=== PATIENT | female | born 1950 | race Caucasian/White ===

== ENCOUNTER → 2016-09-21 | Day surgery (SDC) | payer OTHER ==
[2016-09-15 10:53] VITALS: Ht 172.7 cm; Wt 109.1 kg
[~2016-09-21] VITALS: Ht 172.7 cm; Wt 109.1 kg
[~2016-09-21] MED LIST: DABI150C PO; FLUO40CA8 PO; INSU3INJ3 SC; LIDOCAINE HCL 2% 2 ML VIAL (20MG/ML) ONE; LISI20TA3 PO; METO50TA7 PO; MIDAZOLAM HCL 1 MG/ML 2ML VIAL ONE; ONDANSETRON INJ 2 MG/ML 2 ML VIAL ONE; PRLSR20 PO; PROPOFOL IV EMULSION 10 MG/ML 20 ML VIAL IV ONE; PRVC10 PO; SODIUM CHLORIDE 0.9% 500ML 500 ML IV ONE
--- NOTE | 2016-09-21 08:28 | Endo History and Physical ---
History & Physical Date of Service: Sep 21, 2016. Chief Complaint: screening Referring Physician: Anna Smith History of Present Illness 66 yo CF who presents for screening colonoscopy. Past Surgical History Hx Cardiac Surgery: No Hx Internal Defibrillator: No Hx Pacemaker: No Hx Abdominal Surgery: No Hx of Implantable Prosthesis: No Hx Post-Op Nausea and Vomiting: No Hx Cancer Surgery: No Hx Thoracic Surgery: No Hx Orthopedic: No Hx Urinary Tract Surgery: No Family History None Social History Smoking Status: Never Smoker Hx Substance Use: No Hx Alcohol Use: No Allergies Coded Allergies: No Known Allergies (Verified , 09/21/16) Current Medications Reported Home Medications Medications Dose Route/Sig Max Daily Dose Days Date Category Pravastatin Sodium (Pravastatin Sod) 10 Mg Tab 1 Tab PO QPM 09/15/16 Reported Levemir Flextouch (Insulin Detemir) 100 Unit/Ml Inj 22 Units SC QPM 09/15/16 Reported Toprol-Xl (Metoprolol Succinate) 50 Mg Tabcr 50 Mg PO BID 09/15/16 Reported Pradaxa (Dabigatran Etexilate Mesylate) 150 Mg Cap 150 Mg PO BID 05/10/12 Reported Prilosec (Omeprazole) 20 Mg Capcr 20 Mg PO QAM 05/10/12 Reported Prinivil (Lisinopril) 20 Mg Tab 0.5 Tab PO BID 05/10/12 Reported Prozac (Fluoxetine Hcl) 40 Mg Cap 40 Mg PO QAM 12/31/11 Reported Vital Signs Weight (Kilograms): 109.09 Height (Feet): 5 Height (Inches): 8 Date Time Temp Pulse Resp B/P Pulse Ox O2 Delivery O2 Flow Rate FiO2 09/21/16 08:16 36.4 94 20 144/101 97 Room Air Physical Exam General Appearance: WD/WN, no apparent distress Respiratory/Chest: Auscultation: breath sounds normal Cardiovascular: Heart Auscultation: RRR Abdomen: Bowel Sounds: normal Inspection & Palpation: soft, non-distended, no tenderness, guarding & rebound Assessment and Plan Assessment: 66 yo CF who presents for screening colonoscopy. Plan: Proceed with colonoscopy.
--- NOTE | 2016-09-21 08:47 | Discharge Instructions ---
Endoscopy Patient Instructions Date / Procedure(s) Performed Sep 21, 2016. Colonoscopy Allergy Information Coded Allergies: No Known Allergies (Verified , 09/21/16) Discharge Date / Findings Sep 21, 2016. Colon polyp Diverticulosis Internal hemorrhoids Medication Instructions Stopped Medication(s): Last dose Pradaxa Monday OK to resume all medications today as prescribed Reported Home Medications Medications Dose Route/Sig Max Daily Dose Days Date Category Pravastatin Sodium (Pravastatin Sod) 10 Mg Tab 1 Tab PO QPM 09/15/16 Reported Levemir Flextouch (Insulin Detemir) 100 Unit/Ml Inj 22 Units SC QPM 09/15/16 Reported Toprol-Xl (Metoprolol Succinate) 50 Mg Tabcr 50 Mg PO BID 09/15/16 Reported Pradaxa (Dabigatran Etexilate Mesylate) 150 Mg Cap 150 Mg PO BID 05/10/12 Reported Prilosec (Omeprazole) 20 Mg Capcr 20 Mg PO QAM 05/10/12 Reported Prinivil (Lisinopril) 20 Mg Tab 0.5 Tab PO BID 05/10/12 Reported Prozac (Fluoxetine Hcl) 40 Mg Cap 40 Mg PO QAM 12/31/11 Reported Provider Instructions Activity Restrictions - No exercising or heavy lifting for 24 hours. - Do not drink alcohol the day of the procedure. - Do not drive a car or operate machinery until the day after the procedure. - Do not make any important decisions or sign important papers in 24 hours after the procedure. Following Day: - Return to full activity which may include returning to work/school. Diet Start your diet with liquids and light foods (jello, soup, juice, toast). Then eat your usual diet if not nauseated. Treatment For Common After Affects For mild abdominal pain, bloating, or excessive gas: - Rest - Eat lightly - Lie on right side Follow-Up Information Follow-up with Anna Smith as scheduled Anesthesia Information What You Should Know You have had a procedure that required some medicine to reduce anxiety and discomfort. This treatment is called moderate sedation. After receiving the treatment, you may be sleepy, but you will be able to breathe on your own. The effects of the treatment may last for several hours. Follow these instructions along with Activity/Diet recommendations noted above: * Do NOT do anything where dizziness or clumsiness would be dangerous. * Rest quietly at home today, then you can be up and about tomorrow. * Have a responsible person stay with you the rest of today. * You may have had an I.V. today. If so, you may take the dressing off later today. Recommendations Call your doctor if: * Trouble breathing * Continuous vomiting for more than 24 hours * Temperature above 101 degrees * Severe abdominal pain or bloating * Pain not relieved by pain medicine ordered * There is increased drainage or redness from any incision * A large amount of rectal bleeding greater than 2-3 tablespoons. (If you had a polyp/s removed or have hemorrhoids, a small amount of blood - from the rectum is to be expected.) * You have any unanswered questions or concerns. IN THE EVENT OF A SERIOUS EMERGENCY, GO TO THE NEAREST EMERGENCY ROOM Your discharge instructions were prepared by provider Clinton Ledesma. Patient Instructions Signature Page Mamie Way Patient (or Guardian) Signature/Date: I have read and understand the instructions given to me by my caregivers. Caregiver/RN/Doctor Signature/Date: The above-named patient and/or guardian has received patient instructions on this date. + Original Patient Signature Page (only) stays with chart. Please make copy for patient.
--- NOTE | 2016-09-21 08:50 | GI REPORT ---
Procedure Date: 09/21/2016 8:32 AM THIS REPORT HAS BEEN AMENDED Addendum Number: 1 Addendum Date: 09/21/2016 9:19:12 AM Patient was taking Pradaxa and stopped 3 days prior to procedure. She may resume Pradaxa therapy today. Procedure: Colonoscopy Indications: Screening for colorectal malignant neoplasm Medicines: Monitored Anesthesia Care Complications: No immediate complications. Estimated Blood Loss: Estimated blood loss: none. Procedure: Pre-Anesthesia Assessment: - Prior to the procedure, a History and Physical was performed, and patient medications and allergies were reviewed. The patient's tolerance of previous anesthesia was also reviewed. The risks and benefits of the procedure and the sedation options and risks were discussed with the patient. All questions were answered, and informed consent was obtained. Prior Anticoagulants: The patient has taken no previous anticoagulant or antiplatelet agents. ASA Grade Assessment: II - A patient with mild systemic disease. After reviewing the risks and benefits, the patient was deemed in satisfactory condition to undergo the procedure. After I obtained informed consent, the scope was passed under direct vision. Throughout the procedure, the patient's blood pressure, pulse, and oxygen saturations were monitored continuously. The Scope was introduced through the anus and advanced to the terminal ileum. The colonoscopy was performed without difficulty. The patient tolerated the procedure well. The quality of the bowel preparation was good. The terminal ileum, ileocecal valve, appendiceal orifice, and rectum were photographed. Findings: A 5 mm polyp was found in the ascending colon. The polyp was sessile. The polyp was removed with a hot snare. Resection and retrieval were complete. Multiple small-mouthed diverticula were found in the sigmoid colon. Non-bleeding internal hemorrhoids were found during retroflexion. The hemorrhoids were small. Impression: - One 5 mm polyp in the ascending colon, removed with a hot snare. Resected and retrieved. - Diverticulosis in the sigmoid colon. - Non-bleeding internal hemorrhoids. Recommendation: - Resume previous diet. - Continue present medications. - Repeat colonoscopy for surveillance based on pathology results. - Return to primary care physician as previously scheduled. Clinton Ledesma DO 09/21/2016 8:49:53 AM This report has been signed electronically. Note Initiated On: 09/21/2016 8:32 AM I attest to the content of the Intraoperative Record and orders documented therein, exceptions below Clinton Ledesma DO 09/21/2016 9:19:40 AM This report has been signed electronically.
[2016-09-21 09:22] VITALS: BP 130/103; PULSE 78; O2SAT 100
--- NOTE | 2016-09-21 14:22 | Anesthesiology Progress Note ---
Anesthesia Post Op Note Date & Time Sep 21, 2016 at 14:21 Vital Signs Pain Intensity: 0 Vital Signs Past 12 Hours Date Time Temp Pulse Resp B/P Pulse Ox O2 Delivery O2 Flow Rate FiO2 09/21/16 09:22 78 16 130/103 100 Room Air 09/21/16 09:07 83 16 130/90 99 Room Air 09/21/16 08:52 90 16 142/88 95 Room Air 09/21/16 08:16 36.4 94 20 144/101 97 Room Air Notes Mental Status: alert / awake / arousable, participated in evaluation Pt Amnestic to Procedure: Yes Nausea / Vomiting: adequately controlled Pain: adequately controlled Airway Patency, RR, SpO2: stable & adequate BP & HR: stable & adequate Hydration State: stable & adequate Anesthetic Complications: no major complications apparent
== END | disposition home or self-care (01) ==
LOC: C.GI 07:49
PROVIDERS: ATTEND Internal Medicine
DX: Z12.11 Encounter for screening for malignant neoplasm of colon (principal); D12.2 Benign neoplasm of ascending colon; K64.8 Other hemorrhoids; K57.30 Diverticulosis of large intestine without perforation or abscess without bleeding; E11.9 Type 2 diabetes mellitus without complications

== ENCOUNTER 2017-07-15 14:09 | Inpatient (IN) | payer OTHER ==
[~2017-07-15] VITALS: Ht 172.7 cm; Wt 111.2 kg
[~2017-07-15 14:09] MED LIST changes: -LIDOCAINE HCL 2% 2 ML VIAL (20MG/ML) ONE; -MIDAZOLAM HCL 1 MG/ML 2ML VIAL ONE; -ONDANSETRON INJ 2 MG/ML 2 ML VIAL ONE; -PROPOFOL IV EMULSION 10 MG/ML 20 ML VIAL IV ONE; -SODIUM CHLORIDE 0.9% 500ML 500 ML IV ONE
[2017-07-15] MEDS ORDERED: ALBUT/IPRATROP 3MG/0.5MG NEB 3 ML VIAL INH STA (14:35)
[2017-07-15] MEDS ORDERED: SODIUM CHLORIDE 0.9% 1000ML 1,000 ML IV STA ×2 (14:35→16:08)
[2017-07-15] MEDS ORDERED: METOPROLOL TARTRATE 1 MG/ML VIAL IV STA ×2 (14:55→16:02)
--- NOTE | 2017-07-15 15:43 | DIAGNOSTIC IMAGING REPORT ---
CHEST ONE VIEW PORTABLE CLINICAL HISTORY: Cough. Tachycardia. COMPARISON STUDY: Chest radiograph and chest CT December 31, 2011. FINDINGS: The lung volumes are normal. No pneumothorax or pleural effusion is present. No consolidation is identified and there is no evidence for pulmonary edema. Mild cardiomegaly is noted. IMPRESSION: No acute cardiopulmonary findings. Electronically signed by: Fernando Ayala M.D. 07/15/2017 3:42 PM Dictated Date/Time: 07/15/2017 3:26 PM
[2017-07-15 15:56] LABS: INFLUENZA B ANTIGEN Neg for Influ B (NEG)
[2017-07-15] MEDS ORDERED: DILTIAZEM BOLUS / DRIP IV STA (16:10)
[2017-07-15 16:12] LABS: BASO % 0.2 %; BASO ABS # 0.02 K/uL (0-0.2); EOS % 0.2 %; EOS ABS # 0.02 K/uL (0-0.5); HEMATOCRIT 37.2 % (37-47); HEMOGLOBIN 12.3 g/dL (12.0-16.0); IG# 0.04 K/uL (0.00-0.02); LYMPH % 7.9 %; LYMPH ABS # 0.97 K/uL (1.2-3.4); MEAN CORPUSCULAR HEMOGLOBIN 27.8 pg (25-34); MEAN CORPUSCULAR HGB CONC 33.1 g/dl (32-36); MEAN PLATELET VOLUME 10.7 fL (7.4-10.4); MONO % 7.8 %; MONO ABS # 0.96 K/uL (0.11-0.59); NEUT % 83.6 %; NEUT ABS # 10.25 K/uL (1.4-6.5); PLATELET COUNT 213 K/uL (130-400); RED CELL DISTRIBUTION WIDTH CV 14.5 % (11.5-14.5); RED CELL DISTRIBUTION WIDTH SD 45.1 fL (36.4-46.3); WHITE BLOOD COUNT 12.26 K/uL (4.8-10.8)
--- NOTE | 2017-07-15 16:18 | EMERGENCY ROOM VISIT NOTE ---
History First contact with patient: 14:27 Chief Complaint: FLU LIKE SX Stated Complaint: VERY WEAK History of Present Illness The patient is a 67 year old female who presents to the Emergency Room via private vehicle with complaints of "very weak". The patient states that for the past 8 days she is been experiencing a cough, and feeling weak diffusely. She denies any unilateral weakness or speech troubles. She states she has minimal sinus congestion and minimal shortness of breath. She states that she has been coughing and brown-like sputum. She denies any fevers or chills. She states that she has been too weak to her meds for her atrial fibrillation. She takes Lopressor as well as Robaxin. She denies any recent long travel, recent fracture, history of blood clots, taking any hormones or abdominal pain. Review of Systems A complete 10-point Review of Systems was discussed with the patient, with pertinent positives and negatives listed in the History of Present Illness. All remaining Review of Systems questions can be considered negative unless otherwise specified. Past Medical/Surgical History Medical Problems: (1) Atrial fibrillation with RVR Afib Family History Non contributory Social History Smoking Status: Never Smoker Alcohol Use: none Marital Status: Occupation Status: employed Current/Historical Medications Scheduled Dabigatran Etexilate Mesylate (Pradaxa), 150 MG PO BID Fluoxetine Hcl (Prozac), 40 MG PO QAM Insulin Detemir (Levemir Flextouch), 22 UNITS SC QPM Lisinopril (Prinivil), 20 MG PO DAILY Metoprolol Succ (Toprol Xl) (Toprol-Xl), 50 MG PO BID Omeprazole (Prilosec), 20 MG PO QAM Pravastatin Sod (Pravastatin Sodium), 10 MG PO QPM Physical Exam Vital Signs Date Time Temp Pulse Resp B/P (MAP) Pulse Ox O2 Delivery O2 Flow Rate FiO2 07/15/17 17:11 100 27 95 07/15/17 17:06 99 25 94 07/15/17 17:01 93 18 106/90 97 07/15/17 16:57 117/71 07/15/17 16:56 121 16 85 07/15/17 16:46 88 26 98/62 94 07/15/17 16:41 91 26 97/56 92 07/15/17 16:36 105/53 07/15/17 16:34 88 18 93 2/08/27 16:31 111/60 218 16:29 118 20 93 2 16:24 128 27 95 07/15/17 16:19 124 23 96 07/15/17 16:14 142 20 96 2 16:09 155 21 94 07/15/17 16:06 118/87 07/15/17 16:04 141 34 96 07/15/17 16:01 123/59 07/15/17 15:59 142 18 95 07/15/17 15:54 149 20 96 07/15/17 15:49 146 19 96 07/15/17 15:44 142 22 95 07/15/17 15:43 141 18 113/85 95 Room Air 07/15/17 15:42 113/85 07/15/17 15:39 180 26 98 07/15/17 15:34 143 15 99 07/15/17 15:29 146 21 88 07/15/17 15:24 130 19 100 07/15/17 15:19 146 14 96 07/15/17 15:17 167 07/15/17 15:15 175 155/108 07/15/17 15:14 127 19 96 07/15/17 15:12 96 Room Air 07/15/17 15:09 162 29 96 07/15/17 15:04 156 32 95 07/15/17 14:59 156 30 94 07/15/17 14:54 145 25 96 07/15/17 14:47 155/108 2 14:46 158 20 155/108 97 Room Air 07/15/17 14:17 37.4 128 20 101/71 96 Room Air Physical Exam VITAL SIGNS - Vital signs and nursing notes were reviewed. Tachycardic. Afebrile. GENERAL -67-year-old female appearing her stated age who is in no acute distress. Patient appears ill/tired but nontoxic. Communicates well with provider and answers questions appropriately. SKIN - Without rashes. HEAD - NC/AT. EYES - PERRL with EOMI bilaterally. Sclera anicteric. EARS - No deformities of external structures noted on gross examination bilaterally. NOSE - Midline and without cyanosis. No epistaxis or purulent drainage noted. MOUTH/OROPHARYNX - Without perioral cyanosis. Buccal mucosa pink and moist and without leukoplakia. Tongue midline with equal elevation of palate bilaterally. No tonsillar hypertrophy, erythema, or exudates noted. [] dentition noted. NECK - Neck with FROM. No nuchal rigidity. LUNGS - Chest wall symmetric without accessory muscle use, intercostals retractions, or central cyanosis. Normal vesicular breath sounds CTA B/L. No wheezes, rales, or rhonchi appreciated. CARDIAC -irregularly irregular with S1/S2. No murmur, rubs, or gallops appreciated. NEUROLOGIC - Cranial nerves II through XII grossly intact. Sensory intact to light touch throughout. PSYCH - A&O, and cooperates fully with examiner. Pt is very pleasant and interacts well with examiner. Medical Decision & Procedures ER Provider Diagnostic Interpretation: CHEST ONE VIEW PORTABLE CLINICAL HISTORY: Cough. Tachycardia. COMPARISON STUDY: Chest radiograph and chest CT December 31, 2011. FINDINGS: The lung volumes are normal. No pneumothorax or pleural effusion is present. No consolidation is identified and there is no evidence for pulmonary edema. Mild cardiomegaly is noted. IMPRESSION: No acute cardiopulmonary findings. Electronically signed by: Fernando Ayala M.D. 07/15/2017 3:42 PM Dictated Date/Time: 07/15/2017 3:26 PM Laboratory Results 07/15/17 15:46 Red Blood Count 4.43, Mean Corpuscular Volume 84.0, Mean Corpuscular Hemoglobin 27.8, Mean Corpuscular Hemoglobin Concent 33.1, Mean Platelet Volume 10.7, Neutrophils (%) (Auto) 83.6, Lymphocytes (%) (Auto) 7.9, Monocytes (%) (Auto) 7.8, Eosinophils (%) (Auto) 0.2, Basophils (%) (Auto) 0.2, Neutrophils # (Auto) 10.25, Lymphocytes # (Auto) 0.97, Monocytes # (Auto) 0.96, Eosinophils # (Auto) 0.02, Basophils # (Auto) 0.02 07/15/17 15:46 Test 07/15/17 14:46 07/15/17 15:46 07/15/17 15:53 Influenza Type A Antigen Neg for Influ A (NEG) Influenza Type B Antigen Neg for Influ B (NEG) White Blood Count 12.26 K/uL (4.8-10.8) Red Blood Count 4.43 M/uL (4.2-5.4) Hemoglobin 12.3 g/dL (12.0-16.0) Hematocrit 37.2 % (37-47) Mean Corpuscular Volume 84.0 fL (80-100) Mean Corpuscular Hemoglobin 27.8 pg (25-34) Mean Corpuscular Hemoglobin Concent 33.1 g/dl (32-36) Platelet Count 213 K/uL (130-400) Mean Platelet Volume 10.7 fL (7.4-10.4) Neutrophils (%) (Auto) 83.6 % Lymphocytes (%) (Auto) 7.9 % Monocytes (%) (Auto) 7.8 % Eosinophils (%) (Auto) 0.2 % Basophils (%) (Auto) 0.2 % Neutrophils # (Auto) 10.25 K/uL (1.4-6.5) Lymphocytes # (Auto) 0.97 K/uL (1.2-3.4) Monocytes # (Auto) 0.96 K/uL (0.11-0.59) Eosinophils # (Auto) 0.02 K/uL (0-0.5) Basophils # (Auto) 0.02 K/uL (0-0.2) RDW Standard Deviation 45.1 fL (36.4-46.3) RDW Coefficient of Variation 14.5 % (11.5-14.5) Immature Granulocyte % (Auto) 0.3 % Immature Granulocyte # (Auto) 0.04 K/uL (0.00-0.02) Prothrombin Time 11.4 SECONDS (9.0-12.0) Prothromb Time International Ratio 1.1 (0.9-1.1) Activated Partial Thromboplast Time 35.5 SECONDS (21.0-31.0) Partial Thromboplastin Ratio 1.4 Anion Gap 8.0 mmol/L (3-11) Est Creatinine Clear Calc Drug Dose 47.4 ml/min Estimated GFR () 41.4 Estimated GFR (Non- 35.7 BUN/Creatinine Ratio 14.6 (10-20) Calcium Level 8.1 mg/dl (8.5-10.1) Magnesium Level 1.6 mg/dl (1.8-2.4) Total Bilirubin 0.4 mg/dl (0.2-1) Aspartate Amino Transf (AST/SGOT) 12 U/L (15-37) Alanine Aminotransferase (ALT/SGPT) 18 U/L (12-78) Alkaline Phosphatase 60 U/L (45-117) Total Creatine Kinase 73 U/L (26-192) Creatine Kinase MB < 0.5 ng/ml (0.5-3.6) Creatine Kinase MB Ratio (0-3.0) Troponin I < 0.015 ng/ml (0-0.045) Total Protein 7.2 gm/dl (6.4-8.2) Albumin 2.5 gm/dl (3.4-5.0) Globulin 4.7 gm/dl (2.5-4.0) Albumin/Globulin Ratio 0.5 (0.9-2) Thyroid Stimulating Hormone (TSH) 2.090 uIu/ml (0.300-4.500) Lactic Acid Level 2.0 mmol/L (0.4-2.0) Medications Administered Medications (Trade) Dose Ordered Sig/Glen Route Start Time Stop Time Status Last Admin Dose Admin Sodium Chloride 1,000 ml @ 999 mls/hr Q1H1M STAT IV 07/15/17 14:35 07/15/17 15:35 DC 07/15/17 15:17 999 MLS/HR Albuterol/ Ipratropium (Duoneb) 3 ml NOW STAT INH 07/15/17 14:35 07/15/17 14:38 DC 07/15/17 15:15 3 ML Metoprolol Tartrate (Lopressor Iv) 5 mg NOW STAT IV 07/15/17 14:55 07/15/17 14:56 DC 07/15/17 15:15 5 MG Sodium Chloride 1,000 ml @ 200 mls/hr Q5H STAT IV 07/15/17 16:08 07/15/17 21:07 07/15/17 16:24 200 MLS/HR Diltiazem HCl (Cardizem Inj) 20 mg TODAY@1630 IV 07/15/17 16:30 07/15/17 16:31 DC 07/15/17 16:22 20 MG Diltiazem HCl 125 mg/Dextrose 125 ml @ 0 mls/hr Q0M PRN IV 07/15/17 16:30 08/14/17 16:29 07/15/17 16:27 10 MLS/HR Medical Decision Patient was seen and evaluated as above. She presents to us today with generalized weakness, it has been ongoing for 8 days. There is a productive cough with brown sputum. She has a history of A. fib. She has not been able take all of her medications regularly secondary to being so weak to retrieve the medications. Upon my entrance into the exam room the patient has a very fast heart rate, and was found to be in the 150s. Bedside EKG per my interpretation reveals atrial fibrillation with RVR rate of 156 beats per minute. Because she has not been able take her Lopressor will provide an IV dose of this and 1 L of normal saline wide open. She was reevaluated and the heart rate persisted but the blood pressure dropped therefore Lopressor will not be continued, and decision was made to change a Cardizem drip with another NSS bolus. This appeared 20 mg bolus, followed by 10 mg per hour. Chest x-ray revealed no acute process. Rate was excellent with the Cardizem, however after the bolus and the drip was started her blood pressure began to drop therefore they drip was stopped and the heart rate continued to do well. There is slight leukocytosis at 12.26, no concerning anemia. Coags show a PTT along the 35.5. Patient had a ball panel reveals hyponatremia at 129, chloride low at 96, evidence of dehydration with creatinine 1.49, and BUN 22, glucose at 281, lactic normal at 2, cultures pending, calcium low at 8.1, magnesium low 1.6, AST low at 12, troponin negative, and TSH at 2.09. Negative for flu. I suspect that she likely is experiencing a flulike illness, which has created her weakness and then due to the weakness has not been able to take her medications and subsequent to this is in A. fib with RVR. I believe that once she is treated for the illness, is hydrated she will do well. I discussed the case with the attending physician as well as the hospitalist, Dr. Monique. Please refer to further documentation regarding the patient's stay. Blood pressure was initially low upon presentation, and it was high I suspect likely secondary to situation. Patient medication list was reviewed. In the evaluation and treatment of this patient the following differential diagnoses were entertained: ID, PE, pneumonia, bronchitis, influenza, sepsis, A. fib, among others. Impression Primary Impression: Atrial fibrillation with RVR Additional Impression: Influenza-like symptoms Critical Care I have personally spent greater than 35 minutes of critical care time in the direct management of this patient. This includes bedside care, interpretation of diagnostic studies, and testing, discussion with consultants, patient, and family members, and other required patient management activities. This 35 minutes is in excess of all separately billable procedures. Departure Information Dispostion Admitted as an inpatient Condition FAIR Referrals Anna Smith PA-C (PCP) Patient Instructions My [facility] Problem Qualifiers
[2017-07-15 16:21] LABS: INR 1.1 (0.9-1.1); PTT PATIENT 35.5 SECONDS (21.0-31.0)
[2017-07-15 16:30] LABS: ALBUMIN 2.5 gm/dl (3.4-5.0); ALT/SGPT 18 U/L (12-78); BLOOD UREA NITROGEN 22 mg/dl (7-18); CALCIUM 8.1 mg/dl (8.5-10.1); CARBON DIOXIDE 24 mmol/L (21-32); CREATININE 1.49 mg/dl (0.60-1.20); GLUCOSE 281 mg/dl (70-99); POTASSIUM 4.1 mmol/L (3.5-5.1); SODIUM 129 mmol/L (136-145)
[2017-07-15] MEDS ORDERED: DILTIAZEM HCL INJ 125 MG in DEXTROSE 5% 100ML IV PRN (16:30)
[2017-07-15] MEDS ORDERED: DILTIAZEM HCL 5 MG/ML 5 ML VIAL BOLUS/OMNI IV SCH (16:30)
[2017-07-15 16:41] LABS: ALKALINE PHOSPHATASE 60 U/L (45-117); AST/SGOT 12 U/L (15-37); CKMB < 0.5 ng/ml (0.5-3.6); TOTAL PROTEIN 7.2 gm/dl (6.4-8.2)
[2017-07-15] MEDS ORDERED: MAGNESIUM HYDROXIDE SUSP 30 ML UDC PO PRN (17:45)
[2017-07-15] MEDS ORDERED: NITROGLYCERIN 0.4 MG SL PER TAB CHARGE SL PRN (17:45)
[2017-07-15] MEDS ORDERED: METOPROLOL TARTRATE 1 MG/ML VIAL IV PRN (17:45)
[2017-07-15] MEDS ORDERED: ALUMINUM/MAGNESIUM/SIMETH (MAALOX MAX) 30 ML UDC PO PRN (17:45)
[2017-07-15] MEDS ORDERED: PNEUMOCOCCAL POLYSACCHARIDES 25 MCG/0.5 ML VIAL/SYR IM. ONE (17:45)
[2017-07-15] MEDS ORDERED: INFLUENZA VIRUS QUAD VACCINE 0.5 ML SYR IM. ONE (17:45)
[2017-07-15] MEDS ORDERED: ONDANSETRON INJ 2 MG/ML 2 ML VIAL IV PRN (17:45)
[2017-07-15] MEDS: AZITHROMYCIN 250 MG TAB PO ONE ×2 (18:00→21:00)
[2017-07-15] MEDS ORDERED: GLUCOSE 10 TABS/TUBE PO PRN (18:00)
[2017-07-15] MEDS ORDERED: GLUCOSE 40% GEL 15 GM TUBE PO PRN (18:00)
[2017-07-15] MEDS ORDERED: DEXTROSE 50% 50 ML SYR IV PRN (18:00)
[2017-07-15] MEDS ORDERED: GLUCAGON FOR INJ 1 MG VIAL SQ PRN (18:00)
--- NOTE | 2017-07-15 18:08 | History and Physical ---
History & Physical Date & Time of Service: Jul 15, 2017 at 18:01 Chief Complaint: Very Weak Primary Care Physician: Anna Smith PA-C History of Present Illness 59-year-old female presents to the weakness. She's had a one-week episode of a flulike illness and her [id number] lives with her is currently admitted with positive flow. The patient's personal flu is negative. The patient however did present in atrial fibrillation rapid ventricular response. She is a history of atrial fibrillation. She self admits to not taking her medications for 6-8 days, has not checked her glucose at home, and has been eating and drinking very little over this time. In the ER data difficult time slowing her heart rate down due to hypotension which required some fluid boluses. The patient's states that over the last 1 week she's had a intermittently productive cough of brown sputum but after initial fevers and chills she has had none since in the last few days. She is currently on a diltiazem drip in the 90-100 ventricular rate range and her blood pressure has improved with the fluid bolus. Her is at the bedside and updated they're no additional questions Family History Family history is for hypertension as mentioned there is a family member with confirmed flu positive Social History Smoking Status: Never Smoker (however live with her mother who was a smoker) Marital Status: Housing status: lives with family Occupational Status: employed Multi-Drug Resistant Organisms History of MDRO: No Allergies Coded Allergies: No Known Allergies (Verified , 07/15/17) Home Medications Scheduled Dabigatran Etexilate Mesylate (Pradaxa), 150 MG PO BID Fluoxetine Hcl (Prozac), 40 MG PO QAM Insulin Detemir (Levemir Flextouch), 22 UNITS SC QPM Lisinopril (Prinivil), 20 MG PO DAILY Metoprolol Succ (Toprol Xl) (Toprol-Xl), 50 MG PO BID Omeprazole (Prilosec), 20 MG PO QAM Pravastatin Sod (Pravastatin Sodium), 10 MG PO QPM Review of Systems ROS: well nourished well developed No double vision blurry vision No problems with speech or swallowing No palpitations, chest pain or pressure although she is in A. fib she only felt fatigued and did not experience palpitations Patient's had coughing and some mild wheezing No abdominal pain nausea vomiting diarrhea patient had decrease in appetite No burning urine urine frequency or changes in color Patient's had diffuse arthralgias and myalgias No skin rashes or oral lesions No unusual bruising or bleeding No focused back pain or numbness or loss of strength No changes in memory or confusion Physical Exam Vital Signs Date Time Temp Pulse Resp B/P (MAP) Pulse Ox O2 Delivery O2 Flow Rate FiO2 07/15/17 17:11 100 27 95 07/15/17 17:06 99 25 94 07/15/17 17:01 93 18 106/90 97 07/15/17 16:57 117/71 07/15/17 16:56 121 16 85 07/15/17 16:46 88 26 98/62 94 07/15/17 16:41 91 26 97/56 92 07/15/17 16:36 105/53 07/15/17 16:34 88 18 93 07/15/17 16:31 111/60 07/15/17 16:29 118 20 93 07/15/17 16:24 128 27 95 07/15/17 16:19 124 23 96 07/15/17 16:14 142 20 96 07/15/17 16:09 155 21 94 07/15/17 16:06 118/87 07/15/17 16:04 141 34 96 07/15/17 16:01 123/59 07/15/17 15:59 142 18 95 07/15/17 15:54 149 20 96 07/15/17 15:49 146 19 96 07/15/17 15:44 142 22 95 07/15/17 15:43 141 18 113/85 95 Room Air 07/15/17 15:42 113/85 18 15:39 180 26 98 07/15/17 15:34 143 15 99 07/15/17 15:29 146 21 88 07/15/17 15:24 130 19 100 18 15:19 146 14 96 18 15:17 167 18 15:15 175 155/108 07/15/17 15:14 127 19 96 07/15/17 15:12 96 Room Air 07/15/17 15:09 162 29 96 07/15/17 15:04 156 32 95 07/15/17 14:59 156 30 94 07/15/17 14:54 145 25 96 07/15/17 14:47 155/108 07/15/17 14:46 158 20 155/108 97 Room Air 07/15/17 14:17 37.4 128 20 101/71 96 Room Air General Appearance: + mild distress, + obese Head: normocephalic, atraumatic Eyes: normal inspection, sclerae normal Neck: supple, no JVD Respiratory/Chest: + decreased breath sounds, + accessory muscle use, + wheezing (both sides) Cardiovascular: no murmur, + tachycardia, + irregularly irregular Abdomen/GI: normal bowel sounds, non tender, soft Back: no CVA tenderness, no muscle spasm Extremities/Musculoskelatal: no pedal edema, normal range of motion Neurologic/Psych: alert, oriented x 3 Skin: normal color, warm/dry, no rash Diagnostics Laboratory Results Results Past 24 Hours Test 07/15/17 14:46 07/15/17 15:46 07/15/17 15:53 Range/Units Influenza Type A Antigen Neg for Influ A NEG Influenza Type B Antigen Neg for Influ B NEG White Blood Count 12.26 4.8-10.8 K/uL Red Blood Count 4.43 4.2-5.4 M/uL Hemoglobin 12.3 12.0-16.0 g/dL Hematocrit 37.2 37-47 % Mean Corpuscular Volume 84.0 80-100 fL Mean Corpuscular Hemoglobin 27.8 25-34 pg Mean Corpuscular Hemoglobin Concent 33.1 32-36 g/dl Platelet Count 213 130-400 K/uL Mean Platelet Volume 10.7 7.4-10.4 fL Neutrophils (%) (Auto) 83.6 % Lymphocytes (%) (Auto) 7.9 % Monocytes (%) (Auto) 7.8 % Eosinophils (%) (Auto) 0.2 % Basophils (%) (Auto) 0.2 % Neutrophils # (Auto) 10.25 1.4-6.5 K/uL Lymphocytes # (Auto) 0.97 1.2-3.4 K/uL Monocytes # (Auto) 0.96 0.11-0.59 K/uL Eosinophils # (Auto) 0.02 0-0.5 K/uL Basophils # (Auto) 0.02 0-0.2 K/uL RDW Standard Deviation 45.1 36.4-46.3 fL RDW Coefficient of Variation 14.5 11.5-14.5 % Immature Granulocyte % (Auto) 0.3 % Immature Granulocyte # (Auto) 0.04 0.00-0.02 K/uL Prothrombin Time 11.4 9.0-12.0 SECONDS Prothromb Time International Ratio 1.1 0.9-1.1 Activated Partial Thromboplast Time 35.5 21.0-31.0 SECONDS Partial Thromboplastin Ratio 1.4 Sodium Level 129 136-145 mmol/L Potassium Level 4.1 3.5-5.1 mmol/L Chloride Level 96 98-107 mmol/L Carbon Dioxide Level 24 21-32 mmol/L Anion Gap 8.0 3-11 mmol/L Blood Urea Nitrogen 22 7-18 mg/dl Creatinine 1.49 0.60-1.20 mg/dl Est Creatinine Clear Calc Drug Dose 47.4 ml/min Estimated GFR () 41.4 Estimated GFR (Non- 35.7 BUN/Creatinine Ratio 14.6 10-20 Random Glucose 281 70-99 mg/dl Calcium Level 8.1 8.5-10.1 mg/dl Magnesium Level 1.6 1.8-2.4 mg/dl Total Bilirubin 0.4 0.2-1 mg/dl Aspartate Amino Transf (AST/SGOT) 12 15-37 U/L Alanine Aminotransferase (ALT/SGPT) 18 12-78 U/L Alkaline Phosphatase 60 45-117 U/L Total Creatine Kinase 73 26-192 U/L Creatine Kinase MB < 0.5 0.5-3.6 ng/ml Creatine Kinase MB Ratio 0-3.0 Troponin I < 0.015 0-0.045 ng/ml Total Protein 7.2 6.4-8.2 gm/dl Albumin 2.5 3.4-5.0 gm/dl Globulin 4.7 2.5-4.0 gm/dl Albumin/Globulin Ratio 0.5 0.9-2 Thyroid Stimulating Hormone (TSH) 2.090 0.300-4.500 uIu/ml Lactic Acid Level 2.0 0.4-2.0 mmol/L Microbiology Results 07/15/17 Blood Culture, Received Pending 07/15/17 Blood Culture, Received Pending Diagnostic Radiology Although hyponatremic him a correct slightly due to her hyperglycemia but not to the normal range Hypomagnesemia Mild elevated white count Glucose of 281 Negative influenza CXR normal (no infiltrate) other (atrial fibrillation rapid ventricular response) Impression Assessment and Plan 67-year-old female here with outpatient viral illness now with A. fib RVR due to medical noncompliance, hyperglycemia due to medical noncompliance, possible secondary bronchitis, hyponatremia hypomagnesemia Atrial fibrillation, the patient's rates been controlled in the ER with diltiazem the patient will be sent toward telemetry unit we'll reinstitute her metoprolol giving her 0.5 mg of dig this evening using when necessary metoprolol to help augment her rate control if need be she sees Silas lange in the office. We'll maintain her Pradaxa she is typically not on aspirin by med rec in her record this may be started we'll check a troponin the morning Clinical assessment of bronchitis with audible wheezing and sputum production will use oral azithromycin and Xopenex to try to blunt any atrial fib response Noncompliant diabetic we'll continue her Levemir 20 units each evening with insulin sliding scale and diabetic diet with diabetic teaching Secondary cardiac risk prevention will continue her Pravachol Hyponatremia will check a random urine sodium to see with greater than 20 this is corrected slightly by her hyperglycemia will put on a 2 L a day fluid restriction and recheck in the morning Her depression is assessed as possibly mild at this time this may just be general illness we'll continue her Prozac DVT prevention is based upon Pradaxa VTE Prophylaxis VTE Risk Assessment Done? Y/N: Yes Risk Level: Moderate Given or contraindicated: Other Anticoagulation
[2017-07-15 19:17] VITALS: BP 140/89; PULSE 108; TEMP 36.7; O2SAT 99; BMI 38.0
[2017-07-15] MEDS ORDERED: PNEUMOCOCCAL ADMINISTRATION CHARGE ONE (19:45)
[2017-07-15] MEDS ORDERED: INFLUENZA ADMINISTRATION CHARGE ONE (19:45)
[2017-07-15] MEDS: LEVALBUTEROL 0.63MG/3 ML NEB INH SCH (19:47)
[2017-07-15 19:51] VITALS: PULSE 112; O2SAT 97
[2017-07-15 20:00] VITALS: BP 140/99; PULSE 108; TEMP 36.7; O2SAT 98
[2017-07-15] MEDS ORDERED: DIGOXIN IV 250 MCG in SYRINGE 9 ML IV ONE (20:00)
[2017-07-15] MEDS: MAGNESIUM SULFATE 1GM / D5W 1 GM in PREMIXED IN D5W 100 ML IV SCH ×2 (20:57→21:16)
[2017-07-15] MEDS: METOPROLOL TARTRATE 50 MG TAB PO SCH (21:00)
[2017-07-15] MEDS ORDERED: METOPROLOL SUCC 50MG EXT REL TAB PO SCH (21:00)
[2017-07-15] MEDS: DABIGATRAN ELEXILATE 75 MG CAP PO SCH (21:01)
[2017-07-15] MEDS: PRAVASTATIN SOD 10 MG TAB PO SCH (21:01)
[2017-07-15] MEDS: INSULIN DETEMIR FLEXPEN/FLEX TOUCH 100 UNITS/ML 3ML SC SCH (21:04)
[2017-07-15] MEDS: INSULIN ASPART 100 UNITS/ML 3 ML PEN SC SCH (21:09)
[2017-07-15 21:38] LABS: INFLUENZA A PCR POS for Influ A (NEG); INFLUENZA B PCR Neg for Influ B (NEG)
[2017-07-15 23:20] VITALS: BP 134/72; PULSE 91; TEMP 37.7; O2SAT 97
[2017-07-15] MEDS: OSELTAMIVIR PHOSPHATE SUSP 30 MG/5 ML UDP PO SCH (23:39)
[2017-07-16] VITALS (10 sets, daily range): BP systolic 103–140; BP diastolic 70–83; PULSE 76–114; TEMP 37.1–38.5; O2SAT 94–100
[2017-07-16] MEDS: LEVALBUTEROL 0.63MG/3 ML NEB INH SCH ×4 (01:49→19:51)
[2017-07-16] MEDS ORDERED: DIGOXIN IV 250 MCG in SYRINGE 9 ML IV ONE (02:00)
[2017-07-16 06:55] LABS: HEMATOCRIT 36.2 % (37-47); MEAN CELL VOLUME 84.2 fL (80-100); MEAN CORPUSCULAR HEMOGLOBIN 27.9 pg (25-34); MEAN CORPUSCULAR HGB CONC 33.1 g/dl (32-36); MEAN PLATELET VOLUME 10.6 fL (7.4-10.4); PLATELET COUNT 213 K/uL (130-400); RED CELL DISTRIBUTION WIDTH CV 14.7 % (11.5-14.5); WHITE BLOOD COUNT 12.06 K/uL (4.8-10.8)
[2017-07-16 07:21] LABS: CALCIUM 8.5 mg/dl (8.5-10.1); CREATININE 1.32 mg/dl (0.60-1.20); POTASSIUM 3.9 mmol/L (3.5-5.1)
[2017-07-16] MEDS: DABIGATRAN ELEXILATE 75 MG CAP PO SCH ×2 (07:21→20:14)
[2017-07-16] MEDS: METOPROLOL TARTRATE 50 MG TAB PO SCH ×2 (07:21→20:13)
[2017-07-16] MEDS: LISINOPRIL 20 MG TAB PO SCH (07:22)
[2017-07-16] MEDS: FLUOXETINE HCL 20 MG CAP PO SCH (07:22)
[2017-07-16] MEDS: PANTOprazole SOD 40 MG TAB PO SCH (07:22)
[2017-07-16] MEDS: OSELTAMIVIR PHOSPHATE SUSP 30 MG/5 ML UDP PO SCH ×2 (07:30→20:20)
[2017-07-16] MEDS: INSULIN ASPART 100 UNITS/ML 3 ML PEN SC SCH ×4 (07:48→20:34)
--- NOTE | 2017-07-16 09:48 | Progress Note ---
Subjective Date of Service: Jul 16, 2017. Subjective Pt evaluation today including: conversation w/ patient, physical exam, chart review, lab review, review of studies, conversation w/ exchange consultant Pain: good oral intake Voiding: no voiding problems Problem List Medical Problems: (1) Influenza-like symptoms Status: Acute Review of Systems Constitutional: No fever, No chills, No sweats, No weight loss Eyes: No worsening of vision, No redness ENT: No nasal symptoms, No sore throat Respiratory: + cough, + wheezing, + shortness of breath, + dyspnea on exertion , No dyspnea at rest Cardiac: No chest pain, No edema, No palpitations Abdomen: No pain, No nausea, No vomiting, No diarrhea Psychiatric: No depression symptoms Endo: No fatigue Skin: No rash Medications Medications (Trade) Dose Ordered Sig/Glen Route Start Time Stop Time Status Last Admin Dose Admin Sodium Chloride 1,000 ml @ 999 mls/hr Q1H1M STAT IV 07/15/17 14:35 07/15/17 15:35 DC 07/15/17 15:17 999 MLS/HR Albuterol/ Ipratropium (Duoneb) 3 ml NOW STAT INH 07/15/17 14:35 07/15/17 14:38 DC 07/15/17 15:15 3 ML Metoprolol Tartrate (Lopressor Iv) 5 mg NOW STAT IV 07/15/17 14:55 07/15/17 14:56 DC 07/15/17 15:15 5 MG Sodium Chloride 1,000 ml @ 200 mls/hr Q5H STAT IV 07/15/17 16:08 07/15/17 19:24 DC 07/15/17 16:24 200 MLS/HR Diltiazem HCl (Cardizem Inj) 20 mg TODAY@1630 IV 07/15/17 16:30 07/15/17 16:31 DC 07/15/17 16:22 20 MG Diltiazem HCl 125 mg/Dextrose 125 ml @ 0 mls/hr Q0M PRN IV 07/15/17 16:30 07/15/17 19:24 DC 07/15/17 16:27 10 MLS/HR Magnesium Sulfate 1 gm/Prmx 100 ml @ 100 mls/hr Q1H IV 07/15/17 20:00 07/15/17 21:59 DC 07/15/17 21:16 100 MLS/HR Dabigatran (Pradaxa Cap) 150 mg BID PO 07/15/17 21:00 08/14/17 20:59 07/16/17 07:21 150 MG Fluoxetine HCl (Prozac Cap) 40 mg QAM PO 07/16/17 09:00 08/15/17 08:59 07/16/17 07:22 40 MG Insulin Detemir (Levemir Flexpen/ FlexTouch) 22 units QPM SC 07/15/17 21:00 08/14/17 20:59 07/15/17 21:04 22 UNITS Lisinopril (Zestril Tab) 20 mg DAILY PO 07/16/17 09:00 08/15/17 08:59 07/16/17 07:22 20 MG Pravastatin Sodium (Pravachol Tab) 10 mg QPM PO 07/15/17 21:00 08/14/17 20:59 07/15/17 21:01 10 MG Pantoprazole Sodium (Protonix Tab) 40 mg QAM PO 07/16/17 09:00 08/15/17 08:59 07/16/17 07:22 40 MG Insulin Aspart (novoLOG ASPART) SLIDING SCALE PARAMETER ACHS SC 07/15/17 21:00 08/14/17 20:59 07/16/17 07:48 1 UNITS Digoxin 250 mcg/ Syringe 10 ml @ 2 mls/min NOW ONCE IV 07/15/17 20:00 07/15/17 20:04 DC 07/15/17 20:58 2 MLS/MIN Digoxin 250 mcg/ Syringe 10 ml @ 2 mls/min ONE ONCE IV 07/16/17 02:00 07/16/17 02:04 DC 07/16/17 02:15 2 MLS/MIN Metoprolol Tartrate (Lopressor Tab) 50 mg BID PO 07/15/17 21:00 08/14/17 20:59 07/16/17 07:21 50 MG Azithromycin (Zithromax Tab) 500 mg NOW ONCE PO 07/15/17 18:00 07/15/17 19:27 DC 07/15/17 21:00 500 MG Levalbuterol (Xopenex 0.63 Mg/ 3 Ml Neb) 0.63 mg Q6R INH 07/15/17 21:00 08/14/17 20:59 07/16/17 07:52 0.63 MG Oseltamivir Phosphate (Tamiflu Susp) 30 mg BID PO 07/15/17 23:00 07/20/17 22:59 07/16/17 07:30 30 MG Objective Vital Signs Date Time Temp Pulse Resp B/P (MAP) Pulse Ox O2 Delivery O2 Flow Rate FiO2 07/16/17 08:09 37.2 88 16 140/79 (99) 100 Room Air 07/16/17 08:00 Room Air 07/16/17 07:53 89 16 96 Room Air 07/16/17 04:25 Room Air 07/16/17 03:46 37.5 82 18 127/75 (92) 95 Room Air 07/16/17 02:15 85 07/16/17 01:49 76 16 96 Room Air 07/16/17 00:12 Room Air 07/15/17 23:20 37.7 91 20 134/72 (92) 97 Room Air 07/15/17 20:58 121 07/15/17 20:15 Room Air 07/15/17 20:00 36.7 108 24 140/99 (113) 98 Room Air 07/15/17 19:51 112 16 97 Room Air 07/15/17 19:17 36.7 108 24 140/89 99 Room Air 07/15/17 18:34 101 24 165/103 94 07/15/17 18:26 101 24 94 07/15/17 18:21 107 22 96 07/15/17 18:16 108 20 165/103 97 07/15/17 18:11 102 21 96 07/15/17 18:06 111 18 98 07/15/17 18:02 /95 07/15/17 18:01 108 26 97 07/15/17 17:56 113 17 96 07/15/17 17:51 105 19 97 07/15/17 17:46 110 21 139/73 07/15/17 17:41 96 17 90 07/15/17 17:36 91 21 96 18 17:31 103 24 /90 95 07/15/17 17:26 101 21 95 07/15/17 17:21 103 18 95 07/15/17 17:16 89 16 102/79 95 07/15/17 17:11 100 27 95 2/3/18 17:06 99 25 94 2/18 17:01 93 18 106/90 97 2//18 16:57 117/71 2//18 16:56 121 16 85 2//18 16:46 88 26 98/62 94 2//18 16:41 91 26 97/56 92 2//18 16:36 105/53 2/3/18 16:34 88 18 93 2//18 16:31 111/60 2//18 16:29 118 20 93 2//18 16:24 128 27 95 2//18 16:19 124 23 96 2//18 16:14 142 20 96 2/18 16:09 155 21 94 2/18 16:06 118/87 2/18 16:04 141 34 96 2/18 16:01 123/59 2/18 15:59 142 18 95 2//18 15:54 149 20 96 2/18 15:49 146 19 96 2/18 15:44 142 22 95 2/18 15:43 141 18 113/85 95 Room Air 18 15:42 113/85 2//18 15:39 180 26 98 2/18 15:34 143 15 99 2/18 15:29 146 21 88 2//18 15:24 130 19 100 2//18 15:19 146 14 96 2/18 15:17 167 2/18 15:15 175 155/108 2//18 15:14 127 19 96 2/18 15:12 96 Room Air 18 15:09 162 29 96 2//18 15:04 156 32 95 2//18 14:59 156 30 94 2//18 14:54 145 25 96 2//18 14:47 155/108 2/3/18 14:46 158 20 155/108 97 Room Air 218 14:17 37.4 128 20 101/71 96 Room Air Physical Exam General Appearance: no apparent distress Eyes: EOMI Neck: supple, no adenopathy Respiratory/Chest: chest non-tender, no respiratory distress, no accessory muscle use, + wheezing Cardiovascular: no murmur, + irregularly irregular Extremities: non-tender, normal inspection, no pedal edema Neurologic/Psychiatric: alert, normal mood/affect, oriented x 3 Skin: no rash Lymphatic: no adenopathy Laboratory Results Last 24 Hours Test 07/15/17 14:46 07/15/17 15:46 07/15/17 15:53 07/15/17 20:35 Influenza Type A (RT-PCR) POS for Influ A Influenza Type A Antigen Neg for Influ A Influenza Type B Antigen Neg for Influ B Influenza Type B (RT-PCR) Neg for Influ B White Blood Count 12.26 K/uL Red Blood Count 4.43 M/uL Hemoglobin 12.3 g/dL Hematocrit 37.2 % Mean Corpuscular Volume 84.0 fL Mean Corpuscular Hemoglobin 27.8 pg Mean Corpuscular Hemoglobin Concent 33.1 g/dl Platelet Count 213 K/uL Mean Platelet Volume 10.7 fL Neutrophils (%) (Auto) 83.6 % Lymphocytes (%) (Auto) 7.9 % Monocytes (%) (Auto) 7.8 % Eosinophils (%) (Auto) 0.2 % Basophils (%) (Auto) 0.2 % Neutrophils # (Auto) 10.25 K/uL Lymphocytes # (Auto) 0.97 K/uL Monocytes # (Auto) 0.96 K/uL Eosinophils # (Auto) 0.02 K/uL Basophils # (Auto) 0.02 K/uL RDW Standard Deviation 45.1 fL RDW Coefficient of Variation 14.5 % Immature Granulocyte % (Auto) 0.3 % Immature Granulocyte # (Auto) 0.04 K/uL Prothrombin Time 11.4 SECONDS Prothromb Time International Ratio 1.1 Activated Partial Thromboplast Time 35.5 SECONDS Partial Thromboplastin Ratio 1.4 Sodium Level 129 mmol/L Potassium Level 4.1 mmol/L Chloride Level 96 mmol/L Carbon Dioxide Level 24 mmol/L Anion Gap 8.0 mmol/L Blood Urea Nitrogen 22 mg/dl Creatinine 1.49 mg/dl Est Creatinine Clear Calc Drug Dose 47.4 ml/min Estimated GFR () 41.4 Estimated GFR (Non- 35.7 BUN/Creatinine Ratio 14.6 Random Glucose 281 mg/dl Calcium Level 8.1 mg/dl Magnesium Level 1.6 mg/dl Total Bilirubin 0.4 mg/dl Aspartate Amino Transf (AST/SGOT) 12 U/L Alanine Aminotransferase (ALT/SGPT) 18 U/L Alkaline Phosphatase 60 U/L Total Creatine Kinase 73 U/L Creatine Kinase MB < 0.5 ng/ml Creatine Kinase MB Ratio Troponin I < 0.015 ng/ml Total Protein 7.2 gm/dl Albumin 2.5 gm/dl Globulin 4.7 gm/dl Albumin/Globulin Ratio 0.5 Thyroid Stimulating Hormone (TSH) 2.090 uIu/ml Lactic Acid Level 2.0 mmol/L Bedside Glucose 285 mg/dl Test 07/15/17 22:05 07/16/17 06:07 07/16/17 06:47 Urine Color YELLOW Urine Appearance CLOUDY Urine pH 5.5 Urine Specific [place] 1.016 Urine Protein 1+ Urine Glucose (UA) 3+ Urine Ketones NEG Urine Occult Blood 2+ Urine Nitrite POS Urine Bilirubin NEG Urine Urobilinogen NEG Urine Leukocyte Esterase MODERATE Urine WBC (Auto) >30 /hpf Urine RBC (Auto) 10-30 /hpf Urine Hyaline Casts (Auto) 1-5 /lpf Urine Epithelial Cells (Auto) >30 /lpf Urine Bacteria (Auto) 4+ Urine Random Sodium 49 mEq/L White Blood Count 12.06 K/uL Red Blood Count 4.30 M/uL Hemoglobin 12.0 g/dL Hematocrit 36.2 % Mean Corpuscular Volume 84.2 fL Mean Corpuscular Hemoglobin 27.9 pg Mean Corpuscular Hemoglobin Concent 33.1 g/dl RDW Standard Deviation 45.0 fL RDW Coefficient of Variation 14.7 % Platelet Count 213 K/uL Mean Platelet Volume 10.6 fL Sodium Level 130 mmol/L Potassium Level 3.9 mmol/L Chloride Level 98 mmol/L Carbon Dioxide Level 27 mmol/L Anion Gap 6.0 mmol/L Blood Urea Nitrogen 18 mg/dl Creatinine 1.32 mg/dl Est Creatinine Clear Calc Drug Dose 54.0 ml/min Estimated GFR () 47.9 Estimated GFR (Non- 41.3 BUN/Creatinine Ratio 13.9 Random Glucose 175 mg/dl Calcium Level 8.5 mg/dl Magnesium Level 2.2 mg/dl Bedside Glucose 157 mg/dl Assessment and Plan 67-year-old female here with outpatient viral illness now with A. fib RVR due to medical noncompliance, hyperglycemia due to medical noncompliance, possible secondary bronchitis, hyponatremia, hypomagnesemia Atrial fibrillation, off cardizem now. Bp stable rate is between 70-90's , metoprolol to help augment her rate control if need be she sees Silas lange in the office. We'll maintain her Pradaxa she is typically not on aspirin by med rec in her record this may be started we'll check a troponin the morning Clinical assessment of bronchitis with audible wheezing and sputum production will use oral azithromycin and Xopenex to try to blunt any atrial fib response Noncompliant diabetic we'll continue her Levemir 20 units each evening with insulin sliding scale and diabetic diet with diabetic teaching Secondary cardiac risk prevention will continue her Pravachol Hyponatremia will check a random urine sodium to see with greater than 20 this is corrected slightly by her hyperglycemia will put on a 2 L a day fluid restriction and recheck in the morning Her depression is assessed as possibly mild at this time this may just be general illness we'll continue her Prozac DVT prevention is based upon Pradaxa Continued [facility] stay due to: multiple IV medications needed Discharge planning: home
[2017-07-16] MEDS: ACETAMINOPHEN 325 MG TAB PO PRN (15:59)
[2017-07-16] MEDS: PRAVASTATIN SOD 10 MG TAB PO SCH (20:14)
[2017-07-16] MEDS: INSULIN DETEMIR FLEXPEN/FLEX TOUCH 100 UNITS/ML 3ML SC SCH (20:17)
[2017-07-16] MEDS ORDERED: AZITHROMYCIN 250 MG TAB PO SCH (21:00)
[2017-07-17] VITALS (10 sets, daily range): BP systolic 115–137; BP diastolic 68–85; PULSE 79–98; TEMP 36.8–38; O2SAT 93–100; Ht 172.7 cm; Wt 111.2 kg
[2017-07-17] MEDS ORDERED: DEXTROMETHORPHAN POLYMR COMPLX 30 MG/5 ML UDP PO PRN (01:15)
[2017-07-17] MEDS: LEVALBUTEROL 0.63MG/3 ML NEB INH SCH ×4 (01:40→19:13)
[2017-07-17 06:52] LABS: CALCIUM 8.6 mg/dl (8.5-10.1); CREATININE 1.18 mg/dl (0.60-1.20); POTASSIUM 3.9 mmol/L (3.5-5.1)
[2017-07-17 07:49] LABS: HEMOGLOBIN A1C 8.5 % (4.5-5.6)
[2017-07-17] MEDS: PANTOprazole SOD 40 MG TAB PO SCH (08:29)
[2017-07-17] MEDS: LISINOPRIL 20 MG TAB PO SCH (08:29)
[2017-07-17] MEDS: FLUOXETINE HCL 20 MG CAP PO SCH (08:30)
[2017-07-17] MEDS: METOPROLOL TARTRATE 50 MG TAB PO SCH ×2 (08:30→20:51)
[2017-07-17] MEDS: DABIGATRAN ELEXILATE 75 MG CAP PO SCH ×2 (08:30→20:52)
[2017-07-17] MEDS: INSULIN ASPART 100 UNITS/ML 3 ML PEN SC SCH ×4 (08:31→20:55)
[2017-07-17] MEDS: OSELTAMIVIR PHOSPHATE SUSP 30 MG/5 ML UDP PO SCH ×2 (08:32→21:08)
[2017-07-17] MEDS ORDERED: METOPROLOL TARTRATE 25 MG TAB PO ONE (08:45)
[2017-07-17] MEDS ORDERED: LEVOFLOXACIN 750 MG TAB PO ONE (08:45)
--- NOTE | 2017-07-17 10:01 | Clinical Documentation Query ---
DANTE Lovett : CLINICAL DOCUMENTATION QUERY Blood cultures (2 of 2) positive for gram negative bacilli (from admission) Additionally, UA (from admission) positive for ntirite, leukocyte esterase, bacteria, WBC's, and urine culture positive for E.Coli. Finally, influenza A serologic testing positive. She is being treated with Zithromax, Tamiflu, and supportive care. Please clarify as clinically appropriate. In your clinical opinion is this patient being managed for: ( x ) Gram-negative bacilli bacteremia, E.Coli UTI, and Influenza A ( ) Not Agree ( ) Other explanation of clinical findings (Please Explain) ( ) Unable to determine (Please Define) ( ) Need to Discuss The medical record reflects the following clinical findings, treatment, and risk factors. Clinical Indicators: As above Treatment:She is being treated with Zithromax, Tamiflu, blood and urine cultures, droplet precautions, and supportive care Risk Factors: Age, gender, seasonal illness Please clarify and document your clinical opinion in the progress notes and discharge summary. Terms such as "probable", "suspected", "likely", "questionable", "possible", or "still to be ruled out" are acceptable. IF IN AGREEMENT, YOU MUST DOCUMENT ABOVE DIAGNOSTIC STATEMENT IN DAILY PROGRESS NOTES AND DISCHARGE SUMMARY. This document is not part of the patient's record. Thank You, Gary Lobato RN [phone]
--- NOTE | 2017-07-17 11:29 | Medical Student: [facility] ---
Med Student History & Physical Date & Time of Service: Jul 17, 2017 at 11:02 Chief Complaint: Atrial Fibrillation With Rvr Primary Care Physician: Anna Smith PA-C History of Present Illness Source: patient This is a 67-year-old female with a history of a-fib with RVR, HTN, and DMII who presented to the ED 2/3 with profound weakness and flu-like symptoms, including a productive cough. Patient states that these symptoms, along with myalgias, shortness fo breath, congestion, and decreased appetite have been present for about 1 week. She had subjective fever and chills one week ago but has not been febrile since. Her and ligqzc-hr-wsj have both been sick; her pafnpz-pk-snb is currently at [facility] with a confirmed positive influenza A PCR. Patient states that because of her illness, she has not been taking her medications, including metoprolol, lisinopril, Pradaxa, and Levimir. She was found to be hypotensive in the ED and was given several fluid boluses, along with a diltiazem drip due to a-fib with RVR. CXR was within normal limits. EKG showed a-fib with RVR. Today she says that she is feeling better. She still feels weak, but she is able to ambulate as needed, and her breathing is improved. She is still coughing some but has not brought anything up. Denies fever, chills, headache, chest pain, nausea, vomiting, abdominal pain, leg swelling, calf pain, numbness/ tingling. Denied any urinary symptoms, but says her urine has had a foul smell and has been dark yellow and cloudy for several months. +PCR for influenza A. Urine cultures +E. coli, blood cultures +Gram negative bacilli consistent with E. coli from urine. other labs significant for WBC 12.26 , random glucose 157. Past Medical/Surgical History Medical Problems: (1) Influenza-like symptoms (2) Afib with RVR (3) Hypertension (4) DMII (5) Depression Status: Acute Family History Hypertension. [id number]-vr-[id number], who lives with patient, is currently hospitalized for influenza A , +PCR. Social History Smoking Status: Never Smoker Smokeless Tobacco Use: No Drug Use: none Marital Status: Housing status: lives with family Occupational Status: employed Allergies Coded Allergies: No Known Allergies (Verified , 07/15/17) Medications Dabigatran Etexilate Mesylate (Pradaxa), 150 MG PO BID Fluoxetine Hcl (Prozac), 40 MG PO QAM Insulin Detemir (Levemir Flextouch), 22 UNITS SC QPM Lisinopril (Prinivil), 20 MG PO DAILY Metoprolol Succ (Toprol Xl) (Toprol-Xl), 50 MG PO BID Omeprazole (Prilosec), 20 MG PO QAM Pravastatin Sod (Pravastatin Sodium), 10 MG PO QPM Review of Systems Constitutional: No fever, No chills Eyes: No discharge ENT: No nasal symptoms, No sore throat Respiratory: + cough, + shortness of breath, No sputum (resolved), No hemoptysis Cardiovascular: No chest pain, No orthopnea, No edema, No palpitations Abdomen: No pain, No nausea, No vomiting Musculoskeletal: No joint pain Genitourinary - Female: + problem reported (states urine has smelled foul and been dark yellow/cloudy for several months), No dysuria, No urinary frequency, No urinary urgency, No urinary incontinence, No hematuria Neurologic: + weakness, No numbness/tingling (diffuse; non-localizing) Endocrine: + fatigue Hematologic / Lymphatic: No abnormal bleeding/bruising Integumentary: No rash Physical Exam Vital Signs (24 Hours) Date Time Temp Pulse Resp B/P (MAP) Pulse Ox O2 Delivery O2 Flow Rate FiO2 07/17/17 08:00 Room Air 07/17/17 07:42 36.8 86 18 137/85 (102) 97 07/17/17 07:15 90 16 96 Room Air 07/17/17 05:06 Room Air 07/17/17 03:30 37.8 94 22 122/83 (96) 95 Room Air 07/17/17 01:45 88 16 96 Room Air 07/17/17 00:04 Room Air 07/16/17 23:30 37.2 114 22 136/83 (100) 96 Room Air 07/16/17 20:08 Room Air 07/16/17 19:51 98 16 94 Room Air 07/16/17 19:49 37.1 98 16 103/70 (81) 95 Room Air 07/16/17 15:40 38.5 109 16 136/74 (94) 98 Room Air 07/16/17 15:30 Room Air 07/16/17 15:19 80 16 97 Room Air 07/16/17 12:00 Room Air 07/16/17 11:54 37.7 91 22 116/79 (91) 98 Room Air General Appearance: + mild distress Head: normocephalic, atraumatic Eyes: normal inspection ENT: hearing grossly normal, pharynx normal, + nasal congestion Neck: supple, no adenopathy Respiratory/Chest: chest non-tender, + crackles, + rales, + wheezing (diffuse expiratory wheeze) Cardiovascular: no edema, no JVD, + irregularly irregular Abdomen/GI: normal bowel sounds, non tender, soft Back: no CVA tenderness Extremities/Musculoskelatal: no pedal edema, normal range of motion Neurologic/Psych: no motor/sensory deficits, alert, normal mood/affect, oriented x 3 Skin: normal color, warm/dry Lymphatic: no adenopathy Diagnostics Laboratory Results Results Past 24 Hours Test 07/16/17 11:11 07/16/17 16:17 07/16/17 20:21 07/17/17 05:44 Range/Units Bedside Glucose 255 226 244 70-90 mg/dl Sodium Level 132 136-145 mmol/L Potassium Level 3.9 3.5-5.1 mmol/L Chloride Level 99 98-107 mmol/L Carbon Dioxide Level 28 21-32 mmol/L Anion Gap 5.0 3-11 mmol/L Blood Urea Nitrogen 16 7-18 mg/dl Creatinine 1.18 0.60-1.20 mg/dl Est Creatinine Clear Calc Drug Dose 60.3 ml/min Estimated GFR () 54.9 Estimated GFR (Non- 47.4 BUN/Creatinine Ratio 13.7 10-20 Random Glucose 145 70-99 mg/dl Calcium Level 8.6 8.5-10.1 mg/dl CXR normal EKG EKG in ED 07/15 showed a-fib with RVR. EKG 07/16 shows afib with improved decreased ventricular rate compared to 07/15. Impression Assessment and Plan Assessment: This is a 67-year-old female with a history of a-fib with RVR who presented to the ED 3 with profound weakness and flu-like symptoms. DDx includes a-fib with RVR, influenza, urinary tract infection with bacteremia, bronchitis, hyponatremia, increased blood glucose 2/2 medication noncompliance. Plan: A-fib with RVR -Continue metoprolol and lisinopril -Monitor on telemetry -Daily EKG followup -Continue Pradaxa UTI/E. coli bacteremia: -Continue Levaquin IV -Monitor UA and cultures for resolution Hyperglycemia: -Continue home regimen of Levemir (may not have been compliant at home - will address with PCP upon discharge) -Monitor fasting blood glucose in AM, random glucose q4hr Level of Care Telemetry Advanced Directives Existing Living Will: No Existing Power of Machinist: No Resuscitation Status FULL RESUSCITATION DVT Prophylaxis other (Pradaxa)
[2017-07-17] MEDS: ACETAMINOPHEN 325 MG TAB PO PRN (11:40)
--- NOTE | 2017-07-17 17:54 | Progress Note ---
Subjective Date of Service: Jul 17, 2017. Subjective Pt evaluation today including: conversation w/ patient, physical exam, chart review, lab review, review of inpatient medication list feeling better breathing better no new complaints no f/c/s discussed flu, bacteremia, afib Problem List Medical Problems: (1) Influenza-like symptoms Status: Acute Review of Systems all other ROS otherwise negative except for as above Objective Vital Signs Date Time Temp Pulse Resp B/P (MAP) Pulse Ox O2 Delivery O2 Flow Rate FiO2 07/17/17 16:00 Room Air 07/17/17 15:10 36.8 79 18 136/68 (90) 96 Room Air 07/17/17 14:29 87 16 97 Room Air 07/17/17 12:00 Room Air 07/17/17 11:36 37.4 93 18 118/72 (87) 95 07/17/17 08:00 Room Air 07/17/17 07:42 36.8 86 18 137/85 (102) 97 07/17/17 07:15 90 16 96 Room Air 07/17/17 05:06 Room Air 07/17/17 03:30 37.8 94 22 122/83 (96) 95 Room Air 07/17/17 01:45 88 16 96 Room Air 07/17/17 00:04 Room Air 07/16/17 23:30 37.2 114 22 136/83 (100) 96 Room Air 07/16/17 20:08 Room Air 07/16/17 19:51 98 16 94 Room Air 07/16/17 19:49 37.1 98 16 103/70 (81) 95 Room Air Physical Exam General Appearance: no apparent distress Eyes: EOMI ENT: hearing grossly normal Neck: trachea midline Respiratory/Chest: no respiratory distress, no accessory muscle use Extremities: normal range of motion Neurologic/Psychiatric: record tester II-XII nml as tested, alert, normal mood/affect Skin: normal color, warm/dry Laboratory Results Last 24 Hours Test 07/16/17 20:21 07/17/17 05:44 07/17/17 06:07 07/17/17 11:16 Bedside Glucose 244 mg/dl 144 mg/dl 241 mg/dl Sodium Level 132 mmol/L Potassium Level 3.9 mmol/L Chloride Level 99 mmol/L Carbon Dioxide Level 28 mmol/L Anion Gap 5.0 mmol/L Blood Urea Nitrogen 16 mg/dl Creatinine 1.18 mg/dl Est Creatinine Clear Calc Drug Dose 60.3 ml/min Estimated GFR () 54.9 Estimated GFR (Non- 47.4 BUN/Creatinine Ratio 13.7 Random Glucose 145 mg/dl Calcium Level 8.6 mg/dl Test 07/17/17 16:19 Bedside Glucose 126 mg/dl Assessment and Plan sepsis - due to flu and E Coli bacteremia - improving influenza - improving, continue tamiflu e coli (gram negative) UTI w bacteremia present on admission - levaquin pending final ID&S Atrial fibrillation, off cardizem now. rate control improving. continue metoprolol, additional 25mg x 1 today but suspect that afib is being driven by sepsis - so probably this will improve w improvement in sepsis, anticoagulation w pradaxa uncontrolled diabetic- on basal, add bolus. she notes that pcp was going to start this soon as well. hyperlipidemia- Pravachol Hyponatremia - improving depression - Prozac DVT prevention w Pradaxa Continued [facility] stay due to: multiple IV medications needed Discharge planning: home
[2017-07-17] MEDS: PRAVASTATIN SOD 10 MG TAB PO SCH (20:51)
[2017-07-17] MEDS: INSULIN DETEMIR FLEXPEN/FLEX TOUCH 100 UNITS/ML 3ML SC SCH (20:55)
[2017-07-18] MEDS: ACETAMINOPHEN 325 MG TAB PO PRN (00:35)
[2017-07-18 01:50] VITALS: PULSE 87; O2SAT 97
[2017-07-18] MEDS: LEVALBUTEROL 0.63MG/3 ML NEB INH SCH ×2 (02:30→07:33)
[2017-07-18 03:51] VITALS: BP 108/73; PULSE 71; TEMP 36.9; O2SAT 96
[2017-07-18 06:49] LABS: HEMATOCRIT 35.6 % (37-47); HEMOGLOBIN 11.5 g/dL (12.0-16.0); MEAN CORPUSCULAR HEMOGLOBIN 27.1 pg (25-34); MEAN CORPUSCULAR HGB CONC 32.3 g/dl (32-36); MEAN PLATELET VOLUME 10.1 fL (7.4-10.4); PLATELET COUNT 236 K/uL (130-400); RED CELL DISTRIBUTION WIDTH CV 14.6 % (11.5-14.5)
[2017-07-18 07:33] VITALS: PULSE 80; O2SAT 99
[2017-07-18 07:38] LABS: CALCIUM 8.9 mg/dl (8.5-10.1); CREATININE 1.24 mg/dl (0.60-1.20); POTASSIUM 4.4 mmol/L (3.5-5.1)
[2017-07-18 07:47] VITALS: BP 134/81; TEMP 36.5; O2SAT 98
[2017-07-18] MEDS: FLUOXETINE HCL 20 MG CAP PO SCH (07:53)
[2017-07-18] MEDS: OSELTAMIVIR PHOSPHATE SUSP 30 MG/5 ML UDP PO SCH (07:53)
[2017-07-18] MEDS: PANTOprazole SOD 40 MG TAB PO SCH (07:54)
[2017-07-18] MEDS: DABIGATRAN ELEXILATE 75 MG CAP PO SCH (07:54)
[2017-07-18] MEDS: METOPROLOL TARTRATE 50 MG TAB PO SCH (07:54)
[2017-07-18] MEDS: INSULIN ASPART 100 UNITS/ML 3 ML PEN SC SCH ×2 (07:58→11:42)
[2017-07-18] MEDS: LISINOPRIL 20 MG TAB PO SCH (07:59)
[2017-07-18] MEDS ORDERED: LVQ750 PO (10:42)
[2017-07-18] MEDS ORDERED: NVLGIPEN SC (10:42)
[2017-07-18] MEDS ORDERED: TMFUDL30 PO (10:42)
[2017-07-18] MEDS ORDERED: LEVOFLOXACIN 750 MG TAB PO SCH (11:00)
--- NOTE | 2017-07-18 11:27 | Discharge Instructions ---
Discharge Instructions Date of Service Jul 18, 2017. Admission Reason for Admission: Atrial Fibrillation With Rvr Discharge Discharge Diagnosis / Problem: influenza, E Coli UTI with subsequent bloodstream infection Discharge Goals Goal(s): Diagnostic testing, Therapeutic intervention Activity Recommendations Activity Limitations: resume your previous activity . Instructions / Follow-Up Instructions / Follow-Up Influenza -This is pretty straight-forward: we are sending you home with a prescription for four more doses of Tamiflu, starting tonight and ending with your last dose on morning. -The flu stinks! And unfortunately, it is notorious for taking a long time to recover from. As we discussed, it can take over a month to feel back to yourself - fatigue is NORMAL and EXPECTED. You will likely feel tired doing simple tasks, and it is important that you do not over-exert yourself. Your body , specifically your immune system, needs time to recover. You may be more prone to getting sick over the next few months because of the toll the flu can take on your immune system (for example, your UTI ab bacteria in your blood) -- so take it easy! E Coli UTI with bloodstream infection -We started you on an antibiotic called levafloxacin (brand name is Levaquin) while you were in the hospital. This is a perfect drug for treating both the bacteria in your urinary tract and the bacteria in your blood! -We treat blood infections like yours with two weeks of antibiotics. You have already had two doses here, so we will send you home with 12 more pills. Take one pill per day with food. -As a weird and rare side effect, levaquin can cause people to be more prone to tendonitis or even a tendon rupture - this usually only happens with a "perfect storm" of the medication, bad luck, and over-exertion - so it simply underscores the need to take it easy for the next month or so to allow time for this possible side effect to wear off Atrial fibrillation (a-fib) -This has been an ongoing problem for you, a problem that was well-controlled before you got so sick! We believe that your illness -- the flu combined with UTI and bacteria in your blood -- sent your heart over the edge and into a-fib. -Once we got you hydrated and back on your regular medications, your heart went back to its regular rhythm and rate - great! -So, why fix what isn't (normally) broken? Continue your regularly-prescribed medications as directed by the provider who prescribes them. These medications include metoprolol, lisinopril, cholesterol medication, and Pradaxa. -Follow up with your doctor in a few weeks or as scheduled, if you already have an appointment. Diabetes // adding mealtime insulin -Alright, now to the new stuff. When we checked your sugars here in the hospital , we realized they were running pretty high (around 200!), and your HbA1C (a measure of how your sugars are running over time) was high as well. -You were already on Levemir, which is what we call "basal insulin" - it does the job the pancreas would normally do, providing a base of insulin all day long. -However, this is not enough based on how high your sugars were. So, we added another type of insulin called NovoLog at each meal. This mimics the second job of your pancreas - to secrete a big dose of insulin whenever you eat a carb- rich meal. -Your sugars responded beautifully to this! They came down over 100 points, into the range we are aiming for. -Because this worked so well, we are sending you home with this type of insulin (called NovoLog), to be taken along with your Levemir. -Here's how it works. We like to have your total insulin for each day be half basal (Levemir) and half mealtime (NovoLog). You are taking 22 units of Levemir each day, which means you will need to have a total of about 22 units NovoLog divided over your three meals - roughly 7 units per meal. -7 units per meal is a good place to start for the first week or so, to get you used to it. We want you to check your sugars 2 hours after each meal - this is VERY important! It is a way to "check your work". The goal is to have your sugars at that time be 100-150. You will notice that your sugars will be higher after you eat a carb-heavy meal, like pasta. As you learn which types of meals tend to give you higher sugars at the 2-hour juan, you will be able to adjust the amount of NovoLog that you use with that kind of meal in the future. For example, if you use 7 units NovoLog and then eat spaghetti and garlic bread ( lots of carbs), your sugar two hours later might be 250 -- too high. So, next time you eat a meal like that, bump up your NovoLog dose to 9 or 10 units, and check your sugars two hours later. Keep adjusting your doses until your sugars two hours later fall within the range. -We realize that this will take time to get used to! It is very important to stick with it. Sometimes your sugars will not be where you hope they are, and that's ok! Learn with each meal, and adjust your NovoLog dose the next time. -Many patients find that keeping a journal is helpful. Write down the NovoLog dose you give yourself with each meal, what you eat, and what your sugars are two hours later. This will help you look back and use that information when you eat a similar meal in the future. And it will also help you track your progress ! You will be amazed how far you've come in just a month or two when you look back on when you first started! -Please take this sheet with you when you visit your PCP. We hope that it will help both of you to continue the conversation and treatment of your diabetes. It was our pleasure to care for you while you were here at [facility]! We hope to se you again - hopefully out in the community instead of here! All the best, Kathe and Dr. Jacobo Current Hospital Diet Patient's current hospital diet: Diabetes Type 2 Diet Discharge Diet Recommended Diet: AHA Diet (Heart Healthy) Pending Studies Studies pending at discharge: no Laboratory Results Hemoglobin A1c Test 07/16/17 06:07 Range/Units Estimated Average Glucose 197 mg/dl Hemoglobin A1c 8.5 H 4.5-5.6 % Medical Emergencies . Who to Call and When: Medical Emergencies: If at any time you feel your situation is an emergency, please call 911 immediately. . Non-Emergent Contact Non-Emergency issues call your: Primary Care Provider . . "Provider Documentation" section prepared by Rufino Jacobo. . VTE Core Measure Inpt VTE Proph given/why not?: Other Anticoagulation
[2017-07-18 11:42] VITALS: BP 114/79; PULSE 89; TEMP 37.2; O2SAT 98
[2017-07-18 12:08] VITALS: BP 114/79; PULSE 89; TEMP 37.2; O2SAT 98
--- NOTE | 2017-07-18 17:50 | Discharge Summary ---
Discharge Summary Date of Service Jul 18, 2017. Discharge Summary Admission Date: Jul 15, 2017 at 17:46 Discharge Date: Jul 18, 2017 Discharge Disposition: Home Principal Diagnosis: sepsis related to flu and E Coli bacteremia Problems/Secondary Diagnoses: sepsis and bacteremia present on admission Procedures: blood cultures showing lowry-sensitive E Coli flu swab (+) Medication Reconciliation New Medications: Insulin Aspart (Novolog Flexpen) 100 Units/Ml Inj 0 UNITS SC AC, #1 PEN Levofloxacin (Levofloxacin) 750 Mg Tab 750 MG PO DAILY@11, #12 TAB Oseltamivir Phosphate (Tamiflu) 6 Mg/Ml Bebe 30 MG PO BID, #4 TAB Continued Medications: Dabigatran Etexilate Mesylate (Pradaxa) 150 Mg Cap 150 MG PO BID, CAP Fluoxetine Hcl (Prozac) 40 Mg Cap 40 MG PO QAM Insulin Detemir (Levemir Flextouch) 100 Unit/Ml Inj 22 UNITS SC QPM Lisinopril (Prinivil) 20 Mg Tab 20 MG PO DAILY Metoprolol Succ (Toprol Xl) (Toprol-Xl) 50 Mg Tabcr 50 MG PO BID Omeprazole (Prilosec) 20 Mg Capcr 20 MG PO QAM Pravastatin Sod (Pravastatin Sodium) 10 Mg Tab 10 MG PO QPM Discharge Exam Physical Exam: General Appearance: no apparent distress Eyes: EOMI ENT: hearing grossly normal Neck: trachea midline Respiratory/Chest: no respiratory distress, no accessory muscle use Cardiovascular: + pertinent finding (rate controlled afib) Extremities: normal inspection Neurologic/Psychiatric: medical review specialist II-XII nml as tested, alert, normal mood/affect Skin: normal color, warm/dry Hospital Course sepsis - due to flu and E Coli bacteremia - improving, stable for home influenza - improving, continue tamiflu to complete 10 doses (5 days) e coli (gram negative) UTI w bacteremia present on admission - levaquin x 14 days, f/u PCP Atrial fibrillation - RVR appearing more provoked than due to baseline disease - - flu/sepsis/bacteremia all obviously can provoke tachycardia, and she was feeling lousy enough that she was having a hard time taking meds at home - now controlled - will discharge on home meds since appearing back to baseline with this. anticoagulated w pradaxa uncontrolled diabetic-A1c 8.5% on basal only at home - notes PCP was discussing adding bolus. started this here -- markedly improved sugar control. discussed this with her in regards to dynamic dosing of insulin based on carb intake - she had good fundamental understanding. will proceed with "soft carb counting" with 22 of basal in AM, and center-point of about 7 units log AC - to check 2hr postprandial glucoses and learn to vary her mealtime insulin based on carb intake (postprandial goal outlined to be between 100-150) hyperlipidemia- Pravachol Hyponatremia - improving depression - Prozac DVT prevention w Pradaxa Total Time Spent: Greater than 30 minutes This includes examination of the patient, discharge planning, medication reconciliation, and communication with other providers. Discharge Instructions Please refer to the electronic Patient Visit Report (Discharge Instructions) for additional information. Additional Copies To Anna Smith PA-C
== END 2017-07-18 12:45 | disposition home or self-care (01) | DRG 872 ==
LOC: C.EDB 14:10 → C.2T 17:46 → ENRESERV 18:00
PROVIDERS: ADMIT Internal Medicine; ATTEND Family Medicine
DX: A41.51 Sepsis due to Escherichia coli [E. coli] (principal); N17.9 Acute kidney failure, unspecified; E87.1 Hypo-osmolality and hyponatremia; N39.0 Urinary tract infection, site not specified; J11.89 Influenza due to unidentified influenza virus with other manifestations; I48.91 Unspecified atrial fibrillation; E11.65 Type 2 diabetes mellitus with hyperglycemia; F32.9 Major depressive disorder, single episode, unspecified; N18.3 Chronic kidney disease, stage 3 (moderate); E83.42 Hypomagnesemia; E78.5 Hyperlipidemia, unspecified; Z79.4 Long term (current) use of insulin; Z79.899 Other long term (current) drug therapy; Z91.14 Patient's other noncompliance with medication regimen

== ENCOUNTER 2024-07-21 06:28 | Inpatient (IN) ==
--- OUTSIDE RECORDS SUMMARY | 2024-07-21 06:31 | External Medical Summary | Summary of Care ---
Author Name Unknown Organization [facility] Address [address] [facility] [place] [address] Phone [phone] Care Team Providers Care Scientific Recruiter Name Role Phone Valentina Price DO Primary Care Provider +1- [phone] Reason for Visit * Reason Onset Date Comments TRIAGE 04/29/2024 Diabetes Management 04/29/2024 Non-CE DM Encounter Details Date Type Department Care Team (Late st Contact Info) Description 04/29/2024 Telephone Centralized Clinical Pharmacy Services, Trevor Law [address] [place] [address] [place] [address] Joellen Gerardo CPhT TRIAGE; Diabetes Management (Non-CE DM) Allergies No known active allergiesdocumented as of this encounter (statuses as of 05/22/2024) Medications PROZAC 40 MG PO CAPSIndications: Depressive disorder, not elsewhere classified one daily for depression 90 Cap 1 12/31/19 12 Active JANUVIA 100 MG PO TABSIndications: DM type 2, goal A1c below 7 one daily 90 Tab 1 12/31/19 12 Active LISINOPRIL 20 MG PO TABSIndications: HTN, goal below 130/80 One pill by mouth once a day 90 Tab 1 01/12/20 12 Active PRADAXA 150 MG PO CAPSIndications: Atrial flutter (HCC) 1 CAPSULE TWICE DAILY 90 Cap 1 01/12/20 12 Active TOPROL XL 25 MG PO [id number]: HTN, goal below 130/80 one tablet by mouth one time daily 90 Tab 1 01/12/20 12 Active OMEPRAZOLE 20 MG PO CPDRIndications: Reflux esophagitis One pill by mouth once a day 1 hour before the first meal of the day 90 Cap 1 01/12/20 12 Active [employer] ULTRASOFT LANCETS MISCIndications: DM type 2, goal A1c below 7 Use up to two times a day as directed 1 Box 11 01/12/20 12 Active [employer] ULTRA SYSTEM W/DEVICE KITIndications:D M type 2, goal A1c below 7 Use up to two times a day as directed 1 Kit 0 01/12/20 12 Active [employer] ULTRA BLUE STRPIndications: DM type 2, goal A1c below 7 test once daily; dx 250.00; non-insulin dependent 100 Strip 0 01/14/20 12 Active Jardiance 10 MG Oral Tablet (Empagliflozin) 10 mg orally daily 90 Tablet 04/03/20 23 Active BD Pen Needle Isha U/F 32G X 4 MM (Insulin Pen Needle) use once daily to administer insulin 100 Each 2 3 7:17 AM EST 04/24/20 23 Active FLUoxetine HCl 40 MG Oral Capsule (PROzac) Take 1 Capsule by mouth daily. 90 Capsule 3 3 5:42 PM EST 05/23/20 23 Active glipiZIDE ER 10 MG Oral Tablet Extended Release 24 Hour (Glucotrol XL) Take 1 Tablet by mouth daily. 90 Tablet 3 3 5:42 PM EST 05/23/20 23 Active Metoprolol Succinate ER 50 MG Oral Tablet Extended Release 24 Hour (toPROL XL) Take 0.5 Tablets by mouth daily. 45 Tablet 3 3 5:42 PM EST 05/23/20 23 Active Omeprazole 20 MG Oral Capsule Delayed Release (PriLOSEC) Take 1 Capsule by mouth daily. 90 Capsule 3 3 5:42 PM EST 05/23/20 23 Active Pravastatin Sodium 20 MG Oral Tablet (Pravachol) Take 1 Tablet by mouth daily. 90 Tablet 3 3 5:42 PM EST 05/23/20 23 Active Eliquis 5 MG Oral Tablet (Apixaban) take one tablet by mouth twice a day 180 Tablet 1 4 9:06 AM EDT 06/14/19 24 Active Levemir FlexPen 100 UNIT/ML Subcutaneous Solution Pen-injector (Insulin Detemir) inject 50 unit (0.5 mL) subcutaneously daily 45 mL 1 4 11:18 AM EST 07/14/19 24 Active Losartan Potassium 50 MG Oral Tablet (Cozaar) Take one tablet by mouth daily 90 Tablet 3 4 8:12 AM EDT 09/04/19 24 Active Eliquis 5 MG Oral Tablet (Apixaban) Take one tablet by mouth twice a day 180 Tablet 1 4 5:37 PM EST 04/15/20 24 Active Dapagliflozin Propanediol 10 MG Oral Tablet (Farxiga) Take 1 Tablet by mouth daily. 90 Tablet 2 03/28/20 24 024 Discontin ued(Exter nal Source Cancellat ion) documented as of this encounter (statuses as of 05/22/2024) Active Problems Problem Noted Date Diagnosed Date HTN, GOAL BELOW 140/80 01/30/2012 Overview: Per HTN Protocol #27. Aspirin contraindicated 01/12/2012 Overview (01/12/2012): On Pradaxa. 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 HTN, goal below 140/90 02/24 OBESITY, UNSPECIFIED 010 Overview (09/03/2009): Per Obesity Taxonomy HTN, goal below 130/80 02/01 Overview: Per HTN Protocol #27. documented as of this encounter (statuses as of 05/22/2024) Immunizations Name Administration Dates Next Due Pneumococcal Polysaccharide PPV23 (Pneumovax) Seasonal Influenza Vac., MDV, IM, 0.5 mL (Fluzon e) 06/23/2010 TDAP (age 10 and older)(Boostrix) 01/12/2012 documented as of this encounter Social History Tobacco Use Types Packs/Day Years Used Date Smoking Tobacco: Never Smokeless Tobacco: Never Alcohol Use Standard Drinks/Week Comments No 0 (1 standard drink = 0.6 oz pur e alcohol) Utilities Answer Date Recorded Do you have trouble paying y our heating, water, or electric bill? (Adult - for ages 18 years and over) Not on file 11/28/2023 Is your family able to pay t he heat, water, or electric bill? (Household - for ages 0-17 years) Not on file 11/28/2023 Does your family have access to good internet? (Household - for ages 0-17 years) Not on file 11/28/2023 Social Connections Answer Date Recorded How often do you feel lonely or isolated from those around you? 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 Health Plan Non-Clinical [place] Diabetes Initiative - Fancy Wire Drawer Triage Patient was identified to be a candidate for the Non-CE telephonic program based on the following criteria: Not High Cost / No A1c Result / PDC < 80% Is patient in SNF/hospital? No What is this patients most recent A1c? Unknown Patient managed by [employer] provider: No; Is there a more recent A1c than documented above in CareEverywhere? No Needs Language Line: No Medication Claims Data (To verify during call): Med: LEVEMIR FLEXPEN 100 Fill date: 07/14/2023 Day Supply: 90 Quantity: 45 || Med: GLIPIZIDE ER 10 MG Fill date: 05/23/2023 Day Supply: 90 Quantity: 90 Was any potentially duplicate therapy identified in claims data? No Filling as a 90 day supply: no Using [facility]: no Additional Notes: still taking levemir flexpen and glipizide? After chart review the following opportunities were identified: Mail Order Invite, Obtain Updated A1c, and Non-adherence (glipizide and levemir flexpen) Joellen Gerardo CPhT 04/29/2024, 11:10 AM documented in this encounter Plan of Treatment Upcoming Encounters Date Type Department Care Team (Late st Contact Info) Description 12/12/2024 11:00 AM EDT Imaging Radiology [address] [place] [id number] Health Maintenance Due Date Last Done Comments Depression Monitoring 1961 Hepatitis C Screening 1967 Zoster Vaccines (1 of 2) 1999 Pneumococcal Vaccine: 65+ Years (2 of 2 - PCV) 04/17/2003 04/17/2002 Diabetic Eye Exam 06/21/2011 06/21/2010 HbA1c 07/12/2012 01/10/2012, 07/28/2010 Diabetic Foot Exam 12/30/2012 12/31/2011 Albumin/Creatinine Ratio 01/09/2013 012, 07/28/2010 GFR 01/09/2013 01/10/2012, 07/28/2010 Colonoscopy 04/20/2014 04/20/2009 DXA Scan 04/21/2016 04/21/2009 DTap/Tdap Vaccines (2 - Td o r Tdap) 01/11/2022 01/12/2012 COVID-19 Vaccine (1 - 2023-2 5 season) 2024 RETIRED - COLONOSCOPY-EVERY 5 YRS AGES 18-100 Discontinued 04/20/2009 Influenza Vaccine (FLU shot) Completed 05/2024, 03/31/2023, 06/23/2010 HPV (Gardasil) Vaccine Aged Out No lo nger eligible based on patient's age to complete this topic Hepatitis B Vaccine Aged Out No longe r eligible based on patient's age to complete this topic MENINGOCOCCAL (MENACTRA/MENVEO) Aged Out No longer eligible based on patient's age to complete this topic documented as of this encounter Medical Devices Not on filedocumented as of this encounter Care Teams Scientific Recruiter Relationship Specialty Start Date End Date Valentina Price DO [address] [facility] [address] [place] [address] PCP - General Family Medicine 12/21/21 documented as of this encounter"
--- OUTSIDE RECORDS SUMMARY | 2024-07-21 06:31 | External Medical Summary | Summary of Care ---
Author Name Unknown Organization [facility] Address [address] [facility] [place] [address] Phone [phone] Care Team Providers Care Leathersmith Name Role Phone Valentina Price DO Primary Care Provider +1- [phone] Reason for Visit * Reason Onset Date Comments TRIAGE 04/29/2024 Diabetes Management 04/29/2024 Non-CE DM Encounter Details Date Type Department Care Team (Late st Contact Info) Description 04/29/2024 Telephone Centralized Clinical Pharmacy Services, Trevor Law [address] [place] [address] [place] [address] Joellen Gerardo CPhT TRIAGE; Diabetes Management (Non-CE DM) Allergies No known active allergiesdocumented as of this encounter (statuses as of 04/29/2024) Medications PROZAC 40 MG PO CAPSIndications: Depressive [...] 12 Active TOPROL XL 25 MG PO [id number]: HTN, goal below 130/80 one tablet by mouth one time daily 90 Tab 1 01/12/20 12 Active OMEPRAZOLE 20 MG PO CPDRIndications: Reflux esophagitis One pill by mouth once a day 1 hour before the first meal of the day 90 Cap 1 01/12/20 12 Active [employer] ULTRASOFT LANCETS MISCIndications: DM type 2, goal A1c below 7 Use up to two times a day as directed 1 [address] 11 01/12/20 12 Active [employer] ULTRA SYSTEM W/DEVICE KITIndications:D M type 2, goal A1c below 7 Use up to two times a day as directed 1 Kit 0 01/12/20 12 Active [employer] ULTRA BLUE STRPIndications: DM type 2, goal [...] 4 8:12 AM EDT 09/04/19 24 Active Dapagliflozin Propanediol 10 MG Oral Tablet (Farxiga) Take 1 Tablet by mouth daily. 90 Tablet 2 03/28/20 24 Active Eliquis 5 MG Oral Tablet (Apixaban) Take one tablet by mouth twice a day 180 Tablet 1 4 5:37 PM EST 04/15/20 24 Active documented as of this encounter (statuses as of 04/29/2024) Active Problems Problem Noted Date Diagnosed Date [...] as of this encounter (statuses as of 04/29/2024) Resolved Problems Problem Noted Date Diagnosed Date Resolved Date ADVANCE DIRECTIVE INFORMATION 07/26/2006 04/15/2024 Overview (07/26/2006): No, Advance Directive brochure given to patient. HTN, goal below 140/90 02/24 OBESITY, UNSPECIFIED 010 Overview (09/03/2009): Per Obesity Taxonomy HTN, goal below 130/80 02/01 Overview: Per HTN Protocol #27. 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 No What is this patients most recent A1c? Unknown Patient managed by [employer] health provider: No; Is there a more recent [...] as a 90 day supply: no Using [facility]: no Additional Notes: still taking levemir flexpen and glipizide? After chart review the following opportunities were identified: Mail Order Invite, Obtain Updated A1c, and Non-adherence (glipizide and levemir flexpen) Joellen Gerardo CPhT 04/29/2024, 11:10 AM documented in this encounter Plan of Treatment Upcoming Encounters Date Type Department Care Team (Late st Contact Info) Description 12/12/2024 11:00 AM EDT Imaging Radiology [address] [place] [address] Health Maintenance Due Date Last Done Comments [...] Vaccine (1 - 2023-2 5 season) 2024 Influenza Vaccine (FLU shot) (#1) 2024 03/31/2023, 06/23/2010 RETIRED - COLONOSCOPY-EVERY 5 YRS AGES 18-100 Discontinued 04/20/2009 HPV (Gardasil) Vaccine Aged Out No lo [...] filedocumented as of this encounter Care Teams Leathersmith Relationship Specialty Start Date End Date Valentina Price DO [address] [facility] [address] [place] [address] PCP - General Family Medicine 12/21/21 documented as of this encounter"
--- OUTSIDE RECORDS SUMMARY | 2024-07-21 06:31 | External Medical Summary | Summary of Care ---
Author Name Unknown Organization [facility] Address [address] [facility] [place] [address] Phone [phone] Care Team Providers Care Boat Loader Name Role Phone Valentina Price DO Primary Care Provider +1- [phone] Reason for Visit * Reason Onset Date Comments TRIAGE 04/29/2024 Diabetes Management 04/29/2024 Non-CE DM Encounter Details Date Type Department Care Team (Late st Contact Info) Description 04/29/2024 Telephone Centralized Clinical Pharmacy Services, Trevor Law [address] [place] [address] [place] [address] Joellen Gerardo CPhT TRIAGE; Diabetes Management (Non-CE DM) Allergies No known active allergiesdocumented as of this encounter (statuses as of 06/13/2024) Medications PROZAC 40 MG PO CAPSIndications: Depressive [...] 12 Active TOPROL XL 25 MG PO [id number]: HTN, goal below 130/80 one tablet by mouth one time daily 90 Tab 1 01/12/20 12 Active OMEPRAZOLE 20 MG PO CPDRIndications: Reflux esophagitis One pill by mouth once a day 1 hour before the first meal of the day 90 Cap 1 01/12/20 12 Active [employer] ULTRASOFT LANCETS MISCIndications: DM type 2, goal A1c below 7 Use up to two times a day as directed 1 [address] 11 01/12/20 12 Active [employer] ULTRA SYSTEM W/DEVICE KITIndications:D M type 2, goal A1c below 7 Use up to two times a day as directed 1 Kit 0 01/12/20 12 Active [employer] ULTRA BLUE STRPIndications: DM type 2, goal [...] as of this encounter (statuses as of 06/13/2024) Active Problems Problem Noted Date Diagnosed Date [...] as of this encounter (statuses as of 06/13/2024) Resolved Problems Problem Noted Date Diagnosed Date Resolved Date ADVANCE DIRECTIVE INFORMATION 07/26/2006 04/15/2024 Overview (07/26/2006): No, Advance Directive brochure given to patient. HTN, goal below 140/90 02/24 OBESITY, UNSPECIFIED 010 Overview (09/03/2009): Per Obesity Taxonomy HTN, goal below 130/80 02/01 Overview: Per HTN Protocol #27. 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 No What is this patients most recent A1c? Unknown Patient managed by [employer]ulate provider: No; Is there a more recent [...] as a 90 day supply: no Using [facility]: no Additional Notes: still taking levemir flexpen and glipizide? After chart review the following opportunities were identified: Mail Order Invite, Obtain Updated A1c, and Non-adherence (glipizide and levemir flexpen) Joellen Gerardo CPhT 04/29/2024, 11:10 AM documented in this encounter Plan of Treatment Upcoming Encounters Date Type Department Care Team (Late st Contact Info) Description 12/12/2024 11:00 AM EDT Imaging Radiology [address] [place] [phone] Health Maintenance Due Date Last Done Comments Depression Monitoring 1961 Hepatitis C Screening 1967 Zoster Vaccines (1 of 2) 1999 Pneumococcal Vaccine: 50+ Years (2 of 2 - PCV) 04/17/2003 [...] filedocumented as of this encounter Care Teams Boat Loader Relationship Specialty Start Date End Date Valentina Price DO [address] [facility] [address] [place] [address] PCP - General Family Medicine 12/21/21 documented as of this encounter"
--- OUTSIDE RECORDS SUMMARY | 2024-07-21 06:31 | External Medical Summary | Summary of Care ---
Author Name Unknown Organization [facility] Address [address] [facility] [place] [address] Phone [phone] Care Team Providers Care Regulator Operator Name Role Phone Valentina Price Primary Care Provider +1- [phone] Encounter Details Date Type Department Care Team (Late st Contact Info) Description 07/02/2024 Population Health External Data Unspecified Department Allergies No known active allergiesdocumented as of this encounter (statuses as of 07/02/2024) Medications PROZAC 40 MG PO CAPSIndications: Depressive [...] 12 Active TOPROL XL 25 MG PO [id number]: HTN, goal below 130/80 one tablet by mouth one time daily 90 Tab 1 01/12/20 12 Active OMEPRAZOLE 20 MG PO CPDRIndications: Reflux esophagitis One pill by mouth once a day 1 hour before the first meal of the day 90 Cap 1 01/12/20 12 Active [employer] ULTRASOFT LANCETS MISCIndications: DM type 2, goal A1c below 7 Use up to two times a day as directed 1 [address] 11 01/12/20 12 Active [employer] ULTRA SYSTEM W/DEVICE KITIndications:D M type 2, goal A1c below 7 Use up to two times a day as directed 1 Kit 0 01/12/20 12 Active [employer] ULTRA BLUE STRPIndications: DM type 2, goal [...] as of this encounter (statuses as of 07/02/2024) Active Problems Problem Noted Date Diagnosed Date [...] as of this encounter (statuses as of 07/02/2024) Resolved Problems Problem Noted Date Diagnosed Date Resolved Date ADVANCE DIRECTIVE INFORMATION 07/26/2006 04/15/2024 Overview (07/26/2006): No, Advance Directive brochure given to patient. HTN, goal below 140/90 02/24 OBESITY, UNSPECIFIED 010 Overview (09/03/2009): Per Obesity Taxonomy HTN, goal below 130/80 02/01 Overview: Per HTN Protocol #27. 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 Not on file Not on file documented as of this encounter Plan of Treatment Upcoming Encounters Date Type Department Care Team (Late st Contact Info) Description 12/12/2024 11:00 AM EDT Imaging Radiology [address] [place] [address] Health Maintenance Due [...] o r Tdap) 01/11/2022 01/12/2012 COVID-19 Vaccine (2023-2 5 season) 2024 RETIRED - COLONOSCOPY-EVERY 5 [...] filedocumented as of this encounter Care Teams Regulator Operator Relationship Specialty Start Date End Date Valentina Price DO [address] [facility] 2 [place] [address] PCP - General Family Medicine 12/21/21 documented as of this encounter
--- OUTSIDE RECORDS SUMMARY | 2024-07-21 06:31 | External Medical Summary | Summary of Care ---
Author Name Unknown Organization [facility] Address [address] [facility] [place] [address] Phone [phone] Care Team Providers Care Senior Label Specialist Name Role Phone Valentina Price DO Primary Care Provider +1- [phone] Reason for Visit * Reason Onset Date Comments TRIAGE 04/29/2024 Diabetes Management 04/29/2024 Non-CE DM Encounter Details Date Type Department Care Team (Late st Contact Info) Description 04/29/2024 Telephone Centralized Clinical Pharmacy Services, Trevor Law [address] [place] [address] [place] [address] Joellen Gerardo CPhT TRIAGE; Diabetes Management (Non-CE DM) Allergies No known active allergiesdocumented as of this encounter (statuses as of 05/08/2024) Medications PROZAC 40 MG PO CAPSIndications: Depressive [...] 12 Active TOPROL XL 25 MG PO [id number]: HTN, goal below 130/80 one tablet by mouth one time daily 90 Tab 1 01/12/20 12 Active OMEPRAZOLE 20 MG PO CPDRIndications: Reflux esophagitis One pill by mouth once a day 1 hour before the first meal of the day 90 Cap 1 01/12/20 12 Active [employer] ULTRASOFT LANCETS MISCIndications: DM type 2, goal A1c below 7 Use up to two times a day as directed 1 [address] 11 01/12/20 12 Active [employer] ULTRA SYSTEM W/DEVICE KITIndications:D M type 2, goal A1c below 7 Use up to two times a day as directed 1 Kit 0 01/12/20 12 Active [employer] ULTRA BLUE STRPIndications: DM type 2, goal [...] as of this encounter (statuses as of 05/08/2024) Active Problems Problem Noted Date Diagnosed Date [...] as of this encounter (statuses as of 05/08/2024) Resolved Problems Problem Noted Date Diagnosed Date Resolved Date ADVANCE DIRECTIVE INFORMATION 07/26/2006 04/15/2024 Overview (07/26/2006): No, Advance Directive brochure given to patient. HTN, goal below 140/90 02/24 OBESITY, UNSPECIFIED 010 Overview (09/03/2009): Per Obesity Taxonomy HTN, goal below 130/80 02/01 Overview: Per HTN Protocol #27. 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 No What is this patients most recent A1c? Unknown Patient managed by [employer] provider: No; Is there a more recent [...] as a 90 day supply: no Using [facility]: no Additional Notes: still taking levemir flexpen and glipizide? After chart review the following opportunities were identified: Mail Order Invite, Obtain Updated A1c, and Non-adherence (glipizide and levemir flexpen) Joellen Gerardo CPhT 04/29/2024, 11:10 AM documented in this encounter Plan of Treatment Upcoming Encounters Date Type Department Care Team (Late st Contact Info) Description 12/12/2024 11:00 AM EDT Imaging Radiology [address] [place] [phone] Health Maintenance Due Date Last Done Comments [...] filedocumented as of this encounter Care Teams Senior Label Specialist Relationship Specialty Start Date End Date Valentina Price DO [address] [facility] 2 [place] [address] PCP - General Family Medicine 12/21/21 documented as of this encounter"
--- OUTSIDE RECORDS SUMMARY | 2024-07-21 06:31 | External Medical Summary | Summary of Care ---
Author Name Unknown Organization [facility] Address [address] [facility] [place] [address] Phone [phone] Care Team Providers Care Real Estate Consultant Name Role Phone Valetnina Price DO Primary Care Provider [phone] Reason for Visit * Reason Onset Date Comments TRIAGE 04/29/2024 Diabetes Management 04/29/2024 Non-CE DM Encounter Details Date Type Department Care Team (Late st Contact Info) Description 04/29/2024 Telephone Centralized Clinical Pharmacy Services, [facility] Law [address] [place] [address] [place] [phone] Joellen Gerardo CPhT TRIAGE; Diabetes Management (Non-CE DM) Allergies No known active allergiesdocumented as of this encounter (statuses as of 06/27/2024) Medications PROZAC 40 MG PO CAPSIndications: Depressive [...] 12 Active TOPROL XL 25 MG PO [id number]: HTN, goal below 130/80 one tablet by mouth one time daily 90 Tab 1 01/12/20 12 Active OMEPRAZOLE 20 MG PO CPDRIndications: Reflux esophagitis One pill by mouth once a day 1 hour before the first meal of the day 90 Cap 1 01/12/20 12 Active [employer] ULTRASOFT LANCETS MISCIndications: DM type 2, goal A1c below 7 Use up to two times a day as directed 1 [address] 01/12/20 12 Active [employer] ULTRA SYSTEM W/DEVICE KITIndications:D M type 2, goal A1c below 7 Use up to two times a day as directed 1 Kit 0 01/12/20 12 Active [employer] ULTRA BLUE STRPIndications: DM type 2, goal [...] as of this encounter (statuses as of 06/27/2024) Active Problems Problem Noted Date Diagnosed Date [...] as of this encounter (statuses as of 06/27/2024) Resolved Problems Problem Noted Date Diagnosed Date Resolved Date ADVANCE DIRECTIVE INFORMATION 07/26/2006 04/15/2024 Overview (07/26/2006): No, Advance Directive brochure given to patient. HTN, goal below 140/90 02/24 OBESITY, UNSPECIFIED 010 Overview (09/03/2009): Per Obesity Taxonomy HTN, goal below 130/80 02/01 Overview: Per HTN Protocol #27. 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 No What is this patients most recent A1c? Unknown Patient managed by Lingt provider: No; Is there a more recent [...] as a 90 day supply: no Using [facility]: no Additional Notes: still taking levemir flexpen and glipizide? After chart review the following opportunities were identified: Mail Order Invite, Obtain Updated A1c, and Non-adherence (glipizide and levemir flexpen) Joellen Gerardo CPhT 04/29/2024, 11:10 AM documented in this encounter Plan of Treatment Upcoming Encounters Date Type Department Care Team (Late st Contact Info) Description 12/12/2024 11:00 AM EDT Imaging Radiology [address] [place] [id number] Health Maintenance Due Date Last Done Comments [...] filedocumented as of this encounter Care Teams Real Estate Consultant Relationship Specialty Start Date End Date Valentina Price DO [address] [facility] [address] [place] [address] PCP - General Family Medicine 12/21/21 documented as of this encounter"
[2024-07-21 07:21] LABS: Basophils # (auto) 0.07 K/uL (0.00-0.20); Basophils % (auto) 0.6 %; Eosinophils # (auto) 0.09 K/uL (0.00-0.50); Eosinophils % (auto) 0.8 %; Hematocrit (blood only) 38.2 % (37.0-47.0); Hemoglobin 12.5 g/dl (12.0-16.0); Immature Granulocytes # (auto) 0.09 K/uL (0.01-0.20); Immature Granulocytes % (auto) 0.8 %; Lymphocytes # (auto) 0.56 K/uL (1.20-3.40); Lymphocytes % (auto) 4.9 %; Mean Corpuscular Hemoglobin 27.4 pg (25.0-34.0); Mean Corpuscular Hgb Conc 32.7 g/dL (32.0-36.0); Mean Corpuscular Volume 83.8 fL (80.0-100.0); Monocytes # (auto) 0.82 K/uL (0.11-0.59); Monocytes % (auto) 7.2 %; Neutrophils # (auto) 9.74 K/uL (1.40-6.50); Neutrophils % (auto) 85.7 %; Platelet Count 228 K/uL (130-400); RDW Coefficient of Variation 15.5 % (11.5-14.5); RDW Standard Deviation 47.6 fL (36.4-46.3); Red Blood Count 4.56 M/uL (4.20-5.40); White Blood Count 11.37 K/ul (4.8-10.8)
[2024-07-21 07:32] LABS: Albumin Level 4.1 gm/dl (3.4-5.0); BUN Creatinine Ratio 16.6 (10-20); Bilirubin,Total 0.8 mg/dl (0.2-1.0); Calcium 13.3 mg/dl (8.6-10.3); Creatinine Clr Calc Pharmacy 27.5 ml/min; Globulin 4.2 gm/dl (2.5-4.0); Magnesium 1.9 mg/dl (1.7-2.4); Potassium 4.5 mmol/L (3.5-5.1); Total Protein 8.3 gm/dl (6.0-8.3); Troponin I High Sensitivity 3.8 pg/ml (0-14)
[2024-07-21 07:34] LABS: Appearance Urine Clear (Clear); Bacteria Urine Automated None Seen (None Seen); Bilirubin Urine Negative (Negative); Blood Urine 1+ (Negative); Cast Urine Automated 0-2 /lpf (0-2); Color Urine Yellow; Epithelial Cell Urine Auto 0-2 /hpf (0-2); Glucose Urine UA 3+ (Negative); Ketones Urine Negative (Negative); Leukocyte Esterase Urine Negative (Negative); Nitrite Urine Negative (Negative); Protein Urine Trace (Negative); RBC Urine Automated 0-2 /hpf (0-2); Specific Gravity Urine 1.012 (1.000-1.030); Urobilinogen Urine Negative (Negative); WBC Urine Automated 0-5 /hpf (0-5); pH Urine 7.5 (4.5-7.5)
[2024-07-21 07:41] LABS: Partial Thromboplastin Time 28 Seconds (21-31); Prothrombin Time 11.2 Seconds (9.0-12.0)
--- NOTE | 2024-07-21 07:47 | XRay Report ---
EXAM: XR knee LT 3V CLINICAL HISTORY: fall TECHNIQUE: Radiograph of knee was acquired. COMPARISON: No FINDINGS: Patella donte. Lateral patellar dislocation likely due to disruptive changes to the medial patellar retinaculum. Mild thickening and irregularity of medial patellar retinaculum soft tissue shadow noted. Degenerative changes in the form of asymmetrical reduction in joint space, marginal osteophytes, subchondral cysts and areas of subchondral sclerosis. There is no evidence of acute fracture, or osseous lesion. The patellofemoral joint space shows irregular reduction. Rest of the soft tissues appear unremarkable. No evidence of joint effusion. IMPRESSION: 1. No acute osseous abnormality. 2. Patella donte. OBX.5.1OBX.5.1.13. Lateral patellar dislocation likely due to disruptive changes to medial patellar retinaculum. Mild thickening and irregularity of medial patellar retinaculum soft tissue shadow. Suggest- Correlation /OBX.5.1.1OBX.5.1.2 further evlaution with MRI knee./OBX.5.1.2/OBX.5.1 4. Osteoarthritis. Electronically signed by Eldon Mak 07-21-2024 07:46 AM
--- NOTE | 2024-07-21 07:48 | XRay Report ---
EXAM: XR chest 1V portable CLINICAL HISTORY: neuro deficit, acute stroke suspected TECHNIQUE: Radiograph of chest was acquired. COMPARISON: 04/03/2018 12:17:59 RUBBER MIXER FINDINGS: The lungs are clear and well-expanded with no pulmonary infiltrate or pleural effusion. The cardiomediastinal silhouette is within normal limits. No acute osseous abnormality. IMPRESSION: 1. No acute cardiopulmonary disease. (No new finding) Electronically signed by Eldon Mak 07-21-2024 07:48 AM
[2024-07-21 07:49] LABS: Adenovirus PCR Not Detected (NotDetected); Bordetella parapertussis PCR Not Detected (NotDetected); Bordetella pertussis PCR Not Detected (NotDetected); Chlamydia pneumoniae PCR Not Detected (NotDetected); Coronavirus 229E PCR Not Detected (NotDetected); Coronavirus CoV-2 (COVID19)PCR Not Detected (NotDetected); Coronavirus HKU1 PCR Not Detected (NotDetected); Coronavirus NL63 PCR Not Detected (NotDetected); Coronavirus OC43PCR Not Detected (NotDetected); Human Metapneumovirus PCR Not Detected (NotDetected); Influenza A PCR Not Detected (NotDetected); Influenza B PCR Not Detected (NotDetected); Mycoplasma pneumoniae PCR Not Detected (NotDetected); Parainfluenza Virus 1 PCR Not Detected (NotDetected); Parainfluenza Virus 2 PCR Not Detected (NotDetected); Parainfluenza Virus 3 PCR Not Detected (NotDetected); Parainfluenza Virus 4 PCR Not Detected (NotDetected); Respiratory Syncytial VirusPCR Not Detected (NotDetected); Rhinovirus/Enterovirus PCR Not Detected (NotDetected)
--- NOTE | 2024-07-21 07:52 | XRay Report ---
EXAM: XR ankle LT min 3V routine CLINICAL HISTORY: fall TECHNIQUE: Radiograph of ankle was acquired. COMPARISON: No FINDINGS: There is no evidence of acute fracture, dislocation or osseous destructive lesion. The talar dome is unremarkable. The ankle mortise is intact. The soft tissues appear unremarkable. IMPRESSION: 1. No acute osseous or soft tissue abnormality. Electronically signed by Eldon Mak 07-21-2024 07:52 AM
--- NOTE | 2024-07-21 08:30 | CT Scan Report ---
CT head/brain wo con CLINICAL HISTORY: 74 years-old Female with acute stroke suspected, fall, L leg weakness. Acute strok elike symptoms TECHNIQUE: Multiple axial CT images of the head were obtained without contrast. A dose lowering tech nique was utilized adhering to the principles of ALARA. CT DOSE: 663.26 mGy.cm COMPARISON: None. FINDINGS: No acute intracranial hemorrhage, midline shift, intracranial mass, hydrocephalus, territorial ischem ia or abnormal extra-axial collection. Involutional changes with white matter hypodensities suggestiv e of chronic microvascular ischemic disease. The calvarium is intact. The paranasal sinuses, mastoid air cells, and middle ear cavities are clear . IMPRESSION: No acute intracranial abnormality. ACT 112: Negative or not required by law. The above report was generated using voice recognition software. It may contain grammatical, syntax o r spelling errors. Electronically signed by: Martin Plascencia M.D. 07/21/2024 8:28 AM
[2024-07-21] MEDS: SODIUM CHLORIDE 0.9% 1,000 ML IV ONE (08:45)
--- NOTE | 2024-07-21 09:56 | History & Physical Report ---
Date of Service July 21, 2024 Assessment & Plan (1) Fall: (2) Left knee dislocation: (3) Hypercalcemia: (4) Stage 3b chronic kidney disease: (5) Diabetes mellitus: (6) Thickened endometrium: Plan This is a 74 year old female with past medical history of A fib, Diabetes, hyperlipidemia, stage 3b CKD who presented to the ED on 07/21 for complaints of a fall. Patient reportedly stopped taking all of her medications for ~6 weeks and subsequently decided to resume them ~3 days ago. Suspect her dizziness is likely related to her hypercalcemia and left knee weakness/pain is secondary to her left knee dislocation. #fall/knee dislocation Patient reportedly experienced dizziness and fell twice in her bathroom. She struck her left leg and head against the sink. Left ankle xr: negative CXR: negative Head CT negative Left knee XR: lateral patellar dislocation likely due to disruptive changes to medial patellar retinaculum. mild thickening and irregularity of medial patellar retinaculum soft tissue shadow. Recommend MRI knee CBC w/ mild leukocytosis of 11.37 BMP w/ hyponatremia of 133, hypercalcemia 13.3, elevated creatinine 2.11 Respiratory Biofire negative Urinalysis negative for infection. Troponin 3.8 s/p 1L fluids in ED MRI/MRA brain/neck negative Left knee MRI - no acute fx or dislocation. moderate-severe OA. moderate sized joint effusion w/ intra-articular loose bodies/debris. . Orthostatic vital signs Update Lipid panel in AM Orthopedics consulted, appreciate recommendations. PT/OT consulted, appreciate recommendations Fall precautions #hypercalcemia/ERMA/CKD stage 3B Calcium 13.3, creatinine 2.11/BUN 35 on admission Follows w/ nephrology outpatient, last office visit 04/29. s/p 1L IVF in ED, additional 1L given recheck BMP this afternoon Hold Losartan CTAP w/ contrast - nonspecific mildly enlarged periaortic, pericaval and periportal lymph nodes. mild interstitial pulmonary edema w/ small pleural effusions. prior granulomatous disease. pathologic thickening of endometrium. Consider Chest CT w/ contrast dependent upon renal function in AM Reached out to gynecology regarding endometrial thickening --> recommend outpatient follow up for biopsy upon discharge Consider nephrology consultation if calcium not improving monitor on telemetry Ionized calcium, and PTH pending #T2 Diabetes On Glipizide and insulin outpatient. A1c 04/23/24 - 8%, suspect worsening given patient did not take medications x 6 weeks Update A1c in AM Sliding scale goal 110-160, CF 15 Insulin detemir 50 units subQ daily Pharmacy consulted, appreciate recommendations Chronic conditions: Mental Health: fluoxetine A fib/HTN: Metoprolol, hold Losartan due to ERMA GERD: PPI HLD: statin DVT prophylaxis: hold pending ortho consult, if no surgical intervention start outpatient Eliquis dosage Code: DNR/DNI Case discussed w/ Dr. Cuenca at time of admission Updated with plan of care at bedside on admission History of Present Illness Primary Care Provider: Valentina Price DO This is a 74 year old female with past medical history of A fib, Diabetes, hyperlipidemia, stage 3b CKD who presented to the ED on 07/21 for complaints of a fall. Patient seen and examined at bedside. present. Patient reports she fell twice overnight. She states the first time she fell back onto the toilet. She then states she fell and hit her left leg and head against the sink. She states she felt dizzy prior to the falls. She states that for about the last 6 weeks she has not been taking any of her medications because she did not want to. She states she resumed all of her medications a few days ago. She admits to shortness of breath but states that this is a chronic complaint for her. She was experiencing some chest pain last night. Her biggest complaint is her left knee/ankle pain. She states she has been having issues with her left knee for awhile now. She has not seen a surgeon or had imaging outpatient on it. She did try PT but this was unsuccessful for her. She also has been following with nephrology for her hypercalcemia. While in the ED she had a left knee xr concerning for a patellar dislocation. Her calcium was 13.3 and creatinine was above baseline at 2.11. She had a negative head CT. Brain MRI/MRA and Left knee MRI pending. she was given a L of fluids. Allergies Allergy/AdvReac Type Severity Reaction Status Date / Time No Known Allergies Allergy Verified 07/21/24 09:52 Home Medications Medication Instructions Recorded Confirmed Type flash glucose sensor (FreeStyle #1 ea 07/12/21 04/29/24 Rx Darell 14 Day Sensor kit) pen needle, diabetic 32 gauge x #100 ea 04/24/23 04/29/24 Rx /32" (BD Ultra-Fine Isha Pen Needle) fluoxetine 40 mg capsule 40 mg PO DAILY #90 caps 05/23/23 07/21/24 Rx glipizide 10 mg tablet, extended 10 mg PO DAILY #90 tabs 05/23/23 07/21/24 Rx release 24 hr metoprolol succinate 50 mg 25 mg (1/2 x 50 mg) PO DAILY 90 05/23/23 07/21/24 Rx tablet,extended release 24 hr days #45 tabs pravastatin 20 mg tablet 20 mg PO DAILY #90 tabs 05/23/23 07/21/24 Rx apixaban 5 mg tablet (Eliquis) 5 mg PO BID #180 tabs 04/15/24 07/21/24 Rx omeprazole 20 mg capsule,delayed 20 mg PO DAILY #90 caps 07/18/24 07/21/24 Rx release losartan 50 mg tablet 50 mg PO DAILY #90 tabs 07/19/24 07/21/24 Rx cholecalciferol (vitamin D3) 50 50 mcg PO DAILY 07/21/24 07/21/24 History mcg (2,000 unit) capsule (Vitamin D3) insulin detemir U-100 100 unit/mL 0 unit subcut DAILY 07/21/24 07/21/24 History (3 mL) subcutaneous pen Past Med/Surg History Problem List (Updated 07/21/24 @ 21:11 by Caio Cuenca MD) Thickened endometrium Left ankle pain Knee osteoarthritis Subluxation of left patella (Acute) Anticoagulated (Acute) Chronic renal insufficiency (Acute) Fall (Acute) Hypercalcemia (Acute) Left leg weakness (Acute) Left knee dislocation Fall Acute kidney injury Weight loss, abnormal Anxiety Depression Stage 3b chronic kidney disease Hypercalcemia Heart murmur Vitamin D insufficiency Atrial fibrillation Diabetes mellitus Hypertension Urinary incontinence Hyperlipidemia Medical History Anorexia Fatigue Cough Surgical History H/O elbow surgery Family History Mother Breast cancer Alcoholic Dementia Father Skin cancer Diabetes Grandmother (Paternal) Breast cancer Denies family history of Ovarian cancer Prostate cancer Myocardial infarction Colorectal cancer Social History Smoking Status: Never smoker Second Hand Exposure: No; Do You Dip or Chew Tobacco: No; Tobacco Cessation Education Requested by Patient: No Hx Alcohol Use: No Hx Substance Use: No Preferred Language: Romanian Communication Ability: Effective Visual Impairment: Limited Hearing Ability: Normal Cutting Table Operator First Required: No Beliefs That Will Affect Care: Temple Temple Beliefs: zoroastrian marital status: Current Living Situation: Spouse current occupational status: retired current occupation: [employer] How many Children do You have: 1 Other Information That Helps Us Care for You: No Feels Safe at Home: Yes Safety Concerns: Feels Safe At This Time Childhood Exposure to Second-Hand Smoke: Yes Diet: regular caffeine: Yes during the past year weight has: remained stable Dental Care, Regularly: Yes Physical Activity Frequency: Does not Exercise Seatbelt Use: always Sunscreen Use: Yes Assistive Devices: Cane Physical Exam Constitutional: WD/WN, vitals as above Eyes: PERRL, conjunctivae normal, anicteric sclerae Respiratory: normal respiratory effort, lungs clear to auscultation Cardiovascular: RRR, no murmur, no edema Musculoskeletal: strength 5/5 in extremities Skin: slight ecchymosis to lateral portion of left knee Neurologic: PERRL, EOMI, accommodation nl, no face palsy, no dysarthria Psychiatric: A+Ox3, euthymic affect Results & Data Results & Data Vital Signs (Past 12 Hours) Vital Signs Temp Pulse Resp BP Pulse Ox O2 Del Method 07/21/24 08:36 76 14 130/67 96 07/21/24 06:34 105 H 07/21/24 06:31 36.9 C 108 H 20 145/96 H 95 Room Air Supervising Physician Co-Signing Physician Notes I personally saw and examined the patient. I independently reviewed the labs, EKG, imaging, problem list, medication list, past medical history and family history. I verified all perez points and agree with Sonali Mcclure PA-C with the following exceptions and/or additions: 74 year old female presents to the ER following a ground level fall presents with left knee pain and swelling. Hit the left side of her head. Patient stopped all of her medications 6 weeks ago and just resumed them 2 days ago. O/E A&Ox3, HS RRR, systolic murmur (patient reports longstanding), Chest CTAB, Abdo SNT, left knee effusions present with joint line pain A/P Left sided weakness suspect more just from left knee effusion - appears to be osteoarthritis on MRI, no patellar dislocation, consult orthopedics. Brain MRI negative for CVA Hypercalcemia - possibly some dehydration from her stopping her diabetes medications and will rehydrate overnight. No excessive vitamin D or supplement use although she does mention drinking a lot of milk. This appears to be ongoing with the next step in plan was to get CT chest/abdo/pelvis, unfortunately this was only ordered as abdo/pelvis therefore will get the chest tomorrow as long as Cr is stable. Repeat calcium and ionized calcium following rehydration. Consult nephrology. Endometrial thickening - PA discussed with BUSINESS OFFICE MANAGER with plan for outpatient workup, discussed with patient PG Care Time/CCT Total # of Minutes Spent Total Time Spent with Patient: Total time spent is greater than 50% in coordination of care (as documented) at patient's floor/unit and/or counseling patient: Coding Level of Care Code 23112 INT INP/OBS CARE 3/75MIN Diagnoses Fall W19.XXXA Left knee dislocation S83.105A Hypercalcemia E83.52 Stage 3b chronic kidney disease N18.32 Diabetes mellitus E11.9 Thickened endometrium R93.89
--- NOTE | 2024-07-21 10:10 | Emergency Department Note ---
Impression & Plan Left leg weakness, Hypercalcemia, Fall, Chronic renal insufficiency, Anticoagulated, Subluxation of left patella ED Provider Note NAME: BERT QUINTANILLA AGE: 74 SEX: Female INFORMANT: Patient ED PROVIDER(S): Cosmo Encinas MD CHIEF COMPLAINT: Fall PLAN: Disposition: Admitted Outpatient prescription management: none Referral: None MEDICAL DECISION MAKING: Patient was evaluated. She was out of the window for TNK consideration due to her time of onset but also of her history of anticoagulation. There was concerns about possible stroke given the lack of anticoagulation recently and her A-fib history. Head CT was done and was negative. No trauma was noted. X- ray imaging shows some mild subluxation of the left patella. It is easily mobile on physical examination. Is not dislocated. She has no significant joint effusion on physical examination. Patient had negative ankle x-ray. Her blood work revealed a mild leukocytosis and significant elevation of her blood calcium level of 13.3. She was hydrated. Creatinine is elevated but at baseline. BioFire testing was negative. Patient will need further evaluation and management in the hospital. MR imaging including MR angiography was ordered to further delineate the possible neurologic etiologies. [facility] Case discussed and diagnostics were reviewed. Patient will be admitted under Dr. Cuenca for further management. I refer you to the EMR for further details. Care/management discussed with: manager estate Level of care consideration(s): After review of the information above and other included data, I feel the patient requires escalation of care to admission Triage Nursing notes: reviewed and agree them. Vital Signs: reviewed and remarkable for no significant abnormalities Additional History obtained from: none Chronic Medical/Social Conditions affecting care: A-fib Prior/ Outside/ External records reviewed: none Differential Diagnosis: CVA, TIA, infection, dehydration, metabolic abnormality, hypo/hyperglycemia, electrolyte disturbance, anemia, hypoxia, cardiac sources, intracerebral event, toxicologic, neurologic, as well as other pathologies. Diagnostics, independently interpreted by me: ECG: Twelve-lead ECG reveals atrial fibrillation at [address] elevation or depression. Cardiac Monitoring: Cardiac monitoring ordered by me: The patient was placed on continuous cardiac monitoring and observed. It revealed atrial fibrillation at 81 bpm. Medical decision rules: none Imaging studies: Head CT: A noncontrast CT scan of the head was performed and was negative for tumor, fracture, intracranial hemorrhage, or other acute pathology. Examining of the left ankle is negative for fracture or dislocation. X-ray imaging of the left knee reveals mild subluxation of the left patella. Degenerative changes noted. No fracture. MR imaging pending. HPI: 74 year old Female arrives for evaluation of fall. Patient is that she woke up this morning and fell around 2 AM. She states that her left leg was not working right. She fell again at 4 AM while trying to go to the bathroom. Patient does have a history of A-fib. She is anticoagulated but does note that she was off her anticoagulation intentionally on her own accord for the last 6 weeks but restarted 3 days ago. Patient notes pain in the left knee and ankle. She did note bumping her head on the second fall. Patient did have some dizziness as well. Pt denies LOC, headache, fevers, chills, diaphoresis, visual changes, neck pain, chest pain, breathing difficulties, nausea, vomiting, abdominal pain, back pain, melena, hematochezia, urinary symptoms, lymphadenopathy, rash, or other complaints. PAST MEDICAL HISTORY: See Below, renal insufficiency, A-fib, diabetes PAST SURGICAL HISTORY: See Below, SOCIAL HISTORY: See Below, HOME MEDICATIONS: See Below ALLERGIES: See Below VITALS: See Below PHYSICAL EXAMINATION: GENERAL: Awake, alert, [id number], in no distress HENT: Normocephalic, atraumatic. Oropharynx unremarkable. EYES: Normal conjunctiva. Sclera non-icteric. NECK: Inspection normal. Non-tender. Supple. No nuchal rigidity. FROM. No masses. RESPIRATORY: Clear to auscultation. No wheezes. No rales. Normal respiratory effort. CARDIAC: Normal rate. Irregular rhythm. No murmurs. No rubs. Extremities warm and well perfused. Pulses equal. No JVD. GI: Soft, non-distended. No tenderness to palpation. No rebound or guarding. No masses. RECTAL: Deferred. MUSCULOSKELETAL: Both upper extremities are atraumatic. Right lower extremity atraumatic. Examination of left lower extremity reveals mild tenderness palpation of the left knee anteriorly. No joint effusion. No clinical signs of patellar dislocation. There are some mild patellar tenderness to palpation. Mild ankle discomfort with palpation. No open wounds. Chest examination reveals no tenderness. The back is symmetrical on inspection without obvious abnormality. There is no CVA tenderness to palpation. No joint edema. LOWER EXTREMITIES: Calves are equal size bilaterally and non-tender. No edema. No discoloration. NEURO: Normal sensorium. Patient has some mild drift and weakness noted in the left lower extremity. No other sensory or motor deficits noted. SKIN: No rash or jaundice noted. PROCEDURES: none CRITICAL CARE: none OBSERVATION NOTE: none Past Med/Surg History Problem List (Updated 07/21/24 @ 10:10 by Cosmo Encinas MD) Subluxation of left patella (Acute) Anticoagulated (Acute) Chronic renal insufficiency (Acute) Fall (Acute) Hypercalcemia (Acute) Left leg weakness (Acute) Left knee dislocation Fall Acute kidney injury Weight loss, abnormal Anxiety Depression Stage 3b chronic kidney disease Hypercalcemia Heart murmur Vitamin D insufficiency Atrial fibrillation Diabetes mellitus Hypertension Urinary incontinence Hyperlipidemia Medical History Anorexia Fatigue Cough Surgical History H/O elbow surgery Family History Mother Breast cancer Alcoholic Dementia Father Skin cancer Diabetes Grandmother (Paternal) Breast cancer Denies family history of Ovarian cancer Prostate cancer Myocardial infarction Colorectal cancer Social History Smoking Status: Never smoker Second Hand Exposure: No; Do You Dip or Chew Tobacco: No; Tobacco Cessation Education Requested by Patient: No Hx Alcohol Use: No Hx Substance Use: No Preferred Language: [place] Communication Ability: Effective Visual Impairment: Limited Hearing Ability: Normal Coffin Maker Required: No Beliefs That Will Affect Care: Hinduism Hinduism Beliefs: roman catholic marital status: Current Living Situation: Spouse current occupational status: retired current occupation: [employer] How many Children do You have: 1 Other Information That Helps Us Care for You: No Feels Safe at Home: Yes Safety Concerns: Feels Safe At This Time Childhood Exposure to Second-Hand Smoke: Yes Diet: regular caffeine: Yes during the past year weight has: remained stable Dental Care, Regularly: Yes Physical Activity Frequency: Does not Exercise Seatbelt Use: always Sunscreen Use: Yes Assistive Devices: Cane Allergies Allergies Allergy/AdvReac Type Severity Reaction Status Date / Time No Known Allergies Allergy Verified 07/21/24 09:52 Home Meds Home Medications Medication Instructions Recorded Confirmed cholecalciferol (vitamin D3) 50 50 mcg PO DAILY 07/21/24 07/21/24 mcg (2,000 unit) capsule (Vitamin D3) insulin detemir U-100 100 unit/mL 0 unit subcut DAILY 07/21/24 07/21/24 (3 mL) subcutaneous pen Previous Rx's Medication Instructions Recorded flash glucose sensor (FreeStyle #1 ea 07/12/21 Darell 14 Day Sensor kit) pen needle, diabetic 32 gauge x #100 ea 04/24/23" (BD Ultra-Fine Isha Pen Needle) fluoxetine 40 mg capsule 40 mg PO DAILY #90 caps 05/23/23 glipizide 10 mg tablet, extended 10 mg PO DAILY #90 tabs 05/23/23 release 24 hr metoprolol succinate 50 mg 25 mg (1/2 x 50 mg) PO DAILY 90 05/23/23 tablet,extended release 24 hr days #45 tabs pravastatin 20 mg tablet 20 mg PO DAILY #90 tabs 05/23/23 apixaban 5 mg tablet (Eliquis) 5 mg PO BID #180 tabs 04/15/24 omeprazole 20 mg capsule,delayed 20 mg PO DAILY #90 caps 07/18/24 release losartan 50 mg tablet 50 mg PO DAILY #90 tabs 07/19/24 Results & Data (ED) Vital Signs Vital Signs - 24 hr 07/21/24 06:31 07/21/24 06:34 07/21/24 08:36 Temperature 36.9 C Temperature Source Oral Pulse Rate 108 H 105 H 76 Pulse Rate from SpO2 Sensor 75 Respiratory Rate 20 14 Respiratory Effort / Characteristics Non-Labored Respiratory Depth Normal Blood Pressure 145/96 H 130/67 Blood Pressure Mean 112 88 Pulse Oximetry 95 96 Oxygen Delivery Method Room Air Sepsis Recent Fever Within 48 Hours No Sepsis New/Unexplained Change in Mental Status Yes Sepsis Action Taken by Nursing Physician Notified Laboratory Data 07/21/24 06:40 07/21/24 14:08 Lab Results 07/21/24 07/21/24 07/21/24 Range/Units 06:40 06:45 06:52 WBC 11.37 H (4.8-10.8) K/ul RBC 4.56 (4.20-5.40) M/uL Hgb 12.5 (12.0-16.0) g/dl Hct 38.2 (37.0-47.0) % MCV 83.8 (80.0-100.0) fL MCH 27.4 (25.0-34.0) pg MCHC 32.7 (32.0-36.0) g/dL RDW Std Deviation 47.6 H (36.4-46.3) fL RDW Coeff of Krista 15.5 H (11.5-14.5) % Plt Count 228 (130-400) K/uL MPV 11.0 (9.4-12.4) fL Immature Gran % (Auto) 0.8 % Neut % (Auto) 85.7 % Lymph % (Auto) 4.9 % [place] % (Auto) 7.2 % Eos % (Auto) 0.8 % Baso % (Auto) 0.6 % Neut # (Auto) 9.74 H (1.40-6.50) K/uL Lymph # (Auto) 0.56 L (1.20-3.40) K/uL [place] # (Auto) 0.82 H (0.11-0.59) K/uL Eos # (Auto) 0.09 (0.00-0.50) K/uL Baso # (Auto) 0.07 (0.00-0.20) K/uL Immature Gran # (Auto) 0.09 (0.01-0.20) K/uL PT 11.2 (9.0-12.0) Seconds INR 1.0 (0.9-1.1) APTT 28 (21-31) Seconds PTT Ratio 1.0 Sodium 133 L (136-145) mmol/L Potassium 4.5 (3.5-5.1) mmol/L Chloride 93 L (98-107) mmol/L Carbon Dioxide 30 (21-32) mmol/L Anion Gap 10 (3-11) BUN 35 H (6-23) mg/dl Creatinine 2.11 H (0.6-1.2) mg/dl Est Cr Clr Drug Dosing 27.5 ml/min eGFR 23.98 BUN/Creatinine Ratio 16.6 (10-20) Glucose 264 H (70-99(Fasting)) mg/dl Calcium 13.3 H* (8.6-10.3) mg/dl Magnesium 1.9 (1.7-2.4) mg/dl Total Bilirubin 0.8 (0.2-1.0) mg/dl AST 15 (13-39) U/L ALT 14 (7-52) U/L Alkaline Phosphatase 71 (34-104) U/L Troponin I High Sens 3.8 (0-14) pg/ml Total Protein 8.3 (6.0-8.3) gm/dl Albumin 4.1 (3.4-5.0) gm/dl Globulin 4.2 H (2.5-4.0) gm/dl Albumin/Globulin Ratio 1.0 (0.9-2) Urine Color Yellow Urine Appearance Clear (Clear) Urine pH 7.5 (4.5-7.5) Ur Specific Johnson 1.012 (1.000-1.030) Urine Protein Trace H (Negative) Urine Glucose (UA) 3+ H (Negative) Urine Ketones Negative (Negative) Urine Blood 1+ H (Negative) Urine Nitrite Negative (Negative) Urine Bilirubin Negative (Negative) Urine Urobilinogen Negative (Negative) Ur Leukocyte Esterase Negative (Negative) Urine WBC (Auto) 0-5 (0-5) /hpf Urine RBC (Auto) 0-2 (0-2) /hpf U Hyaline Cast (Auto) 0-2 (0-2) /lpf U Epithel Cells (Auto) 0-2 (0-2) /hpf Urine Bacteria (Auto) None Seen (None Seen) Adenovirus (PCR) Not Detected (NotDetected) B. pertussis DNA (PCR) Not Detected (NotDetected) B.parapertussis DNA PCR Not Detected (NotDetected) C. pneumoniae DNA (PCR) Not Detected (NotDetected) Coronavirus OC43 (PCR) Not Detected (NotDetected) Coronavirus HKU1 (PCR) Not Detected (NotDetected) Coronavirus 229E (PCR) Not Detected (NotDetected) SARS-CoV-2 (PCR) Not Detected (NotDetected) Coronavirus NL63 (PCR) Not Detected (NotDetected) Human Metapneumovir PCR Not Detected (NotDetected) Influenza Type A (PCR) Not Detected (NotDetected) Influenza Type B (PCR) Not Detected (NotDetected) M. pneumoniae (PCR) Not Detected (NotDetected) Parainfluenza 1 (PCR) Not Detected (NotDetected) Parainfluenza 2 (PCR) Not Detected (NotDetected) Parainfluenza 3 (PCR) Not Detected (NotDetected) Parainfluenza 4 (PCR) Not Detected (NotDetected) RSV (PCR) Not Detected (NotDetected) Entero/Rhino (PCR) Not Detected (NotDetected) Blood Type Antibody Screen 07/21/24 Range/Units 07:07 WBC (4.8-10.8) K/ul RBC (4.20-5.40) M/uL Hgb (12.0-16.0) g/dl Hct (37.0-47.0) % MCV (80.0-100.0) fL MCH (25.0-34.0) pg MCHC (32.0-36.0) g/dL RDW Std Deviation (36.4-46.3) fL RDW Coeff of Krista (11.5-14.5) % Plt Count (130-400) K/uL MPV (9.4-12.4) fL Immature Gran % (Auto) % Neut % (Auto) % Lymph % (Auto) % [place] % (Auto) % Eos % (Auto) % Baso % (Auto) % Neut # (Auto) (1.40-6.50) K/uL Lymph # (Auto) (1.20-3.40) K/uL [place] # (Auto) (0.11-0.59) K/uL Eos # (Auto) (0.00-0.50) K/uL Baso # (Auto) (0.00-0.20) K/uL Immature Gran # (Auto) (0.01-0.20) K/uL PT (9.0-12.0) Seconds INR (0.9-1.1) APTT (21-31) Seconds PTT Ratio Sodium (136-145) mmol/L Potassium (3.5-5.1) mmol/L Chloride (98-107) mmol/L Carbon Dioxide (21-32) mmol/L Anion Gap (3-11) BUN (6-23) mg/dl Creatinine (0.6-1.2) mg/dl Est Cr Clr Drug Dosing ml/min eGFR BUN/Creatinine Ratio (10-20) Glucose (70-99(Fasting)) mg/dl Calcium (8.6-10.3) mg/dl Magnesium (1.7-2.4) mg/dl Total Bilirubin (0.2-1.0) mg/dl AST (13-39) U/L ALT (7-52) U/L Alkaline Phosphatase (34-104) U/L Troponin I High Sens (0-14) pg/ml Total Protein (6.0-8.3) gm/dl Albumin (3.4-5.0) gm/dl Globulin (2.5-4.0) gm/dl Albumin/Globulin Ratio (0.9-2) Urine Color Urine Appearance (Clear) Urine pH (4.5-7.5) Ur Specific Johnson (1.000-1.030) Urine Protein (Negative) Urine Glucose (UA) (Negative) Urine Ketones (Negative) Urine Blood (Negative) Urine Nitrite (Negative) Urine Bilirubin (Negative) Urine Urobilinogen (Negative) Ur Leukocyte Esterase (Negative) Urine WBC (Auto) (0-5) /hpf Urine RBC (Auto) (0-2) /hpf U Hyaline Cast (Auto) (0-2) /lpf U Epithel Cells (Auto) (0-2) /hpf Urine Bacteria (Auto) (None Seen) Adenovirus (PCR) (NotDetected) B. pertussis DNA (PCR) (NotDetected) B.parapertussis DNA PCR (NotDetected) C. pneumoniae DNA (PCR) (NotDetected) Coronavirus OC43 (PCR) (NotDetected) Coronavirus HKU1 (PCR) (NotDetected) Coronavirus 229E (PCR) (NotDetected) SARS-CoV-2 (PCR) (NotDetected) Coronavirus NL63 (PCR) (NotDetected) Human Metapneumovir PCR (NotDetected) Influenza Type A (PCR) (NotDetected) Influenza Type B (PCR) (NotDetected) M. pneumoniae (PCR) (NotDetected) Parainfluenza 1 (PCR) (NotDetected) Parainfluenza 2 (PCR) (NotDetected) Parainfluenza 3 (PCR) (NotDetected) Parainfluenza 4 (PCR) (NotDetected) RSV (PCR) (NotDetected) Entero/Rhino (PCR) (NotDetected) Blood Type O Negative Antibody Screen NEGATIVE Administered Medications Sodium Chloride (Nss) 1,000 mls @ 80 mls/hr IV .[id number] LESTER Stop: 07/22/24 10:14 Last Admin: 07/21/24 12:36 Dose: 80 mls/hr Documented By: TAMARA Discontinued Medications Gadobutrol (Gadobutrol 65ml Vial) 10 ml IV ONCE ONE Stop: 07/21/24 10:15 Last Admin: 07/21/24 10:15 Dose: 10 ml Documented By: RUPINDER Sodium Chloride (Nss) 1,000 mls @ 999 mls/hr IV .[id number] ONE Stop: 07/21/24 08:38 Last Infusion: 07/21/24 11:29 Dose: Infused Documented By: Admin: 07/21/24 08:45 Dose: 999 mls/hr Documented By: Ioversol (Optiray 320 100ml) 65 ml IV ONCE ONE Stop: 07/21/24 12:22 Last Admin: 07/21/24 12:21 Dose: 65 ml Documented By: BHAVANI Imaging Data Radiologist's Impression: Ankle X-Ray 07/21/24 06:44 EXAM: XR ankle LT min 3V routine CLINICAL HISTORY: fall TECHNIQUE: Radiograph of ankle was acquired. COMPARISON: No FINDINGS: There is no evidence of acute fracture, dislocation or osseous destructive lesion. The talar dome is unremarkable. The ankle mortise is intact. The soft tissues appear unremarkable. IMPRESSION: 1. No acute osseous or soft tissue abnormality. Electronically signed by Eldon Mak 07-21-2024 07:52 AM Chest X-Ray 07/21/24 06:44 EXAM: XR chest 1V portable CLINICAL HISTORY: neuro deficit, acute stroke suspected TECHNIQUE: Radiograph of chest was acquired. COMPARISON: 04/03/2018 12:17:59 AGRICULTURAL TECHNICIAN FINDINGS: The lungs are clear and well-expanded with no pulmonary infiltrate or pleural effusion. The cardiomediastinal silhouette is within normal limits. No acute osseous abnormality. IMPRESSION: 1. No acute cardiopulmonary disease. (No new finding) Electronically signed by Eldon Mak 07-21-2024 07:[address] 07/21/24 06:44 CT head/brain wo con CLINICAL HISTORY: 74 years-old Female with acute stroke suspected, fall, L leg weakness. Acute strokelike symptoms TECHNIQUE: Multiple axial CT images of the head were obtained without contrast. A dose lowering technique was utilized adhering to the principles of ALARA. CT DOSE: 663.26 mGy.cm COMPARISON: None. FINDINGS: No acute intracranial hemorrhage, midline shift, intracranial mass, hydrocephalus, territorial ischemia or abnormal extra-axial collection. Involutional changes with white matter hypodensities suggestive of chronic microvascular ischemic disease. The calvarium is intact. The paranasal sinuses, mastoid air cells, and middle ear cavities are clear. IMPRESSION: No acute intracranial abnormality. ACT 112: Negative or not required by law. The above report was generated using voice recognition software. It may contain grammatical, syntax or spelling errors. Electronically signed by: Martin Plascencia M.D. 07/21/2024 8:28 AM Knee X-Ray 07/21/24 06:44 EXAM: XR knee LT 3V CLINICAL HISTORY: fall TECHNIQUE: Radiograph of knee was acquired. COMPARISON: No FINDINGS: Patella donte. Lateral patellar dislocation likely due to disruptive changes to the medial patellar retinaculum. Mild thickening and irregularity of medial patellar retinaculum soft tissue shadow noted. Degenerative changes in the form of asymmetrical reduction in joint space, marginal osteophytes, subchondral cysts and areas of subchondral sclerosis. There is no evidence of acute fracture, or osseous lesion. The patellofemoral joint space shows irregular reduction. Rest of the soft tissues appear unremarkable. No evidence of joint effusion. IMPRESSION: 1. No acute osseous abnormality. 2. Patella donte. [id number]. Lateral patellar dislocation likely due to disruptive changes to medial patellar retinaculum. Mild thickening and irregularity of medial patellar retinaculum soft tissue shadow. Suggest- Correlation /[id number].5.1.2 further evlaution with MRI knee./OBX.5.1.2/OBX.5.1 4. Osteoarthritis. Electronically signed by Eldon Mak 07-21-2024 07:46 AM Brain MRI 07/21/24 08:49 MR brain wo con HISTORY: 74 years-old Female left leg weak, CVA? Acute stroke like symptoms COMPARISON: Head CT of same day TECHNIQUE: Multiplanar multisequence MRI of the brain was obtained without IV contrast FINDINGS: No restricted diffusion to suggest acute or subacute infarct. The midline structures are unremarkable with partially empty sella. Study is mildly motion degraded. No acute intracranial hemorrhage, midline shift, abnormal extra-axial collection, hydrocephalus or intra-axial mass. Involutional changes with minimal T2/FLAIR hyperintense foci throughout the white matter suggestive of chronic microvascular ischemic disease. Cerebral venous sinuses and major arterial width appear patent. Skull, orbits and soft tissues are unremarkable. Trace mastoid effusions. Paranasal sinuses are clear. IMPRESSION: No acute intracranial abnormality, specifically there is no evidence of an acute or subacute infarct. ACT 112: Negative or not required by law. The above report was generated using voice recognition software. It may contain grammatical, syntax or spelling errors. Electronically signed by: Martin Plascencia M.D. 07/21/2024 11:17 AM Head MRA 07/21/24 08:49 MR angio head wo con HISTORY: 74 years-old Female left leg weak, CVA? Acute stroke like symptoms COMPARISON: Brain MRI of same day TECHNIQUE: MRA of the head was obtained utilizing 3-D gyso-eh-mcoezd sequencing with MIP reformats. All measurements were obtained according to NASCET criteria. FINDINGS: origin of the right posterior cerebral artery. Study is mildly motion degraded. No aneurysm, dissection, high-grade stenosis or arterial occlusion. IMPRESSION: Unremarkable MRA of the head. ACT 112: Negative or not required by law. The above report was generated using voice recognition software. It may contain grammatical, syntax or spelling errors. Electronically signed by: Martin Plascencia M.D. 07/21/2024 11:43 AM Neck MRA 07/21/24 08:49 NECK MRA HISTORY: Acute strokelike symptoms left leg weak, CVA? TECHNIQUE: Svxk-[id number] and gadolinium-enhanced MRA of the neck was performed both before and after the intravenous administration of contrast. All measurements were calculated based on NASCET criteria. COMPARISON STUDY: MRI brain on same day FINDINGS: The aortic arch and proximal great vessels are widely patent. There is no high-grade stenosis, occlusion, or dissection identified within the bilateral common carotid, internal carotid, or vertebral arteries. Mild stenosis of the proximal cervical segments of the internal carotid arteries likely secondary to atherosclerosis. IMPRESSION: No high-grade stenosis, occlusion, or dissection identified within the carotid or vertebral arteries. ACT 112: Negative or not required by law. Electronically signed by: Martin Plascencia M.D. 07/21/2024 11:46 AM Knee MRI 07/21/24 09:25 MR knee LT wo con CLINICAL HISTORY: 74 years-old Female with left patellar dislocation. Acute left knee pain status post fall with reported patellar subluxation COMPARISON: Radiograph 6 07/21/2024 TECHNIQUE: Multiplanar, multisequence MRI of the left knee was performed without intravenous contrast. FINDINGS: Motion degraded exam. MENISCI: Chronic diffuse tearing of the lateral meniscus which is markedly extruded the adjacent meniscal gutter with underlying displaced meniscal fragment. Degeneration of the medial meniscus with probable chronic posterior horn and root tear. The medial meniscus is diminutive in morphology. CRUCIATE LIGAMENTS: Intact ACL. There is moderate thickening of the intact PCL compatible with a chronic sprain. COLLATERAL LIGAMENTS: The popliteus tendon, biceps femoris tendon, and medial collateral ligaments appear intact. There is attenuation of the proximal fibers of the lateral collateral ligament compatible with a chronic sprain. EXTENSOR MECHANISM: The quadriceps and patellar tendons are intact. The medial and lateral patellar retinacula are intact. KNEE JOINT: Moderate size joint effusion containing intra-articular debris and innumerable loose bodies. Synovial thickening appeared chronic. Severe lateral with moderate to severe medial and patellofemoral compartment osteoarthritis with prominent marginal osteophytic spurring. Lateral tilt of the patella is redemonstrated which appears chronic secondary to the osteoarthritis. BONE MARROW: No acute fracture or marrow replacing process. SOFT TISSUES: Edema/fluid along the medial joint line tracks into the Pes Anserine bursa and may be related to a leaking trace Banuelos's cyst. Mild nonspecific circumferential subcutaneous edema with superficial venous varicosities. IMPRESSION: 1. No acute fracture or dislocation. 2. Moderate to severe osteoarthritis. 3. Moderate sized joint effusion with intra-articular loose bodies/debris. 4. No acute tendon or ligamentous injury of the knee identified. ACT 112: Negative or not required by law. The above report was generated using voice recognition software. It may contain grammatical, syntax or spelling errors. Electronically signed by: Martin Plascencia M.D. 07/21/2024 10:58 AM Discharge Plan Visit Data Chief Complaint: Fall Stated Complaint: Fall x2, Dizziness, Knee Pain ED Provider: Cosmo Encinas Discharge Problem: Left leg weakness, Hypercalcemia, Fall, Chronic renal insufficiency, Anticoagulated, Subluxation of left patella Patient Disposition: Admitted As Inpatient Discharge Instructions Interventions: ED Discharge Assessment Last Done: 07/21/24 15:52
[2024-07-21] MEDS: GADOBUTROL 65ML VIAL IV ONE (10:15)
--- NOTE | 2024-07-21 11:00 | Magnetic Resonance Report ---
MR knee LT wo con CLINICAL HISTORY: 74 years-old Female with left patellar dislocation. Acute left knee pain status po st fall with reported patellar subluxation COMPARISON: Radiograph 6 07/21/2024 TECHNIQUE: Multiplanar, multisequence MRI of the left knee was performed without intravenous contrast . FINDINGS: Motion degraded exam. MENISCI: Chronic diffuse tearing of the lateral meniscus which is markedly extruded the adjacent meni scal gutter with underlying displaced meniscal fragment. Degeneration of the medial meniscus with pro bable chronic posterior horn and root tear. The medial meniscus is diminutive in morphology. CRUCIATE LIGAMENTS: Intact ACL. There is moderate thickening of the intact PCL compatible with a head correction officer margoth sprain. COLLATERAL LIGAMENTS: The popliteus tendon, biceps femoris tendon, and medial collateral ligaments ap pear intact. There is attenuation of the proximal fibers of the lateral collateral ligament compatibl e with a chronic sprain. EXTENSOR MECHANISM: The quadriceps and patellar tendons are intact. The medial and lateral patellar r etinacula are intact. KNEE JOINT: Moderate size joint effusion containing intra-articular debris and innumerable loose bodi es. Synovial thickening appeared chronic. Severe lateral with moderate to severe medial and patellofe moral compartment osteoarthritis with prominent marginal osteophytic spurring. Lateral tilt of the pa tella is redemonstrated which appears chronic secondary to the osteoarthritis. BONE MARROW: No acute fracture or marrow replacing process. SOFT TISSUES: Edema/fluid along the medial joint line tracks into the Pes Anserine bursa and may be r elated to a leaking trace Banuelos's cyst. Mild nonspecific circumferential subcutaneous edema with supe rficial venous varicosities. IMPRESSION: 1. No acute fracture or dislocation. 2. Moderate to severe osteoarthritis. 3. Moderate sized joint effusion with intra-articular loose bodies/debris. 4. No acute tendon or ligamentous injury of the knee identified. ACT 112: Negative or not required by law. The above report was generated using voice recognition software. It may contain grammatical, syntax o r spelling errors. Electronically signed by: Martin Plascencia M.D. 07/21/2024 10:58 AM
--- NOTE | 2024-07-21 11:20 | Magnetic Resonance Report ---
MR brain wo con HISTORY: 74 years-old Female left leg weak, CVA? Acute stroke like symptoms COMPARISON: Head CT of same day TECHNIQUE: Multiplanar multisequence MRI of the brain was obtained without IV contrast FINDINGS: No restricted diffusion to suggest acute or subacute infarct. The midline structures are unremarkable with partially empty sella. Study is mildly motion degraded. No acute intracranial hemorrhage, midli ne shift, abnormal extra-axial collection, hydrocephalus or intra-axial mass. Involutional changes wi th minimal T2/FLAIR hyperintense foci throughout the white matter suggestive of chronic microvascular ischemic disease. Cerebral venous sinuses and major arterial width appear patent. Skull, orbits and soft tissues are un remarkable. Trace mastoid effusions. Paranasal sinuses are clear. IMPRESSION: No acute intracranial abnormality, specifically there is no evidence of an acute or subac [place] infarct. ACT 112: Negative or not required by law. The above report was generated using voice recognition software. It may contain grammatical, syntax o r spelling errors. Electronically signed by: Martin Plascencia M.D. 07/21/2024 11:17 AM
--- NOTE | 2024-07-21 11:45 | Magnetic Resonance Report ---
MR angio head wo con HISTORY: 74 years-old Female left leg weak, CVA? Acute stroke like symptoms COMPARISON: Brain MRI of same day TECHNIQUE: MRA of the head was obtained utilizing 3-D [id number] sequencing with MIP reformats. A ll measurements were obtained according to NASCET criteria. FINDINGS: origin of the right posterior cerebral artery. Study is mildly motion degraded. No aneurysm, di ssection, high-grade stenosis or arterial occlusion. IMPRESSION: Unremarkable MRA of the head. ACT 112: Negative or not required by law. The above report was generated using voice recognition software. It may contain grammatical, syntax o r spelling errors. Electronically signed by: Martin Plascencia M.D. 07/21/2024 11:43 AM
--- NOTE | 2024-07-21 11:49 | Magnetic Resonance Report ---
NECK MRA HISTORY: Acute strokelike symptoms left leg weak, CVA? TECHNIQUE: [id number] and gadolinium-enhanced MRA of the neck was performed both before and after the intravenous administration of contrast. All measurements were calculated based on NASCET criteri a. COMPARISON STUDY: MRI brain on same day FINDINGS: The aortic arch and proximal great vessels are widely patent. There is no high-grade steno sis, occlusion, or dissection identified within the bilateral common carotid, internal carotid, or ve rtebral arteries. Mild stenosis of the proximal cervical segments of the internal carotid arteries li crystal secondary to atherosclerosis. IMPRESSION: No high-grade stenosis, occlusion, or dissection identified within the carotid or vertebral arteries. ACT 112: Negative or not required by law. Electronically signed by: Martin Plascencia M.D. 07/21/2024 11:46 AM
[2024-07-21] MEDS: OPTIRAY 320 100ml IV ONE (12:21)
[2024-07-21] MEDS: SODIUM CHLORIDE 0.9% 1,000 ML IV SCH (12:36)
--- NOTE | 2024-07-21 12:36 | CT Scan Report ---
ABDOMEN AND PELVIS CT WITH IV CONTRAST CT DOSE: 1348.38 mGy.cm HISTORY: hypercalcemia TECHNIQUE: Multiaxial CT images of the abdomen and pelvis were performed following the IV administrat ion of cc of Optiray, A dose lowering technique was utilized adhering to the principles of ALARA. COMPARISON STUDY: Renal ultrasound 03/18/2022 FINDINGS: Small pleural effusions with mild bibasilar atelectasis. Interlobular septal thickening in the lungs. No pneumatosis or pneumoperitoneum. Scattered calcified granulomata are noted throughout t he spleen and liver. The spleen is upper limits of normal in size. Unremarkable pancreas, gallbladder and adrenal glands. No hydronephrosis. Cortical thinning of the left or right kidneys. Layering hype rdense material within the urinary bladder lumen suggestive of contrast. Urinary bladder wall thicken ing with mild perisigmoid stranding.r probable arcuate morphology of the uterus. Endometrium measures 6 cm. Atherosclerosis of the aorta. Nonspecific mildly enlarged periaortic, periportal and pericaval nodes measure up to 11 mm in short axis. Small hiatal hernia. There is no bowel obstruction or bowel wall thickening. Colonic diverticulosis w ithout acute diverticulitis. Mild to moderate colonic fecal retention. Normal appendix. No acute frac ture. IMPRESSION: 1. No acute intra-abdominal or pelvic abnormality. 2. Nonspecific mildly enlarged periaortic, pericaval and periportal lymph nodes. 3. Mild interstitial pulmonary edema with small pleural effusions. 4. Prior granulomatous disease. 5. Pathologic thickening of the endometrium. Follow-up with gynecology recommended. 6. Colonic diverticulosis. ACT 112: Negative or not required by law. The above report was generated using voice recognition software. It may contain grammatical, syntax o r spelling errors. Electronically signed by: Martin Plascencia M.D. 07/21/2024 12:34 PM
[2024-07-21 14:45] LABS: BUN Creatinine Ratio 16.8 (10-20); Calcium 12.5 mg/dl (8.6-10.3); Creatinine Clr Calc Pharmacy 28.7 ml/min; Potassium 4.5 mmol/L (3.5-5.1)
[2024-07-21] MEDS ORDERED: PHARMACY GLYCEMIC MGMT CONSULT PRN (16:18)
[2024-07-21] MEDS: INSULIN ASPART PER UNIT CHARGE SC SCH (17:43)
--- NOTE | 2024-07-21 20:18 | Orthopedic Consultation ---
Date of Consultation July 21, 2024 Assessment & Plan (1) Knee osteoarthritis: Left knee pain findings and plan discussed with the patient and Dr. Perea. Patient has severe, end stage osteoarthritis, Tri-compartment. Will evaluate tomorrow if any effusion can attempt aspiration and depending on the fluid consider a cortisone injection. For now recommended icing and Torrey wrap for compression to help with swelling. PT/OT recommended. X-rays of the ankle were negative for any fracture. Will evaluate tomorrow and see if she would benefit from any Cam boot or ankle brace. (2) Left ankle pain: see above Supervising Physician Co-Signing Physician Notes I, Dr. Perea, saw and examined the patient with my PA. I discussed the management with my PA. I reviewed my PAs note and agree with the documented findings and attest to completing the substantive portion of medical decision making and plan of care I developed. History of Present Illness Reason for Consultation: Right knee pain Requesting Physician: Fred Perea MD Attending Physician: Caio Cuenca MD History of Present Illness Mamie is a 74-year-old female who sustained a fall recently due to dizziness and is having left knee pain and left ankle pain. She says she has had a longstanding history of knee pain. Her knee pain is not any worse than what it usually is prior to the fall. She has not tried any injections for her knee previously. She is also having pain in her left ankle. Allergies Allergy/AdvReac Type Severity Reaction Status Date / Time No Known Allergies Allergy Verified 07/21/24 09:52 Home Medications Medication Instructions Recorded Confirmed Type flash glucose sensor (FreeStyle #1 ea 07/12/21 04/29/24 Rx Darell 14 Day Sensor kit) pen needle, diabetic 32 gauge x #100 ea 04/24/23 04/29/24 Rx 5/32" (BD Ultra-Fine Isha Pen Needle) fluoxetine 40 mg capsule 40 mg PO DAILY #90 caps 05/23/23 07/21/24 Rx glipizide 10 mg tablet, extended 10 mg PO DAILY #90 tabs 05/23/23 07/21/24 Rx release 24 hr metoprolol succinate 50 mg 25 mg (1/2 x 50 mg) PO DAILY 90 05/23/23 07/21/24 Rx tablet,extended release 24 hr days #45 tabs pravastatin 20 mg tablet 20 mg PO DAILY #90 tabs 05/23/23 07/21/24 Rx apixaban 5 mg tablet (Eliquis) 5 mg PO BID #180 tabs 04/15/24 07/21/24 Rx omeprazole 20 mg capsule,delayed 20 mg PO DAILY #90 caps 07/18/24 07/21/24 Rx release losartan 50 mg tablet 50 mg PO DAILY #90 tabs 07/19/24 07/21/24 Rx cholecalciferol (vitamin D3) 50 50 mcg PO DAILY 07/21/24 07/21/24 History mcg (2,000 unit) capsule (Vitamin D3) insulin detemir U-100 100 unit/mL 0 unit subcut DAILY 07/21/24 07/21/24 History (3 mL) subcutaneous pen Patient History Medical History Anorexia Fatigue Cough Surgical History H/O elbow surgery Family History Mother Breast cancer Alcoholic Dementia Father Skin cancer Diabetes Grandmother (Paternal) Breast cancer Denies family history of Ovarian cancer Prostate cancer Myocardial infarction Colorectal cancer Social History Smoking Status: Never smoker Second Hand Exposure: No; Do You Dip or Chew Tobacco: No; Tobacco Cessation Education Requested by Patient: No Hx Alcohol Use: No Hx Substance Use: No Preferred Language: Kyrgyz Communication Ability: Effective Visual Impairment: Limited Hearing Ability: Normal Breaking Machine 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 Required: No Beliefs That Will Affect Care: Advent Advent Beliefs: advent marital status: Current Living Situation: Spouse current occupational status: retired current occupation: [employer] How many Children do You have: 1 Other Information That Helps Us Care for You: No Feels Safe at Home: Yes Safety Concerns: Feels Safe At This Time Childhood Exposure to Second-Hand Smoke: Yes Diet: regular caffeine: Yes during the past year weight has: remained stable Dental Care, Regularly: Yes Physical Activity Frequency: Does not Exercise Seatbelt Use: always Sunscreen Use: Yes Assistive Devices: Cane Physical Exam Physical Exam: Left knee: Patient has somewhat of an effusion noted. She is diffusely tender over her knee. Limited range of motion -10 to 30 degrees due to pain and stiffness. MCL and LCL feel intact with varus and valgus stress at 30 degrees. Unable to test at 0 degrees. Left ankle: Patient has pain over the peroneal and distal fibula. Sensation was intact distally. 2+ dorsal pedal pulse present. She is able to freely wiggle her toes and she can slightly dorsiflex and plantarflex. Anterior drawer negative. Negative squeeze test at the foot. Results & Data Vital Signs (Past 12 Hours) Vital Signs Temp Pulse Pulse Pulse Resp BP BP 07/21/24 19:44 36.4 C L 83 18 143/82 H 07/21/24 16:55 81 07/21/24 16:21 36.5 C 84 18 113/78 07/21/24 15:00 77 131/77 07/21/24 13:32 18 151/104 H 07/21/24 11:31 75 07/21/24 11:30 80 17 150/98 H 07/21/24 11:30 71 16 07/21/24 08:36 76 14 130/67 Pulse Ox O2 Del Method 07/21/24 19:44 97 Room Air 07/21/24 16:55 07/21/24 16:21 94 Room Air 07/21/24 15:00 95 Room Air 07/21/24 13:32 81 L Room Air 07/21/24 11:31 07/21/24 11:30 95 Room Air 07/21/24 11:30 95 Room Air 07/21/24 08:36 96 Laboratory Results 07/21/24 07/21/24 07/21/24 Range/Units 20:57 19:58 17:03 WBC (4.8-10.8) K/ul RBC (4.20-5.40) M/uL Hgb (12.0-16.0) g/dl Hct (37.0-47.0) % MCV (80.0-100.0) fL MCH (25.0-34.0) pg MCHC (32.0-36.0) g/dL RDW Std Deviation (36.4-46.3) fL RDW Coeff of Krista (11.5-14.5) % Plt Count (130-400) K/uL MPV (9.4-12.4) fL Immature Gran % (Auto) % Neut % (Auto) % Lymph % (Auto) % Stephens % (Auto) % Eos % (Auto) % Baso % (Auto) % Neut # (Auto) (1.40-6.50) K/uL Lymph # (Auto) (1.20-3.40) K/uL Stephens # (Auto) (0.11-0.59) K/uL Eos # (Auto) (0.00-0.50) K/uL Baso # (Auto) (0.00-0.20) K/uL Immature Gran # (Auto) (0.01-0.20) K/uL PT (9.0-12.0) Seconds INR (0.9-1.1) APTT (21-31) Seconds PTT Ratio Sodium (136-145) mmol/L Potassium (3.5-5.1) mmol/L Chloride (98-107) mmol/L Carbon Dioxide (21-32) mmol/L Anion Gap (3-11) BUN (6-23) mg/dl Creatinine (0.6-1.2) mg/dl Est Cr Clr Drug Dosing ml/min eGFR BUN/Creatinine Ratio (10-20) Glucose (70-99(Fasting)) mg/dl POC Glucose 141 H 166 H 176 H (70-99) mg/dl Calcium (8.6-10.3) mg/dl Ionized Calcium (1.12-1.32) mmol/L Magnesium (1.7-2.4) mg/dl Total Bilirubin (0.2-1.0) mg/dl AST (13-39) U/L ALT (7-52) U/L Alkaline Phosphatase (34-104) U/L Troponin I High Sens (0-14) pg/ml Total Protein (6.0-8.3) gm/dl Albumin (3.4-5.0) gm/dl Globulin (2.5-4.0) gm/dl Albumin/Globulin Ratio (0.9-2) 25-OH Vitamin D Total (30-100) ng/ml PTH Intact (12.0-88.0) pg/ml Urine Color Urine Appearance (Clear) Urine pH (4.5-7.5) Ur Specific [place] (1.000-1.030) Urine Protein (Negative) Urine Glucose (UA) (Negative) Urine Ketones (Negative) Urine Blood (Negative) Urine Nitrite (Negative) Urine Bilirubin (Negative) Urine Urobilinogen (Negative) Ur Leukocyte Esterase (Negative) Urine WBC (Auto) (0-5) /hpf Urine RBC (Auto) (0-2) /hpf U Hyaline Cast (Auto) (0-2) /lpf U Epithel Cells (Auto) (0-2) /hpf Urine Bacteria (Auto) (None Seen) Adenovirus (PCR) (NotDetected) B. pertussis DNA (PCR) (NotDetected) B.parapertussis DNA PCR (NotDetected) C. pneumoniae DNA (PCR) (NotDetected) Coronavirus OC43 (PCR) (NotDetected) Coronavirus HKU1 (PCR) (NotDetected) Coronavirus 229E (PCR) (NotDetected) SARS-CoV-2 (PCR) (NotDetected) Coronavirus NL63 (PCR) (NotDetected) Human Metapneumovir PCR (NotDetected) Influenza Type A (PCR) (NotDetected) Influenza Type B (PCR) (NotDetected) M. pneumoniae (PCR) (NotDetected) Parainfluenza 1 (PCR) (NotDetected) Parainfluenza 2 (PCR) (NotDetected) Parainfluenza 3 (PCR) (NotDetected) Parainfluenza 4 (PCR) (NotDetected) RSV (PCR) (NotDetected) Entero/Rhino (PCR) (NotDetected) Blood Type Antibody Screen 07/21/24 07/21/24 07/21/24 Range/Units 14:08 07:07 06:52 WBC (4.8-10.8) K/ul RBC (4.20-5.40) M/uL Hgb (12.0-16.0) g/dl Hct (37.0-47.0) % MCV (80.0-100.0) fL MCH (25.0-34.0) pg MCHC (32.0-36.0) g/dL RDW Std Deviation (36.4-46.3) fL RDW Coeff of Krista (11.5-14.5) % Plt Count (130-400) K/uL MPV (9.4-12.4) fL Immature Gran % (Auto) % Neut % (Auto) % Lymph % (Auto) % Stephens % (Auto) % Eos % (Auto) % Baso % (Auto) % Neut # (Auto) (1.40-6.50) K/uL Lymph # (Auto) (1.20-3.40) K/uL Stephens # (Auto) (0.11-0.59) K/uL Eos # (Auto) (0.00-0.50) K/uL Baso # (Auto) (0.00-0.20) K/uL Immature Gran # (Auto) (0.01-0.20) K/uL PT (9.0-12.0) Seconds INR (0.9-1.1) APTT (21-31) Seconds PTT Ratio Sodium 132 L (136-145) mmol/L Potassium 4.5 (3.5-5.1) mmol/L Chloride 98 (98-107) mmol/L Carbon Dioxide 27 (21-32) mmol/L Anion Gap 7 (3-11) BUN 34 H (6-23) mg/dl Creatinine 2.02 H (0.6-1.2) mg/dl Est Cr Clr Drug Dosing 28.7 ml/min eGFR 25.27 BUN/Creatinine Ratio 16.8 (10-20) Glucose 210 H (70-99(Fasting)) mg/dl POC Glucose (70-99) mg/dl Calcium 12.5 H* (8.6-10.3) mg/dl Ionized Calcium 1.56 H (1.12-1.32) mmol/L Magnesium (1.7-2.4) mg/dl Total Bilirubin (0.2-1.0) mg/dl AST (13-39) U/L ALT (7-52) U/L Alkaline Phosphatase (34-104) U/L Troponin I High Sens (0-14) pg/ml Total Protein (6.0-8.3) gm/dl Albumin (3.4-5.0) gm/dl Globulin (2.5-4.0) gm/dl Albumin/Globulin Ratio (0.9-2) 25-OH Vitamin D Total 26.7 L (30-100) ng/ml PTH Intact 3.4 L (12.0-88.0) pg/ml Urine Color Urine Appearance (Clear) Urine pH (4.5-7.5) Ur Specific [place] (1.000-1.030) Urine Protein (Negative) Urine Glucose (UA) (Negative) Urine Ketones (Negative) Urine Blood (Negative) Urine Nitrite (Negative) Urine Bilirubin (Negative) Urine Urobilinogen (Negative) Ur Leukocyte Esterase (Negative) Urine WBC (Auto) (0-5) /hpf Urine RBC (Auto) (0-2) /hpf U Hyaline Cast (Auto) (0-2) /lpf U Epithel Cells (Auto) (0-2) /hpf Urine Bacteria (Auto) (None Seen) Adenovirus (PCR) Not Detected (NotDetected) B. pertussis DNA (PCR) Not Detected (NotDetected) B.parapertussis DNA PCR Not Detected (NotDetected) C. pneumoniae DNA (PCR) Not Detected (NotDetected) Coronavirus OC43 (PCR) Not Detected (NotDetected) Coronavirus HKU1 (PCR) Not Detected (NotDetected) Coronavirus 229E (PCR) Not Detected (NotDetected) SARS-CoV-2 (PCR) Not Detected (NotDetected) Coronavirus NL63 (PCR) Not Detected (NotDetected) Human Metapneumovir PCR Not Detected (NotDetected) Influenza Type A (PCR) Not Detected (NotDetected) Influenza Type B (PCR) Not Detected (NotDetected) M. pneumoniae (PCR) Not Detected (NotDetected) Parainfluenza 1 (PCR) Not Detected (NotDetected) Parainfluenza 2 (PCR) Not Detected (NotDetected) Parainfluenza 3 (PCR) Not Detected (NotDetected) Parainfluenza 4 (PCR) Not Detected (NotDetected) RSV (PCR) Not Detected (NotDetected) Entero/Rhino (PCR) Not Detected (NotDetected) Blood Type O Negative Antibody Screen NEGATIVE 07/21/24 07/21/24 Range/Units 06:45 06:40 WBC 11.37 H (4.8-10.8) K/ul RBC 4.56 (4.20-5.40) M/uL Hgb 12.5 (12.0-16.0) g/dl Hct 38.2 (37.0-47.0) % MCV 83.8 (80.0-100.0) fL MCH 27.4 (25.0-34.0) pg MCHC 32.7 (32.0-36.0) g/dL RDW Std Deviation 47.6 H (36.4-46.3) fL RDW Coeff of Krista 15.5 H (11.5-14.5) % Plt Count 228 (130-400) K/uL MPV 11.0 (9.4-12.4) fL Immature Gran % (Auto) 0.8 % Neut % (Auto) 85.7 % Lymph % (Auto) 4.9 % Stephens % (Auto) 7.2 % Eos % (Auto) 0.8 % Baso % (Auto) 0.6 % Neut # (Auto) 9.74 H (1.40-6.50) K/uL Lymph # (Auto) 0.56 L (1.20-3.40) K/uL Stephens # (Auto) 0.82 H (0.11-0.59) K/uL Eos # (Auto) 0.09 (0.00-0.50) K/uL Baso # (Auto) 0.07 (0.00-0.20) K/uL Immature Gran # (Auto) 0.09 (0.01-0.20) K/uL PT 11.2 (9.0-12.0) Seconds INR 1.0 (0.9-1.1) APTT 28 (21-31) Seconds PTT Ratio 1.0 Sodium 133 L (136-145) mmol/L Potassium 4.5 (3.5-5.1) mmol/L Chloride 93 L (98-107) mmol/L Carbon Dioxide 30 (21-32) mmol/L Anion Gap 10 (3-11) BUN 35 H (6-23) mg/dl Creatinine 2.11 H (0.6-1.2) mg/dl Est Cr Clr Drug Dosing 27.5 ml/min eGFR 23.98 BUN/Creatinine Ratio 16.6 (10-20) Glucose 264 H (70-99(Fasting)) mg/dl POC Glucose (70-99) mg/dl Calcium 13.3 H* (8.6-10.3) mg/dl Ionized Calcium (1.12-1.32) mmol/L Magnesium 1.9 (1.7-2.4) mg/dl Total Bilirubin 0.8 (0.2-1.0) mg/dl AST 15 (13-39) U/L ALT 14 (7-52) U/L Alkaline Phosphatase 71 (34-104) U/L Troponin I High Sens 3.8 (0-14) pg/ml Total Protein 8.3 (6.0-8.3) gm/dl Albumin 4.1 (3.4-5.0) gm/dl Globulin 4.2 H (2.5-4.0) gm/dl Albumin/Globulin Ratio 1.0 (0.9-2) 25-OH Vitamin D Total (30-100) ng/ml PTH Intact (12.0-88.0) pg/ml Urine Color Yellow Urine Appearance Clear (Clear) Urine pH 7.5 (4.5-7.5) Ur Specific [place] 1.012 (1.000-1.030) Urine Protein Trace H (Negative) Urine Glucose (UA) 3+ H (Negative) Urine Ketones Negative (Negative) Urine Blood 1+ H (Negative) Urine Nitrite Negative (Negative) Urine Bilirubin Negative (Negative) Urine Urobilinogen Negative (Negative) Ur Leukocyte Esterase Negative (Negative) Urine WBC (Auto) 0-5 (0-5) /hpf Urine RBC (Auto) 0-2 (0-2) /hpf U Hyaline Cast (Auto) 0-2 (0-2) /lpf U Epithel Cells (Auto) 0-2 (0-2) /hpf Urine Bacteria (Auto) None Seen (None Seen) Adenovirus (PCR) (NotDetected) B. pertussis DNA (PCR) (NotDetected) B.parapertussis DNA PCR (NotDetected) C. pneumoniae DNA (PCR) (NotDetected) Coronavirus OC43 (PCR) (NotDetected) Coronavirus HKU1 (PCR) (NotDetected) Coronavirus 229E (PCR) (NotDetected) SARS-CoV-2 (PCR) (NotDetected) Coronavirus NL63 (PCR) (NotDetected) Human Metapneumovir PCR (NotDetected) Influenza Type A (PCR) (NotDetected) Influenza Type B (PCR) (NotDetected) M. pneumoniae (PCR) (NotDetected) Parainfluenza 1 (PCR) (NotDetected) Parainfluenza 2 (PCR) (NotDetected) Parainfluenza 3 (PCR) (NotDetected) Parainfluenza 4 (PCR) (NotDetected) RSV (PCR) (NotDetected) Entero/Rhino (PCR) (NotDetected) Blood Type Antibody Screen Diagnostic Findings Knee MRI 07/21/24 09:25 MR knee LT wo con IMPRESSION: 1. No acute fracture or dislocation. 2. Moderate to severe osteoarthritis. 3. Moderate sized joint effusion with intra-articular loose bodies/debris. 4. No acute tendon or ligamentous injury of the knee identified. Left ankle x-rays done today 07/21/2024 show no acute fracture or any bony or soft tissue abnormalities Left knee x-rays No acute fracture or dislocation. Degenerative changes noted.
[2024-07-21] MEDS: APIXABAN 5 MG TABLET PO SCH (21:10)
[2024-07-22 03:18] LABS: Hematocrit (blood only) 32.5 % (37.0-47.0); Hemoglobin 10.7 g/dl (12.0-16.0); Mean Corpuscular Hemoglobin 27.5 pg (25.0-34.0); Mean Corpuscular Hgb Conc 32.9 g/dL (32.0-36.0); Mean Corpuscular Volume 83.5 fL (80.0-100.0); Mean Platelet Volume 10.4 fL (9.4-12.4); Platelet Count 186 K/uL (130-400); RDW Coefficient of Variation 15.7 % (11.5-14.5); RDW Standard Deviation 47.8 fL (36.4-46.3); Red Blood Count 3.89 M/uL (4.20-5.40); White Blood Count 10.85 K/ul (4.8-10.8)
[2024-07-22 03:31] LABS: BUN Creatinine Ratio 15.7 (10-20); Calcium 11.3 mg/dl (8.6-10.3); Chol HDL Ratio 2.7 (0-5); Magnesium 1.7 mg/dl (1.7-2.4); Potassium 3.9 mmol/L (3.5-5.1)
[2024-07-22] MEDS: METOPROLOL TARTRATE 1 MG/ML VIAL IV STA (05:56)
[2024-07-22] MEDS: MAGNESIUM SULFATE / D5W 1 GM/100 ML BAG IV ONE (06:04)
[2024-07-22] MEDS ORDERED: LABETALOL HCL IV 5 MG/ML 20ML IV PRN (06:50)
[2024-07-22 07:04] LABS: Basophils # (auto) 0.07 K/uL (0.00-0.20); Basophils % (auto) 0.7 %; Eosinophils # (auto) 0.13 K/uL (0.00-0.50); Eosinophils % (auto) 1.3 %; Hematocrit (blood only) 33.4 % (37.0-47.0); Hemoglobin 10.8 g/dl (12.0-16.0); Immature Granulocytes # (auto) 0.05 K/uL (0.01-0.20); Immature Granulocytes % (auto) 0.5 %; Lymphocytes # (auto) 0.56 K/uL (1.20-3.40); Lymphocytes % (auto) 5.5 %; Mean Corpuscular Hemoglobin 27.3 pg (25.0-34.0); Mean Corpuscular Hgb Conc 32.3 g/dL (32.0-36.0); Mean Corpuscular Volume 84.3 fL (80.0-100.0); Mean Platelet Volume 10.7 fL (9.4-12.4); Monocytes # (auto) 1.24 K/uL (0.11-0.59); Monocytes % (auto) 12.1 %; Neutrophils # (auto) 8.17 K/uL (1.40-6.50); Neutrophils % (auto) 79.9 %; Platelet Count 188 K/uL (130-400); RDW Coefficient of Variation 15.7 % (11.5-14.5); RDW Standard Deviation 48.5 fL (36.4-46.3); Red Blood Count 3.96 M/uL (4.20-5.40); White Blood Count 10.22 K/ul (4.8-10.8)
--- NOTE | 2024-07-22 07:17 | Communication Note ---
Date of Service: July 22, 2024 Notified by RN that patient seemed confused/disoriented. Stroke alert called shortly after. For context, patient admitted after a fall, had CT head/MRI/MRA head and neck yesterday that were all negative. Overnight course significant for development of RVR with rates generally 130-160 per nursing - patient was asymptomatic, BP stable - given spot dose of IV Metoprolol shortly before change in mental status. When seen at bedside, patient appeared fairly alert, oriented to self and place but did demonstrate some confusion during conversation. Patien t reported primary sx was blurring of vision. No dysarthria appreciated, strength preserved and symmetrical bilaterally with the exception of baseline LLE weakness d/t pain. Sensation preserved. Overall no major deficits appreciated. BSG, BP, SpO2 all WNL. Patient taken down for CT head, CTA head/neck. Telestroke consult pending. Labs ordered: Troponin, PT/PTT, Mag, CMP, ionized calcium in addition to AM labs that were drawn shortly before stroke alert called. Patient is on Eliquis, ?intracranial bleed, though change in mentation could also be related to hypercalcemia.
--- NOTE | 2024-07-22 07:23 | CT Scan Report ---
EXAM: CT head/brain wo con CLINICAL HISTORY: Stroke-like Sx. TECHNIQUE: An axial non-contrast CT scan of the brain was performed from the skull base to the high parietal region. One of the following dose reduction techniques was utilized for this exam: Automated exposure control, adjustment of the mA and/or kV according to patient size, and use of iterative reconstruction. CTDI: 37.8 mGy , DLP: 629.8 mGy-cm. COMPARISON: None. FINDINGS: Brain Parenchyma: Multiple subcortical and periventricular white matter hypodensities likely represent chronic microvascular ischemic changes. Normal attenuation of the cerebral hemispheres, cerebellum, and brainstem. No evidence of acute infarct, hemorrhage, or mass effect. No abnormal areas of hyperattenuation. Ventricular System: A capacious ventricular system, denoting significant atrophic changes. No evidence of hydrocephalus. Subarachnoid Spaces: Capacious CSF spaces denote significant atrophic changes. No evidence of subarachnoid hemorrhage or extra-axial fluid collections. Cerebellum and Brainstem: Normal size and attenuation. No masses, lesions, or areas of abnormal attenuation. Orbits: Normal appearance of the globes, optic nerves, and extraocular muscles. No evidence of orbital masses or abnormal attenuation. Sinuses: Clear paranasal sinuses. No evidence of sinusitis or mucosal thickening. Mastoid Air Cells: Clear mastoid air cells. No evidence of mastoiditis. Skull and Meninges: Prominent frontal bone. Normal skull morphology. IMPRESSION: 1. No evidence of acute intracranial hemorrhage. 2. Chronic microvascular ischemic changes. 3. Senile brain atrophy changes. 4. Recommend MRI brain to rule out acute ischemic insult for better evaluation as clinically needed. [facility] was called at [phone] at 06:17 AM HOSPITAL TECHNICIAN, 07/22/2024, and JAYMIE Nova was informed regarding negative stroke results. Electronically signed by Eze Joseph 07-22-2024 07:23 AM
[2024-07-22 07:25] LABS: Albumin Level 3.5 gm/dl (3.4-5.0); Calcium 11.6 mg/dl (8.6-10.3); Magnesium 1.7 mg/dl (1.7-2.4); Potassium 4.4 mmol/L (3.5-5.1)
[2024-07-22 07:31] LABS: BUN Creatinine Ratio 15.2 (10-20); Creatinine Clr Calc Pharmacy 30.2 ml/min; Globulin 3.6 gm/dl (2.5-4.0); Total Protein 7.1 gm/dl (6.0-8.3)
[2024-07-22 07:33] LABS: Troponin I High Sensitivity 4.6 pg/ml (0-14)
[2024-07-22 07:34] LABS: Estimated Average Glucose 183 mg/dl
[2024-07-22 07:38] LABS: INR 1.1 (0.9-1.1); Partial Thromboplastin Ratio 1.3; Partial Thromboplastin Time 34 Seconds (21-31); Prothrombin Time 11.6 Seconds (9.0-12.0)
[2024-07-22] MEDS: PRAVASTATIN SOD 20 MG TAB PO SCH (08:32)
[2024-07-22] MEDS: PANTOprazole 40 MG TAB PO SCH (08:32)
[2024-07-22] MEDS: FLUoxetine HCL 20 MG CAP PO SCH (08:32)
[2024-07-22] MEDS: METOPROLOL SUCC 25MG EXT REL TAB PO SCH (08:32)
[2024-07-22] MEDS: INSULIN ASPART PER UNIT CHARGE SC SCH ×2 (09:24→21:21)
--- NOTE | 2024-07-22 10:10 | Neurology Consultation ---
Date of Consultation July 22, 2024 Assessment & Plan (1) Confusion: History of Present Illness Attending Physician: Rufino Jacobo DO History of Present Illness S: pt this morning back to baseline. CT head negative. mri brain negative. this morning fully oriented. chart reviewed. Overnight event note: notified by RN that patient seemed confused/disoriented. Stroke alert called shortly after. For context, patient admitted after a fall, had CT head/MRI/MRA head and neck yesterday that were all negative. Overnight course significant for development of RVR with rates generally 130-160 per nursing - patient was asymptomatic, BP stable - given spot dose of IV Metoprolol shortly before change in mental status. When seen at bedside, patient appeared fairly alert, oriented to self and place but did demonstrate some confusion during conversation. Patient reported primary sx was blurring of vision. No dysarthria appreciated, strength preserved and symmetrical bilaterally with the exception of baseline LLE weakness d/t pain. Sensation preserved. Overall no major deficits appreciated. BSG, BP, SpO2 all WNL. Patient taken down for CT head, CTA head/neck. Telestroke consult pending. Labs ordered: Troponin, PT/PTT, Mag, CMP, ionized calcium in addition to AM labs that were drawn shortly before stroke alert called. Patient is on Eliquis, ?intracranial bleed, though change in mentation could also be related to hypercalcemia. Allergies Allergy/AdvReac Type Severity Reaction Status Date / Time No Known Allergies Allergy Verified 07/21/24 09:52 Home Medications Medication Instructions Recorded Confirmed Type flash glucose sensor (FreeStyle #1 ea 07/12/21 04/29/24 Rx Darell 14 Day Sensor kit) pen needle, diabetic 32 gauge x #100 ea 04/24/23 04/29/24 Rx 5/32" (BD Ultra-Fine Isha Pen Needle) fluoxetine 40 mg capsule 40 mg PO DAILY #90 caps 05/23/23 07/21/24 Rx glipizide 10 mg tablet, extended 10 mg PO DAILY #90 tabs 05/23/23 07/21/24 Rx release 24 hr metoprolol succinate 50 mg 25 mg (1/2 x 50 mg) PO DAILY 90 05/23/23 07/21/24 Rx tablet,extended release 24 hr days #45 tabs pravastatin 20 mg tablet 20 mg PO DAILY #90 tabs 05/23/23 07/21/24 Rx apixaban 5 mg tablet (Eliquis) 5 mg PO BID #180 tabs 04/15/24 07/21/24 Rx omeprazole 20 mg capsule,delayed 20 mg PO DAILY #90 caps 07/18/24 07/21/24 Rx release losartan 50 mg tablet 50 mg PO DAILY #90 tabs 07/19/24 07/21/24 Rx cholecalciferol (vitamin D3) 50 50 mcg PO DAILY 07/21/24 07/21/24 History mcg (2,000 unit) capsule (Vitamin D3) insulin detemir U-100 100 unit/mL 0 unit subcut DAILY 07/21/24 07/21/24 History (3 mL) subcutaneous pen Patient History Medical History Anorexia Fatigue Cough Surgical History H/O elbow surgery Family History Mother Breast cancer Alcoholic Dementia Father Skin cancer Diabetes Grandmother (Paternal) Breast cancer Denies family history of Ovarian cancer Prostate cancer Myocardial infarction Colorectal cancer Social History Smoking Status: Never smoker Second Hand Exposure: No; Do You Dip or Chew Tobacco: No; Tobacco Cessation Education Requested by Patient: No Hx Alcohol Use: No Hx Substance Use: No Preferred Language: Arabic Communication Ability: Effective Visual Impairment: Limited Hearing Ability: Normal Chronic Disease Epidemiologist Required: No Beliefs That Will Affect Care: Pentecostalism Pentecostalism Beliefs: anabaptism marital status: Current Living Situation: Spouse current occupational status: retired current occupation: [employer] How many Children do You have: 1 Other Information That Helps Us Care for You: No Feels Safe at Home: Yes Safety Concerns: Feels Safe At This Time Childhood Exposure to Second-Hand Smoke: Yes Diet: regular caffeine: Yes during the past year weight has: remained stable Dental Care, Regularly: Yes Physical Activity Frequency: Does not Exercise Seatbelt Use: always Sunscreen Use: Yes Assistive Devices: Cane Exam (Neuro) Physical Exam: HEENT: normocephalic grossly Neuro: Mental: AOx4, fluent speech, normal comprehension, no apraxia, no L/R confusion, no neglect CN: PERRL, Full EOM, symmetric face, midline T/U/P, grossly full ROM neck Motor: No abnormal movements, normal tone, 5-/5 t/o bilaterally Sens: intact to touch b/l grossly Coord: intact grossly. DTR: 1+ sym b/l Impression: 74 yo female with transient disorientation in setting of worsening renal function and metabolic disorders. overall picture not suggestive of stroke. Recommendations: I do not feel there is further need for stroke work up at this point. close monitoring and tx for her cardiac issues and metabolic disorders. avoid sedative meds. please call again if new question. Chart reviewed I have spent more than 50% educating patient about potential diagnosis and neurological evaluation and coordinating care with patient's treatment team. Total time spent (including chart review and coordination of care):55 min (this includes chart review). Results & Data Vital Signs (Past 12 Hours) Vital Signs Temp Pulse Pulse Pulse Resp BP BP 07/22/24 10:04 115 H 07/22/24 07:45 116 H 16 154/92 H 07/22/24 06:18 37.4 C 120 H 20 118/70 07/22/24 05:56 129 H 123/86 07/22/24 02:27 114 H 18 137/87 07/21/24 22:37 36.8 C 84 18 139/83 07/21/24 22:12 125 H Pulse Ox O2 Del Method 07/22/24 10:04 07/22/24 07:45 94 Room Air 07/22/24 06:18 93 Room Air 07/22/24 05:56 07/22/24 02:27 93 Room Air 07/21/24 22:37 96 Room Air 07/21/24 22:12 PG Care Time/CCT Total # of Minutes Spent Total Time Spent with Patient: Total time spent is greater than 50% in coordination of care (as documented) at patient's floor/unit and/or counseling patient: Coding Level of Care Code 56506 IN/OBS CONSULT LVL 3,45M Diagnoses Confusion R41.0
--- NOTE | 2024-07-22 10:59 | Magnetic Resonance Report ---
MR brain wo con HISTORY: 74 years-old Female stroke possibility acute stroke like symptoms COMPARISON: Head CT of same day TECHNIQUE: Multiplanar multisequence MRI of the brain was obtained without IV contrast FINDINGS: No restricted diffusion midline structures appear unremarkable. Partially empty sella. Degenerative c hanges of the cervical spine. No acute intracranial hemorrhage, midline shift, abnormal extra-axial c ollection, hydrocephalus or intra-axial mass. No pathologic imaging artifact. The coronal FLAIR image s are very limited secondary to patient motion. Involutional changes with suggestion of mild chronic microvascular ischemic disease. Cerebral venous sinuses and major arterial flow voids appear patent. Trace mastoid effusions. Paranas al sinuses are clear. Skull, orbits and soft tissues are unremarkable. IMPRESSION: 1. Limited exam secondary to motion. 2. No acute intracranial abnormality, specifically there is no evidence of acute or subacute infarct. ACT 112: Negative or not required by law. The above report was generated using voice recognition software. It may contain grammatical, syntax o r spelling errors. Electronically signed by: Martin Plascencia M.D. 07/22/2024 10:57 AM
--- NOTE | 2024-07-22 11:12 | Nephrology Consultation ---
Date of Consultation July 22, 2024 Assessment & Plan (1) Hypercalcemia: * Non-PTH medicated hypercalcemia, normal serum Ca * Patient reports h/o low vitamin D and had been on OTC vitamin D 3 1,000 units daily. However, she chose to stop all of her medications 6 weeks prior to admission because she was "not feeling well" * Outpatient evaluation did reveal mildly elevated 1,25 vitamin D and kappa/lambda light chain ration 03/05 * Will increase 0.9 NS to 100 cc/hr * Will provide 30 mg IV pamidronate IV over 4 hours * 25 and 1,25 vitamin D levels ordered * 08/06 PTH is appropriately suppressed * Will repeat PTHrp and order SIEP/24 hr urine IEP * Check serum CAMMY * Discussed indication for non-contrast chest CT w/ patient. She is agreeable. Will order chest CT to evaluate for lymphadenopathy and lung nodules * Monitor BMP (2) Acute kidney injury: * ERMA likely due to hypercalcemia/hypercalciuria with dehydration * 08/06 urine sediment remains non-nephritic * 08/[address] revealed mild L renal atrophy, no hydronephrosis * Hold losartan, continue IV hydration, monitor BMP (3) Chronic renal insufficiency: * CKD stage G3b (moderate impairment). Baseline Cr 1.4-1.6 w/ EGFR 30 cc/min. Renal impairment attributed to microvascular disease (4) Atrial fibrillation: (5) Diabetes mellitus: History of Present Illness Reason for Consultation: Hypercalcemia Attending Physician: Rufino Jacobo DO History of Present Illness Mrs. Way is a 74 year old white female who is seen at the request of [facility] hospitalist service for evaluation of hypercalcemia. Information for the HPI is obtained from direct patient interview and review of the EMR. HPI is summarized as follows: Mrs. Way has a known h/o hypercalcemia and CKD. Her primary edger automatic is Dr. Rodriguez. Her baseline Cr has been 1.4-1.6 w/ EGFR 30 cc/min. CKD has been attributed to microvascular disease. Outpatient evaluation had revealed a non-nephritic urine sediment, UPCR 0.5, 04/02 renal US - R 10.4cm, L 9.7cm. No hydronephrosis. Mild cortical lobulation/scarring involving the L kidney. Outpatient evaluation of hypercalcemia revealed serum Ca 10.5-11.5, albumin 3.5, PTH 2.4, PTHrp 6, free kappa/lambda ratio mildly elevated 1.75, 25 vitamin D 29, 1-25 vitamin D elevated at 84. CT imaging orde red w/ 1 month follow up but patient was lost to follow up. Mrs. Way presented to [facility] 07/21/24 for evaluation of MS changes and two falls. Serum Ca was 13.3 on admission but improved to 12.5 following IV hydration. Albumin remains 3.5. Creatinine is mildly elevated at 2.0. Mrs. Way denies the use of calcium or herbal supplements. She does not take antacids or drink milk. She denies cough, dyspnea, fever, unintentional weight loss, dry eyes, skin nodules/rash, back or bone pain. She denies any h/o malignancy. Mrs. Way reports that she had low vitamin D levels and her PCP ordered OTC vitamin D3 1,000 units daily. 6 weeks ago, however, she chose to stop all medications because she "was not feeling well". PMH: CKD, AODM, atrial fibrillation, hyperlipidemia, hypercalcemia Allergies Allergy/AdvReac Type Severity Reaction Status Date / Time No Known Allergies Allergy Verified 07/21/24 09:52 Home Medications Medication Instructions Recorded Confirmed Type flash glucose sensor (FreeStyle #1 ea 07/12/21 04/29/24 Rx Darell 14 Day Sensor kit) pen needle, diabetic 32 gauge x #100 ea 04/24/23 04/29/24 Rx 5/32" (BD Ultra-Fine Isha Pen Needle) fluoxetine 40 mg capsule 40 mg PO DAILY #90 caps 05/23/23 07/21/24 Rx glipizide 10 mg tablet, extended 10 mg PO DAILY #90 tabs 05/23/23 07/21/24 Rx release 24 hr metoprolol succinate 50 mg 25 mg (1/2 x 50 mg) PO DAILY 90 05/23/23 07/21/24 Rx tablet,extended release 24 hr days #45 tabs pravastatin 20 mg tablet 20 mg PO DAILY #90 tabs 05/23/23 07/21/24 Rx apixaban 5 mg tablet (Eliquis) 5 mg PO BID #180 tabs 04/15/24 07/21/24 Rx omeprazole 20 mg capsule,delayed 20 mg PO DAILY #90 caps 07/18/24 07/21/24 Rx release losartan 50 mg tablet 50 mg PO DAILY #90 tabs 07/19/24 07/21/24 Rx cholecalciferol (vitamin D3) 50 50 mcg PO DAILY 07/21/24 07/21/24 History mcg (2,000 unit) capsule (Vitamin D3) insulin detemir U-100 100 unit/mL 0 unit subcut DAILY 07/21/24 07/21/24 History (3 mL) subcutaneous pen Patient History Medical History Anorexia Fatigue Cough Surgical History H/O elbow surgery L elbow Family History Mother Breast cancer Alcoholic Dementia Father Skin cancer Diabetes Grandmother (Paternal) Breast cancer Denies family history of Ovarian cancer Prostate cancer Myocardial infarction Colorectal cancer Social History Smoking Status: Never smoker Second Hand Exposure: No; Do You Dip or Chew Tobacco: No; Tobacco Cessation Education Requested by Patient: No Hx Alcohol Use: No Hx Substance Use: No Preferred Language: Maori Communication Ability: Effective Visual Impairment: Limited Hearing Ability: Normal Risk Management Specialist Required: No Beliefs That Will Affect Care: Protestant Protestant Beliefs: episcopalian marital status: Current Living Situation: Spouse current occupational status: retired current occupation: [employer] How many Children do You have: 1 Other Information That Helps Us Care for You: No Feels Safe at Home: Yes Safety Concerns: Feels Safe At This Time Childhood Exposure to Second-Hand Smoke: Yes Diet: regular caffeine: Yes during the past year weight has: remained stable Dental Care, Regularly: Yes Physical Activity Frequency: Does not Exercise Seatbelt Use: always Sunscreen Use: Yes Assistive Devices: Cane Review of Systems Constitutional: no fever Eyes: no dry eyes, no itchy eyes and no problem reported Ear, Nose, Mouth, Throat: no dry mouth, no pain with swallowing, no neck lump and no problem reported Respiratory: no cough, no dyspnea and no hemoptysis Cardiovascular: no chest pain Gastrointestinal: no abdominal pain, no nausea, no vomiting and no blood in stools Genitourinary: no dysuria Integumentary: no rash Neurologic: + falls Physical Exam Constitutional: not in distress Eyes: PERRL, conjunctivae normal, anicteric sclerae ENMT: external ear and nose normal, oropharynx normal Neck: trachea midline, no thyromegaly no submandibular swelling no LAD Respiratory: normal respiratory effort, lungs clear to auscultation Cardiovascular: Rate/Rhythm: + tachycardic and + irregularly irregular Gastrointestinal (Abdomen): normal bowel sounds, soft, nontender, no hepatosplenomegaly Skin: no rashes, warm and dry Neurologic: Speech / Cognition: normal speech and normal cognition Psychiatric: Affect: euthymic affect Results & Data Vital Signs (Past 12 Hours) Vital Signs Temp Pulse Pulse Pulse Resp BP BP 07/22/24 10:04 115 H 07/22/24 07:45 116 H 16 154/92 H 07/22/24 06:18 37.4 C 120 H 20 118/70 07/22/24 05:56 129 H 123/86 07/22/24 02:27 114 H 18 137/87 Pulse Ox O2 Del Method 07/22/24 10:04 07/22/24 07:45 94 Room Air 07/22/24 06:18 93 Room Air 07/22/24 05:56 07/22/24 02:27 93 Room Air Laboratory Results Laboratory Results WBC 10.22 K/ul (4.8-10.8) 07/22/24 06:45 RBC 3.96 M/uL (4.20-5.40) L 07/22/24 06:45 Hgb 10.8 g/dl (12.0-16.0) L 07/22/24 06:45 Hct 33.4 % (37.0-47.0) L 07/22/24 06:45 MCV 84.3 fL (80.0-100.0) 07/22/24 06:45 MCH 27.3 pg (25.0-34.0) 07/22/24 06:45 MCHC 32.3 g/dL (32.0-36.0) 07/22/24 06:45 RDW Std Deviation 48.5 fL (36.4-46.3) H 07/22/24 06:45 RDW Coeff of Krista 15.7 % (11.5-14.5) H 07/22/24 06:45 Plt Count 188 K/uL (130-400) 07/22/24 06:45 MPV 10.7 fL (9.4-12.4) 07/22/24 06:45 Immature Gran % (Auto) 0.5 % 07/22/24 06:45 Neut % (Auto) 79.9 % 07/22/24 06:45 Lymph % (Auto) 5.5 % 07/22/24 06:45 [place] % (Auto) 12.1 % 07/22/24 06:45 Eos % (Auto) 1.3 % 07/22/24 06:45 Baso % (Auto) 0.7 % 07/22/24 06:45 Neut # (Auto) 8.17 K/uL (1.40-6.50) H 07/22/24 06:45 Lymph # (Auto) 0.56 K/uL (1.20-3.40) L 07/22/24 06:45 [place] # (Auto) 1.24 K/uL (0.11-0.59) H 07/22/24 06:45 Eos # (Auto) 0.13 K/uL (0.00-0.50) 07/22/24 06:45 Baso # (Auto) 0.07 K/uL (0.00-0.20) 07/22/24 06:45 Immature Gran # (Auto) 0.05 K/uL (0.01-0.20) 07/22/24 06:45 PT 11.6 Seconds (9.0-12.0) 07/22/24 06:45 INR 1.1 (0.9-1.1) 07/22/24 06:45 APTT 34 Seconds (21-31) H 07/22/24 06:45 PTT Ratio 1.3 07/22/24 06:45 Sodium 129 mmol/L (136-145) L 07/22/24 06:45 Potassium 4.4 mmol/L (3.5-5.1) 07/22/24 06:45 Chloride 97 mmol/L (98-107) L 07/22/24 06:45 Carbon Dioxide 25 mmol/L (21-32) 07/22/24 06:45 Anion Gap 7 (3-11) 07/22/24 06:45 BUN 31 mg/dl (6-23) H 07/22/24 06:45 Creatinine 2.04 mg/dl (0.6-1.2) H 07/22/24 06:45 Est Cr Clr Drug Dosing 30.2 ml/min 07/22/24 06:45 eGFR 24.97 07/22/24 06:45 BUN/Creatinine Ratio 15.2 (10-20) 07/22/24 06:45 Glucose 168 mg/dl (70-99(Fasting)) H 07/22/24 06:45 POC Glucose 193 mg/dl (70-99) H 07/22/24 09:19 Estimat Average Glucose 183 mg/dl 07/22/24 02:54 Hemoglobin A1c 8.0 % (4.5-5.6) H 07/22/24 02:54 Lactate 1.6 mmol/L (0.4-2.0) 07/22/24 06:42 Calcium 11.6 mg/dl (8.6-10.3) H 07/22/24 06:45 Ionized Calcium 1.41 mmol/L (1.12-1.32) H 07/22/24 08:31 Magnesium 1.7 mg/dl (1.7-2.4) 07/22/24 06:45 Total Bilirubin 1.0 mg/dl (0.2-1.0) 07/22/24 06:45 AST 16 U/L (13-39) 07/22/24 06:45 ALT 10 U/L (7-52) 07/22/24 06:45 Alkaline Phosphatase 52 U/L (34-104) 07/22/24 06:45 Troponin I High Sens 4.6 pg/ml (0-14) 07/22/24 06:45 Total Protein 7.1 gm/dl (6.0-8.3) 07/22/24 06:45 Albumin 3.5 gm/dl (3.4-5.0) 07/22/24 06:45 Globulin 3.6 gm/dl (2.5-4.0) 07/22/24 06:45 Albumin/Globulin Ratio 1.0 (0.9-2) 07/22/24 06:45 Triglycerides 68 mg/dl (0-150) 07/22/24 02:54 Cholesterol 146 mg/dl (0-200) 07/22/24 02:54 LDL Cholesterol, Calc 77 mg/dl 07/22/24 02:54 VLDL Cholesterol, Calc 14 mg/dl (0-30) 07/22/24 02:54 HDL Cholesterol 55 mg/dl 07/22/24 02:54 Cholesterol/HDL Ratio 2.7 (0-5) 07/22/24 02:54 25-OH Vitamin D Total 26.7 ng/ml (30-100) L 07/21/24 14:08 PTH Intact 3.4 pg/ml (12.0-88.0) L 07/21/24 14:08 Urine Color Yellow 07/21/24 06:45 Urine Appearance Clear (Clear) 07/21/24 06:45 Urine pH 7.5 (4.5-7.5) 07/21/24 06:45 Ur Specific [place] 1.012 (1.000-1.030) 07/21/24 06:45 Urine Protein Trace (Negative) H 07/21/24 06:45 Urine Glucose (UA) 3+ (Negative) H 07/21/24 06:45 Urine Ketones Negative (Negative) 07/21/24 06:45 Urine Blood 1+ (Negative) H 07/21/24 06:45 Urine Nitrite Negative (Negative) 07/21/24 06:45 Urine Bilirubin Negative (Negative) 07/21/24 06:45 Urine Urobilinogen Negative (Negative) 07/21/24 06:45 Ur Leukocyte Esterase Negative (Negative) 07/21/24 06:45 Urine WBC (Auto) 0-5 /hpf (0-5) 07/21/24 06:45 Urine RBC (Auto) 0-2 /hpf (0-2) 07/21/24 06:45 U Hyaline Cast (Auto) 0-2 /lpf (0-2) 07/21/24 06:45 U Epithel Cells (Auto) 0-2 /hpf (0-2) 07/21/24 06:45 Urine Bacteria (Auto) None Seen (None Seen) 07/21/24 06:45 Adenovirus (PCR) Not Detected (NotDetected) 07/21/24 06:52 B. pertussis DNA (PCR) Not Detected (NotDetected) 07/21/24 06:52 B.parapertussis DNA PCR Not Detected (NotDetected) 07/21/24 06:52 C. pneumoniae DNA (PCR) Not Detected (NotDetected) 07/21/24 06:52 Coronavirus OC43 (PCR) Not Detected (NotDetected) 07/21/24 06:52 Coronavirus HKU1 (PCR) Not Detected (NotDetected) 07/21/24 06:52 Coronavirus 229E (PCR) Not Detected (NotDetected) 07/21/24 06:52 SARS-CoV-2 (PCR) Not Detected (NotDetected) 07/21/24 06:52 Coronavirus NL63 (PCR) Not Detected (NotDetected) 07/21/24 06:52 Human Metapneumovir PCR Not Detected (NotDetected) 07/21/24 06:52 Influenza Type A (PCR) Not Detected (NotDetected) 07/21/24 06:52 Influenza Type B (PCR) Not Detected (NotDetected) 07/21/24 06:52 M. pneumoniae (PCR) Not Detected (NotDetected) 07/21/24 06:52 Parainfluenza 1 (PCR) Not Detected (NotDetected) 07/21/24 06:52 Parainfluenza 2 (PCR) Not Detected (NotDetected) 07/21/24 06:52 Parainfluenza 3 (PCR) Not Detected (NotDetected) 07/21/24 06:52 Parainfluenza 4 (PCR) Not Detected (NotDetected) 07/21/24 06:52 RSV (PCR) Not Detected (NotDetected) 07/21/24 06:52 Entero/Rhino (PCR) Not Detected (NotDetected) 07/21/24 06:52 Blood Type O Negative 07/22/24 06:45 Antibody Screen NEGATIVE 07/22/24 06:45 Impressions Ankle X-Ray 07/21/24 06:44 EXAM: XR ankle LT min 3V routine CLINICAL HISTORY: fall TECHNIQUE: Radiograph of ankle was acquired. COMPARISON: No FINDINGS: There is no evidence of acute fracture, dislocation or osseous destructive lesion. The talar dome is unremarkable. The ankle mortise is intact. The soft tissues appear unremarkable. IMPRESSION: 1. No acute osseous or soft tissue abnormality. Electronically signed by Eldon Mak 07-21-2024 07:52 AM Chest X-Ray 07/21/24 06:44 EXAM: XR chest 1V portable CLINICAL HISTORY: neuro deficit, acute stroke suspected TECHNIQUE: Radiograph of chest was acquired. COMPARISON: 04/03/2018 12:17:59 FRONT END ARCHITECT FINDINGS: The lungs are clear and well-expanded with no pulmonary infiltrate or pleural effusion. The cardiomediastinal silhouette is within normal limits. No acute osseous abnormality. IMPRESSION: 1. No acute cardiopulmonary disease. (No new finding) Electronically signed by Eldon Mak 07-21-2024 07:48 AM Knee X-Ray 07/21/24 06:44 EXAM: XR knee LT 3V CLINICAL HISTORY: fall TECHNIQUE: Radiograph of knee was acquired. COMPARISON: No FINDINGS: Patella donte. Lateral patellar dislocation likely due to disruptive changes to the medial patellar retinaculum. Mild thickening and irregularity of medial patellar retinaculum soft tissue shadow noted. Degenerative changes in the form of asymmetrical reduction in joint space, marginal osteophytes, subchondral cysts and areas of subchondral sclerosis. There is no evidence of acute fracture, or osseous lesion. The patellofemoral joint space shows irregular reduction. Rest of the soft tissues appear unremarkable. No evidence of joint effusion. IMPRESSION: 1. No acute osseous abnormality. 2. Patella donte. [id number]. Lateral patellar dislocation likely due to disruptive changes to medial patellar retinaculum. Mild thickening and irregularity of medial patellar retinaculum soft tissue shadow. Suggest- Correlation /OBX.5.1.1OBX.5.1.2 further evlaution with MRI knee./OBX.5.1.2/OBX.5.1 4. Osteoarthritis. Electronically signed by Eldon Mak 07-21-2024 07:46 AM Head MRA 07/21/24 08:49 MR angio head wo con HISTORY: 74 years-old Female left leg weak, CVA? Acute stroke like symptoms COMPARISON: Brain MRI of same day TECHNIQUE: MRA of the head was obtained utilizing 3-D [id number] sequencing with MIP reformats. All measurements were obtained according to NASCET criteria. FINDINGS: origin of the right posterior cerebral artery. Study is mildly motion degraded. No aneurysm, dissection, high-grade stenosis or arterial occlusion. IMPRESSION: Unremarkable MRA of the head. ACT 112: Negative or not required by law. The above report was generated using voice recognition software. It may contain grammatical, syntax or spelling errors. Electronically signed by: Martin Plascencia M.D. 07/21/2024 11:43 AM Neck MRA 07/21/24 08:49 NECK MRA HISTORY: Acute strokelike symptoms left leg weak, CVA? TECHNIQUE: [id number] and gadolinium-enhanced MRA of the neck was performed both before and after the intravenous administration of contrast. All measurements were calculated based on NASCET criteria. COMPARISON STUDY: MRI brain on same day FINDINGS: The aortic arch and proximal great vessels are widely patent. There is no high-grade stenosis, occlusion, or dissection identified within the bilateral common carotid, internal carotid, or vertebral arteries. Mild stenosis of the proximal cervical segments of the internal carotid arteries likely secondary to atherosclerosis. IMPRESSION: No high-grade stenosis, occlusion, or dissection identified within the carotid or vertebral arteries. ACT 112: Negative or not required by law. Electronically signed by: Martin Plascencia M.D. 07/21/2024 11:46 AM Knee MRI 07/21/24 09:25 MR knee LT wo con CLINICAL HISTORY: 74 years-old Female with left patellar dislocation. Acute left knee pain status post fall with reported patellar subluxation COMPARISON: Radiograph 6 07/21/2024 TECHNIQUE: Multiplanar, multisequence MRI of the left knee was performed without intravenous contrast. FINDINGS: Motion degraded exam. MENISCI: Chronic diffuse tearing of the lateral meniscus which is markedly extruded the adjacent meniscal gutter with underlying displaced meniscal fragment. Degeneration of the medial meniscus with probable chronic posterior horn and root tear. The medial meniscus is diminutive in morphology. CRUCIATE LIGAMENTS: Intact ACL. There is moderate thickening of the intact PCL compatible with a chronic sprain. COLLATERAL LIGAMENTS: The popliteus tendon, biceps femoris tendon, and medial collateral ligaments appear intact. There is attenuation of the proximal fibers of the lateral collateral ligament compatible with a chronic sprain. EXTENSOR MECHANISM: The quadriceps and patellar tendons are intact. The medial and lateral patellar retinacula are intact. KNEE JOINT: Moderate size joint effusion containing intra-articular debris and innumerable loose bodies. Synovial thickening appeared chronic. Severe lateral with moderate to severe medial and patellofemoral compartment osteoarthritis with prominent marginal osteophytic spurring. Lateral tilt of the patella is redemonstrated which appears chronic secondary to the osteoarthritis. BONE MARROW: No acute fracture or marrow replacing process. SOFT TISSUES: Edema/fluid along the medial joint line tracks into the Pes Anserine bursa and may be related to a leaking trace Banuelos's cyst. Mild non specific circumferential subcutaneous edema with superficial venous varicosities. IMPRESSION: 1. No acute fracture or dislocation. 2. Moderate to severe osteoarthritis. 3. Moderate sized joint effusion with intra-articular loose bodies/debris. 4. No acute tendon or ligamentous injury of the knee identified. ACT 112: Negative or not required by law. The above report was generated using voice recognition software. It may contain grammatical, syntax or spelling errors. Electronically signed by: Martin Plascencia M.D. 07/21/2024 10:58 AM Abdomen/Pelvis CT 07/21/24 10:[address] WITH IV CONTRAST CT DOSE: 1348.38 mGy.cm HISTORY: hypercalcemia TECHNIQUE: Multiaxial CT images of the abdomen and pelvis were performed following the IV administration of cc of Optiray, A dose lowering technique was utilized adhering to the principles of ALARA. COMPARISON STUDY: Renal ultrasound 03/18/2022 FINDINGS: Small pleural effusions with mild bibasilar atelectasis. Interlobular septal thickening in the lungs. No pneumatosis or pneumoperitoneum. Scattered calcified granulomata are noted throughout the spleen and liver. The spleen is upper limits of normal in size. Unremarkable pancreas, gallbladder and adrenal glands. No hydronephrosis. Cortical thinning of the left or right kidneys. Layering hyperdense material within the urinary bladder lumen suggestive of contrast. Urinary bladder wall thickening with mild perisigmoid stranding.r probable arcuate morphology of the uterus. Endometrium measures 6 cm. Atherosclerosis of the aorta. Nonspecific mildly enlarged periaortic, periportal and pericaval nodes measure up to 11 mm in short axis. Small hiatal hernia. There is no bowel obstruction or bowel wall thickening. Colonic diverticulosis without acute diverticulitis. Mild to moderate colonic fecal retention. Normal appendix. No acute fracture. IMPRESSION: 1. No acute intra-abdominal or pelvic abnormality. 2. Nonspecific mildly enlarged periaortic, pericaval and periportal lymph nodes. 3. Mild interstitial pulmonary edema with small pleural effusions. 4. Prior granulomatous disease. 5. Pathologic thickening of the endometrium. Follow-up with gynecology recommended. 6. Colonic diverticulosis. ACT 112: Negative or not required by law. The above report was generated using voice recognition software. It may contain grammatical, syntax or spelling errors. Electronically signed by: Martin Plascencia M.D. 07/21/2024 12:[address] 07/22/24 06:41 EXAM: CT head/brain wo con CLINICAL HISTORY: Stroke-like Sx. TECHNIQUE: An axial non-contrast CT scan of the brain was performed from the skull base to the high parietal region. One of the following dose reduction techniques was utilized for this exam: Automated exposure control, adjustment of the mA and/or kV according to patient size, and use of iterative reconstruction. CTDI: 37.8 mGy , DLP: 629.8 mGy-cm. COMPARISON: None. FINDINGS: Brain Parenchyma: Multiple subcortical and periventricular white matter hypodensities likely represent chronic microvascular ischemic changes. Normal attenuation of the cerebral hemispheres, cerebellum, and brainstem. No evidence of acute infarct, hemorrhage, or mass effect. No abnormal areas of hyperattenuation. Ventricular System: A capacious ventricular system, denoting significant atrophic changes. No evidence of hydrocephalus. Subarachnoid Spaces: Capacious CSF spaces denote significant atrophic changes. No evidence of subarachnoid hemorrhage or extra-axial fluid collections. Cerebellum and Brainstem: Normal size and attenuation. No masses, lesions, or areas of abnormal attenuation. Orbits: Normal appearance of the globes, optic nerves, and extraocular muscles. No evidence of orbital masses or abnormal attenuation. Sinuses: Clear paranasal sinuses. No evidence of sinusitis or mucosal thickening. Mastoid Air Cells: Clear mastoid air cells. No evidence of mastoiditis. Skull and Meninges: Prominent frontal bone. Normal skull morphology. IMPRESSION: 1. No evidence of acute intracranial hemorrhage. 2. Chronic microvascular ischemic changes. 3. Senile brain atrophy changes. 4. Recommend MRI brain to rule out acute ischemic insult for better evaluation as clinically needed. [facility] was called at [phone] at 06:17 AM FRONT END ARCHITECT, 07/22/2024, and JAYMIE Nova was informed regarding negative stroke results. Electronically signed by Eze Joseph 07-22-2024 07:23 AM Brain MRI 07/22/24 08:17 MR brain wo con HISTORY: 74 years-old Female stroke possibility acute stroke like symptoms COMPARISON: Head CT of same day TECHNIQUE: Multiplanar multisequence MRI of the brain was obtained without IV contrast FINDINGS: No restricted diffusion midline structures appear unremarkable. Partially empty sella. Degenerative changes of the cervical spine. No acute intracranial hemorrhage, midline shift, abnormal extra-axial collection, hydrocephalus or intra-axial mass. No pathologic imaging artifact. The coronal FLAIR images are very limited secondary to patient motion. Involutional changes with suggestion of mild chronic microvascular ischemic disease. Cerebral venous sinuses and major arterial flow voids appear patent. Trace mastoid effusions. Paranasal sinuses are clear. Skull, orbits and soft tissues are unremarkable. IMPRESSION: 1. Limited exam secondary to motion. 2. No acute intracranial abnormality, specifically there is no evidence of acute or subacute infarct. ACT 112: Negative or not required by law. The above report was generated using voice recognition software. It may contain grammatical, syntax or spelling errors. Electronically signed by: Martin Plascencia M.D. 07/22/2024 10:57 AM PG Care Time/CCT Total # of Minutes Spent Total Time Spent with Patient: Total time spent is greater than 50% in coordination of care (as documented) at patient's floor/unit and/or counseling patient: Coding Level of Care Code 12673 IN/OBS CONSULT LVL 5,80M Diagnoses Hypercalcemia E83.52 Acute kidney injury N17.9 Chronic renal insufficiency N18.9 Atrial fibrillation I48.91 Diabetes mellitus E11.9
--- NOTE | 2024-07-22 11:22 | Pharmacy Report ---
Pharmacy Glycemic Short Note 2 - Date of Service July 22, 2024 - Glycemic Short BSG Results (Last 24 hours): 07/21/24 07/21/24 07/21/24 14:08 17:03 19:58 Glucose 210 H POC Glucose 176 H 166 H 07/21/24 07/22/24 07/22/24 20:57 02:54 06:23 Glucose 149 H POC Glucose 141 H 171 H 07/22/24 07/22/24 06:45 09:19 Glucose 168 H POC Glucose 193 H OUTPATIENT ANTIDIABETIC REGIMEN: * Levemir 50 units SQ daily (patient reportedly has not been using--unsure when last dose was) * glipizide 10mg po daily HbA1c 8% on 07/22/24 ASSESSMENT: * 74 year old female admitted 07/21 after a fall. Patient reportedly stopped all of her medication ~ 6 weeks ago and then resumed ~3 days prior to admit. Pharmacy has been consulted for glycemic management while the patient is admitted. * BSG was elevated on admit (264mg/dL) so Novolog was initiated with weight based dosing with a stress of 2. * She received 7 units of insulin yesterday (all were bolus). * Fasting BSG was 171mg/dL and henrry to 205 mg/dL around 1200 today. Lantus 15 units x 1 was ordered. Bolus insulin parameters were not adjusted since patient is still NPO. Will likely need to tighten once a diet is started. PLAN FOR INPATIENT GLYCEMIC CONTROL: * Hold outpatient oral diabetes medications * Basal insulin * Lantus 15 units SQ x 1, will reassess need for additional doses tomorrow morning. * Bolus insulin * NovoLog per scale ACHS or Q6hrs while NPO * Goal Range: Low 110 mg/dL - High 140 mg/dL * Correction Factor: 25 mg/dL/unit * Nutritional / Prandial insulin per carb ratio of 1 unit per 10 grams CHO consumed
--- NOTE | 2024-07-22 11:38 | Orthopedic Progress Note ---
Date of Service July 22, 2024 Assessment & Plan (1) Knee osteoarthritis: Plan: Patient has severe, end stage osteoarthritis, Tri-compartment chronic with acute exacerbation. Pt would benefit from aspiration and possible CSI depending on how fluid looks however after reaching out to medicine team due to current medical issues would like to hold off until tomorrow. For now recommended icing and Torrey wrap for compression to help with swelling. PT/OT recommended once patient stable and able to do so. X-rays of the ankle were negative for any fracture. Will see how she does with PT, if mobility and WB issues with ankle could benefit from any Cam boot or ankle brace. (2) Left ankle pain: Plan: see above Admission and Anticipated Discharge Date Admission Date: July 21, 2024 Subjective Pt seen and examined bedside. She just got back from CT. She was having some confusion this morning. She feels she is somewhat better. Her knee is still bothering her. Her ankle feels somewhat better. She says she is having some worsening blurry vision/double vision. Physical Exam Physical Exam: Left knee: Patient has moderate effusion noted. She is diffusely tender over her knee. Limited range of motion -10 to 30 degrees due to pain and stiffness. MCL and LCL feel intact with varus and valgus stress at 30 degrees. Unable to test at 0 degrees. Left ankle: Patient has pain over the peroneal and distal fibula. Sensation was intact distally. 2+ dorsal pedal pulse present. She is able to freely wiggle her toes and she can slightly dorsiflex and plantarflex. Anterior drawer negative. Negative squeeze test at the foot. Results & Data Vital Signs (Past 12 Hours) Vital Signs Temp Pulse Pulse Pulse Resp BP BP 07/22/24 11:29 36.9 C 93 H 20 138/79 07/22/24 10:04 115 H 07/22/24 07:45 116 H 16 154/92 H 07/22/24 06:18 37.4 C 120 H 20 118/70 07/22/24 05:56 129 H 123/86 07/22/24 02:27 114 H 18 137/87 Pulse Ox O2 Del Method 07/22/24 11:29 93 Room Air 07/22/24 10:04 07/22/24 07:45 94 Room Air 07/22/24 06:18 93 Room Air 07/22/24 05:56 07/22/24 02:27 93 Room Air
[2024-07-22] MEDS: PAMIDRONATE DISODIUM IV ONE (11:45)
[2024-07-22] MEDS: SODIUM CHLORIDE 0.9% IV ONE (11:45)
[2024-07-22] MEDS ORDERED: INSULIN ASPART PER UNIT CHARGE SC SCH (12:00)
--- NOTE | 2024-07-22 12:19 | CT Scan Report ---
CT OF THE CHEST WITHOUT IV CONTRAST CLINICAL HISTORY: Hypercalcemia. Assess for lymphadenopathy. COMPARISON STUDY: Chest CT December 31, 2011. Chest radiograph July 21, 2024. CT DOSE: 998.15 mGy.cm TECHNIQUE: Axial images of the chest were obtained without IV contrast. Images were reviewed in the axial, sagittal, and coronal planes. IV contrast was not administered for this examination. Automat ed exposure control was utilized for the study. A dose lowering technique was utilized adhering to t he principles of ALARA. FINDINGS: There are multiple mildly enlarged mediastinal lymph nodes. Several of these lymph nodes c ontain calcifications. Right paratracheal lymph node on image 99 of 257 measures 1.8 x 1.8 cm per the re also mildly enlarged bilateral lower cervical lymph node. A right level 4 lymph node measures 2 x 1 cm. There are prominent bilateral hilar lymph nodes. A subcarinal lymph node measures 2.5 x 2.3 cm. This lymphadenopathy has developed since chest CT of December 31, 2011. There are small bilateral pleura l effusions. Subpleural lower lobe opacities favor atelectasis. There is no consolidation to suggest pneumonia. Mild interlobular septal thickening is present. There are are small ground glass nodular d ensities within the lungs which measure up to 1.1 cm. Central airways are patent. There are no suspic ious lesions within the bony thorax is mildly enlarged. There are calcified granulomas within liver a nd spleen. Multiple mildly enlarged upper abdominal lymph nodes are present. Index portacaval lymph n ode measures 1.8 x 1.1 cm. IMPRESSION: 1. Multiple mildly enlarged lower cervical, thoracic and upper abdominal lymph nodes which have devel oped since chest CT of December 30, 2020. Mild splenomegaly. This lymphadenopathy is nonspecific and a ly mphoproliferative process cannot be excluded. 2. Small bilateral pleural effusions with mild interstitial edema. Subpleural bilateral lower lobe op acities suggest atelectasis. No consolidation to suggest pneumonia. 3. Scattered ill-defined groundglass densities within the lungs measuring up to 1.1 cm. These may be related to pulmonary edema or less likely an infectious process. A chest CT in 6 months to ensure res olution is recommended. 4. Evidence for a previous granulomatous process. ACT 112: Negative or not required by law. Electronically signed by: Fernando Ayala M.D. 07/22/2024 12:18 PM
--- NOTE | 2024-07-22 12:55 | Hospitalist Progress Note ---
Date of Service July 22, 2024 Assessment & Plan (1) Confusion: (2) Thickened endometrium: (3) Subluxation of left patella: (4) Hypercalcemia: (5) Acute kidney injury: Plan (1) Stroke-like symptoms (2) Fall/Left knee dislocation: (3) Hypercalcemia/Stage 3b chronic kidney disease: (4) Diabetes mellitus: (5) Thickened endometrium: Plan This is a 74 year old female with past medical history of AFib, T2DM, hyperlipidemia, stage 3b-CKD who presented to the ED on 07/21 for complaints of a fall. Patient reportedly stopped taking all of her medications for ~6 weeks and subsequently decided to resume them ~3 days ago. Suspect her dizziness is likely related to her hypercalcemia and left knee weakness/pain is secondary to her left knee dislocation. 1) Stroke-like symptoms - Neurology consult placed (Dr. Benito) - NIH SS score of 5; TNK deferred due to being on Eliquis - CT-Head (non-contrast) negative for any acute intracranial findings - MRI-Brain ordered this morning again and negative for acute findings - Lipid panel: TChol, 146; LDL, 77; HDL, 55; TG, 68 2) Fall/knee dislocation Patient reportedly experienced dizziness and fell twice in her bathroom. She struck her left leg and head against the sink. Left ankle XR: negative; CXR: negative; Head CT: negative Left knee XR: lateral patellar dislocation likely due to disruptive changes to medial patellar retinaculum. mild thickening and irregularity of medial patellar retinaculum soft tissue shadow. Recommend MRI knee CBC w/ mild leukocytosis of 11.37 MRI/MRA brain/neck negative upon admission Left knee MRI - no acute fx or dislocation. moderate-severe OA. moderate sized joint effusion w/ intra-articular loose bodies/debris. Orthostatic vital signs ordered Orthopedics consulted, appreciate recommendations. PT/OT consulted, appreciate recommendations Fall precautions 3) hypercalcemia/ERMA/CKD stage 3B/ mild hyponatremia Calcium 11.6 <-- 13.3, creatinine 2.04 <-- 2.11/BUN 31 <-- 35 on admission Follows w/ nephrology outpatient, last office visit 04/29. s/p 1L IVF in ED, additional 1L given; held losartan CT-AP w/ contrast - nonspecific mildly enlarged periaortic, pericaval and peripo rtal lymph nodes. mild interstitial pulmonary edema w/ small pleural effusions. prior granulomatous disease. pathologic thickening of endometrium. Reached out to gynecology regarding endometrial thickening --> recommend outpatient follow up for biopsy upon discharge Nephrology consultation if calcium not improving; monitor on telemetry Ionized calcium, 1.56; PTH, 3.4 (L) - consider a bisphosphonate if Ca still high - get IR on board for a lymph node biopsy --> pt NPO at midnight - Eliquis continued even w/ biopsy tomorrow 4) T2 Diabetes On Glipizide and insulin outpatient. A1C, 8.0 (earlier 04/23/24 - 8%), hasn't worsened despite no medications x 6 weeks Sliding scale goal 110-160, CF 15 Insulin detemir 50 units subQ daily Pharmacy consulted, appreciate recommendations 5) Thickened endometrium CT-AP w/ contrast - nonspecific mildly enlarged periaortic, pericaval and periportal lymph nodes. mild interstitial pulmonary edema w/ small pleural effusions. prior granulomatous disease. pathologic thickening of endometrium. - Follow up w/ ObGyn as outpt - lymph node biopsy scheduled for tomorrow Chronic conditions: Mental Health: fluoxetine AFib/HTN: Metoprolol, hold Losartan due to ERMA GERD: PPI HLD: statin DVT prophylaxis: hold pending ortho consult, if no surgical intervention start outpatient Eliquis dosage Code: DNR/DNI Case discussed w/ Dr. Cuenca at time of admission Updated with plan of care at bedside on admission Admission and Anticipated Discharge Date Admission Date: July 21, 2024 Supervising Physician Co-Signing Physician Notes I personally examined the patient and verified all perez points of history and exam, discussed case, and agree with decision making with Dr Louise Feeling fairly weak. Seen at the end of working with physical therapy. Notes she was feeling worse slowly over time leading up to admission. Vitals noted, in general she is awake and alert pleasant no distress. HEENT normocephalic a traumatic mucous membranes moist. Breathing unlabored no accessory muscle use good effort. Hypercalcemiasuspect this ties together the predominance of her symptoms, outside of some injuries from her falls. Hypercalcemia concerning for malignancy or granulomatous processadenopathy noted. Biopsy of cervical node to be done once she is off of anticoagulation long enough. Appreciate nephrolog y assistance. Otherwise as above Subjective Patient is a 74 yo F w/ a recent Hx of complete medication non-compliance for 6 weeks, with recent re-starting of all of her meds 3 days before admission. This morning after initially feeling normal upon waking, the patient began to feel somewhat confused, with a noticeable left-sided facial droop, along with some challenges with her balance. Patient is was also observed to some anomia/word- finding difficulty that she felt has been there at baseline for months to years. Review of Systems Constitutional: + fatigue and + weakness; no fever and n o chills Eyes: + worsening vision Respiratory: no cough and no dyspnea Cardiovascular: no chest pain and no palpitations Neurologic: + generalized weakness; no tingling, no numbness and no paresthesia Physical Exam Constitutional: + acute distress, + obese and cooperativ e Respiratory: normal respiratory effort, lungs clear to auscultation Cardiovascular: Rate/Rhythm: + tachycardic and + irregularly irregular Gastrointestinal (Abdomen): normal bowel sounds, soft, nontender, no hepatosplenomegaly Neurologic: CN's II-XI intact bilaterally Speech / Cognition: + anomia Cranial Nerves: PERRL, normal accommodation, EOM intact bilaterally and able to elevate shoulders bilaterally; + abnormal facial strength Psychiatric: Orientation: oriented x 3 and cooperative Speech: normal rate/rhythm/volume of speech Results & Data Results & Data Vital Signs (Past 12 Hours) Vital Signs Temp Pulse Pulse Pulse Resp BP BP 07/22/24 11:29 36.9 C 93 H 20 138/79 07/22/24 10:04 115 H 07/22/24 07:45 116 H 16 154/92 H 07/22/24 06:18 37.4 C 120 H 20 118/70 07/22/24 05:56 129 H 123/86 07/22/24 02:27 114 H 18 137/87 Pulse Ox O2 Del Method 07/22/24 11:29 93 Room Air 07/22/24 10:04 07/22/24 07:45 94 Room Air 07/22/24 06:18 93 Room Air 07/22/24 05:56 07/22/24 02:27 93 Room Air
[2024-07-22] MEDS: LANTUS PER UNIT CHARGE SC ONE (13:06)
--- NOTE | 2024-07-22 16:47 | Billing Data ---
Date of Service July 22, 2024 Coding Level of Care Code 05902 SUB INP/OBS CARE MIN
[2024-07-22] MEDS ORDERED: Nursing to Pharmacy Communication SCH (21:15)
[2024-07-23 06:01] LABS: Hemoglobin 9.5 g/dl (12.0-16.0); Mean Corpuscular Hemoglobin 27.5 pg (25.0-34.0); Mean Corpuscular Hgb Conc 32.8 g/dL (32.0-36.0); Mean Corpuscular Volume 84.1 fL (80.0-100.0); Mean Platelet Volume 10.8 fL (9.4-12.4); Platelet Count 174 K/uL (130-400); RDW Coefficient of Variation 15.9 % (11.5-14.5); RDW Standard Deviation 48.7 fL (36.4-46.3); Red Blood Count 3.45 M/uL (4.20-5.40); White Blood Count 8.97 K/ul (4.8-10.8)
[2024-07-23 06:19] LABS: Calcium 10.3 mg/dl (8.6-10.3); Creatinine Clr Calc Pharmacy 33.5 ml/min; Magnesium 1.9 mg/dl (1.7-2.4); Potassium 3.7 mmol/L (3.5-5.1)
--- NOTE | 2024-07-23 07:29 | Hospitalist Progress Note ---
Date of Service July 23, 2024 Assessment & Plan (1) Confusion: (2) Thickened endometrium: (3) Subluxation of left patella: (4) Hypercalcemia: (5) Acute kidney injury: Plan (1) Stroke-like symptoms (2) Fall/Left knee dislocation: (3) Hypercalcemia/Stage 3b chronic kidney disease: (4) Diabetes mellitus: (5) Thickened endometrium: Plan This is a 74 year old female with past medical history of AFib, T2DM, hyperlipidemia, stage 3b-CKD who presented to the ED on 07/21 for complaints of a fall. Patient reportedly stopped taking all of her medications for ~6 weeks and subsequently decided to resume them ~3 days ago. Suspect her dizziness is likely related to her hypercalcemia and left knee weakness/pain is secondary to her left knee dislocation. 1) Enlarged lymph nodes CT-AP w/ contrast - nonspecific mildly enlarged periaortic, pericaval and periportal lymph nodes. mild interstitial pulmonary edema w/ small pleural effusions. prior granulomatous disease. pathologic thickening of endometrium. - get IR on board for a lymph node biopsy --> pt was NPO at midnight - r. cervical lymph node FNA biopsy performed, pathology results pending 2) hypercalcemia/ERMA/CKD stage 3B/ mild hyponatremia Calcium 10.3 <-- 13.3, creatinine 1.84 <-- 2.11; BUN 31 <-- 35 on admission; Na, 133 Follows w/ nephrology outpatient, last office visit 04/29. Held losartan Nephrology consultation if calcium not improving; monitor on telemetry Ionized calcium, 1.56; PTH, 3.4 (L) upon admission - pamidronate, 30 mg, IV given 07/22/24 by Nephro 3) Fall/knee dislocation Patient reportedly experienced dizziness and fell twice in her bathroom. She struck her left leg and head against the sink. Left ankle XR: negative; CXR: negative; Head CT: negative Left knee XR: lateral patellar dislocation likely due to disruptive changes to medial patellar retinaculum. mild thickening and irregularity of medial patellar retinaculum soft tissue shadow. Recommend MRI knee CBC w/ mild leukocytosis of 11.37 MRI/MRA brain/neck negative upon admission Left knee MRI - no acute fx or dislocation. moderate-severe OA. moderate sized joint effusion w/ intra-articular loose bodies/debris. Orthostatic vital signs ordered, still pending Orthopedics consulted, appreciate recommendations. PT/OT consulted, appreciate recommendations; Fall precautions 4) Stroke-like symptoms - Neurology consult placed (Dr. Benito) - NIH SS score of 5; TNK deferred due to being on Eliquis - CT-Head (non-contrast) negative for any acute intracranial findings - MRI-Brain ordered this morning again and negative for acute findings - Lipid panel: TChol, 146; LDL, 77; HDL, 55; TG, 68 5) T2 Diabetes On Glipizide and insulin outpatient. A1C, 8.0 (earlier 04/23/24 - 8%), hasn't worsened despite no medications x 6 weeks Sliding scale goal 110-160, CF 15 Insulin detemir 50 units subQ daily Pharmacy consulted, appreciate recommendations 6) Thickened endometrium CT-AP w/ contrast - nonspecific mildly enlarged periaortic, pericaval and periportal lymph nodes. mild interstitial pulmonary edema w/ small pleural effusions. prior granulomatous disease. pathologic thickening of endometrium (at 6 cm, >> 5mm cutoff) - Follow up w/ ObGyn as outpt, - lymph node biopsy scheduled for tomorrow 7) Atrial fibrillation - metoprolol succinate, 25 mg, daily Chronic conditions: Mental Health: fluoxetine HTN: Metoprolol, hold Losartan due to ERMA GERD: PPI HLD: statin DVT prophylaxis: hold pending ortho consult, if no surgical intervention start outpatient Eliquis dosage Code: DNR/DNI Case discussed w/ Dr. Cuenca at time of admission Updated with plan of care at bedside on admission Admission and Anticipated Discharge Date Admission Date: July 21, 2024 Supervising Physician Co-Signing Physician Notes I personally examined the patient and verified all perez points of history and exam, discussed case, and agree with decision making with Dr Louise no new complaints or problems. Still fairly weak. Pending lymph node biopsy.. Vitals noted, in general she is awake and alert pleasant no distress. HEENT normocephalic atraumatic mucous membranes moist. Breathing unlabored no accessory muscle use good effort. Hypercalcemiasuspect this ties together the predominance of her symptoms, outside of some injuries from her falls. Hypercalcemia concerning for malignancy or granulomatous processadenopathy noted. Biopsy of cervical node to be done Today. PT/OT eval and treat. Likely to need rehab. Discussed with patient. Thickened endometrium likely a separate issuecertainly would anticipate need for endometrial biopsy and less I am surprised and her lymph node shows endometrial malignancy; appreciate nephrology input as well. Subjective Patient is a 74 yo F w/ a recent Hx of complete medication non-compliance for 6 weeks, with recent re-starting of all of her meds 3 days before admission. This morning after initially feeling normal upon waking, the patient began to feel somewhat confused, with a noticeable left-sided facial droop, along with some challenges with her balance. Patient was also observed to have some anomia/word- finding difficulty that she felt has been there at baseline for months to years. Review of Systems Constitutional: + fatigue and + weakness; no fever and n o chills Eyes: + worsening vision Respiratory: no cough and no dyspnea Cardiovascular: no chest pain and no palpitations Neurologic: + generalized weakness; no tingling, no numbness and no paresthesia Physical Exam Constitutional: + acute distress, + obese and cooperativ e Respiratory: normal respiratory effort, lungs clear to auscultation Cardiovascular: Rate/Rhythm: + tachycardic and + irregularly irregular Gastrointestinal (Abdomen): normal bowel sounds, soft, nontender, no hepatosplenomegaly Neurologic: CN's II-XI intact bilaterally Speech / Cognition: + anomia Cranial Nerves: PERRL, normal accommodation, EOM intact bilaterally and able to elevate shoulders bilaterally; + abnormal facial strength Psychiatric: Orientation: oriented x 3 and cooperative Speech: normal rate/rhythm/volume of speech Results & Data Results & Data Vital Signs (Past 12 Hours) Vital Signs Temp Pulse Pulse Resp BP Pulse Ox O2 Del Method 07/23/24 03:22 95 H 07/23/24 03:00 36.6 C 114 H 18 139/88 94 Room Air 07/23/24 00:00 37.0 C 103 H 18 144/76 H 93 Room Air 07/22/24 21:47 Room Air 07/22/24 19:30 36.5 C 93 H 18 135/84 93 Room Air
--- NOTE | 2024-07-23 07:36 | Pulmonary Consultation ---
Date of Consultation July 23, 2024 Assessment & Plan (1) Mediastinal adenopathy: (2) Hypercalcemia: Plan Impression: 74-year-old female presenting with fall and confusion. She is found to be hypercalcemic which is now normalizing. She has extensive adenopathy as well as anemia. CT scan showed hepatosplenic calcifications consistent with prior granulomatous disease. Recommendation: 1. Extensive adenopathy: Agree with plans for sampling the most accessible lymph node which appears to be in the supraclavicular regions.This is to be conducted by this is to be conducted by radiology today. If the FNA were nondiagnostic, would pursue surgical evaluation for excision of the lymph node for assessment of architecture. 2. No indication for endobronchial ultrasound and transbronchial needle aspiration currently. 3. Patient does have a few scattered groundglass opacities in the pulmonary parenchyma. She has some small bilateral pleural effusions as well. Recommend follow-up noncontrast CT of the chest in 6 months Pulmonary will sign off at this point in time. Feel free to contact us with additional questions or concerns History of Present Illness Attending Physician: Rufino Jacobo, DO History of Present Illness Asked by nephrology to evaluate this patient for possible bronchoscopy with endobronchial ultrasound and transbronchial needle aspiration in the setting of mediastinal adenopathy and hypercalcemia and clinical concern for sarcoid. History is obtained from discussion with the patient as well as review the electronic medical record. Patient is a 74-year-old female with a history of chronic kidney disease and atrial fibrillation who was brought to the emergency room 07/21/2024 after falls. She was found to be hypercalcemic with a calcium of 13.3. She had a patellar dislocation and was seen by orthopedics. Neurology consultation was obtained as well as nephrology consultation. CT of the chest abdomen pelvis were performed with evidence of adenopathy. Nephrology was concerned about the possibility of sarcoid and obtained a pulmonary consult but in the interim the patient has already been scheduled with interventional radiology to undergo ultrasound biopsy of a supraclavicular lymph node today. The patient is devoid of any respiratory complaints currently and denies any cough or sputum production. No chest pain or palpitations. No wheezing or shortness of breath. She denies skin rashes or lesions. No arthralgias. No vision complaints. She denies any family history of interstitial lung disease or sarcoid that she is aware of. Allergies Allergy/AdvReac Type Severity Reaction Status Date / Time No Known Allergies Allergy Verified 07/21/24 09:52 Home Medications Medication Instructions Recorded Confirmed Type flash glucose sensor (FreeStyle #1 ea 07/12/21 04/29/24 Rx Darell 14 Day Sensor kit) pen needle, diabetic 32 gauge x #100 ea 04/24/23 04/29/24 Rx 5/32" (BD Ultra-Fine Isha Pen Needle) fluoxetine 40 mg capsule 40 mg PO DAILY #90 caps 05/23/23 07/21/24 Rx glipizide 10 mg tablet, extended 10 mg PO DAILY #90 tabs 05/23/23 07/21/24 Rx release 24 hr metoprolol succinate 50 mg 25 mg (1/2 x 50 mg) PO DAILY 90 05/23/23 07/21/24 Rx tablet,extended release 24 hr days #45 tabs pravastatin 20 mg tablet 20 mg PO DAILY #90 tabs 05/23/23 07/21/24 Rx apixaban 5 mg tablet (Eliquis) 5 mg PO BID #180 tabs 04/15/24 07/21/24 Rx omeprazole 20 mg capsule,delayed 20 mg PO DAILY #90 caps 07/18/24 07/21/24 Rx release losartan 50 mg tablet 50 mg PO DAILY #90 tabs 07/19/24 07/21/24 Rx cholecalciferol (vitamin D3) 50 50 mcg PO DAILY 07/21/24 07/21/24 History mcg (2,000 unit) capsule (Vitamin D3) insulin detemir U-100 100 unit/mL 0 unit subcut DAILY 07/21/24 07/21/24 History (3 mL) subcutaneous pen Patient History Medical History Anorexia Fatigue Cough Surgical History H/O elbow surgery L elbow Family History Mother Breast cancer Alcoholic Dementia Father Skin cancer Diabetes Grandmother (Paternal) Breast cancer Denies family history of Ovarian cancer Prostate cancer Myocardial infarction Colorectal cancer Social History Smoking Status: Never smoker Second Hand Exposure: No; Do You Dip or Chew Tobacco: No; Tobacco Cessation Education Requested by Patient: No Hx Alcohol Use: No Hx Substance Use: No Preferred Language: Honduran Communication Ability: Effective Visual Impairment: Limited Hearing Ability: Normal Lathe Winder Required: No Beliefs That Will Affect Care: Yazdanism Yazdanism Beliefs: church marital status: Current Living Situation: Spouse current occupational status: retired current occupation: [employer] How many Children do You have: 1 Other Information That Helps Us Care for You: No Feels Safe at Home: Yes Safety Concerns: Feels Safe At This Time Childhood Exposure to Second-Hand Smoke: Yes Diet: regular caffeine: Yes during the past year weight has: remained stable Dental Care, Regularly: Yes Physical Activity Frequency: Does not Exercise Seatbelt Use: always Sunscreen Use: Yes Assistive Devices: Cane and Walker Review of Systems Review of Systems: Please refer to hospitalist note. No additions or deletions Physical Exam Constitutional: WD/WN, vitals as above Neck: trachea midline, no thyromegaly Respiratory: normal respiratory effort, lungs clear to auscultation Cardiovascular: RRR, no murmur, no edema Gastrointestinal (Abdomen): normal bowel sounds, soft, nontender, no hepatosplenomegaly Musculoskeletal: Extremities: extremities normal to inspection Skin: no rashes, warm and dry Neurologic: Nonfocal exam Lymphatic: no cervical lymphadenopathy Results & Data Results & Data Vital Signs (Past 12 Hours) Vital Signs Temp Pulse Pulse Resp BP Pulse Ox O2 Del Method 07/23/24 03:22 95 H 07/23/24 03:00 36.6 C 114 H 18 139/88 94 Room Air 07/23/24 00:00 37.0 C 103 H 18 144/76 H 93 Room Air 07/22/24 21:47 Room Air 07/22/24 19:30 36.5 C 93 H 18 135/84 93 Room Air Critical Care Results & Data Vital Signs (Past 12 Hours) Vital Signs Temp Pulse Pulse Resp BP Pulse Ox O2 Del Method 07/23/24 03:22 95 H 07/23/24 03:00 36.6 C 114 H 18 139/88 94 Room Air 07/23/24 00:00 37.0 C 103 H 18 144/76 H 93 Room Air 07/22/24 21:47 Room Air Lab & Micro Results (Past 24 Hours) RBC 3.45 M/uL (4.20-5.40) L 07/23/24 WBC 8.97 K/ul (4.8-10.8) 07/23/24 Hgb 9.5 g/dl (12.0-16.0) L 07/23/24 Hct 29.0 % (37.0-47.0) L 07/23/24 MCV 84.1 fL (80.0-100.0) 07/23/24 MCH 27.5 pg (25.0-34.0) 07/23/24 MCHC 32.8 g/dL (32.0-36.0) 07/23/24 RDW Standard Deviation 48.7 fL (36.4-46.3) H 07/23/24 RDW Coefficient of Variation 15.9 % (11.5-14.5) H 07/23/24 Plt Count 174 K/uL (130-400) 07/23/24 MPV 10.8 fL (9.4-12.4) 07/23/24 Na 133 mmol/L (136-145) L 07/23/24 K 3.7 mmol/L (3.5-5.1) 07/23/24 Cl 102 mmol/L (98-107) 07/23/24 CO2 23 mmol/L (21-32) 07/23/24 Anion Gap 8 (3-11) 07/23/24 BUN 31 mg/dl (6-23) H 07/23/24 Creatinine 1.84 mg/dl (0.6-1.2) H 07/23/24 Ca 10.3 mg/dl (8.6-10.3) 07/23/24 Mg 1.9 mg/dl (1.7-2.4) 07/23/24 05:05 Calcium Level 10.3 mg/dl (8.6-10.3) 07/23/24 05:05 Ionized Calcium 1.41 mmol/L (1.12-1.32) H 07/22/24 08:31 Diagnostic Findings (Past 24 Hours) Brain MRI 07/22/24 08:17 MR brain wo con HISTORY: 74 years-old Female stroke possibility acute stroke like symptoms COMPARISON: Head CT of same day TECHNIQUE: Multiplanar multisequence MRI of the brain was obtained without IV contrast FINDINGS: No restricted diffusion midline structures appear unremarkable. Partially empty sella. Degenerative changes of the cervical spine. No acute intracranial hemorrhage, midline shift, abnormal extra-axial collection, hydrocephalus or intra-axial mass. No pathologic imaging artifact. The coronal FLAIR images are very limited secondary to patient motion. Involutional changes with suggestion of mild chronic microvascular ischemic disease. Cerebral venous sinuses and major arterial flow voids appear patent. Trace mastoid effusions. Paranasal sinuses are clear. Skull, orbits and soft tissues are unremarkable. IMPRESSION: 1. Limited exam secondary to motion. 2. No acute intracranial abnormality, specifically there is no evidence of acute or subacute infarct. ACT 112: Negative or not required by law. The above report was generated using voice recognition software. It may contain grammatical, syntax or spelling errors. Electronically signed by: Martin Plascencia M.D. 07/22/2024 10:[address] 07/22/24 09:52 CT OF THE CHEST WITHOUT IV CONTRAST CLINICAL HISTORY: Hypercalcemia. Assess for lymphadenopathy. COMPARISON STUDY: Chest CT December 31, 2011. Chest radiograph July 21, 2024. CT DOSE: 998.15 mGy.cm TECHNIQUE: Axial images of the chest were obtained without IV contrast. Images were reviewed in the axial, sagittal, and coronal planes. IV contrast was not administered for this examination. Automated exposure control was utilized for the study. A dose lowering technique was utilized adhering to the principles of ALARA. FINDINGS: There are multiple mildly enlarged mediastinal lymph nodes. Several of these lymph nodes contain calcifications. Right paratracheal lymph node on image 99 of 257 measures 1.8 x 1.8 cm per there also mildly enlarged bilateral lower cervical lymph node. A right level 4 lymph node measures 2 x 1 cm. There are prominent bilateral hilar lymph nodes. A subcarinal lymph node measures 2.5 x 2.3 cm. This lymphadenopathy has developed since chest CT of December 31, 2011. There are small bilateral pleural effusions. Subpleural lower lobe opacities favor atelectasis. There is no consolidation to suggest pneumonia. Mild interlobular septal thickening is present. There are are small ground glass nodular densities within the lungs which measure up to 1.1 cm. Central airways are patent. There are no suspicious lesions within the bony thorax is mildly enlarged. There are calcified granulomas within liver and spleen. Multiple mildly enlarged upper abdominal lymph nodes are present. Index portacaval lymph node measures 1.8 x 1.1 cm. IMPRESSION: 1. Multiple mildly enlarged lower cervical, thoracic and upper abdominal lymph nodes which have developed since chest CT of December 30, 2020. Mild splenomegaly. This lymphadenopathy is nonspecific and a lymphoproliferative process cannot be excluded. 2. Small bilateral pleural effusions with mild interstitial edema. Subpleural bilateral lower lobe opacities suggest atelectasis. No consolidation to suggest pneumonia. 3. Scattered ill-defined groundglass densities within the lungs measuring up to 1.1 cm. These may be related to pulmonary edema or less likely an infectious process. A chest CT in 6 months to ensure resolution is recommended. 4. Evidence for a previous granulomatous process. ACT 112: Negative or not required by law. Electronically signed by: Fernando Ayala M.D. 07/22/2024 12:18 PM I & O Totals 24 Hours 07/22/24 07/23/24 07/24/24 06:59 06:59 06:59 Intake Total 2253.333 / 2253.333 2110 / 2110 Output Total 400 / 400 1250 / 1250 Balance 1853.333 / 1853.333 860 / 860 Cumulative 07/21/24 06:17 thru 07/23/24 06:00 Intake Total 4363.333 Output Total 1650 Balance 2713.333 RT Ventilator Mngmt (Last Documented) Ventilator Ordered Settings Respiratory Rate 18 07/23/24 03:00 Ventilator - PT Measurements Respiratory Rate 18 PG Care Time/CCT Total # of Minutes Spent Total Time Spent with Patient: Total time spent is greater than 50% in coordination of care (as documented) at patient's floor/unit and/or counseling patient: Coding Level of Care Code 98438 INT INP/OBS CARE 2/55MIN Diagnoses Mediastinal adenopathy R59.0 Hypercalcemia E83.52
[2024-07-23] MEDS ORDERED: GLUCAGON FOR INJ 1 MG VIAL SQ PRN (08:00)
[2024-07-23] MEDS ORDERED: CARBOHYDRATES FOR HYPOGLYCEMIA PO PRN (08:00)
[2024-07-23] MEDS ORDERED: GLUCOSE 40% GEL 15 GM TUBE PO PRN (08:00)
[2024-07-23] MEDS ORDERED: GLUCOSE 10 TAB/TUBE PO PRN (08:00)
[2024-07-23] MEDS ORDERED: DEXTROSE 50% 50 ML SYRINGE IV PRN (08:00)
--- NOTE | 2024-07-23 08:47 | Nephrology Progress Note ---
Date of Service July 23, 2024 Assessment & Plan (1) Hypercalcemia: Plan: * Non-PTH medicated hypercalcemia, normal serum Ca * Patient reports h/o low vitamin D and had been on OTC vitamin D 3 1,000 units daily. However, she chose to stop all of her medications 6 weeks prior to admission because she was "not feeling well" * 03/05 outpatient evaluation did reveal mildly elevated 1,25 vitamin D and kappa/lambda light chain ratio * Pamidronate 30 mg IV over 4 hours administered yesterday * 07/23/24 Ca 10.3, albumin 3.5, Cr 1.8 * 08/06 PTH is appropriately suppressed * 25 and 1,25 vitamin D levels ordered - pending * PTHrp and order SIEP/24 hr urine IEP - pending * Serum CAMMY - pending * 07/22/[address] - mediastinal lymphadenopathy * Appreciate pulmonology assistance. Patient is scheduled for supraclavicular lymph node biopsy later today by [facility]IR * Monitor BMP (2) Acute kidney injury: Plan: * ERMA likely due to hypercalcemia/hypercalciuria with dehydration * 08/06 urine sediment remains non-nephritic * 08/[address] revealed mild L renal atrophy, no hydronephrosis * Hold losartan, continue IV hydration, monitor BMP (3) Chronic renal insufficiency: Plan: * CKD stage G3b (moderate impairment). Baseline Cr 1.4-1.6 w/ EGFR 30 cc/min. Renal impairment attributed to microvascular disease (4) Atrial fibrillation: (5) Diabetes mellitus: Admission and Anticipated Discharge Date Admission Date: July 21, [address] was evaluated in her hospital room this morning. She denied abdominal pain, muscle cramping. Mrs. Way was working w/ PT for streng thening. She reports that she is scheduled for lymph node biopsy by [facility]IR later today Review of Systems Constitutional: no fever Eyes: no dry eyes, no itchy eyes and no problem reported Ear, Nose, Mouth, Throat: no dry mouth, no pain with swallowing, no neck lump and no problem reported Respiratory: no cough, no dyspnea and no hemoptysis Cardiovascular: no chest pain Gastrointestinal: no abdominal pain, no nausea, no vomiting and no blood in stools Genitourinary: no dysuria Integumentary: no rash Neurologic: + falls Physical Exam Constitutional: not in distress Eyes: PERRL, conjunctivae normal, anicteric sclerae ENMT: external ear and nose normal, oropharynx normal Neck: trachea midline, no thyromegaly no submandibular swelling Respiratory: normal respiratory effort, lungs clear to auscultation Cardiovascular: Rate/Rhythm: + tachycardic and + irregularly irregular Gastrointestinal (Abdomen): normal bowel sounds, soft, nontender, no hepatosplenomegaly Skin: no rashes, warm and dry Neurologic: Speech / Cognition: normal speech and normal cognition Psychiatric: Affect: euthymic affect Results & Data Vital Signs (Past 12 Hours) Vital Signs Temp Pulse Pulse Resp BP Pulse Ox O2 Del Method 07/23/24 08:00 Room Air 07/23/24 07:56 36.8 C 109 H 18 144/67 H 94 Room Air 07/23/24 03:22 95 H 07/23/24 03:00 36.6 C 114 H 18 139/88 94 Room Air 07/23/24 00:00 37.0 C 103 H 18 144/76 H 93 Room Air 07/22/24 21:47 Room Air Laboratory Results Laboratory Results - last 24 hr 07/22/24 07/22/24 07/22/24 09:19 11:08 11:53 WBC RBC Hgb Hct MCV MCH MCHC RDW Std Deviation RDW Coeff of Krista Plt Count MPV Sodium Potassium Chloride Carbon Dioxide Anion Gap BUN Creatinine Est Cr Clr Drug Dosing eGFR POC Glucose 193 H 205 H Fasting Glucose Calcium Magnesium Angiotensin Convert Enz Pending 25-OH Vitamin D Total 21.1 L Vit D 1,25-Dihyd Total Pending 1,25 Dihydroxy Vit D2 Pending 1,25 Dihydroxy Vit D3 Pending PTH Related Protein Serum Immunofixation Pending 07/22/24 07/22/24 07/23/24 16:57 20:42 05:05 WBC 8.97 RBC 3.45 L Hgb 9.5 L Hct 29.0 L MCV 84.1 MCH 27.5 MCHC 32.8 RDW Std Deviation 48.7 H RDW Coeff of Krista 15.9 H Plt Count 174 MPV 10.8 Sodium 133 L Potassium 3.7 Chloride 102 Carbon Dioxide 23 Anion Gap 8 BUN 31 H Creatinine 1.84 H Est Cr Clr Drug Dosing 33.5 eGFR 28.26 POC Glucose 157 H 126 H Fasting Glucose 101 H Calcium 10.3 Magnesium 1.9 Angiotensin Convert Enz 25-OH Vitamin D Total Vit D 1,25-Dihyd Total 1,25 Dihydroxy Vit D2 1,25 Dihydroxy Vit D3 PTH Related Protein Pending Serum Immunofixation Pending 07/23/24 08:05 WBC RBC Hgb Hct MCV MCH MCHC RDW Std Deviation RDW Coeff of Krista Plt Count MPV Sodium Potassium Chloride Carbon Dioxide Anion Gap BUN Creatinine Est Cr Clr Drug Dosing eGFR POC Glucose 114 H Fasting Glucose Calcium Magnesium Angiotensin Convert Enz 25-OH Vitamin D Total Vit D 1,25-Dihyd Total 1,25 Dihydroxy Vit D2 1,25 Dihydroxy Vit D3 PTH Related Protein Serum Immunofixation Laboratory Results WBC 8.97 K/ul (4.8-10.8) 07/23/24 05:05 RBC 3.45 M/uL (4.20-5.40) L 07/23/24 05:05 Hgb 9.5 g/dl (12.0-16.0) L 07/23/24 05:05 Hct 29.0 % (37.0-47.0) L 07/23/24 05:05 MCV 84.1 fL (80.0-100.0) 07/23/24 05:05 MCH 27.5 pg (25.0-34.0) 07/23/24 05:05 MCHC 32.8 g/dL (32.0-36.0) 07/23/24 05:05 RDW Std Deviation 48.7 fL (36.4-46.3) H 07/23/24 05:05 RDW Coeff of Krista 15.9 % (11.5-14.5) H 07/23/24 05:05 Plt Count 174 K/uL (130-400) 07/23/24 05:05 MPV 10.8 fL (9.4-12.4) 07/23/24 05:05 Immature Gran % (Auto) 0.5 % 07/22/24 06:45 Neut % (Auto) 79.9 % 07/22/24 06:45 Lymph % (Auto) 5.5 % 07/22/24 06:45 Chambers % (Auto) 12.1 % 07/22/24 06:45 Eos % (Auto) 1.3 % 07/22/24 06:45 Baso % (Auto) 0.7 % 07/22/24 06:45 Neut # (Auto) 8.17 K/uL (1.40-6.50) H 07/22/24 06:45 Lymph # (Auto) 0.56 K/uL (1.20-3.40) L 07/22/24 06:45 Chambers # (Auto) 1.24 K/uL (0.11-0.59) H 07/22/24 06:45 Eos # (Auto) 0.13 K/uL (0.00-0.50) 07/22/24 06:45 Baso # (Auto) 0.07 K/uL (0.00-0.20) 07/22/24 06:45 Immature Gran # (Auto) 0.05 K/uL (0.01-0.20) 07/22/24 06:45 PT 11.6 Seconds (9.0-12.0) 07/22/24 06:45 INR 1.1 (0.9-1.1) 07/22/24 06:45 APTT 34 Seconds (21-31) H 07/22/24 06:45 PTT Ratio 1.3 07/22/24 06:45 Sodium 133 mmol/L (136-145) L 07/23/24 05:05 Potassium 3.7 mmol/L (3.5-5.1) 07/23/24 05:05 Chloride 102 mmol/L (98-107) 07/23/24 05:05 Carbon Dioxide 23 mmol/L (21-32) 07/23/24 05:05 Anion Gap 8 (3-11) 07/23/24 05:05 BUN 31 mg/dl (6-23) H 07/23/24 05:05 Creatinine 1.84 mg/dl (0.6-1.2) H 07/23/24 05:05 Est Cr Clr Drug Dosing 33.5 ml/min 07/23/24 05:05 eGFR 28.26 07/23/24 05:05 BUN/Creatinine Ratio 15.2 (10-20) 07/22/24 06:45 Glucose 168 mg/dl (70-99(Fasting)) H 07/22/24 06:45 POC Glucose 114 mg/dl (70-99) H 07/23/24 08:05 Fasting Glucose 101 mg/dl (70-99) H 07/23/24 05:05 Estimat Average Glucose 183 mg/dl 07/22/24 02:54 Hemoglobin A1c 8.0 % (4.5-5.6) H 07/22/24 02:54 Lactate 1.6 mmol/L (0.4-2.0) 07/22/24 06:42 Calcium 10.3 mg/dl (8.6-10.3) 07/23/24 05:05 Ionized Calcium 1.41 mmol/L (1.12-1.32) H 07/22/24 08:31 Magnesium 1.9 mg/dl (1.7-2.4) 07/23/24 05:05 Total Bilirubin 1.0 mg/dl (0.2-1.0) 07/22/24 06:45 AST 16 U/L (13-39) 07/22/24 06:45 ALT 10 U/L (7-52) 07/22/24 06:45 Alkaline Phosphatase 52 U/L (34-104) 07/22/24 06:45 Troponin I High Sens 4.6 pg/ml (0-14) 07/22/24 06:45 Total Protein 7.1 gm/dl (6.0-8.3) 07/22/24 06:45 Albumin 3.5 gm/dl (3.4-5.0) 07/22/24 06:45 Globulin 3.6 gm/dl (2.5-4.0) 07/22/24 06:45 Albumin/Globulin Ratio 1.0 (0.9-2) 07/22/24 06:45 Triglycerides 68 mg/dl (0-150) 07/22/24 02:54 Cholesterol 146 mg/dl (0-200) 07/22/24 02:54 LDL Cholesterol, Calc 77 mg/dl 07/22/24 02:54 VLDL Cholesterol, Calc 14 mg/dl (0-30) 07/22/24 02:54 HDL Cholesterol 55 mg/dl 07/22/24 02:54 Cholesterol/HDL Ratio 2.7 (0-5) 07/22/24 02:54 25-OH Vitamin D Total 21.1 ng/ml (30-100) L 07/22/24 11:08 PTH Intact 3.4 pg/ml (12.0-88.0) L 07/21/24 14:08 Urine Color Yellow 07/21/24 06:45 Urine Appearance Clear (Clear) 07/21/24 06:45 Urine pH 7.5 (4.5-7.5) 07/21/24 06:45 Ur Specific [place] 1.012 (1.000-1.030) 07/21/24 06:45 Urine Protein Trace (Negative) H 07/21/24 06:45 Urine Glucose (UA) 3+ (Negative) H 07/21/24 06:45 Urine Ketones Negative (Negative) 07/21/24 06:45 Urine Blood 1+ (Negative) H 07/21/24 06:45 Urine Nitrite Negative (Negative) 07/21/24 06:45 Urine Bilirubin Negative (Negative) 07/21/24 06:45 Urine Urobilinogen Negative (Negative) 07/21/24 06:45 Ur Leukocyte Esterase Negative (Negative) 07/21/24 06:45 Urine WBC (Auto) 0-5 /hpf (0-5) 07/21/24 06:45 Urine RBC (Auto) 0-2 /hpf (0-2) 07/21/24 06:45 U Hyaline Cast (Auto) 0-2 /lpf (0-2) 07/21/24 06:45 U Epithel Cells (Auto) 0-2 /hpf (0-2) 07/21/24 06:45 Urine Bacteria (Auto) None Seen (None Seen) 07/21/24 06:45 Adenovirus (PCR) Not Detected (NotDetected) 07/21/24 06:52 B. pertussis DNA (PCR) Not Detected (NotDetected) 07/21/24 06:52 B.parapertussis DNA PCR Not Detected (NotDetected) 07/21/24 06:52 C. pneumoniae DNA (PCR) Not Detected (NotDetected) 07/21/24 06:52 Coronavirus OC43 (PCR) Not Detected (NotDetected) 07/21/24 06:52 Coronavirus HKU1 (PCR) Not Detected (NotDetected) 07/21/24 06:52 Coronavirus 229E (PCR) Not Detected (NotDetected) 07/21/24 06:52 SARS-CoV-2 (PCR) Not Detected (NotDetected) 07/21/24 06:52 Coronavirus NL63 (PCR) Not Detected (NotDetected) 07/21/24 06:52 Human Metapneumovir PCR Not Detected (NotDetected) 07/21/24 06:52 Influenza Type A (PCR) Not Detected (NotDetected) 07/21/24 06:52 Influenza Type B (PCR) Not Detected (NotDetected) 07/21/24 06:52 M. pneumoniae (PCR) Not Detected (NotDetected) 07/21/24 06:52 Parainfluenza 1 (PCR) Not Detected (NotDetected) 07/21/24 06:52 Parainfluenza 2 (PCR) Not Detected (NotDetected) 07/21/24 06:52 Parainfluenza 3 (PCR) Not Detected (NotDetected) 07/21/24 06:52 Parainfluenza 4 (PCR) Not Detected (NotDetected) 07/21/24 06:52 RSV (PCR) Not Detected (NotDetected) 07/21/24 06:52 Entero/Rhino (PCR) Not Detected (NotDetected) 07/21/24 06:52 Blood Type O Negative 07/22/24 06:45 Antibody Screen NEGATIVE 07/22/24 06:45 Impressions Ankle X-Ray 07/21/24 06:44 EXAM: XR ankle LT min 3V routine CLINICAL HISTORY: fall TECHNIQUE: Radiograph of ankle was acquired. COMPARISON: No FINDINGS: There is no evidence of acute fracture, dislocation or osseous destructive lesion. The talar dome is unremarkable. The ankle mortise is intact. The soft tissues appear unremarkable. IMPRESSION: 1. No acute osseous or soft tissue abnormality. Electronically signed by Eldon Mak 07-21-2024 07:52 AM Chest X-Ray 07/21/24 06:44 EXAM: XR chest 1V portable CLINICAL HISTORY: neuro deficit, acute stroke suspected TECHNIQUE: Radiograph of chest was acquired. COMPARISON: 04/03/2018 12:17:59 [employer] FINDINGS: The lungs are clear and well-expanded with no pulmonary infiltrate or pleural effusion. The cardiomediastinal silhouette is within normal limits. No acute osseous abnormality. IMPRESSION: 1. No acute cardiopulmonary disease. (No new finding) Electronically signed by Eldon Mak 07-21-2024 07:48 AM Knee X-Ray 07/21/24 06:44 EXAM: XR knee LT 3V CLINICAL HISTORY: fall TECHNIQUE: Radiograph of knee was acquired. COMPARISON: No FINDINGS: Patella donte. Lateral patellar dislocation likely due to disruptive changes to the medial patellar retinaculum. Mild thickening and irregularity of medial patellar retinaculum soft tissue shadow noted. Degenerative changes in the form of asymmetrical reduction in joint space, marginal osteophytes, subchondral cysts and areas of subchondral sclerosis. There is no evidence of acute fracture, or osseous lesion. The patellofemoral joint space shows irregular reduction. Rest of the soft tissues appear unremarkable. No evidence of joint effusion. IMPRESSION: 1. No acute osseous abnormality. 2. Patella donte. [id number]. Lateral patellar dislocation likely due to disruptive changes to medial patellar retinaculum. Mild thickening and irregularity of medial patellar retinaculum soft tissue shadow. Suggest- Correlation /OBX.5.1.1OBX.5.1.2 further evlaution with MRI knee./OBX.5.1.2/OBX.5.1 4. Osteoarthritis. Electronically signed by Eldon Mak 07-21-2024 07:46 AM Head MRA 07/21/24 08:49 MR angio head wo con HISTORY: 74 years-old Female left leg weak, CVA? Acute stroke like symptoms COMPARISON: Brain MRI of same day TECHNIQUE: MRA of the head was obtained utilizing 3-D [id number] sequencing with MIP reformats. All measurements were obtained according to NASCET criteria. FINDINGS: origin of the right posterior cerebral artery. Study is mildly motion degraded. No aneurysm, dissection, high-grade stenosis or arterial occlusion. IMPRESSION: Unremarkable MRA of the head. ACT 112: Negative or not required by law. The above report was generated using voice recognition software. It may contain grammatical, syntax or spelling errors. Electronically signed by: Martin Plascencia M.D. 07/21/2024 11:43 AM Neck MRA 07/21/24 08:49 NECK MRA HISTORY: Acute strokelike symptoms left leg weak, CVA? TECHNIQUE: [id number] and gadolinium-enhanced MRA of the neck was performed both before and after the intravenous administration of contrast. All measurements were calculated based on NASCET criteria. COMPARISON STUDY: MRI brain on same day FINDINGS: The aortic arch and proximal great vessels are widely patent. There is no high-grade stenosis, occlusion, or dissection identified within the bilate ral common carotid, internal carotid, or vertebral arteries. Mild stenosis of the proximal cervical segments of the internal carotid arteries likely secondary to atherosclerosis. IMPRESSION: No high-grade stenosis, occlusion, or dissection identified within the carotid or vertebral arteries. ACT 112: Negative or not required by law. Electronically signed by: Martin Plascencia M.D. 07/21/2024 11:46 AM Knee MRI 07/21/24 09:25 MR knee LT wo con CLINICAL HISTORY: 74 years-old Female with left patellar dislocation. Acute left knee pain status post fall with reported patellar subluxation COMPARISON: Radiograph 6 07/21/2024 TECHNIQUE: Multiplanar, multisequence MRI of the left knee was performed without intravenous contrast. FINDINGS: Motion degraded exam. MENISCI: Chronic diffuse tearing of the lateral meniscus which is markedly extruded the adjacent meniscal gutter with underlying displaced meniscal fragment. Degeneration of the medial meniscus with probable chronic posterior horn and root tear. The medial meniscus is diminutive in morphology. CRUCIATE LIGAMENTS: Intact ACL. There is moderate thickening of the intact PCL compatible with a chronic sprain. COLLATERAL LIGAMENTS: The popliteus tendon, biceps femoris tendon, and medial collateral ligaments appear intact. There is attenuation of the proximal fibers of the lateral collateral ligament compatible with a chronic sprain. EXTENSOR MECHANISM: The quadriceps and patellar tendons are intact. The medial and lateral patellar retinacula are intact. KNEE JOINT: Moderate size joint effusion containing intra-articular debris and innumerable loose bodies. Synovial thickening appeared chronic. Severe lateral with moderate to severe medial and patellofemoral compartment osteoarthritis with prominent marginal osteophytic spurring. Lateral tilt of the patella is redemonstrated which appears chronic secondary to the osteoarthritis. BONE MARROW: No acute fracture or marrow replacing process. SOFT TISSUES: Edema/fluid along the medial joint line tracks into the Pes Anserine bursa and may be related to a leaking trace Banuelos's cyst. Mild nonspecific circumferential subcutaneous edema with superficial venous varicosities. IMPRESSION: 1. No acute fracture or dislocation. 2. Moderate to severe osteoarthritis. 3. Moderate sized joint effusion with intra-articular loose bodies/debris. 4. No acute tendon or ligamentous injury of the knee identified. ACT 112: Negative or not required by law. The above report was generated using voice recognition software. It may contain grammatical, syntax or spelling errors. Electronically signed by: Martin Plascencia M.D. 07/21/2024 10:58 AM Abdomen/Pelvis CT 07/21/24 10:[address] WITH IV CONTRAST CT DOSE: 1348.38 mGy.cm HISTORY: hypercalcemia TECHNIQUE: Multiaxial CT images of the abdomen and pelvis were performed following the IV administration of cc of Optiray, A dose lowering technique was utilized adhering to the principles of ALARA. COMPARISON STUDY: Renal ultrasound 03/18/2022 FINDINGS: Small pleural effusions with mild bibasilar atelectasis. Interlobular septal thickening in the lungs. No pneumatosis or pneumoperitoneum. Scattered calcified granulomata are noted throughout the spleen and liver. The spleen is upper limits of normal in size. Unremarkable pancreas, gallbladder and adrenal glands. No hydronephrosis. Cortical thinning of the left or right kidneys. Layering hyperdense material within the urinary bladder lumen suggestive of contrast. Urinary bladder wall thickening with mild perisigmoid stranding.r probable arcuate morphology of the uterus. Endometrium measures 6 cm. Atherosclerosis of the aorta. Nonspecific mildly enlarged periaortic, periportal and pericaval nodes measure up to 11 mm in short axis. Small hiatal hernia. There is no bowel obstruction or bowel wall thickening. Colonic diverticulosis without acute diverticulitis. Mild to moderate colonic fecal retention. Normal appendix. No acute fracture. IMPRESSION: 1. No acute intra-abdominal or pelvic abnormality. 2. Nonspecific mildly enlarged periaortic, pericaval and periportal lymph nodes. 3. Mild interstitial pulmonary edema with small pleural effusions. 4. Prior granulomatous disease. 5. Pathologic thickening of the endometrium. Follow-up with gynecology recommended. 6. Colonic diverticulosis. ACT 112: Negative or not required by law. The above report was generated using voice recognition software. It may contain grammatical, syntax or spelling errors. Electronically signed by: Martin Plascencia M.D. 07/21/2024 12:[address] 07/22/24 06:41 EXAM: CT head/brain wo con CLINICAL HISTORY: Stroke-like Sx. TECHNIQUE: An axial non-contrast CT scan of the brain was performed from the skull base to the high parietal region. One of the following dose reduction techniques was utilized for this exam: Automated exposure control, adjustment of the mA and/or kV according to patient size, and use of iterative reconstruction. CTDI: 37.8 mGy , DLP: 629.8 mGy-cm. COMPARISON: None. FINDINGS: Brain Parenchyma: Multiple subcortical and periventricular white matter hypodensities likely represent chronic microvascular ischemic changes. Normal attenuation of the cerebral hemispheres, cerebellum, and brainstem. No evidence of acute infarct, hemorrhage, or mass effect. No abnormal areas of hyperattenuation. Ventricular System: A capacious ventricular system, denoting significant atrophic changes. No evidence of hydrocephalus. Subarachnoid Spaces: Capacious CSF spaces denote significant atrophic changes. No evidence of subarachnoid hemorrhage or extra-axial fluid collections. Cerebellum and Brainstem: Normal size and attenuation. No masses, lesions, or areas of abnormal attenuation. Orbits: Normal appearance of the globes, optic nerves, and extraocular muscles. No evidence of orbital masses or abnormal attenuation. Sinuses: Clear paranasal sinuses. No evidence of sinusitis or mucosal thickening. Mastoid Air Cells: Clear mastoid air cells. No evidence of mastoiditis. Skull and Meninges: Prominent frontal bone. Normal skull morphology. IMPRESSION: 1. No evidence of acute intracranial hemorrhage. 2. Chronic microvascular ischemic changes. 3. Senile brain atrophy changes. 4. Recommend MRI brain to rule out acute ischemic insult for better evaluation as clinically needed. [facility] ER was called at [phone] at 06:17 AM [employer], 07/22/2024, and JAYMIE Nova was informed regarding negative stroke results. Electronically signed by Eze Joseph 07-22-2024 07:23 AM Brain MRI 07/22/24 08:17 MR brain wo con HISTORY: 74 years-old Female stroke possibility acute stroke like symptoms COMPARISON: Head CT of same day TECHNIQUE: Multiplanar multisequence MRI of the brain was obtained without IV contrast FINDINGS: No restricted diffusion midline structures appear unremarkable. Partially empty sella. Degenerative changes of the cervical spine. No acute intracranial hemorrhage, midline shift, abnormal extra-axial collection, hydrocephalus or intra-axial mass. No pathologic imaging artifact. The coronal FLAIR images are very limited secondary to patient motion. Involutional changes with suggestion of mild chronic microvascular ischemic disease. Cerebral venous sinuses and major arterial flow voids appear patent. Trace mastoid effusions. Paranasal sinuses are clear. Skull, orbits and soft tissues are unremarkable. IMPRESSION: 1. Limited exam secondary to motion. 2. No acute intracranial abnormality, specifically there is no evidence of acute or subacute infarct. ACT 112: Negative or not required by law. The above report was generated using voice recognition software. It may contain grammatical, syntax or spelling errors. Electronically signed by: Martin Plascencia M.D. 07/22/2024 10:[address] 07/22/24 09:52 CT OF THE CHEST WITHOUT IV CONTRAST CLINICAL HISTORY: Hypercalcemia. Assess for lymphadenopathy. COMPARISON STUDY: Chest CT December 31, 2011. Chest radiograph July 21, 2024. CT DOSE: 998.15 mGy.cm TECHNIQUE: Axial images of the chest were obtained without IV contrast. Images were reviewed in the axial, sagittal, and coronal planes. IV contrast was not administered for this examination. Automated exposure control was utilized for the study. A dose lowering technique was utilized adhering to the principles of ALARA. FINDINGS: There are multiple mildly enlarged mediastinal lymph nodes. Several of these lymph nodes contain calcifications. Right paratracheal lymph node on image 99 of 257 measures 1.8 x 1.8 cm per there also mildly enlarged bilateral lower cervical lymph node. A right level 4 lymph node measures 2 x 1 cm. There are prominent bilateral hilar lymph nodes. A subcarinal lymph node measures 2.5 x 2.3 cm. This lymphadenopathy has developed since chest CT of December 31, 2011. There are small bilateral pleural effusions. Subpleural lower lobe opacities favor atelectasis. There is no consolidation to suggest pneumonia. Mild interlobular septal thickening is present. There are are small ground glass nodular densities within the lungs which measure up to 1.1 cm. Central airways are patent. There are no suspicious lesions within the bony thorax is mildly enlarged. There are calcified granulomas within liver and spleen. Multiple mildly enlarged upper abdominal lymph nodes are present. Index portacaval lymph node measures 1.8 x 1.1 cm. IMPRESSION: 1. Multiple mildly enlarged lower cervical, thoracic and upper abdominal lymph nodes which have developed since chest CT of December 30, 2020. Mild splenomegaly. This lymphadenopathy is nonspecific and a lymphoproliferative process cannot be excluded. 2. Small bilateral pleural effusions with mild interstitial edema. Subpleural bilateral lower lobe opacities suggest atelectasis. No consolidation to suggest pneumonia. 3. Scattered ill-defined groundglass densities within the lungs measuring up to 1.1 cm. These may be related to pulmonary edema or less likely an infectious process. A chest CT in 6 months to ensure resolution is recommended. 4. Evidence for a previous granulomatous process. ACT 112: Negative or not required by law. Electronically signed by: Fernando Ayala M.D. 07/22/2024 12:18 PM PG Care Time/CCT Total # of Minutes Spent Total Time Spent with Patient: Total time spent is greater than 50% in coordination of care (as documented) at patient's floor/unit and/or counseling patient: Coding Level of Care Code 16775 SUB INP/OBS CARE 3/50MIN Diagnoses Hypercalcemia E83.52 Acute kidney injury N17.9 Chronic renal insufficiency N18.9 Atrial fibrillation I48.91 Diabetes mellitus E11.9
--- NOTE | 2024-07-23 10:32 | Pharmacy Report ---
Pharmacy Glycemic Short Note 2 - Date of Service July 23, 2024 - Glycemic Short BSG Results (Last 24 hours): 07/22/24 07/22/24 07/22/24 11:53 16:57 20:42 POC Glucose 205 H 157 H 126 H Fasting Glucose 07/23/24 07/23/24 05:05 08:05 POC Glucose 114 H Fasting Glucose 101 H OUTPATIENT ANTIDIABETIC REGIMEN: * Levemir 50 units SQ daily (patient reportedly has not been using--unsure when last dose was) * glipizide 10mg po daily HbA1c 8% on 07/22/24 ASSESSMENT: 07/23: * Mamie received 22 units of insulin yesterday, 15 of which were basal. BSGs were: [phone] mg/dL. * Fasting BSG down to 114 mg/dL this AM. Patient is NPO for possible lymph node biopsy at some point today. Will hold off on any basal dosing until diet is resumed and tolerated today. Likely will do 15 more units this evening. * No change to Novolog at this time. Did receive an 80 mg of intraarticular DepoMedrol today for bedside ortho procedure. Will monitor postprandials closely. 07/22: * 74 year old female admitted 07/21 after a fall. Patient reportedly stopped all of her medication ~ 6 weeks ago and then resumed ~3 days prior to admit. Pharmacy has been consulted for glycemic management while the patient is admitted. * BSG was elevated on admit (264mg/dL) so Novolog was initiated with weight based dosing with a stress of 2. * She received 7 units of insulin yesterday (all were bolus). * Fasting BSG was 171mg/dL and henrry to 205 mg/dL around 1200 today. Lantus 15 units x 1 was ordered. Bolus insulin parameters were not adjusted since patient is still NPO. Will likely need to tighten once a diet is started. PLAN FOR INPATIENT GLYCEMIC CONTROL: * Hold outpatient oral diabetes medications * Basal insulin * Lantus 15 units SC should diet resume and be tolerated following lymph node biopsy today * Bolus insulin * NovoLog per scale ACHS or Q6hrs while NPO * Goal Range: Low 110 mg/dL - High 140 mg/dL * Correction Factor: 25 mg/dL/unit * Nutritional / Prandial insulin per carb ratio of 1 unit per 10 grams CHO consumed
--- NOTE | 2024-07-23 11:02 | Orthopedic Progress Note ---
Date of Service July 23, 2024 Assessment & Plan (1) Hemarthrosis, left knee: Plan: Spoke to Dr. Louise who was agreeable with her having the knee aspirated and injected. 18 mL blood aspirated and corticosteroid injection performed. Left knee aspiration/corticosteroid injection procedure: The risks and benefits of the procedure were reviewed with the patient and verbal consent was obtained. The left knee was confirmed to be the correct knee. The aspiration site was marked with the cap of a needle. Sterile gloves were donned and sterility was maintained throughout the procedure. The skin was cleansed with 3 sequential Betadine swabs and 3 minutes passed to allow the Betadine to fully dry. The soft tissue was anesthetized with 4 mL lidocaine 1%, and the joint was entered and 1 mL lidocaine 1% was injected into the joint. Needle was then removed. An 18 gauge spinal needle was then connected to a 30 cc syringe with the stylette removed. The joint was entered superolateral approach and 18 mL of blood was aspirated. The syringe was disconnected and a syringe containing 1 mL Depo- Medrol 80 mg/mL was connected to the spinal needle, and this was injected into the joint, was free-flowing throughout the joint. Spinal needle was then removed, hemostasis was achieved with 15 seconds of direct pressure and a Band- Aid and gauze was applied. The knee was rewrapped with a light compression Tor[place] wrap. Patient tolerated procedure well. She stated that she felt better after the procedure. Natalie Echavarria PA-C assisted. Likely a hemarthrosis in the setting of trauma with chronic degenerative findings on MRI. Fluid was sent to the lab for gram stain, culture, cell count, and fluid analysis. Can leave light compression dressing on for a day or 2 to prevent re- accumulation. Will see how she responds to the steroid. Can be weightbearing as tolerated with PT/OT, with walker for stability. Ice and elevation as needed. Will await fluid analysis. (2) Knee osteoarthritis: (3) Left ankle pain: Plan: Likely a resolving sprain or small contusion. Will see how she does with PT/OT. She may benefit from a cam boot or ankle brace if pain with weightbearing. Admission and Anticipated Discharge Date Admission Date: July 21, 2024 Subjective Patient seen in bed this morning. She still has some pain in the left knee. Pain in the left ankle has improved. She is agreeable with draining the left knee with possible steroid injection. Physical Exam Constitutional: Resting comfortably in bed, no distress. Pleasant. Musculoskeletal: Left knee: moderate effusion. No redness or warmth. Left ankle: no tenderness, no swelling. Able to actively plantarflex and dors iflex the ankle without pain. No left calf tenderness or lower leg swelling. Skin: Left lower extremity: pink, warm, dry Neurologic: No sensory deficits to light touch in left lower extremity. Results & Data Vital Signs (Past 12 Hours) Vital Signs Temp Pulse Pulse Resp BP Pulse Ox O2 Del Method 07/23/24 09:26 93 H 07/23/24 08:00 Room Air 07/23/24 07:56 98.2 F 109 H 18 144/67 H 94 Room Air 07/23/24 03:22 95 H 07/23/24 03:00 97.9 F 114 H 18 139/88 94 Room Air 07/23/24 00:00 98.6 F 103 H 18 144/76 H 93 Room Air Laboratory Results 07/23/24 07/23/24 07/22/24 08:05 05:05 20:42 WBC 8.97 RBC 3.45 L Hgb 9.5 L Hct 29.0 L MCV 84.1 MCH 27.5 MCHC 32.8 RDW Std Deviation 48.7 H RDW Coeff of Krista 15.9 H Plt Count 174 MPV 10.8 Sodium 133 L Potassium 3.7 Chloride 102 Carbon Dioxide 23 Anion Gap 8 BUN 31 H Creatinine 1.84 H Est Cr Clr Drug Dosing 33.5 eGFR 28.26 POC Glucose 114 H 126 H Fasting Glucose 101 H Calcium 10.3 Magnesium 1.9 25-OH Vitamin D Total 07/22/24 07/22/24 07/22/24 16:57 11:53 11:08 WBC RBC Hgb Hct MCV MCH MCHC RDW Std Deviation RDW Coeff of Krista Plt Count MPV Sodium Potassium Chloride Carbon Dioxide Anion Gap BUN Creatinine Est Cr Clr Drug Dosing eGFR POC Glucose 157 H 205 H Fasting Glucose Calcium Magnesium 25-OH Vitamin D Total 21.1 L
[2024-07-23 12:28] LABS: Appearance Synovial Fluid Bloody; Color Synovial Fluid Red; Mononuclear WBC Synovial 30.8 %; Polynuclear WBC Synovial 69.2 %; RBC Synovial Fluid Auto 670000 /uL; Source Synovial Fluid Left Knee; WBC Synovial Fluid Auto 945 /ul (0-200)
--- NOTE | 2024-07-23 13:22 | Billing Data ---
Date of Service July 23, 2024 Coding Level of Care Code 02425 IN/OBS DISCH 30 MIN/LESS
--- NOTE | 2024-07-23 14:08 | Ultrasound Report ---
Ultrasound-guided right cervical lymph node FNA INDICATION: 1.6 cm right cervical lymph node; systemic lymphadenopathy PROCEDURE: Procedure and risks were explained. Informed consent was obtained. A final timeout was com pleted. The neck was prepped and draped in a sterile fashion. 1% lidocaine was utilized for skin anes thesia. Utilizing ultrasound guidance, a 25-gauge needle was advanced into the 1.6 cm right cervical lymph no de. Ultrasound images were obtained. 3 aspirates were obtained with a 25-gauge needle and one aspirat ed with a 22-gauge needle and given to the pathologist for review. The needle was removed and Band- d applied. The patient tolerated the procedure well. IMPRESSION: Right cervical lymph node FNA as above. Performed, dictated, and signed by Rakan Wood PA-C; to be co-signed by Dr. Martin Plascencia. Electronically signed by: Martin Plascencia M.D. 07/23/2024 2:28 PM
[2024-07-23] MEDS: LIDOCAINE 1% LOCAL 20 ML VIAL INFIL ONE (14:19)
[2024-07-23] MEDS: methylPREDNISolone acetate 80 MG/ML VIAL IA ONE (14:20)
[2024-07-23] MEDS: LANTUS PER UNIT CHARGE SC ONE (17:54)
--- NOTE | 2024-07-24 05:38 | Electrocardiogram Report ---
Test Reason : Blood Pressure : */* mmHG Vent. Rate : 100 BPM Atrial Rate : * BPM P-R Int : * ms QRS Dur : 86 ms QT Int : 280 ms P-R-T Axes : * 29 21 degrees QTcB Int : 361 ms Atrial fibrillation Possible Anterior infarct , age undetermined Abnormal ECG When compared with ECG of 17-Jul-2017 06:29, Nonspecific T wave abnormality no longer evident in Lateral leads QT has shortened Confirmed by Jamie Beckford ([id number]) on 07/24/2024 5:37:26 AM Referred By: REFERRED SELF Confirmed By: Jamie Beckford
--- NOTE | 2024-07-24 05:38 | Electrocardiogram Report ---
Test Reason : Blood Pressure : */* mmHG Vent. Rate : 114 BPM Atrial Rate : 99 BPM P-R Int : * ms QRS Dur : 90 ms QT Int : 274 ms P-R-T Axes : * 33 20 degrees QTcB Int : 377 ms Atrial fibrillation with rapid ventricular response Abnormal ECG When compared with ECG of 21-Jul-2024 06:35, No significant change was found Confirmed by Jamie Beckford ([id number]) on 07/24/2024 5:37:42 AM Referred By: REFERRED SELF Confirmed By: Jamie Beckford
[2024-07-24 06:31] LABS: Hematocrit (blood only) 31.9 % (37.0-47.0); Hemoglobin 10.4 g/dl (12.0-16.0); Mean Corpuscular Hemoglobin 27.5 pg (25.0-34.0); Mean Corpuscular Hgb Conc 32.6 g/dL (32.0-36.0); Mean Corpuscular Volume 84.4 fL (80.0-100.0); Mean Platelet Volume 11.2 fL (9.4-12.4); Platelet Count 207 K/uL (130-400); RDW Coefficient of Variation 15.6 % (11.5-14.5); Red Blood Count 3.78 M/uL (4.20-5.40); White Blood Count 8.22 K/ul (4.8-10.8)
[2024-07-24 06:48] LABS: Creatinine Clr Calc Pharmacy 31.6 ml/min; Potassium 4.3 mmol/L (3.5-5.1)
--- NOTE | 2024-07-24 07:08 | Hospitalist Progress Note ---
Date of Service July 24, 2024 Assessment & Plan (1) Confusion: (2) Thickened endometrium: (3) Subluxation of left patella: (4) Hypercalcemia: (5) Acute kidney injury: Plan (1) Stroke-like symptoms (2) Fall/Left knee dislocation: (3) Hypercalcemia/Stage 3b chronic kidney disease: (4) Diabetes mellitus: (5) Thickened endometrium: Plan This is a 74 year old female with past medical history of AFib, T2DM, hyperlipidemia, stage 3b-CKD who presented to the ED on 07/21 for complaints of a fall. Patient reportedly stopped taking all of her medications for ~6 weeks and subsequently decided to resume them ~3 days ago. Suspect her dizziness is likely related to her hypercalcemia and left knee weakness/pain is secondary to her left knee dislocation. 1) Enlarged lymph nodes CT-AP w/ contrast - nonspecific mildly enlarged periaortic, pericaval and periportal lymph nodes. mild interstitial pulmonary edema w/ small pleural effusions. prior granulomatous disease. pathologic thickening of endometrium. - r. cervical lymph node FNA biopsy performed, pathology results pending 2) hypercalcemia/ERMA/CKD stage 3B/ mild hyponatremia Calcium 10.0 <-- 13.3, creatinine 1.92 <-- 2.11; BUN 31 <-- 35 on admission; Na, 133 Follows w/ nephrology outpatient, last office visit 04/29. Held losartan Nephrology consultation if calcium not improving; monitor on telemetry Ionized calcium, 1.56; PTH, 3.4 (L) upon admission - pamidronate, 30 mg, IV given 07/22/24 by Nephro 3) Fall/knee dislocation Patient reportedly experienced dizziness and fell twice in her bathroom. She st ruck her left leg and head against the sink. Left ankle XR: negative; CXR: negative; Head CT: negative Left knee XR: lateral patellar dislocation likely due to disruptive changes to medial patellar retinaculum. mild thickening and irregularity of medial patellar retinaculum soft tissue shadow. Recommend MRI knee CBC w/ resolved mild leukocytosis of 8.22 <-- 11.37 Synovial fluid analysis from l. knee synovial tap: WBC, 945 (un-concerning) MRI/MRA brain/neck negative upon admission Left knee MRI - no acute fx or dislocation. moderate-severe OA. moderate sized joint effusion w/ intra-articular loose bodies/debris. Orthostatic vital signs ordered, still pending Orthopedics consulted, appreciate recommendations. PT/OT consulted, appreciate recommendations; Fall precautions 4) Stroke-like symptoms - Neurology consult placed (Dr. Benito) - NIH SS score of 5; TNK deferred due to being on Eliquis - CT-Head (non-contrast) negative for any acute intracranial findings - MRI-Brain ordered this morning again and negative for acute findings - Lipid panel: TChol, 146; LDL, 77; HDL, 55; TG, 68 5) T2 Diabetes On Glipizide and insulin outpatient. A1C, 8.0 (earlier 04/23/24 - 8%), hasn't worsened despite no medications x 6 weeks Sliding scale goal 110-160, CF 15 Insulin detemir 50 units subQ daily Pharmacy consulted, appreciate recommendations 6) Thickened endometrium CT-AP w/ contrast - nonspecific mildly enlarged periaortic, pericaval and periportal lymph nodes. mild interstitial pulmonary edema w/ small pleural effusions. prior granulomatous disease. pathologic thickening of endometrium (at 6 cm, >> 5mm cutoff) - Follow up w/ ObGyn as outpt - lymph node biopsy scheduled for tomorrow 7) Atrial fibrillation - metoprolol succinate, 25 mg, daily 8) Resuscitation measures - talked to patient again and she has now decided to be Full Code Chronic conditions: Mental Health: fluoxetine HTN: Metoprolol, hold Losartan due to ERMA GERD: PPI HLD: statin DVT prophylaxis: hold pending ortho consult, if no surgical intervention start outpatient Eliquis dosage Code: DNR/DNI Case discussed w/ Dr. Cuenca at time of admission Updated with plan of care at bedside on admission Admission and Anticipated Discharge Date Admission Date: July 21, 2024 Supervising Physician Co-Signing Physician Notes I personally examined the patient and verified all perez points of history and exam, discussed case, and agree with decision making with Dr Louise Feels okay overall. Knows she needs rehab. Vitals noted, in general she is awake and alert pleasant no distress. HEENT normocephalic atraumatic mucous membranes moist. Breathing unlabored no accessory muscle use good effort. Hypercalcemia with metabolic encephalopathy due to hypercalcemia and dehydration present on admission which has now improved. suspect this ties together the predominance of her symptoms, outside of some injuries from her falls. Hypercalcemia concerning for malignancy or granulomatous processadenopathy noted. Cervical node biopsy done, results pending. PT/OT eval and treat. for SNF with rehab emphasis when bed available. Discussed with patient. Thickened endometrium likely a separate issuecertainly would anticipate need for endometrial biopsy unless I am surprised and her lymph node shows endometrial malignancy; appreciate nephrology input as well. Subjective Patient is a 74 yo F w/ a PMHx of A fib, Diabetes, hyperlipidemia, stage 3b CKD andrecent Hx of complete medication non-compliance for 6 weeks, with recent re- starting of all of her meds 3 days before admission. This morning patient is doing much better, is more alert, able to give more effort during exam. Patient's anomia/word-finding difficulty much improved over 2 days prior when a stroke alert was called. She is AAO x 4, understands why she is in the hospital and is eagerly awaiting the pathology results of her cervical lymph node biopsy. Review of Systems Constitutional: + fatigue; no fever and no chills Respiratory: no cough and no dyspnea Cardiovascular: no chest pain and no palpitations Gastrointestinal: no abdominal pain, no nausea and no vomiting Neurologic: no tingling, no numbness and no paresthesia Physical Exam Constitutional: + acute distress, + obese and cooperativ e Respiratory: normal respiratory effort, lungs clear to auscultation Cardiovascular: Rate/Rhythm: + tachycardic and + irregularly irregular Heart Sounds: + murmur Gastrointestinal (Abdomen): normal bowel sounds, soft, nontender, no hepatosplenomegaly Neurologic: CN's II-XI intact bilaterally Speech / Cognition: no anomia Cranial Nerves: PERRL, normal accommodation, EOM intact bilaterally and able to elevate shoulders bilaterally; + abnormal facial strength Psychiatric: Orientation: oriented x 3 and cooperative Speech: normal rate/rhythm/volume of speech Results & Data Results & Data Vital Signs (Past 12 Hours) Vital Signs Temp Pulse Pulse Resp BP Pulse Ox O2 Del Method 07/24/24 04:00 36.7 C 76 20 131/79 93 Room Air 07/24/24 00:30 74 07/23/24 23:51 36.5 C 80 18 118/72 95 Room Air 07/23/24 22:54 Room Air
--- NOTE | 2024-07-24 08:40 | Nephrology Progress Note ---
Date of Service July 24, 2024 Assessment & Plan (1) Hypercalcemia: Plan: * Non-PTH medicated hypercalcemia, normal serum Ca * Patient reports h/o low vitamin D and had been on OTC vitamin D 3 1,000 units daily. However, she chose to stop all of her medications 6 weeks prior to admission because she was "not feeling well" * 03/05 outpatient evaluation did reveal mildly elevated 1,25 vitamin D and kappa/lambda light chain ratio * Pamidronate 30 mg IV over 4 hours administered 07/22/24 * 07/23/24 Ca 10.3, albumin 3.5, Cr 1.8 * 08/06 PTH is appropriately suppressed * 25 and 1,25 vitamin D levels ordered - pending * PTHrp and order SIEP/24 hr urine IEP - pending * Serum CAMMY - pending * 07/22/[address] - mediastinal lymphadenopathy * R cervical lymph node biopsied by [facility] 07/23/24. Pathology is pending * Monitor BMP, Ca * Awaiting results of hypercalcemia evaluation and lymph node biopsy. Serum Ca has corrected following Pamidronate therapy. If discharge is anticipated, please have patient follow up w/ Dr. Rodriguez in 7-14 days. (2) Acute kidney injury: Plan: * Serum Cr stable at 1.9. Volume status and electrolyte balance are acceptable * 08/06 urine sediment remains non-nephritic * 08/[address] revealed mild L renal atrophy, no hydronephrosis * Continue to hold losartan * If BP trends up, consider low dose amlodipine (3) Chronic renal insufficiency: Plan: * CKD stage G3b (moderate impairment). Baseline Cr 1.4-1.6 w/ EGFR 30 cc/min. Renal impairment attributed to microvascular disease (4) Atrial fibrillation: (5) Diabetes mellitus: Admission and Anticipated Discharge Date Admission Date: July 21, [address] was evaluated in her hospital room this morning. She denied abdominal pain, muscle cramping. Review of Systems Constitutional: no fever Eyes: no dry eyes, no itchy eyes and no problem reported Ear, Nose, Mouth, Throat: no dry mouth, no pain with swallowing, no neck lump and no problem reported Respiratory: no cough, no dyspnea and no hemoptysis Cardiovascular: no chest pain Gastrointestinal: no abdominal pain, no nausea, no vomiting and no blood in stools Genitourinary: no dysuria Integumentary: no rash Neurologic: + falls Physical Exam 2 Constitutional: not in distress Eyes: PERRL, conjunctivae normal, anicteric sclerae ENMT: external ear and nose normal, oropharynx normal Neck: trachea midline, no thyromegaly no submandibular swelling Respiratory: normal respiratory effort, lungs clear to auscultation Cardiovascular: Rate/Rhythm: + tachycardic and + irregularly irregular Gastrointestinal (Abdomen): normal bowel sounds, soft, nontender, no hepatosplenomegaly Skin: no rashes, warm and dry Neurologic: Speech / Cognition: normal speech and normal cognition Psychiatric: Affect: euthymic affect Results & Data Vital Signs (Past 12 Hours) Vital Signs Temp Pulse Pulse Resp BP BP Pulse Ox 07/24/24 07:50 36.4 C L 78 16 152/87 H 95 07/24/24 07:00 73 07/24/24 04:00 36.7 C 76 20 131/79 93 07/24/24 00:30 74 07/23/24 23:51 36.5 C 80 18 118/72 95 07/23/24 22:54 O2 Del Method 07/24/24 07:50 Room Air 07/24/24 07:00 07/24/24 04:00 Room Air 07/24/24 00:30 07/23/24 23:51 Room Air 07/23/24 22:54 Room Air Laboratory Results Laboratory Results - last 24 hr 07/23/24 07/23/24 07/23/24 11:47 13:24 16:52 WBC RBC Hgb Hct MCV MCH MCHC RDW Std Deviation RDW Coeff of Krista Plt Count MPV Sodium Potassium Chloride Carbon Dioxide Anion Gap BUN Creatinine Est Cr Clr Drug Dosing eGFR POC Glucose 132 H 289 H Fasting Glucose Calcium Fluid Comment Synovial Source Synovial Color Synovial Appearance Synovial WBC (Auto) Synovial RBC (Auto) Synovial Polynuclear % Synovial Mononuclear % Synovial Crystals Urine Immunofixation Flow Cytometry Comment Pending 07/23/24 07/23/24 07/24/24 20:39 Unknown 05:22 WBC 8.22 RBC 3.78 L Hgb 10.4 L Hct 31.9 L MCV 84.4 MCH 27.5 MCHC 32.6 RDW Std Deviation 48.0 H RDW Coeff of Krista 15.6 H Plt Count 207 MPV 11.2 Sodium 133 L Potassium 4.3 Chloride 103 Carbon Dioxide 24 Anion Gap 6 BUN 41 H Creatinine 1.92 H Est Cr Clr Drug Dosing 31.6 eGFR 26.86 POC Glucose 271 H Fasting Glucose 229 H Calcium 10.0 Fluid Comment Synovial Source Left Knee Synovial Color Red Synovial Appearance Bloody Synovial WBC (Auto) 945 H Synovial RBC (Auto) 609732 Synovial Polynuclear % 69.2 Synovial Mononuclear % 30.8 Synovial Crystals Urine Immunofixation Flow Cytometry Comment 07/24/24 07/24/24 07:30 07:59 WBC RBC Hgb Hct MCV MCH MCHC RDW Std Deviation RDW Coeff of Krista Plt Count MPV Sodium Potassium Chloride Carbon Dioxide Anion Gap BUN Creatinine Est Cr Clr Drug Dosing eGFR POC Glucose 236 H Fasting Glucose Calcium Fluid Comment Synovial Source Synovial Color Synovial Appearance Synovial WBC (Auto) Synovial RBC (Auto) Synovial Polynuclear % Synovial Mononuclear % Synovial Crystals Urine Immunofixation Pending Flow Cytometry Comment PG Care Time/CCT Total # of Minutes Spent Total Time Spent with Patient: Total time spent is greater than 50% in coordination of care (as documented) at patient's floor/unit and/or counseling patient: Coding Level of Care Code 42063 SUB INP/OBS CARE 3/50MIN Diagnoses Hypercalcemia E83.52 Acute kidney injury N17.9 Chronic renal insufficiency N18.9 Atrial fibrillation I48.91 Diabetes mellitus E11.9
[2024-07-24] MEDS: LANTUS PER UNIT CHARGE SC SCH ×2 (09:12→20:42)
--- NOTE | 2024-07-24 10:45 | Orthopedic Progress Note ---
Date of Service July 24, 2024 Assessment & Plan (1) Hemarthrosis, left knee: Plan: Continue to be out of bed with physical therapy and Occupational Therapy. She may weight-bear as tolerated on her left lower extremity with the assistance of a walker. PT and OT recommended for ambulation. Ice to left knee as needed. She states she has been doing much ice and that baby born beneficial if she does not more frequently. Recommended 15 to 20 minutes at a every 3 hours or so. May work on gentle range of motion exercises when in bed for her left knee. Explained to her that stiffness in the knee can also cause pain and she needs to try to be moving it when in bed and when sitting in a chair. May reapply or remove the pressure dressing as needed for comfort. Encouraged her to continue elevation of her left leg but keep the pillow more underneath her calf and lower leg versus her knee. This was readjusted today. She states it was comfortable that way. Will continue to follow culture results daily. Will recheck in a.m. to see if her knee feels any better from the recent steroid injection. She understands and agrees with the plan. (2) Knee osteoarthritis: (3) Left ankle pain: Plan: Likely a resolving sprain or small contusion. No brace or support necessary at this time She states that it does not bother her for the last day or two May WBAT left ankle ROM exercises as tolerated Ice PRN. Admission and Anticipated Discharge Date Admission Date: July 21, 2024 Subjective Resting in bed, seen at bedside. Overall doing well. States that she does not have pain in her left knee when she is not moving it. It is more comfortable elevated on a pillow. She did try to get up yesterday and take a few steps in her room but it does still cause a lot of discomfort. She states it may be "mildly better from the cortisone injection". She denies any pain in her left ankle. She states that she does think maybe she did have a mild sprain but that has resolved. Physical Exam Musculoskeletal: Exam of her left knee: She is able to independently straight leg raise about an inch off the bed. This is uncomfortable but she is able to do this. Full ankle range of motion with dorsiflexion, plantarflexion, inversion and eversion with normal strength. Distal pulses are 1+. Foot is warm and capillary refill is brisk. Calf is supple and nontender. Compression wrap with Torrey bandage still on left knee. It was not removed today. Pillow was adjusted to be more under her calf and lower leg than behind the knee itself. She can actively flex her knee to about 50 degrees and straighten to about 5 degrees of extension. Tolerates logrolling of the left hip. No appreciation of significant reaccumulation of hemarthrosis in the left knee. Knee is tender to palpation diffusely anteriorly, medially and posteriorly. Results & Data Vital Signs (Past 12 Hours) Vital Signs Temp Pulse Pulse Resp BP BP Pulse Ox 07/24/24 07:50 36.4 C L 78 16 152/87 H 95 07/24/24 07:00 73 07/24/24 04:00 36.7 C 76 20 131/79 93 07/24/24 00:30 74 07/23/24 23:51 36.5 C 80 18 118/72 95 07/23/24 22:54 O2 Del Method 07/24/24 07:50 Room Air 07/24/24 07:00 07/24/24 04:00 Room Air 07/24/24 00:30 07/23/24 23:51 Room Air 07/23/24 22:54 Room Air Laboratory Results 07/23/24 Unknown Gram Stain - Final Synovial Fluid Aerobic and Anaerobic Culture - Pending 07/24/24 07/24/24 07/23/24 07:59 05:22 Unknown WBC 8.22 RBC 3.78 L Hgb 10.4 L Hct 31.9 L MCV 84.4 MCH 27.5 MCHC 32.6 RDW Std Deviation 48.0 H RDW Coeff of Krista 15.6 H Plt Count 207 MPV 11.2 Sodium 133 L Potassium 4.3 Chloride 103 Carbon Dioxide 24 Anion Gap 6 BUN 41 H Creatinine 1.92 H Est Cr Clr Drug Dosing 31.6 eGFR 26.86 POC Glucose 236 H Fasting Glucose 229 H Calcium 10.0 Fluid Comment Synovial Source Left Knee Synovial Color Red Synovial Appearance Bloody Synovial WBC (Auto) 945 H Synovial RBC (Auto) [id number] Synovial Polynuclear % 69.2 Synovial Mononuclear % 30.8 Synovial Crystals 07/23/24 07/23/24 07/23/24 20:39 16:52 11:47 WBC RBC Hgb Hct MCV MCH MCHC RDW Std Deviation RDW Coeff of Krista Plt Count MPV Sodium Potassium Chloride Carbon Dioxide Anion Gap BUN Creatinine Est Cr Clr Drug Dosing eGFR POC Glucose 271 H 289 H 132 H Fasting Glucose Calcium Fluid Comment Synovial Source Synovial Color Synovial Appearance Synovial WBC (Auto) Synovial RBC (Auto) Synovial Polynuclear % Synovial Mononuclear % Synovial Crystals Synovial crystals result: No crystals present Gram stain: No organisms present. Anaerobic and anaerobic culture pending
--- NOTE | 2024-07-24 12:39 | Pharmacy Report ---
Pharmacy Glycemic Short Note 2 - Date of Service July 24, 2024 - Glycemic Short BSG Results (Last 24 hours): 07/23/24 07/23/24 07/24/24 16:52 20:39 05:22 POC Glucose 289 H 271 H Fasting Glucose 229 H 07/24/24 07/24/24 07:59 12:13 POC Glucose 236 H 241 H Fasting Glucose OUTPATIENT ANTIDIABETIC REGIMEN: * Levemir 50 units SQ daily (patient reportedly has not been using--unsure when last dose was) * glipizide 10mg po daily HbA1c 8% on 07/22/24 ASSESSMENT: 07/24: * Blood sugars elevated post IA DepoMedrol * Fasting blood sugar of 236 mg/dL this morning * Will tighten Novolog coverage today and increase basal to better cover steroid 07/23: * Mamie received 22 units of insulin yesterday, 15 of which were basal. BSGs were: 880-151-292-126 mg/dL. * Fasting BSG down to 114 mg/dL this AM. Patient is NPO for possible lymph node biopsy at some point today. Will hold off on any basal dosing until diet is resumed and tolerated today. Likely will do 15 more units this evening. * No change to Novolog at this time. Did receive an 80 mg of intraarticular DepoMedrol today for bedside ortho procedure. Will monitor postprandials closely. 07/22: * 74 year old female admitted 07/21 after a fall. Patient reportedly stopped all of her medication ~ 6 weeks ago and then resumed ~3 days prior to admit. Pharmacy has been consulted for glycemic management while the patient is admitted. * BSG was elevated on admit (264mg/dL) so Novolog was initiated with weight based dosing with a stress of 2. * She received 7 units of insulin yesterday (all were bolus). * Fasting BSG was 171mg/dL and henrry to 205 mg/dL around 1200 today. Lantus 15 units x 1 was ordered. Bolus insulin parameters were not adjusted since patient is still NPO. Will likely need to tighten once a diet is started. PLAN FOR INPATIENT GLYCEMIC CONTROL: * Hold outpatient oral diabetes medications * Basal insulin * Lantus 30 units SC qAM * Lantus 0-5-10 units SC HS * Reassess in AM * Bolus insulin * NovoLog per scale ACHS or Q6hrs while NPO * Goal Range: Low 110 mg/dL - High 140 mg/dL * Correction Factor: 20 mg/dL/unit * Nutritional / Prandial insulin per carb ratio of 1 unit per 6 grams CHO consumed
--- NOTE | 2024-07-24 17:42 | Billing Data ---
Date of Service July 24, 2024 Coding Level of Care Code 11634 SUB INP/OBS CARE MIN
[2024-07-25 06:23] LABS: Hematocrit (blood only) 33.1 % (37.0-47.0); Hemoglobin 10.8 g/dl (12.0-16.0); Mean Corpuscular Hemoglobin 27.6 pg (25.0-34.0); Mean Corpuscular Hgb Conc 32.6 g/dL (32.0-36.0); Mean Corpuscular Volume 84.4 fL (80.0-100.0); Mean Platelet Volume 11.1 fL (9.4-12.4); Platelet Count 256 K/uL (130-400); RDW Coefficient of Variation 15.6 % (11.5-14.5); RDW Standard Deviation 47.9 fL (36.4-46.3); Red Blood Count 3.92 M/uL (4.20-5.40); White Blood Count 13.26 K/ul (4.8-10.8)
[2024-07-25 06:45] LABS: Calcium 9.8 mg/dl (8.6-10.3); Creatinine Clr Calc Pharmacy 31.6 ml/min; Potassium 4.1 mmol/L (3.5-5.1)
--- NOTE | 2024-07-25 08:10 | Hospitalist Progress Note ---
Date of Service July 25, 2024 Assessment & Plan (1) Confusion: (2) Thickened endometrium: (3) Subluxation of left patella: (4) Hypercalcemia: (5) Acute kidney injury: Plan (1) Stroke-like symptoms (2) Fall/Left knee dislocation: (3) Hypercalcemia/Stage 3b chronic kidney disease: (4) Diabetes mellitus: (5) Thickened endometrium: Plan This is a 74 year old female with past medical history of AFib, T2DM, hyperlipidemia, stage 3b-CKD who presented to the ED on 07/21 for complaints of a fall. Patient reportedly stopped taking all of her medications for ~6 weeks and subsequently decided to resume them ~3 days ago. Suspect her dizziness is likely related to her hypercalcemia and left knee weakness/pain is secondary to her left knee dislocation. 1) Enlarged lymph nodes CT-AP w/ contrast - nonspecific mildly enlarged periaortic, pericaval and periportal lymph nodes. mild interstitial pulmonary edema w/ small pleural effusions. prior granulomatous disease. pathologic thickening of endometrium. - r. cervical lymph node FNA biopsy performed, pathology results pending 2) hypercalcemia/ERMA/CKD stage 3B/ mild hyponatremia Calcium 9.8 <-- 13.3, creatinine 1.92 <-- 2.11; BUN 47 <-- 35 on admission; Na, 135 <-- 133 Follows w/ nephrology outpatient, last office visit 04/29. Held losartan Nephrology consultation if calcium not improving; monitor on telemetry Ionized calcium, 1.56; PTH, 3.4 (L) upon admission - pamidronate, 30 mg, IV given 07/22/24 by Nephro 3) Fall/knee dislocation Patient reportedly experienced dizziness and fell twice in her bathroom. She struck her left leg and head against the sink. Left ankle XR: negative; CXR: negative; Head CT: negative Left knee XR: lateral patellar dislocation likely due to disruptive changes to medial patellar retinaculum. mild thickening and irregularity of medial patellar retinaculum soft tissue shadow. Recommend MRI knee CBC w/ mildly increased leukocytosis of 13.3 <-- 8.22 <-- 11.37, likely due to corticosteroid injection Synovial fluid analysis from l. knee synovial tap: WBC, 945 (un-concerning) MRI/MRA brain/neck negative upon admission Left knee MRI - no acute fx or dislocation. moderate-severe OA. moderate sized joint effusion w/ intra-articular loose bodies/debris. Orthostatic vital signs ordered, still pending Orthopedics consulted, appreciate recommendations. PT/OT consulted, appreciate recommendations; Fall precautions 4) Stroke-like symptoms #resolved - Neurology consult placed (Dr. Benito) - NIH SS score of 5; TNK deferred due to being on Eliquis - CT-Head (non-contrast) negative for any acute intracranial findings - MRI-Brain ordered this morning again and negative for acute findings - Lipid panel: TChol, 146; LDL, 77; HDL, 55; TG, 68 5) T2 Diabetes On Glipizide and insulin outpatient. A1C, 8.0 (earlier 04/23/24 - 8%), hasn't worsened despite no medications x 6 weeks Sliding scale goal 110-160, CF 15 Insulin detemir 50 units subQ daily Pharmacy consulted, appreciate recommendations 6) Thickened endometrium CT-AP w/ contrast - nonspecific mildly enlarged periaortic, pericaval and periportal lymph nodes. mild interstitial pulmonary edema w/ small pleural effusions. prior granulomatous disease. pathologic thickening of endometrium (at 6 cm, >> 5mm cutoff) - Follow up w/ ObGyn as outpt 7) Atrial fibrillation - metoprolol succinate, 25 mg, daily 8) Resuscitation measures - talked to patient again and she has now decided to be Full Code Chronic conditions: Mental Health: fluoxetine HTN: Metoprolol, hold Losartan due to ERMA GERD: PPI HLD: statin DVT prophylaxis: hold pending ortho consult, if no surgical intervention start outpatient Eliquis dosage Code status: Full code Disposition: Med-Tele Admission and Anticipated Discharge Date Admission Date: July 21, 2024 Supervising Physician Co-Signing Physician Notes I personally examined the patient and verified all perez points of history and exam, discussed case, and agree with decision making with Dr Louise no acute complaints. Awaiting SNF/rehab emphasis. Lymph node pathology still pending. Vitals noted, in general she is awake and alert pleasant no distress. HEENT normocephalic atraumatic mucous membranes moist. Breathing unlabored no accessory muscle use good effort. Hypercalcemia with metabolic encephalopathy due to hypercalcemia and dehydration present on admission which has now improved. Suspect this ties together the predominance of her symptoms, outside of some injuries from her falls. Hypercalcemia concerning for malignancy or granulomatous processadenopathy noted. Cervical node biopsy done, results still pending. PT/OT ongoing. for SNF with rehab emphasis when bed available. Discussed with patient. Thickened endometrium likely a separate issuecertainly would anticipate need for endometrial biopsy unless I am surprised and her lymph node shows endometrial malignancy; appreciate nephrology input as well. Subjective Patient is a 74 yo F w/ a PMHx of A fib, Diabetes, hyperlipidemia, stage 3b CKD andrecent Hx of complete medication non-compliance for 6 weeks, with recent re- starting of all of her meds 3 days before admission. This morning patient is doing much better, is more alert, able to give more effort during exam. Patient's anomia/word-finding difficulty much improved over 2 days prior when a stroke alert was called. She is AAO x 4, understands why she is in the hospital and is eagerly awaiting the pathology results of her cervical lymph node biopsy. A blister on her thumb was pointed out to her by nursing, but it was only mildly tender for the patient. Review of Systems Constitutional: + fatigue; no fever and no chills Eyes: + worsening vision Respiratory: no cough and no dyspnea Cardiovascular: no chest pain and no palpitations Gastrointestinal: no abdominal pain, no nausea and no vomiting Neurologic: no tingling, no numbness and no paresthesia Physical Exam Constitutional: + acute distress, + obese and cooperativ e Respiratory: normal respiratory effort, lungs clear to auscultation Cardiovascular: Rate/Rhythm: + tachycardic and + irregularly irregular Heart Sounds: + murmur Gastrointestinal (Abdomen): normal bowel sounds, soft, nontender, no hepatosplenomegaly Neurologic: CN's II-XI intact bilaterally Speech / Cognition: no anomia Cranial Nerves: PERRL, normal accommodation, EOM intact bilaterally and able to elevate shoulders bilaterally; + abnormal facial strength Psychiatric: Orientation: oriented x 3 and cooperative Speech: normal rate/rhythm/volume of speech Results & Data Results & Data Vital Signs (Past 12 Hours) Vital Signs Temp Pulse Pulse Resp BP BP Pulse Ox 07/25/24 07:12 36.6 C 68 18 143/87 H 95 07/25/24 07:09 73 07/25/24 03:19 36.5 C 73 16 140/83 95 07/24/24 23:09 36.4 C L 76 18 146/78 H 93 02/12/25 21:52 64 07/24/24 20:21 O2 Del Method 07/25/24 07:12 Room Air 07/25/24 07:09 07/25/24 03:19 Room Air 07/24/24 23:09 Room Air 07/24/24 21:52 07/24/24 20:21 Room Air Resident Activity Tracking Resident Involvement: Resident Care Provided Care Provided: Adult Hospital Medicine
--- NOTE | 2024-07-25 08:34 | Nephrology Progress Note ---
Date of Service July 25, 2024 Assessment & Plan (1) Hypercalcemia: Plan: * Non-PTH medicated hypercalcemia, normal serum Ca * Patient reports h/o low vitamin D and had been on OTC vitamin D 3 1,000 units daily. However, she chose to stop all of her medications 6 weeks prior to admission because she was "not feeling well" * 03/05 outpatient evaluation did reveal mildly elevated 1,25 vitamin D and kappa/lambda light chain ratio * Pamidronate 30 mg IV over 4 hours administered 07/22/24 * 07/23/24 Ca 10.3, albumin 3.5, Cr 1.8 * 08/06 PTH is appropriately suppressed * 25 and 1,25 vitamin D levels ordered - pending * PTHrp and order SIEP/24 hr urine IEP - pending * Serum CAMMY - pending * 07/22/[address] - mediastinal lymphadenopathy * R cervical lymph node biopsied by [facility] 07/23/24. Pathology is pending * Monitor BMP, Ca * Awaiting results of hypercalcemia evaluation and lymph node biopsy. Serum Ca has corrected following Pamidronate therapy. I have sent task to nephrology office staff to contact patient and schedule follow up w/ Dr. Rodriguez in 7-14 days. Orders placed in EMR for BMP, Ca 2 days prior to visit (2) Acute kidney injury: Plan: * Serum Cr stable at 1.9. Volume status and electrolyte balance are acceptable * 08/06 urine sediment remains non-nephritic * 08/[address] revealed mild L renal atrophy, no hydronephrosis * Continue to hold losartan * If BP trends up, consider low dose amlodipine (3) Chronic renal insufficiency: Plan: * CKD stage G3b (moderate impairment). Baseline Cr 1.4-1.6 w/ EGFR 30 cc/min. Renal impairment attributed to microvascular disease (4) Atrial fibrillation: (5) Diabetes mellitus: Admission and Anticipated Discharge Date Admission Date: July 21, [address] was evaluated in her hospital room this morning. She denied abdominal pain, muscle cramping. Review of Systems Constitutional: no fever Eyes: no dry eyes, no itchy eyes and no problem reported Ear, Nose, Mouth, Throat: no dry mouth, no pain with swallowing, no neck lump and no problem reported Respiratory: no cough, no dyspnea and no hemoptysis Cardiovascular: no chest pain Gastrointestinal: no abdominal pain, no nausea, no vomiting and no blood in stools Genitourinary: no dysuria Integumentary: no rash Physical Exam Constitutional: not in distress Eyes: PERRL, conjunctivae normal, anicteric sclerae ENMT: external ear and nose normal, oropharynx normal Neck: trachea midline, no thyromegaly no submandibular swelling Respiratory: normal respiratory effort, lungs clear to auscultation Cardiovascular: Rate/Rhythm: + irregularly irregular Gastrointestinal (Abdomen): normal bowel sounds, soft, nontender, no hepatosplenomegaly Skin: no rashes, warm and dry Neurologic: Speech / Cognition: normal speech and normal cognition Psychiatric: Affect: euthymic affect Results & Data Vital Signs (Past 12 Hours) Vital Signs Temp Pulse Pulse Resp BP BP Pulse Ox 07/25/24 07:12 36.6 C 68 18 143/87 H 95 07/25/24 07:09 73 07/25/24 03:19 36.5 C 73 16 140/83 95 07/24/24 23:09 36.4 C L 76 18 146/78 H 93 07/24/24 21:52 64 O2 Del Method 07/25/24 07:12 Room Air 07/25/24 07:09 07/25/24 03:19 Room Air 07/24/24 23:09 Room Air 07/24/24 21:52 Laboratory Results Laboratory Results - last 24 hr 07/24/24 07/24/24 07/24/24 07:30 12:13 17:20 WBC RBC Hgb Hct MCV MCH MCHC RDW Std Deviation RDW Coeff of Krista Plt Count MPV Sodium Potassium Chloride Carbon Dioxide Anion Gap BUN Creatinine Est Cr Clr Drug Dosing eGFR POC Glucose 241 H 170 H Fasting Glucose Calcium Urine Immunofixation Pending 07/24/24 07/25/24 07/25/24 20:21 05:33 08:26 WBC 13.26 H RBC 3.92 L Hgb 10.8 L Hct 33.1 L MCV 84.4 MCH 27.6 MCHC 32.6 RDW Std Deviation 47.9 H RDW Coeff of Krista 15.6 H Plt Count 256 MPV 11.1 Sodium 135 L Potassium 4.1 Chloride 103 Carbon Dioxide 24 Anion Gap 8 BUN 47 H Creatinine 1.92 H Est Cr Clr Drug Dosing 31.6 eGFR 26.86 POC Glucose 155 H 143 H Fasting Glucose 145 H Calcium 9.8 Urine Immunofixation PG Care Time/CCT Total # of Minutes Spent Total Time Spent with Patient: Total time spent is greater than 50% in coordination of care (as documented) at patient's floor/unit and/or counseling patient: Coding Level of Care Code 17747 SUB INP/OBS CARE 3/50MIN Diagnoses Hypercalcemia E83.52 Acute kidney injury N17.9 Chronic renal insufficiency N18.9 Atrial fibrillation I48.91 Diabetes mellitus E11.9
[2024-07-25] MEDS: LANTUS PER UNIT CHARGE SC SCH ×2 (09:07→21:21)
--- NOTE | 2024-07-25 10:18 | Orthopedic Progress Note ---
Date of Service July 25, 2024 Assessment & Plan (1) Hemarthrosis, left knee: Plan: The patient was educated regarding today's findings. Continue to be out of bed with physical therapy and Occupational Therapy. She may weight-bear as tolerated on her left lower extremity with the assistance of a walker. PT and OT are recommended for ambulation. Ice to left knee as needed. Continue with range of motion of the knee and ankle. Continue with elevation of the leg for swelling control. Will continue to follow culture results daily. (2) Left ankle pain: Plan: Likely a resolving sprain or small contusion. No brace or support necessary at this time May WBAT left ankle ROM exercises as tolerated Ice PRN. Admission and Anticipated Discharge Date Admission Date: July 21, 2024 Subjective This 74-year-old female is seen today in her room. She states she is doing fairly well. She denies any pain at her ankle. She was able to participate in therapy yesterday. She states there was some pain in the knee with weightbearing, but she was able to take steps forward and laterally. She is still waiting for results from her biopsy. No additional complaints. She denies any fevers or chills. Physical Exam Physical Exam: General: Well-developed, well-nourished, elderly white female, in no acute distress. Laying in bed. Alert and oriented. Skin: Warm and dry with good turgor. No rashes. She has no ecchymosis or edema at her left ankle. The straps are in place on the left knee. Upon removal, she has no intra-articular effusion. No redness or warmth. Musculoskeletal: The patient has full terminal extension of her left leg. She has flexion today of around 30 degrees. She has intact active flexion and extension of the knee. Intact dorsiflexion plantarflexion of the ankle. Neurologic: Gross sensation is intact across the left leg by soft touch. Peripheral pulses are 2+. Results & Data Vital Signs (Past 12 Hours) Vital Signs Temp Pulse Pulse Resp BP BP Pulse Ox 07/25/24 07:12 36.6 C 68 18 143/87 H 95 07/25/24 07:09 73 07/25/24 03:19 36.5 C 73 16 140/83 95 07/24/24 23:09 36.4 C L 76 18 146/78 H 93 O2 Del Method 07/25/24 07:12 Room Air 07/25/24 07:09 07/25/24 03:19 Room Air 07/24/24 23:09 Room Air Laboratory Results CBC from this morning shows a white count of 13.26, which is slightly elevated from previous. H&H of 10.8 and 33.1. BUN of 47 is rising and creatinine 1.92 is stable. Glucose this morning is 143. Aspirate cultures are still pending. No growth to date. No bacteria on her Gram stain.
--- NOTE | 2024-07-25 12:54 | Billing Data ---
Date of Service July 25, 2024 Coding Level of Care Code 69866 SUB INP/OBS CARE
[2024-07-26 07:01] LABS: Hematocrit (blood only) 32.8 % (37.0-47.0); Hemoglobin 10.6 g/dl (12.0-16.0); Mean Corpuscular Hemoglobin 27.4 pg (25.0-34.0); Mean Corpuscular Hgb Conc 32.3 g/dL (32.0-36.0); Mean Corpuscular Volume 84.8 fL (80.0-100.0); Mean Platelet Volume 10.3 fL (9.4-12.4); Platelet Count 250 K/uL (130-400); RDW Coefficient of Variation 15.9 % (11.5-14.5); RDW Standard Deviation 48.3 fL (36.4-46.3); Red Blood Count 3.87 M/uL (4.20-5.40); White Blood Count 9.12 K/ul (4.8-10.8)
[2024-07-26 07:30] LABS: Calcium 9.2 mg/dl (8.6-10.3); Creatinine Clr Calc Pharmacy 31.8 ml/min; Potassium 4.4 mmol/L (3.5-5.1)
--- NOTE | 2024-07-26 07:47 | Hospitalist Progress Note ---
Date of Service July 26, 2024 Assessment & Plan (1) Confusion: (2) Thickened endometrium: (3) Subluxation of left patella: (4) Hypercalcemia: (5) Acute kidney injury: Plan 74 y/o with a PMHx of a fib, T2DM, HLD, and CKD3b presented after a fall. Found to have cognitive impairment and hypercalcemia admitted for further management. #Lymphadenopathy Multiple enlarge LN noted on CT. Right cervical LN FNA biopsy performed. Pathology likely reactive lymphadenopathy, T cell and B cells without immunophenotypic abnormality, no granulomatous disease, or metastatic disease noted, but as sample size limited excision biopsy may be warranted. gen surg consult for possible excisional biopsy hold Eliquis in anticipation of procedure #Hypercalcemia #ERMA on CKD3b Non-PTH medication hypercalcemia. Symptomatic hypercalcemia concerning for oncologic process. FNA as above. Calcium improved after bisphosphonate administration (pamidronate). Follows with nephrology. Baseline 1.4-1.6. Holding ARB. AM BMP while inpatient nephro consult - appreciate recs #Thickened endometrium Incidental finding on CT A&P - 6 cm endometrial stripe. Patient post menopausal. Will need outpatient Button Reclaimer f/u with likely endometrial biopsy. #Fall Likely dizziness/unsteadiness in the setting of hypercalcemia leading to fall. Significant left knee pain - XR concerning for patellar dislocation. MRI without dislocation, moderate joint effusion. Left knee s/p aspiration and steroid injection by ortho. PT/OT ortho following - appreciate recs #Stroke like symptoms Stroke alert called for altered mental status. Workup negative. Cholesterol appropriate. Mental status cleared after normalization of calcium. #T2DM SSI with basal dosing while inpatient. Resume home insulin and glipizide on discharge. Glycemic consult - appreciate recs #Medication adherence Patient stopped taking her medications several weeks ago. Then took triple her dose to catch up a few days prior to admission. Likely not the reason for admission. Would recommend discussing any medication alterations with PCP prior to changing. Chronic conditions: Mental Health: fluoxetine A fib: metoprolol 25 mg, Eliquis for anticoagulation - on hold HTN: Metoprolol, hold Losartan due to ERMA GERD: PPI HLD: statin DVT ppx: Eliquis 5 mg BID - on hold Code status: Full code, initially DNR/DNI when confused FENGI: carb consistent, heart healthy Dispo: Med-Tele, SNF - following Admission and Anticipated Discharge Date Admission Date: July 21, 2024 Supervising Physician Co-Signing Physician Notes I personally examined the patient and verified all perez points of history and exam, discussed case, and agree with decision making with Dr Patel no acute complaints. feeling better overall. discussed dx, anticipated possible dx's from bx, probable modes of treatment. Awaiting SNF/rehab emphasis. Lymph node pathology still pending. Vitals noted, in general she is awake and alert pleasant no distress. HEENT normocephalic atraumatic mucous membranes moist. Breathing unlabored no accessory muscle use good effort. Hypercalcemia with metabolic encephalopathy due to hypercalcemia and dehydration present on admission which has now improved. Suspect this ties together the predominance of her symptoms, outside of some injuries from her falls. Hypercalcemia concerning for malignancy or granulomatous processadenopathy noted. Cervical node biopsy done, results still pending. PT/OT ongoing. for SNF with rehab emphasis when bed available. Discussed with patient. Thickened endometrium likely a separate issuecertainly would anticipate need for endometrial biopsy unless I am surprised and her lymph node shows endometrial malignancy (d/w her, and will need FIRST BEATER f/u in near future); appreciate nephrology input as well. Subjective Patient seen at bedside this AM. No complaints. Feeling much better. Review of Systems 2 Review of Systems: See HPI Physical Exam 2 Physical Exam: Gen: well appearing patient in NAD HEENT: AT NC MMM Resp: CTAB no wheezing no increased work of breathing CV: RRR no m/r/g clinically well perfused Abd: soft, non-distended MSK: no obvious deformities Skin: no rashes or bruising Neuro: alert and oriented Psych: appropriate mood and affect Results & Data Results & Data Vital Signs (Past 12 Hours) Vital Signs Temp Pulse Pulse Resp BP BP Pulse Ox 07/26/24 07:20 36.6 C 82 18 175/92 H 92 07/26/24 07:13 69 07/26/24 04:00 36.6 C 83 18 143/83 H 97 07/25/24 23:00 36.5 C 84 18 149/81 H 96 07/25/24 22:28 73 O2 Del Method 07/26/24 07:20 Room Air 07/26/24 07:13 07/26/24 04:00 Room Air 07/25/24 23:00 Room Air 07/25/24 22:28 Laboratory Results 07/26/24 06:27 07/26/24 06:27 Resident Activity Tracking Resident Involvement: Resident Care Provided Care Provided: Adult Hospital Medicine
--- NOTE | 2024-07-26 08:43 | Nephrology Progress Note ---
Date of Service July 26, 2024 Assessment & Plan (1) Hypercalcemia: Plan: * Non-PTH medicated hypercalcemia, normal serum Ca * Patient reports h/o low vitamin D and had been on OTC vitamin D 3 1,000 units daily. However, she chose to stop all of her medications 6 weeks prior to admission because she was "not feeling well" * 03/05 outpatient evaluation did reveal mildly elevated 1,25 vitamin D and kappa/lambda light chain ratio * Pamidronate 30 mg IV over 4 hours administered 07/22/24 * 07/23/24 Ca 10.3, albumin 3.5, Cr 1.8 * 08/06 PTH is appropriately suppressed * 25 and 1,25 vitamin D levels ordered - pending * PTHrp and order SIEP/24 hr urine IEP - pending * Serum CAMMY - pending * 07/22/[address] - mediastinal lymphadenopathy * R cervical lymph node biopsied by GRISELDA 07/23/24. Pathology is pending * Monitor BMP, Ca * Awaiting results of hypercalcemia evaluation and lymph node biopsy. Serum Ca has corrected following Pamidronate therapy. Patient is awaiting transfer to SNF. I have sent task to nephrology office staff to contact patient and schedule follow up w/ Dr. Rodriguez in 7-14 days. Orders placed in EMR for BMP, Ca 2 days prior to visit (2) Acute kidney injury: Plan: * Serum Cr stable at 1.9. Volume status and electrolyte balance are acceptable * 08/06 urine sediment remains non-nephritic * 08/[address] revealed mild L renal atrophy, no hydronephrosis * Continue to hold losartan * If BP trends up, consider low dose amlodipine (3) Chronic renal insufficiency: Plan: * CKD stage G3b (moderate impairment). Baseline Cr 1.4-1.6 w/ EGFR 30 cc/min. Renal impairment attributed to microvascular disease (4) Atrial fibrillation: (5) Diabetes mellitus: Admission and Anticipated Discharge Date Admission Date: July 21, [address] was evaluated in her hospital room this morning. She denied abdominal pain, muscle cramping. Review of Systems Constitutional: no fever Eyes: no dry eyes, no itchy eyes and no problem reported Ear, Nose, Mouth, Throat: no dry mouth, no pain with swallowing, no neck lump and no problem reported Respiratory: no cough, no dyspnea and no hemoptysis Cardiovascular: no chest pain Gastrointestinal: no abdominal pain, no nausea, no vomiting and no blood in stools Genitourinary: no dysuria Integumentary: no rash Neurologic: + falls Physical Exam Constitutional: not in distress Eyes: PERRL, conjunctivae normal, anicteric sclerae ENMT: external ear and nose normal, oropharynx normal Neck: trachea midline, no thyromegaly no submandibular swelling Respiratory: normal respiratory effort, lungs clear to auscultation Cardiovascular: Rate/Rhythm: regular rate and + irregularly irregular Gastrointestinal (Abdomen): normal bowel sounds, soft, nontender, no hepatosplenomegaly Skin: no rashes, warm and dry Neurologic: Speech / Cognition: normal speech and normal cognition Psychiatric: Affect: euthymic affect Results & Data Vital Signs (Past 12 Hours) Vital Signs Temp Pulse Pulse Resp BP BP Pulse Ox 07/26/24 07:20 36.6 C 82 18 175/92 H 92 07/26/24 07:13 69 07/26/24 04:00 36.6 C 83 18 143/83 H 97 07/25/24 23:00 36.5 C 84 18 149/81 H 96 07/25/24 22:28 73 O2 Del Method 07/26/24 07:20 Room Air 07/26/24 07:13 07/26/24 04:00 Room Air 07/25/24 23:00 Room Air 07/25/24 22:28 Laboratory Results Laboratory Results - last 24 hr 07/24/24 07/25/24 07/25/24 07:30 12:10 17:16 WBC RBC Hgb Hct MCV MCH MCHC RDW Std Deviation RDW Coeff of Krista Plt Count MPV Sodium Potassium Chloride Carbon Dioxide Anion Gap BUN Creatinine Est Cr Clr Drug Dosing eGFR POC Glucose 215 H 83 Fasting Glucose Calcium Urine Immunofixation SEE NOTE 07/25/24 07/26/24 07/26/24 21:02 06:27 08:05 WBC 9.12 RBC 3.87 L Hgb 10.6 L Hct 32.8 L MCV 84.8 MCH 27.4 MCHC 32.3 RDW Std Deviation 48.3 H RDW Coeff of Krista 15.9 H Plt Count 250 MPV 10.3 Sodium 138 Potassium 4.4 Chloride 104 Carbon Dioxide 29 Anion Gap 5 BUN 45 H Creatinine 1.89 H Est Cr Clr Drug Dosing 31.8 eGFR 27.37 POC Glucose 102 H 111 H Fasting Glucose 102 H Calcium 9.2 Urine Immunofixation PG Care Time/CCT Total # of Minutes Spent Total Time Spent with Patient: Total time spent is greater than 50% in coordination of care (as documented) at patient's floor/unit and/or counseling patient: Coding Level of Care Code 66511 SUB INP/OBS CARE 3/50MIN Diagnoses Hypercalcemia E83.52 Acute kidney injury N17.9 Chronic renal insufficiency N18.9 Atrial fibrillation I48.91 Diabetes mellitus E11.9
--- NOTE | 2024-07-26 10:44 | Pharmacy Report ---
Pharmacy Glycemic Short Note 2 - Date of Service July 26, 2024 - Glycemic Short BSG Results (Last 24 hours): 07/25/24 07/25/24 07/25/24 12:10 17:16 21:02 POC Glucose 215 H 83 102 H Fasting Glucose 07/26/24 07/26/24 06:27 08:05 POC Glucose 111 H Fasting Glucose 102 H OUTPATIENT ANTIDIABETIC REGIMEN: * Levemir 50 units SQ daily (patient reportedly has not been using--unsure when last dose was) * glipizide 10mg po daily HbA1c 8% on 07/22/24 ASSESSMENT: 07/26 * Patient received a total of 50 units of insulin yesterday (25 were basal and 25 were bolus) * BSGs yesterday were not consistent ([phone]/dL) and fasting BSG was 111mg/dL today. Lantus dose was reduced yesterday by ~20% and will further reduce today. CR was loosened starting with breakfast today. * Will monitor need for further reductions in insulin as no further steroids have been given. 07/24: * Blood sugars elevated post IA DepoMedrol * Fasting blood sugar of 236 mg/dL this morning * Will tighten Novolog coverage today and increase basal to better cover steroid 07/23: * Mamie received 22 units of insulin yesterday, 15 of which were basal. BSGs were: [phone] mg/dL. * Fasting BSG down to 114 mg/dL this AM. Patient is NPO for possible lymph node biopsy at some point today. Will hold off on any basal dosing until diet is resumed and tolerated today. Likely will do 15 more units this evening. * No change to Novolog at this time. Did receive an 80 mg of intraarticular DepoMedrol today for bedside ortho procedure. Will monitor postprandials closely. 07/22: * 74 year old female admitted 07/21 after a fall. Patient reportedly stopped all of her medication ~ 6 weeks ago and then resumed ~3 days prior to admit. Pharmacy has been consulted for glycemic management while the patient is admitted. * BSG was elevated on admit (264mg/dL) so Novolog was initiated with weight based dosing with a stress of 2. * She received 7 units of insulin yesterday (all were bolus). * Fasting BSG was 171mg/dL and henrry to 205 mg/dL around 1200 today. Lantus 15 units x 1 was ordered. Bolus insulin parameters were not adjusted since patient is still NPO. Will likely need to tighten once a diet is started. PLAN FOR INPATIENT GLYCEMIC CONTROL: * Hold outpatient oral diabetes medications * Basal insulin * Lantus 15 units x 1 this afternoon * Bolus insulin * NovoLog per scale ACHS or Q6hrs while NPO * Goal Range: Low 110 mg/dL - High 140 mg/dL * Correction Factor: 20 mg/dL/unit * Nutritional / Prandial insulin per carb ratio of 1 unit per 9 grams CHO consumed
--- NOTE | 2024-07-26 11:14 | Orthopedic Progress Note ---
Date of Service July 26, 2024 Assessment & Plan (1) Hemarthrosis, left knee: Plan: Continue to be out of bed with physical therapy and occupational Therapy. She may weight-bear as tolerated on her left lower extremity with the assistance of a walker. PT and OT are recommended for ambulation. Ice to left knee as needed. Continue with range of motion of the knee and ankle. Continue with elevation of the leg for swelling control. Will continue to follow culture results daily. (2) Left ankle pain: Plan: Likely a resolving sprain or small contusion. No brace or support necessary at this time May WBAT left ankle ROM exercises as tolerated Ice PRN. Admission and Anticipated Discharge Date Admission Date: July 21, 2024 Subjective This 74 yo F is seen for f/u of Left knee and ankle pain. Patient states that her ankle pain has resolved completely. Her knee still aches when she ambulates with her walker. She states that knee is more mobile today than yesterday. She is planning on going to rehab at [facility]. Currently she denies CP, SOB, N/V/D/C, fever, chills, sweats, difficultly voiding or numbness/tingling in her Right LE. Review of Systems Review of Systems: All systems reviewed & are unremarkable except as noted in Subjective Physical Exam Physical Exam: Left Knee: Able to straight leg raise without difficulty. Can actively dorsi/plantar flex foot. No pain with passive inversion and eversion. No weakness with resisted internal/external foot rotation. Distal pulses are 1+. Cap refill is brisk. Calf is supple and nontender. Torrey removed. Mild edema. No erythema, flucutance or warmth. Torrey reapplied. She can actively flex her knee to approx 85 degrees and straighten to about 4 degrees short of terminal extension. N/V intact. Results & Data Vital Signs (Past 12 Hours) Vital Signs Temp Pulse Pulse Resp BP BP Pulse Ox 07/26/24 07:20 36.6 C 82 18 175/92 H 92 07/26/24 07:13 69 07/26/24 04:00 36.6 C 83 18 143/83 H 97 O2 Del Method 07/26/24 07:20 Room Air 07/26/24 07:13 07/26/24 04:00 Room Air Diagnostic Findings Laboratory Results WBC 9.12 K/ul (4.8-10.8) 07/26/24 06:27 RBC 3.87 M/uL (4.20-5.40) L 07/26/24 06:27 Hgb 10.6 g/dl (12.0-16.0) L 07/26/24 06:27 Hct 32.8 % (37.0-47.0) L 07/26/24 06:27 MCV 84.8 fL (80.0-100.0) 07/26/24 06:27 MCH 27.4 pg (25.0-34.0) 07/26/24 06: MCHC 32.3 g/dL (32.0-36.0) 07/26/24 06: RDW Std Deviation 48.3 fL (36.4-46.3) H 07/26/24 06:27 RDW Coeff of Krista 15.9 % (11.5-14.5) H 07/26/24 06:27 Plt Count 250 K/uL (130-400) 07/26/24 06:27 MPV 10.3 fL (9.4-12.4) 07/26/24 06:27 Immature Gran % (Auto) 0.5 % 07/22/24 06:45 Neut % (Auto) 79.9 % 07/22/24 06:45 Lymph % (Auto) 5.5 % 07/22/24 06:45 Warrick % (Auto) 12.1 % 07/22/24 06:45 Eos % (Auto) 1.3 % 07/22/24 06:45 Baso % (Auto) 0.7 % 07/22/24 06:45 Neut # (Auto) 8.17 K/uL (1.40-6.50) H 07/22/24 06:45 Lymph # (Auto) 0.56 K/uL (1.20-3.40) L 07/22/24 06:45 Warrick # (Auto) 1.24 K/uL (0.11-0.59) H 07/22/24 06:45 Eos # (Auto) 0.13 K/uL (0.00-0.50) 07/22/24 06:45 Baso # (Auto) 0.07 K/uL (0.00-0.20) 07/22/24 06:45 Immature Gran # (Auto) 0.05 K/uL (0.01-0.20) 07/22/24 06:45 PT 11.6 Seconds (9.0-12.0) 07/22/24 06:45 INR 1.1 (0.9-1.1) 07/22/24 06:45 APTT 34 Seconds (21-31) H 07/22/24 06:45 PTT Ratio 1.3 07/22/24 06:45 Sodium 138 mmol/L (136-145) 07/26/24 06:27 Potassium 4.4 mmol/L (3.5-5.1) 07/26/24 06:27 Chloride 104 mmol/L (98-107) 07/26/24 06:27 Carbon Dioxide 29 mmol/L (21-32) 07/26/24 06:27 Anion Gap 5 (3-11) 07/26/24 06:27 BUN 45 mg/dl (6-23) H 07/26/24 06:27 Creatinine 1.89 mg/dl (0.6-1.2) H 07/26/24 06:27 Est Cr Clr Drug Dosing 31.8 ml/min 07/26/24 06:27 eGFR 27.37 07/26/24 06:27 BUN/Creatinine Ratio 15.2 (10-20) 07/22/24 06:45 Glucose 168 mg/dl (70-99(Fasting)) H 07/22/24 06:45 POC Glucose 111 mg/dl (70-99) H 07/26/24 08:05 Fasting Glucose 102 mg/dl (70-99) H 07/26/24 06:27 Estimat Average Glucose 183 mg/dl 07/22/24 02:54 Hemoglobin A1c 8.0 % (4.5-5.6) H 07/22/24 02:54 Lactate 1.6 mmol/L (0.4-2.0) 07/22/24 06:42 Calcium 9.2 mg/dl (8.6-10.3) 07/26/24 06:27 Ionized Calcium 1.41 mmol/L (1.12-1.32) H 07/22/24 08:31 Magnesium 1.9 mg/dl (1.7-2.4) 07/23/24 05:05 Total Bilirubin 1.0 mg/dl (0.2-1.0) 07/22/24 06:45 AST 16 U/L (13-39) 07/22/24 06:45 ALT 10 U/L (7-52) 07/22/24 06:45 Alkaline Phosphatase 52 U/L (34-104) 07/22/24 06:45 Troponin I High Sens 4.6 pg/ml (0-14) 07/22/24 06:45 Total Protein 7.1 gm/dl (6.0-8.3) 07/22/24 06:45 Albumin 3.5 gm/dl (3.4-5.0) 07/22/24 06:45 Globulin 3.6 gm/dl (2.5-4.0) 07/22/24 06:45 Albumin/Globulin Ratio 1.0 (0.9-2) 07/22/24 06:45 Triglycerides 68 mg/dl (0-150) 07/22/24 02:54 Cholesterol 146 mg/dl (0-200) 07/22/24 02:54 LDL Cholesterol, Calc 77 mg/dl 07/22/24 02:54 VLDL Cholesterol, Calc 14 mg/dl (0-30) 07/22/24 02:54 HDL Cholesterol 55 mg/dl 07/22/24 02:54 Cholesterol/HDL Ratio 2.7 (0-5) 07/22/24 02:54 25-OH Vitamin D Total 21.1 ng/ml (30-100) L 07/22/24 11:08 PTH Intact 3.4 pg/ml (12.0-88.0) L 07/21/24 14:08 Urine Color Yellow 07/21/24 06:45 Urine Appearance Clear (Clear) 07/21/24 06:45 Urine pH 7.5 (4.5-7.5) 07/21/24 06:45 Ur Specific [place] 1.012 (1.000-1.030) 07/21/24 06:45 Urine Protein Trace (Negative) H 07/21/24 06:45 Urine Glucose (UA) 3+ (Negative) H 07/21/24 06:45 Urine Ketones Negative (Negative) 07/21/24 06:45 Urine Blood 1+ (Negative) H 07/21/24 06:45 Urine Nitrite Negative (Negative) 07/21/24 06:45 Urine Bilirubin Negative (Negative) 07/21/24 06:45 Urine Urobilinogen Negative (Negative) 07/21/24 06:45 Ur Leukocyte Esterase Negative (Negative) 07/21/24 06:45 Urine WBC (Auto) 0-5 /hpf (0-5) 07/21/24 06:45 Urine RBC (Auto) 0-2 /hpf (0-2) 07/21/24 06:45 U Hyaline Cast (Auto) 0-2 /lpf (0-2) 07/21/24 06:45 U Epithel Cells (Auto) 0-2 /hpf (0-2) 07/21/24 06:45 Urine Bacteria (Auto) None Seen (None Seen) 07/21/24 06:45 Fluid Comment 07/23/24 Unknown Synovial Source Left Knee 07/23/24 Unknown Synovial Color Red 07/23/24 Unknown Synovial Appearance Bloody 07/23/24 Unknown Synovial WBC (Auto) 945 /ul (0-200) H 07/23/24 Unknown Synovial RBC (Auto) 218276 /uL 07/23/24 Unknown Synovial Polynuclear % 69.2 % 07/23/24 Unknown Synovial Mononuclear % 30.8 % 07/23/24 Unknown Synovial Crystals 07/23/24 Unknown Urine Immunofixation SEE NOTE 07/24/24 07:30 Adenovirus (PCR) Not Detected (NotDetected) 07/21/24 06:52 B. pertussis DNA (PCR) Not Detected (NotDetected) 07/21/24 06:52 B.parapertussis DNA PCR Not Detected (NotDetected) 07/21/24 06:52 C. pneumoniae DNA (PCR) Not Detected (NotDetected) 07/21/24 06:52 Coronavirus OC43 (PCR) Not Detected (NotDetected) 07/21/24 06:52 Coronavirus HKU1 (PCR) Not Detected (NotDetected) 07/21/24 06:52 Coronavirus 229E (PCR) Not Detected (NotDetected) 07/21/24 06:52 SARS-CoV-2 (PCR) Not Detected (NotDetected) 07/21/24 06:52 Coronavirus NL63 (PCR) Not Detected (NotDetected) 07/21/24 06:52 Human Metapneumovir PCR Not Detected (NotDetected) 07/21/24 06:52 Influenza Type A (PCR) Not Detected (NotDetected) 07/21/24 06:52 Influenza Type B (PCR) Not Detected (NotDetected) 07/21/24 06:52 M. pneumoniae (PCR) Not Detected (NotDetected) 07/21/24 06:52 Parainfluenza 1 (PCR) Not Detected (NotDetected) 07/21/24 06:52 Parainfluenza 2 (PCR) Not Detected (NotDetected) 07/21/24 06:52 Parainfluenza 3 (PCR) Not Detected (NotDetected) 07/21/24 06:52 Parainfluenza 4 (PCR) Not Detected (NotDetected) 07/21/24 06:52 RSV (PCR) Not Detected (NotDetected) 07/21/24 06:52 Entero/Rhino (PCR) Not Detected (NotDetected) 07/21/24 06:52 Blood Type O Negative 07/22/24 06:45 Antibody Screen NEGATIVE 07/22/24 06:45 Impressions Ankle X-Ray 07/21/24 06:44 EXAM: XR ankle LT min 3V routine CLINICAL HISTORY: fall TECHNIQUE: Radiograph of ankle was acquired. COMPARISON: No FINDINGS: There is no evidence of acute fracture, dislocation or osseous destructive lesion. The talar dome is unremarkable. The ankle mortise is intact. The soft tissues appear unremarkable. IMPRESSION: 1. No acute osseous or soft tissue abnormality. Electronically signed by Eldon Mak 07-21-2024 07:52 AM Chest X-Ray 07/21/24 06:44 EXAM: XR chest 1V portable CLINICAL HISTORY: neuro deficit, acute stroke suspected TECHNIQUE: Radiograph of chest was acquired. 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 The cardiomediastinal silhouette is within normal limits. No acute osseous abnormality. IMPRESSION: 1. No acute cardiopulmonary disease. (No new finding) Electronically signed by Eldon Mak 07-21-2024 07:48 AM Knee X-Ray 07/21/24 06:44 EXAM: XR knee LT 3V CLINICAL HISTORY: fall TECHNIQUE: Radiograph of knee was acquired. COMPARISON: No FINDINGS: Patella donte. Lateral patellar dislocation likely due to disruptive changes to the medial patellar retinaculum. Mild thickening and irregularity of medial patellar retinaculum soft tissue shadow noted. Degenerative changes in the form of asymmetrical reduction in joint space, marginal osteophytes, subchondral cysts and areas of subchondral sclerosis. There is no evidence of acute fracture, or osseous lesion. The patellofemoral joint space shows irregular reduction. Rest of the soft tissues appear unremarkable. No evidence of joint effusion. IMPRESSION: 1. No acute osseous abnormality. 2. Patella donte. [id number]. Lateral patellar dislocation likely due to disruptive changes to medial patellar retinaculum. Mild thickening and irregularity of medial patellar retinaculum soft tissue shadow. Suggest- Correlation /OBX.5.1.1OBX.5.1.2 further evlaution with MRI knee./OBX.5.1.2/OBX.5.1 4. Osteoarthritis. Electronically signed by Eldon Mak 07-21-2024 07:46 AM Head MRA 07/21/24 08:49 MR angio head wo con HISTORY: 74 years-old Female left leg weak, CVA? Acute stroke like symptoms COMPARISON: Brain MRI of same day TECHNIQUE: MRA of the head was obtained utilizing 3-D [id number] sequencing with MIP reformats. All measurements were obtained according to NASCET criteria. FINDINGS: origin of the right posterior cerebral artery. Study is mildly motion degraded. No aneurysm, dissection, high-grade stenosis or arterial occlusion. IMPRESSION: Unremarkable MRA of the head. ACT 112: Negative or not required by law. The above report was generated using voice recognition software. It may contain grammatical, syntax or spelling errors. Electronically signed by: Martin Plascencia M.D. 07/21/2024 11:43 AM Neck MRA 07/21/24 08:49 NECK MRA HISTORY: Acute strokelike symptoms left leg weak, CVA? TECHNIQUE: [id number] and gadolinium-enhanced MRA of the neck was performed both before and after the intravenous administration of contrast. All measurements were calculated based on NASCET criteria. COMPARISON STUDY: MRI brain on same day FINDINGS: The aortic arch and proximal great vessels are widely patent. There is no high-grade stenosis, occlusion, or dissection identified within the bilateral common carotid, internal carotid, or vertebral arteries. Mild stenosis of the proximal cervical segments of the internal carotid arteries likely secondary to atherosclerosis. IMPRESSION: No high-grade stenosis, occlusion, or dissection identified within the carotid or vertebral arteries. ACT 112: Negative or not required by law. Electronically signed by: Martin Plascencia M.D. 07/21/2024 11:46 AM Knee MRI 07/21/24 09:25 MR knee LT wo con CLINICAL HISTORY: 74 years-old Female with left patellar dislocation. Acute left knee pain status post fall with reported patellar subluxation COMPARISON: Radiograph 6 07/21/2024 TECHNIQUE: Multiplanar, multisequence MRI of the left knee was performed without intravenous contrast. FINDINGS: Motion degraded exam. MENISCI: Chronic diffuse tearing of the lateral meniscus which is markedly extruded the adjacent meniscal gutter with underlying displaced meniscal fragment. Degeneration of the medial meniscus with probable chronic posterior horn and root tear. The medial meniscus is diminutive in morphology. CRUCIATE LIGAMENTS: Intact ACL. There is moderate thickening of the intact PCL compatible with a chronic sprain. COLLATERAL LIGAMENTS: The popliteus tendon, biceps femoris tendon, and medial collateral ligaments appear intact. There is attenuation of the proximal fibers of the lateral collateral ligament compatible with a chronic sprain. EXTENSOR MECHANISM: The quadriceps and patellar tendons are intact. The medial and lateral patellar retinacula are intact. KNEE JOINT: Moderate size joint effusion containing intra-articular debris and innumerable loose bodies. Synovial thickening appeared chronic. Severe lateral with moderate to severe medial and patellofemoral compartment osteoarthritis with prominent marginal osteophytic spurring. Lateral tilt of the patella is redemonstrated which appears chronic secondary to the osteoarthritis. BONE MARROW: No acute fracture or marrow replacing process. SOFT TISSUES: Edema/fluid along the medial joint line tracks into the Pes Anserine bursa and may be related to a leaking trace Banuelos's cyst. Mild nonspecific circumferential subcutaneous edema with superficial venous varicosities. IMPRESSION: 1. No acute fracture or dislocation. 2. Moderate to severe osteoarthritis. 3. Moderate sized joint effusion with intra-articular loose bodies/debris. 4. No acute tendon or ligamentous injury of the knee identified. ACT 112: Negative or not required by law. The above report was generated using voice recognition software. It may contain grammatical, syntax or spelling errors. Electronically signed by: Martin Plascencia M.D. 07/21/2024 10:58 AM Abdomen/Pelvis CT 07/21/24 10:[address] WITH IV CONTRAST CT DOSE: 1348.38 mGy.cm HISTORY: hypercalcemia TECHNIQUE: Multiaxial CT images of the abdomen and pelvis were performed following the IV administration of cc of Optiray, A dose lowering technique was utilized adhering to the principles of ALARA. COMPARISON STUDY: Renal ultrasound 03/18/2022 FINDINGS: Small pleural effusions with mild bibasilar atelectasis. Interlobular septal thickening in the lungs. No pneumatosis or pneumoperitoneum. Scattered calcified granulomata are noted throughout the spleen and liver. The spleen is upper limits of normal in size. Unremarkable pancreas, gallbladder and adrenal glands. No hydronephrosis. Cortical thinning of the left or right kidneys. Layering hyperdense material within the urinary bladder lumen suggestive of contrast. Urinary bladder wall thickening with mild perisigmoid stranding.r probable arcuate morphology of the uterus. Endometrium measures 6 cm. Atherosclerosis of the aorta. Nonspecific mildly enlarged periaortic, periportal and pericaval nodes measure up to 11 mm in short axis. Small hiatal hernia. There is no bowel obstruction or bowel wall thickening. Colonic diverticulosis without acute diverticulitis. Mild to moderate colonic fecal retention. Normal appendix. No acute fracture. IMPRESSION: 1. No acute intra-abdominal or pelvic abnormality. 2. Nonspecific mildly enlarged periaortic, pericaval and periportal lymph nodes. 3. Mild interstitial pulmonary edema with small pleural effusions. 4. Prior granulomatous disease. 5. Pathologic thickening of the endometrium. Follow-up with gynecology recommend ed. 6. Colonic diverticulosis. ACT 112: Negative or not required by law. The above report was generated using voice recognition software. It may contain grammatical, syntax or spelling errors. Electronically signed by: Martin Plascencia M.D. 07/21/2024 12:[address] 07/22/24 06:41 EXAM: CT head/brain wo con CLINICAL HISTORY: Stroke-like Sx. TECHNIQUE: An axial non-contrast CT scan of the brain was performed from the skull base to the high parietal region. One of the following dose reduction techniques was utilized for this exam: Automated exposure control, adjustment of the mA and/or kV according to patient size, and use of iterative reconstruction. CTDI: 37.8 mGy , DLP: 629.8 mGy-cm. COMPARISON: None. FINDINGS: Brain Parenchyma: Multiple subcortical and periventricular white matter hypodensities likely represent chronic microvascular ischemic changes. Normal attenuation of the cerebral hemispheres, cerebellum, and brainstem. No evidence of acute infarct, hemorrhage, or mass effect. No abnormal areas of hyperattenuation. Ventricular System: A capacious ventricular system, denoting significant atrophic changes. No evidence of hydrocephalus. Subarachnoid Spaces: Capacious CSF spaces denote significant atrophic changes. No evidence of subarachnoid hemorrhage or extra-axial fluid collections. Cerebellum and Brainstem: Normal size and attenuation. No masses, lesions, or areas of abnormal attenuation. Orbits: Normal appearance of the globes, optic nerves, and extraocular muscles. No evidence of orbital masses or abnormal attenuation. Sinuses: Clear paranasal sinuses. No evidence of sinusitis or mucosal thickening. Mastoid Air Cells: Clear mastoid air cells. No evidence of mastoiditis. Skull and Meninges: Prominent frontal bone. Normal skull morphology. IMPRESSION: 1. No evidence of acute intracranial hemorrhage. 2. Chronic microvascular ischemic changes. 3. Senile brain atrophy changes. 4. Recommend MRI brain to rule out acute ischemic insult for better evaluation as clinically needed. [facility] ER was called at [phone] at 06:17 AM WHIP OPERATOR, 07/22/2024, and JAYMIE Nova was informed regarding negative stroke results. Electronically signed by Eze Joseph 07-22-2024 07:23 AM Brain MRI 07/22/24 08:17 MR brain wo con HISTORY: 74 years-old Female stroke possibility acute stroke like symptoms COMPARISON: Head CT of same day TECHNIQUE: Multiplanar multisequence MRI of the brain was obtained without IV contrast FINDINGS: No restricted diffusion midline structures appear unremarkable. Partially empty sella. Degenerative changes of the cervical spine. No acute intracranial hemorrhage, midline shift, abnormal extra-axial collection, hydrocephalus or intra-axial mass. No pathologic imaging artifact. The coronal FLAIR images are very limited secondary to patient motion. Involutional changes with suggestion of mild chronic microvascular ischemic disease. Cerebral venous sinuses and major arterial flow voids appear patent. Trace mastoid effusions. Paranasal sinuses are clear. Skull, orbits and soft tissues are unremarkable. IMPRESSION: 1. Limited exam secondary to motion. 2. No acute intracranial abnormality, specifically there is no evidence of acute or subacute infarct. ACT 112: Negative or not required by law. The above report was generated using voice recognition software. It may contain grammatical, syntax or spelling errors. Electronically signed by: Martin Plascencia M.D. 07/22/2024 10:[address] 07/22/24 09:52 CT OF THE CHEST WITHOUT IV CONTRAST CLINICAL HISTORY: Hypercalcemia. Assess for lymphadenopathy. COMPARISON STUDY: Chest CT December 31, 2011. Chest radiograph July 21, 2024. CT DOSE: 998.15 mGy.cm TECHNIQUE: Axial images of the chest were obtained without IV contrast. Images were reviewed in the axial, sagittal, and coronal planes. IV contrast was not administered for this examination. Automated exposure control was utilized for the study. A dose lowering technique was utilized adhering to the principles of ALARA. FINDINGS: There are multiple mildly enlarged mediastinal lymph nodes. Several of these lymph nodes contain calcifications. Right paratracheal lymph node on image 99 of 257 measures 1.8 x 1.8 cm per there also mildly enlarged bilateral lower cervical lymph node. A right level 4 lymph node measures 2 x 1 cm. There are prominent bilateral hilar lymph nodes. A subcarinal lymph node measures 2.5 x 2.3 cm. This lymphadenopathy has developed since chest CT of December 31, 2011. There are small bilateral pleural effusions. Subpleural lower lobe opacities favor atelectasis. There is no consolidation to suggest pneumonia. Mild interlobular septal thickening is present. There are are small ground glass nodular densities within the lungs which measure up to 1.1 cm. Central airways are patent. There are no suspicious lesions within the bony thorax is mildly enlarged. There are calcified granulomas within liver and spleen. Multiple mildly enlarged upper abdominal lymph nodes are present. Index portacaval lymph node measures 1.8 x 1.1 cm. IMPRESSION: 1. Multiple mildly enlarged lower cervical, thoracic and upper abdominal lymph nodes which have developed since chest CT of December 30, 2020. Mild splenomegaly. This lymphadenopathy is nonspecific and a lymphoproliferative process cannot be excluded. 2. Small bilateral pleural effusions with mild interstitial edema. Subpleural bilateral lower lobe opacities suggest atelectasis. No consolidation to suggest pneumonia. 3. Scattered ill-defined groundglass densities within the lungs measuring up to 1.1 cm. These may be related to pulmonary edema or less likely an infectious process. A chest CT in 6 months to ensure resolution is recommended. 4. Evidence for a previous granulomatous process. ACT 112: Negative or not required by law. Electronically signed by: Fernando Ayala M.D. 07/22/2024 12:18 PM Aspiration 07/23/24 00:00 Ultrasound-guided right cervical lymph node FNA INDICATION: 1.6 cm right cervical lymph node; systemic lymphadenopathy PROCEDURE: Procedure and risks were explained. Informed consent was obtained. A final timeout was completed. The neck was prepped and draped in a sterile fashion. 1% lidocaine was utilized for skin anesthesia. Utilizing ultrasound guidance, a 25-gauge needle was advanced into the 1.6 cm right cervical lymph node. Ultrasound images were obtained. 3 aspirates were obtained with a 25-gauge needle and one aspirated with a 22-gauge needle and given to the pathologist for review. The needle was removed and Band-Aid applied. The patient tolerated the procedure well. IMPRESSION: Right cervical lymph node FNA as above. Performed, dictated, and signed by Rakan Wood PA-C; to be co-signed by Dr. Martin Plascencia. Electronically signed by: Martin Plascencia M.D. 07/23/2024 2:28 PM
[2024-07-26] MEDS: LANTUS PER UNIT CHARGE SC ONE (13:00)
--- NOTE | 2024-07-26 13:32 | Billing Data ---
Date of Service July 26, 2024 Coding Level of Care Code 04172 SUB INP/OBS CARE
[2024-07-27 06:35] LABS: Hematocrit (blood only) 33.1 % (37.0-47.0); Hemoglobin 10.7 g/dl (12.0-16.0); Mean Corpuscular Hemoglobin 27.5 pg (25.0-34.0); Mean Corpuscular Hgb Conc 32.3 g/dL (32.0-36.0); Mean Corpuscular Volume 85.1 fL (80.0-100.0); Mean Platelet Volume 10.5 fL (9.4-12.4); Platelet Count 260 K/uL (130-400); RDW Coefficient of Variation 15.7 % (11.5-14.5); RDW Standard Deviation 48.3 fL (36.4-46.3); Red Blood Count 3.89 M/uL (4.20-5.40); White Blood Count 8.45 K/ul (4.8-10.8)
[2024-07-27 07:03] LABS: Calcium 9.1 mg/dl (8.6-10.3); Creatinine Clr Calc Pharmacy 29.6 ml/min; Potassium 4.3 mmol/L (3.5-5.1)
--- NOTE | 2024-07-27 07:48 | Hospitalist Progress Note ---
Date of Service July 27, 2024 Assessment & Plan (1) Confusion: (2) Thickened endometrium: (3) Subluxation of left patella: (4) Hypercalcemia: (5) Acute kidney injury: Plan 74 y/o with a PMHx of a fib, T2DM, HLD, and CKD3b presented after a fall. Found to have cognitive impairment and hypercalcemia admitted for further management. #Lymphadenopathy Multiple enlarge LN noted on CT. Right cervical LN FNA biopsy performed. Pathology likely reactive lymphadenopathy, T cell and B cells without immunophenotypic abnormality, no granulomatous disease, or metastatic disease noted, but as sample size limited excision biopsy may be warranted. gen surg consult for possible excisional biopsy hold Eliquis in anticipation of procedure #Hypercalcemia #ERMA on CKD3b Non-PTH medication hypercalcemia. Symptomatic hypercalcemia concerning for oncologic process. FNA as above. Calcium improved after bisphosphonate administration (pamidronate). Follows with nephrology. Baseline 1.4-1.6. Holding ARB. AM BMP while inpatient nephro consult - appreciate recs #Thickened endometrium Incidental finding on CT A&P - 6 cm endometrial stripe. Patient post menopausal. Will need outpatient Dray Truck Driver f/u with likely endometrial biopsy. #Fall Likely dizziness/unsteadiness in the setting of hypercalcemia leading to fall. Significant left knee pain - XR concerning for patellar dislocation. MRI without dislocation, moderate joint effusion. Left knee s/p aspiration and steroid injection by ortho. PT/OT ortho following - appreciate recs #Stroke like symptoms Stroke alert called for altered mental status. Workup negative. Cholesterol appropriate. Mental status cleared after normalization of calcium. #T2DM SSI with basal dosing while inpatient. Resume home insulin and glipizide on discharge. Glycemic consult - appreciate recs #Medication adherence Patient stopped taking her medications several weeks ago. Then took triple her dose to catch up a few days prior to admission. Likely not the reason for admission. Would recommend discussing any medication alterations with PCP prior to changing. Chronic conditions: Mental Health: fluoxetine A fib: metoprolol 25 mg, Eliquis for anticoagulation - on hold HTN: Metoprolol, hold Losartan due to ERMA GERD: PPI HLD: statin DVT ppx: Eliquis 5 mg BID - on hold Code status: Full code, initially DNR/DNI when confused FENGI: carb consistent, heart healthy Dispo: Med-Tele, SNF - following Admission and Anticipated Discharge Date Admission Date: July 21, 2024 Supervising Physician Co-Signing Physician Notes I personally examined the patient and verified all perez points of history and exam, discussed case, and agree with decision making with Dr Tompkins bx results inadequate specimen and therefore nondiagnostic. for excisional bx. no new complaints. Vitals noted, in general she is awake and alert pleasant no distress. HEENT normocephalic atraumatic mucous membranes moist. Breathing unlabored no accessory muscle use good effort. Hypercalcemia with metabolic encephalopathy due to hypercalcemia and dehydration present on admission which has now improved. Suspect this ties together the predominance of her symptoms, outside of some injuries from her falls. Hypercalcemia concerning for malignancy or granulomatous processade nopathy noted. Cervical node FNA inadequate - surgery consulted for excisional bx. PT/OT ongoing. for SNF with rehab emphasis when bed available. Discussed with patient. Thickened endometrium likely a separate issuecertainly would anticipate need for endometrial biopsy unless I am surprised and her lymph node shows endometrial malignancy (d/w her, and will need SENIOR ENGINEER f/u in near future); appreciate nephrology input as well. Subjective Seen at bedside this morning. No complaints. No events overnight. Doing well. Review of Systems Review of Systems: As per above Physical Exam Physical Exam: Constitutional: well-appearing, no acute distress HEENT: NCAT, no conjunctival injection CV: regular rhythm, no murmur appreciated, extremities well-perfused, no LE edema Resp: CTABL, no wheezes/rales/rhonchi appreciated, no increased work of breathing GI: soft, nondistended, nontender MSK: no gross deformities appreciated Skin: warm, dry, no rash appreciated Neuro: alert, oriented, no focal neurologic deficit appreciated Results & Data Results & Data Vital Signs (Past 12 Hours) Vital Signs Temp Pulse Pulse Resp BP Pulse Ox O2 Del Method 07/27/24 07:28 36.5 C 77 16 144/85 H 96 Room Air 07/27/24 07:28 Room Air 07/27/24 07:08 69 07/27/24 03:22 36.7 C 77 18 151/72 H 94 Room Air 07/26/24 23:25 72 07/26/24 22:04 36.5 C 80 16 149/68 H 98 Room Air Resident Activity Tracking Resident Involvement: Resident Care Provided Care Provided: Adult [facility] Medicine
[2024-07-27] MEDS: LANTUS PER UNIT CHARGE SC SCH (08:30)
--- NOTE | 2024-07-27 10:39 | Billing Data ---
Date of Service July 27, 2024 Coding Level of Care Code 64153 SUB INP/OBS CARE 3MIN
--- NOTE | 2024-07-27 10:57 | Nephrology Progress Note ---
Date of Service July 27, 2024 Assessment & Plan (1) Acute kidney injury: (2) Hypercalcemia: (3) Mediastinal adenopathy: (4) Stage 3b chronic kidney disease: (5) Weight loss, abnormal: (6) Hypertension: (7) Diabetes mellitus: Plan 74-year-old female with stage IIIb CKD and repeated episodes of hypercalcemia over last 1 year with declining kidney function. Baseline creatinine has been around 1.7-1.8 mg/dl. She presented to the hospital on 07/21/2024 after falls and found to have worsening hypercalcemia, calcium was 13.3. Kidney function staying somewhat close to baseline. CT chest abdomen pelvis showed mediastinal and abdominal adenopathy. She was given bisphosphonate and IV fluid with improvement in serum calcium and now down to 9.3. Had a FNA and supraclavicular lymph node biopsy but the pathology came back as inconclusive although clinically there is concern for sarcoidosis. Now waiting for excisional biopsy by general surgery for further evaluation. She has been having off-and-on hypercalcemia for last 1 year, outpatient workup showed non-PTH mediated hypercalcemia and other workup was unremarkable. Advised to have CT chest abdomen pelvis in March 2024 but she wanted to wait until June 2024. She also had weight loss of more than 25 pounds over last 6 months. --Encouraged to keep well-hydrated, continue to monitor kidney function electrolyte over the weekend. --Waiting for short-term rehab Discharge, possibly next week. Admission and Anticipated Discharge Date Admission Date: July 21, 2024 Cali Hatch was seen and evaluated this morning. She reports overall feeling about the same but tired, denied any other specific symptoms. No shortness of breath or chest pain. Blood pressure decent. Kidney function staying relatively stable although slight upward trend in creatinine noted. Calcium normalized to 9.3. Review of Systems Review of Systems: Detail review of system was done and pertinent positives and negatives are mentioned above. Physical Exam Constitutional: WD/WN, vitals as above no acute distress Eyes: + anicteric sclerae Neck: normal visual inspection Respiratory: Auscultation: lungs clear to auscultation bilaterally Cardiovascular: RRR, no murmur, no edema Skin: no rashes, warm and dry Neurologic: no focal motor deficits Psychiatric: Orientation: alert and oriented x 3 Results & Data Vital Signs (Past 12 Hours) Vital Signs Temp Pulse Pulse Resp BP Pulse Ox O2 Del Method 07/27/24 07:28 36.5 C 77 16 144/85 H 96 Room Air 07/27/24 07:28 Room Air 07/27/24 07:08 69 07/27/24 03:22 36.7 C 77 18 151/72 H 94 Room Air 07/26/24 23:25 72 PG Care Time/CCT Total # of Minutes Spent Total Time Spent with Patient: Total time spent is greater than 50% in coordination of care (as documented) at patient's floor/unit and/or counseling patient: Coding Level of Care Code 44405 SUB INP/OBS CARE 3/50MIN Diagnoses Acute kidney injury N17.9 Hypercalcemia E83.52 Mediastinal adenopathy R59.0 Stage 3b chronic kidney disease N18.32 Weight loss, abnormal R63.4 Hypertension I10 Diabetes mellitus E11.9
--- NOTE | 2024-07-27 17:44 | Surgery Consultation ---
Date of Consultation July 27, 2024 Assessment & Plan (1) Mediastinal adenopathy: 74-year-old woman presents after fall and during workup was noted to have extensive mediastinal lymphadenopathy, upper abdominal and lower cervical lymphadenopathy. we have been asked to evaluate the patient for potential ex cisional biopsy of the lower cervical lymph node. An FNA was attempted under ultrasound guidance but did not yield adequate tissue. I am unable to palpate any cervical lymphadenopathy. In reviewing the CT scans, the cervical portion of the lymphadenopathy appears quite deep and very difficult to access from any surgical approach. The majority of the lymphadenopathy is in the mediastinum. Would not recommend surgical biopsy by general surgery. she may require EBUS or thoracic surgery for sampling of the adenopathy. We will sign off. Please call with questions or concerns. History of Present Illness Reason for Consultation: Cervical and thoracic adenopathy Requesting Physician: Rufino Jacobo DO Attending Physician: Rufino Jacobo DO History of Present Illness This is a 74 year old female with past medical history of A fib, Diabetes, hyperlipidemia, stage 3b CKD who presented to the ED on 07/21 for complaints of a fall. she has been undergoing a extensive workup in the hospital for electrolyte abnormalities and other issues. On CT scan she was noted to have extensive mediastinal and thoracic lymphadenopathy. There was also a cervical lymph node in the lower chain which was enlarged. An FNA was attempted under ultrasound guidance. This did not yield adequate tissue. She denies any pain or tenderness. She denies feeling any enlarged masses in her neck. She denies any B type symptoms such as fevers, chills, unexplained weight loss, other issues. Allergies Allergy/AdvReac Type Severity Reaction Status Date / Time No Known Allergies Allergy Verified 07/21/24 09:52 Home Medications Medication Instructions Recorded Confirmed Type flash glucose sensor (FreeStyle #1 ea 07/12/21 04/29/24 Rx Darell 14 Day Sensor kit) pen needle, diabetic 32 gauge x #100 ea 04/24/23 04/29/24 Rx /32" (BD Ultra-Fine Isha Pen Needle) fluoxetine 40 mg capsule 40 mg PO DAILY #90 caps 05/23/23 07/21/24 Rx glipizide 10 mg tablet, extended 10 mg PO DAILY #90 tabs 05/23/23 07/21/24 Rx release 24 hr metoprolol succinate 50 mg 25 mg (1/2 x 50 mg) PO DAILY 90 05/23/23 07/21/24 Rx tablet,extended release 24 hr days #45 tabs pravastatin 20 mg tablet 20 mg PO DAILY #90 tabs 05/23/23 07/21/24 Rx apixaban 5 mg tablet (Eliquis) 5 mg PO BID #180 tabs 04/15/24 07/21/24 Rx omeprazole 20 mg capsule,delayed 20 mg PO DAILY #90 caps 07/18/24 07/21/24 Rx release losartan 50 mg tablet 50 mg PO DAILY #90 tabs 07/19/24 07/21/24 Rx cholecalciferol (vitamin D3) 50 50 mcg PO DAILY 07/21/24 07/21/24 History mcg (2,000 unit) capsule (Vitamin D3) insulin detemir U-100 100 unit/mL 0 unit subcut DAILY 07/21/24 07/21/24 History (3 mL) subcutaneous pen Patient History Medical History Anorexia Fatigue Cough Surgical History H/O elbow surgery L elbow Family History Mother Breast cancer Alcoholic Dementia Father Skin cancer Diabetes Grandmother (Paternal) Breast cancer Denies family history of Ovarian cancer Prostate cancer Myocardial infarction Colorectal cancer Social History Smoking Status: Never smoker Second Hand Exposure: No; Do You Dip or Chew Tobacco: No; Hx Alcohol Use: No Hx Substance Use: No Preferred Language: Irish Communication Ability: Effective Visual Impairment: Limited Hearing Ability: Normal Printing Supplies 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 Required: No Beliefs That Will Affect Care: Restoration Restoration Beliefs: restorationism marital status: Current Living Situation: Spouse current occupational status: retired current occupation: [employer] How many Children do You have: 1 Feels Safe at Home: Yes Childhood Exposure to Second-Hand Smoke: Yes Diet: regular caffeine: Yes during the past year weight has: remained stable Dental Care, Regularly: Yes Physical Activity Frequency: Does not Exercise Seatbelt Use: always Sunscreen Use: Yes Assistive Devices: Cane and Walker Review of Systems Review of Systems: All systems reviewed & are unremarkable except as noted in HPI & below Physical Exam Constitutional: WD/WN, vitals as above Eyes: PERRL, conjunctivae normal, anicteric sclerae Neck: trachea midline, no thyromegaly I am unable to palpate any enlarged cervical lymphadenopathy bilaterally Respiratory: normal respiratory effort; no respiratory distress and no labored breathing Cardiovascular: Rate/Rhythm: regular rate and regular rhythm Gastrointestinal (Abdomen): Inspection/Auscultation: abdomen normal to inspection; abdomen not distended Percussion/Palpation: abdomen soft; abdomen nontender Skin: no rashes, warm and dry Psychiatric: A+Ox3, euthymic affect Results & Data Vital Signs (Past 12 Hours) Vital Signs Temp Pulse Pulse Resp BP Pulse Ox O2 Del Method 07/27/24 15:53 36.5 C 113 H 20 143/77 H 95 Room Air 07/27/24 13:41 90 07/27/24 11:44 36.6 C 84 16 131/70 97 Room Air 07/27/24 07:28 36.5 C 77 16 144/85 H 96 Room Air 07/27/24 07:28 Room Air 07/27/24 07:08 69 Laboratory Results 07/27/24 07/27/24 07/27/24 Range/Units 17:16 11:57 07:56 WBC (4.8-10.8) K/ul RBC (4.20-5.40) M/uL Hgb (12.0-16.0) g/dl Hct (37.0-47.0) % MCV (80.0-100.0) fL MCH (25.0-34.0) pg MCHC (32.0-36.0) g/dL RDW Std Deviation (36.4-46.3) fL RDW Coeff of Krista (11.5-14.5) % Plt Count (130-400) K/uL MPV (9.4-12.4) fL Sodium (136-145) mmol/L Potassium (3.5-5.1) mmol/L Chloride (98-107) mmol/L Carbon Dioxide (21-32) mmol/L Anion Gap (3-11) BUN (6-23) mg/dl Creatinine (0.6-1.2) mg/dl Est Cr Clr Drug Dosing ml/min eGFR POC Glucose 144 H 176 H 100 H (70-99) mg/dl Fasting Glucose (70-99) mg/dl Calcium (8.6-10.3) mg/dl 07/27/24 07/26/24 Range/Units 05:37 19:53 WBC 8.45 (4.8-10.8) K/ul RBC 3.89 L (4.20-5.40) M/uL Hgb 10.7 L (12.0-16.0) g/dl Hct 33.1 L (37.0-47.0) % MCV 85.1 (80.0-100.0) fL MCH 27.5 (25.0-34.0) pg MCHC 32.3 (32.0-36.0) g/dL RDW Std Deviation 48.3 H (36.4-46.3) fL RDW Coeff of Krista 15.7 H (11.5-14.5) % Plt Count 260 (130-400) K/uL MPV 10.5 (9.4-12.4) fL Sodium 137 (136-145) mmol/L Potassium 4.3 (3.5-5.1) mmol/L Chloride 104 (98-107) mmol/L Carbon Dioxide 26 (21-32) mmol/L Anion Gap 7 (3-11) BUN 46 H (6-23) mg/dl Creatinine 2.02 H (0.6-1.2) mg/dl Est Cr Clr Drug Dosing 29.6 ml/min eGFR 25.27 POC Glucose 112 H (70-99) mg/dl Fasting Glucose 92 (70-99) mg/dl Calcium 9.1 (8.6-10.3) mg/dl Diagnostic Findings CT OF THE CHEST WITHOUT IV CONTRAST CLINICAL HISTORY: Hypercalcemia. Assess for lymphadenopathy. COMPARISON STUDY: Chest CT December 31, 2011. Chest radiograph July 21, 2024. CT DOSE: 998.15 mGy.cm TECHNIQUE: Axial images of the chest were obtained without IV contrast. Images were reviewed in the axial, sagittal, and coronal planes. IV contrast was not administered for this examination. Automated exposure control was utilized for the study. A dose lowering technique was utilized adhering to the principles of ALARA. FINDINGS: There are multiple mildly enlarged mediastinal lymph nodes. Several of these lymph nodes contain calcifications. Right paratracheal lymph node on image 99 of 257 measures 1.8 x 1.8 cm per there also mildly enlarged bilateral lower cervical lymph node. A right level 4 lymph node measures 2 x 1 cm. There are prominent bilateral hilar lymph nodes. A subcarinal lymph node measures 2.5 x 2.3 cm. This lymphadenopathy has developed since chest CT of December 31, 2011. There are small bilateral pleural effusions. Subpleural lower lobe opacities favor atelectasis. There is no consolidation to suggest pneumonia. Mild interlobular septal thickening is present. There are are small ground glass nodular densities within the lungs which measure up to 1.1 cm. Central airways are patent. There are no suspicious lesions within the bony thorax is mildly enlarged. There are calcified granulomas within liver and spleen. Multiple mildly enlarged upper abdominal lymph nodes are present. Index portacaval lymph node measures 1.8 x 1.1 cm. IMPRESSION: 1. Multiple mildly enlarged lower cervical, thoracic and upper abdominal lymph nodes which have developed since chest CT of December 30, 2020. Mild splenomegaly. This lymphadenopathy is nonspecific and a lymphoproliferative process cannot be excluded. 2. Small bilateral pleural effusions with mild interstitial edema. Subpleural bilateral lower lobe opacities suggest atelectasis. No consolidation to suggest pneumonia. 3. Scattered ill-defined groundglass densities within the lungs measuring up to 1.1 cm. These may be related to pulmonary edema or less likely an infectious process. A chest CT in 6 months to ensure resolution is recommended. 4. Evidence for a previous granulomatous process. ACT 112: Negative or not required by law. Electronically signed by: Fernando Ayala M.D. 07/22/2024 12:18 PM Dictated: 07/22/24 1208 Transcribed: 07/22/24 1208
[2024-07-28 03:58] LABS: PTH Related Protein 10 pg/mL (11-20)
[2024-07-28 05:23] LABS: Hematocrit (blood only) 33.2 % (37.0-47.0); Hemoglobin 10.6 g/dl (12.0-16.0); Mean Corpuscular Hemoglobin 27.2 pg (25.0-34.0); Mean Corpuscular Hgb Conc 31.9 g/dL (32.0-36.0); Mean Corpuscular Volume 85.1 fL (80.0-100.0); Mean Platelet Volume 10.4 fL (9.4-12.4); Platelet Count 262 K/uL (130-400); RDW Coefficient of Variation 15.8 % (11.5-14.5); White Blood Count 7.99 K/ul (4.8-10.8)
[2024-07-28 06:11] LABS: Calcium 9.4 mg/dl (8.6-10.3); Creatinine Clr Calc Pharmacy 35.5 ml/min; Potassium 4.4 mmol/L (3.5-5.1)
--- NOTE | 2024-07-28 07:02 | Hospitalist Progress Note ---
Date of Service July 28, 2024 Assessment & Plan (1) Confusion: (2) Thickened endometrium: (3) Subluxation of left patella: (4) Hypercalcemia: (5) Acute kidney injury: Plan 74 y/o with a PMHx of a fib, T2DM, HLD, and CKD3b presented after a fall. Found to have cognitive impairment and hypercalcemia admitted for further management. #Lymphadenopathy Multiple enlarge LN noted on CT. Right cervical LN FNA biopsy performed. Pathology likely reactive lymphadenopathy, T cell and B cells without immunophenotypic abnormality, no granulomatous disease, or metastatic disease noted, but as sample size limited excision biopsy may be warranted. gen surg consult for possible excisional biopsy-> unable to perform due to location, plan to consult pulm for possible EBUS hold Eliquis in anticipation of procedure, NPO at midnight #Hypercalcemia #ERMA on CKD3b Non-PTH medication hypercalcemia. Symptomatic hypercalcemia concerning for oncologic process. FNA as above. Calcium improved after bisphosphonate administration (pamidronate). Follows with nephrology. Baseline 1.4-1.6. Holding ARB. AM BMP while inpatient nephro consult - appreciate recs #Thickened endometrium Incidental finding on CT A&P - 6 cm endometrial stripe. Patient post menopausal. Will need outpatient Appeals Analyst f/u with likely endometrial biopsy. #Fall Likely dizziness/unsteadiness in the setting of hypercalcemia leading to fall. Significant left knee pain - XR concerning for patellar dislocation. MRI without dislocation, moderate joint effusion. Left knee s/p aspiration and steroid injection by ortho. PT/OT ortho following - appreciate recs #Stroke like symptoms Stroke alert called for altered mental status. Workup negative. Cholesterol appropriate. Mental status cleared after normalization of calcium. #T2DM SSI with basal dosing while inpatient. Resume home insulin and glipizide on discharge. Glycemic consult - appreciate recs #Medication adherence Patient stopped taking her medications several weeks ago. Then took triple her dose to catch up a few days prior to admission. Likely not the reason for admission. Would recommend discussing any medication alterations with PCP prior to changing. Chronic conditions: Mental Health: fluoxetine A fib: metoprolol 25 mg, Eliquis for anticoagulation - on hold HTN: Metoprolol, hold Losartan due to ERMA GERD: PPI HLD: statin DVT ppx: Eliquis 5 mg BID - on hold Code status: Full code, initially DNR/DNI when confused FENGI: carb consistent, heart healthy Dispo: Med-Tele, SNF - CM following; has been ambulating better- may warrant PT re-evaluation prior to d/c Admission and Anticipated Discharge Date Admission Date: July 21, 2024 Supervising Physician Co-Signing Physician Notes I personally examined the patient and verified all perez points of history and exam, discussed case, and agree with decision making with Dr Tompkins feeling ok no new complaints. not able to get excisional bx due to depth of node - will ask pulm to revisit bronch. Vitals noted, in general she is awake and alert pleasant no distress. HEENT normocephalic atraumatic mucous membranes moist. Breathing unlabored no accessory muscle use good effort. Hypercalcemia with metabolic encephalopathy due to hypercalcemia and dehydration present on admission which has now improved. Suspect this ties together the predominance of her symptoms, outside of some injuries from her falls. Hypercalcemia concerning for malignancy or granulomatous processadenopathy noted. Cervical node FNA inadequate - surgery consulted for excisional bx - too deep. will ask pulm for revisit on bronch. PT/OT ongoing - showing progress may not need snf. Discussed with patient. Thickened endometrium likely a separate issuecertainly would anticipate need for endometrial biopsy unless I am surprised and her lymph node shows endometrial malignancy (d/w her, and will need MANAGER DEPARTMENT f/u in near future); appreciate nephrology input as well. Subjective Pt seen at bedside this morning. Doing well. No complaints . Review of Systems Review of Systems: As per above Physical Exam Physical Exam: Constitutional: well-appearing, no acute distress HEENT: NCAT, no conjunctival injection CV: extremities well-perfused, no LE edema Resp: no increased work of breathing MSK: no gross deformities appreciated Skin: warm, dry, no rash appreciated Neuro: alert, oriented, no focal neurologic deficit appreciated Results & Data Results & Data Vital Signs (Past 12 Hours) Vital Signs Temp Pulse Pulse Resp BP Pulse Ox O2 Del Method 07/28/24 06:57 73 07/28/24 02:40 36.7 C 77 16 123/63 94 Room Air 07/28/24 01:58 70 07/27/24 22:12 36.6 C 79 16 137/71 96 Room Air 07/27/24 22:09 Room Air 07/27/24 19:29 36.5 C 79 16 117/79 97 Room Air Resident Activity Tracking Resident Involvement: Resident Care Provided Care Provided: Adult Hospital Medicine
--- NOTE | 2024-07-28 09:24 | Nephrology Progress Note ---
Date of Service July 28, 2024 Assessment & Plan (1) Acute kidney injury: (2) Hypercalcemia: (3) Mediastinal adenopathy: (4) Stage 3b chronic kidney disease: (5) Weight loss, abnormal: (6) Hypertension: (7) Diabetes mellitus: Plan 74-year-old female with stage IIIb CKD and repeated episodes of hypercalcemia over last 1 year with declining kidney function. Baseline creatinine has been around 1.7-1.8 mg/dl. She presented to the hospital on 07/21/2024 after falls and found to have worsening hypercalcemia, calcium was 13.3. Kidney function staying somewhat close to baseline. CT chest abdomen pelvis showed mediastinal and abdominal adenopathy. She was given bisphosphonate and IV fluid with improvement in serum calcium and now down to 9.3. Had a FNA and supraclavicular lymph node biopsy but the pathology came back as inconclusive although clinically there is concern for sarcoidosis. Now waiting for excisional biopsy by general surgery for further evaluation. She has been having off-and-on hypercalcemia for last 1 year, outpatient workup showed non-PTH mediated hypercalcemia and other workup was unremarkable. Advised to have CT chest abdomen pelvis in March 2024 but she wanted to wait until June 2024. She also had weight loss of more than 25 pounds over last 6 months. --Encouraged to keep well-hydrated, continue to monitor kidney function electrolyte over the weekend. --Waiting for short-term rehab Discharge, possibly next week. --Waiting for decision regarding lymph node biopsy Admission and Anticipated Discharge Date Admission Date: July 21, 2024 Cali Hatch was seen and evaluated this morning. She reports overall feeling about the same but tired, denied any other specific symptoms, she started walking little bit. No shortness of breath or chest pain. Blood pressure decent. Kidney function staying relatively stable, Calcium normalized to 9.3. Review of Systems Review of Systems: Detail review of system was done and pertinent positives and negatives are mentioned above. Physical Exam Constitutional: WD/WN, vitals as above no acute distress Eyes: + anicteric sclerae Neck: normal visual inspection Respiratory: Auscultation: lungs clear to auscultation bilaterally Cardiovascular: RRR, no murmur, no edema Skin: no rashes, warm and dry Neurologic: no focal motor deficits Psychiatric: Orientation: alert and oriented x 3 Results & Data Vital Signs (Past 12 Hours) Vital Signs Temp Pulse Pulse Resp BP Pulse Ox O2 Del Method 07/28/24 08:08 36.8 C 80 16 106/56 L 97 Room Air 07/28/24 07:16 Room Air 07/28/24 06:57 73 07/28/24 02:40 36.7 C 77 16 123/63 94 Room Air 07/28/24 01:58 70 07/27/24 22:12 36.6 C 79 16 137/71 96 Room Air 07/27/24 22:09 Room Air PG Care Time/CCT Total # of Minutes Spent Total Time Spent with Patient: Total time spent is greater than 50% in coordination of care (as documented) at patient's floor/unit and/or counseling patient: Coding Level of Care Code 81270 SUB INP/OBS CARE 2/35MIN Diagnoses Acute kidney injury N17.9 Hypercalcemia E83.52 Mediastinal adenopathy R59.0 Stage 3b chronic kidney disease N18.32 Weight loss, abnormal R63.4 Hypertension I10 Diabetes mellitus E11.9
--- NOTE | 2024-07-28 16:24 | Billing Data ---
Date of Service July 28, 2024 Coding Level of Care Code 76509 SUB INP/OBS CARE
[2024-07-29 06:25] LABS: Hemoglobin 11.8 g/dl (12.0-16.0); Mean Corpuscular Hemoglobin 27.3 pg (25.0-34.0); Mean Corpuscular Hgb Conc 31.9 g/dL (32.0-36.0); Mean Corpuscular Volume 85.6 fL (80.0-100.0); Mean Platelet Volume 10.3 fL (9.4-12.4); Platelet Count 292 K/uL (130-400); RDW Coefficient of Variation 15.9 % (11.5-14.5); RDW Standard Deviation 49.4 fL (36.4-46.3); Red Blood Count 4.32 M/uL (4.20-5.40); White Blood Count 8.09 K/ul (4.8-10.8)
[2024-07-29 06:37] LABS: Calcium 9.5 mg/dl (8.6-10.3); Potassium 4.2 mmol/L (3.5-5.1)
[2024-07-29 06:42] LABS: BUN Creatinine Ratio 21.6 (10-20); Creatinine Clr Calc Pharmacy 34.7 ml/min
--- NOTE | 2024-07-29 07:37 | Hospitalist Progress Note ---
Date of Service July 29, 2024 Assessment & Plan (1) Confusion: (2) Thickened endometrium: (3) Subluxation of left patella: (4) Hypercalcemia: (5) Acute kidney injury: Plan 74 y/o with a PMHx of a fib, T2DM, HLD, and CKD3b presented after a fall. Found to have cognitive impairment and hypercalcemia admitted for further management. 1) Lymphadenopathy Multiple enlarge LN noted on CT. Right cervical LN FNA biopsy performed. Pathology likely reactive lymphadenopathy, T cell and B cells without immunophenotypic abnormality, no granulomatous disease, or metastatic disease noted, but as sample size limited excision biopsy may be warranted. gen surg consult for possible excisional biopsy-> unable to perform due to location pulm consult today, scheduled for EBUS tomorrow at noon, NPO tonight at midnight and will hold Eliquis in anticipation of procedure 2) Hypercalcemia/ERMA on CKD3b Non-PTH medication hypercalcemia vs. symptomatic hypercalcemia concerning for oncologic process. FNA as above. - Calcium improved after bisphosphonate administration (pamidronate). Follows with nephrology. Holding ARB. - Cr, 1.71 <-- 2.10 AM BMP while inpatient appreciate nephro recs: keep well-hydrated, monitor electrolytes 3) Thickened endometrium - Incidental finding on CT A&P - 6 cm endometrial stripe. Patient post menopausal - Will need outpatient Winding Lathe Operator f/u with likely endometrial biopsy 4) Fall Likely dizziness/unsteadiness in the setting of hypercalcemia leading to fall. Significant left knee pain on admission, XR concerning for patellar dislocation. MRI without dislocation, moderate joint effusion. Left knee s/p aspiration, cultures are finalized and are negative for any bacteria. Steroid injection by ortho, patient's pain 06/21. PT/OT ortho signed off, f/u outpatient and option of trialing hyaluronic acid injections for arthritis maintenance therapy 5) Stroke like symptoms Stroke alert called for altered mental status, workup negative Cholesterol appropriate. AMS resolved after normalization of calcium 6) T2DM SSI with basal dosing while inpatient. Resume home insulin and glipizide on discharge. Glycemic consult - appreciate recs 7) AFib - patient w/ HR's in the 150s when she's ambulating, even if just briefly - increased metoprolol succinate to 50 mg, PO, daily 8) Medication adherence Patient stopped taking her medications several weeks ago. Then took triple her dose to catch up a few days prior to admission. Likely not the reason for admission. Would recommend discussing any medication alterations with PCP prior to changing. Chronic conditions: Mental Health: fluoxetine Afib: metoprolol 25 mg, will increase to 50mg while she is here due to tachycardia with ambulation; Eliquis for anticoagulation - on hold HTN: Metoprolol, hold Losartan due to ERMA GERD: omeprazole HLD: pravastatin DVT ppx: Eliquis 5 mg BID - on hold Code status: Full code, initially DNR/DNI when confused FENGI: carb consistent, heart healthy; NPO at midnight for EBUS tomorrow Dispo: Med-Tele, SNF - CM following; has been ambulating better- may warrant PT re-evaluation prior to d/c Admission and Anticipated Discharge Date Admission Date: July 21, 2024 Supervising Physician Co-Signing Physician Notes I personally examined the patient and verified perez points of history and exam, discussed case, and agree with decision making and plan documented by Dr. Louise and Stormy CAI. Biopsy planned tomorrow with pulmonary. Subjective 74 y/o with a PMHx of afib, T2DM, HLD, and CKD3b presented after a fall. Found to have cognitive impairment and hypercalcemia admitted for further management. Pt seen at bedside this morning. Doing well. No complaints. Knee pain 06/21. Able to ambulate in the halls with a walker. Feeling happy with the result of her cortisone shot. Feels fatigue has worsened over the past 6 months. She says her family has also noticed her increased fatigue. She reports that she sleeps 12-14 hours per night and naps 2 hours per day, but this has been her norm for years. Patient attributes vision change to not having an eye exam in over 5 years. No acute change. No fever/chills, +25 pound weight loss over 6 months (patient reports she just hasn't been hungry), no night sweats except when her sugar is low. No headaches, palpitations, chest pain, cough, bloating, abdominal pain, itching, skin rash. No pain with urination. Reports urine is typically light yellow. She reports the reason she discontinued her medications for 6 weeks was because she "gave up" due to the winter weather. Restarted meds at their normal doses 3 days before admission. Review of Systems Review of Systems: As per above Constitutional: no fever and no chills Respiratory: no cough and no dyspnea Cardiovascular: no chest pain and no palpitations Gastrointestinal: no abdominal pain, no nausea and no vomiting Neurologic: no tingling, no numbness and no paresthesia Physical Exam Physical Exam: Constitutional: well-appearing, no acute distress HEENT: NCAT, no conjunctival injection, no palpable lymphadenopathy CV: regular rate, irregularly irregular rhythm, extremities well-perfused, no LE edema Resp: lung clear to auscultation, no increased work of breathing MSK: no gross deformities appreciated, no pain to palpation of lower extremities no CVA tenderness Skin: warm, dry, no rash appreciated Neuro: alert, oriented, no focal neurologic deficit appreciated Constitutional: + obese and cooperative Respiratory: normal respiratory effort, lungs clear to auscultation Cardiovascular: Rate/Rhythm: + tachycardic and + irregularly irregular Heart Sounds: + murmur Gastrointestinal (Abdomen): normal bowel sounds, soft, nontender, no hepatosplenomegaly Neurologic: CN's II-XI intact bilaterally Speech / Cognition: no anomia Cranial Nerves: PERRL, normal accommodation, EOM intact bilaterally, normal facial strength and able to elevate shoulders bilaterally Psychiatric: Orientation: oriented x 3 and cooperative Speech: normal rate/rhythm/volume of speech Results & Data Results & Data Vital Signs (Past 12 Hours) Vital Signs Temp Pulse Pulse Resp BP BP Pulse Ox 07/29/24 07:31 36.6 C 74 18 110/62 98 07/29/24 07:26 75 07/29/24 02:31 36.7 C 82 16 115/72 95 07/28/24 23:10 07/28/24 23:09 66 07/28/24 21:52 36.6 C 67 16 130/71 98 07/28/24 19:42 36.5 C 87 16 116/54 L 97 O2 Del Method 07/29/24 07:31 Room Air 07/29/24 07:26 07/29/24 02:31 Room Air 07/28/24 23:10 Room Air 07/28/24 23:09 07/28/24 21:52 Room Air 07/28/24 19:42 Room Air Laboratory Data Diabetes Panel Results: Sodium 135 mmol/L (136-145) L 07/30/24 Potassium 4.1 mmol/L (3.5-5.1) 07/30/24 Chloride 100 mmol/L (98-107) 07/30/24 Carbon Dioxide 29 mmol/L (21-32) 07/30/24 Anion Gap 6 (3-11) 07/30/24 BUN 38 mg/dl (6-23) H 07/30/24 Creatinine 1.98 mg/dl (0.6-1.2) H 07/30/24 eGFR 25.88 07/30/24 Est GFR ( Amer) 30.6 ml/min 03/07/24 Est GFR (Non-Af Amer) 26.4 ml/min 03/07/24 BUN/Creatinine Ratio 19.2 (10-20) 07/30/24 Glucose 148 mg/dl (70-99(Fasting)) H 07/30/24 Hemoglobin A1c 8.0 % (4.5-5.6) H 07/22/24 Calcium 9.2 mg/dl (8.6-10.3) 07/30/24 Phosphorus 3.5 mg/dl (2.5-4.9) 04/29/24 Total Bilirubin 1.0 mg/dl (0.2-1.0) 07/22/24 AST 16 U/L (13-39) 07/22/24 ALT 10 U/L (7-52) 07/22/24 Alkaline Phosphatase 52 U/L (34-104) 07/22/24 Total Protein 7.1 gm/dl (6.0-8.3) 07/22/24 Albumin 3.5 gm/dl (3.4-5.0) 07/22/24 Globulin 3.6 gm/dl (2.5-4.0) 07/22/24 Triglycerides 68 mg/dl (0-150) 07/22/24 Cholesterol 146 mg/dl (0-200) 07/22/24 LDL Cholesterol, Calc 77 mg/dl 07/22/24 HDL Cholesterol 55 mg/dl 07/22/24 Cholesterol/HDL Ratio 2.7 (0-5) 07/22/24 Microalb/Creat Ratio 81.4 mcg/mg (0-30) H 06/21/23 Resident Activity Tracking Resident Involvement: Resident Care Provided Care Provided: [facility]
--- NOTE | 2024-07-29 08:56 | Orthopedic Progress Note ---
Date of Service July 29, 2024 Assessment & Plan (1) Hemarthrosis, left knee: Plan: Patient's cultures finalized and are negative for any bacteria. Analysis consistent with hemarthrosis from trauma and likely she had an exacerbation of degenerative changes due to the trauma and subsequent immobilization. She is doing much better since the cortisone injection. Continue with physical therapy/Occupational Therapy and range of motion of her knee. She can weight- bear as tolerated with a walker and assistance as needed. Continue with ice and compression. We will sign off for now. She can follow-up with us in the office as needed. Discussed with her option of trialing hyaluronic acid injections for her knee for maintenance therapy for her arthritis which we can set up outpatient. All of her questions and concerns were addressed. She expressed v erbal understanding and agreement this plan. Please [place] text with any further questions or concerns. (2) Left ankle pain: Plan: Likely a resolving sprain or small contusion. No brace or support necessary at this time May WBAT left ankle ROM exercises as tolerated Ice PRN Will sign off for now, can follow up outpatient as needed, please [place] text with any further questions or concerns Admission and Anticipated Discharge Date Admission Date: July 21, 2024 Subjective Patient was seen and examined at bedside. She says that she is overall doing well. She is having a little soreness in her knee today but she says overall she is improving and she is happy with the cortisone injection. She has been working physical therapy and has improvements in mobility. Physical Exam Physical Exam: Left knee: Mild effusion noted. Patient has no tenderness over the suprapatella pouch, medial lateral joint line. She has -5 to 95 degrees range of motion which is much improved since I last saw her. She is able to do a straight leg raise. Left ankle: No swelling or bruising. She can dorsiflex and plantarflex against resistance without any pain. Full range of motion. Results & Data Vital Signs (Past 12 Hours) Vital Signs Temp Pulse Pulse Resp BP Pulse Ox O2 Del Method 07/29/24 07:31 36.6 C 74 18 110/62 98 Room Air 07/29/24 07:26 75 07/29/24 02:31 36.7 C 82 16 115/72 95 Room Air 07/28/24 23:10 Room Air 07/28/24 23:09 66 07/28/24 21:52 36.6 C 67 16 130/71 98 Room Air Laboratory Results Microbiology 07/23/24 Unknown Gram Stain - Final Synovial Fluid Aerobic and Anaerobic Culture - Final No growth
--- NOTE | 2024-07-29 09:41 | Nephrology Progress Note ---
Date of Service July 29, 2024 Assessment & Plan (1) Acute kidney injury: (2) Hypercalcemia: (3) Mediastinal adenopathy: (4) Stage 3b chronic kidney disease: (5) Weight loss, abnormal: (6) Hypertension: (7) Diabetes mellitus: Plan 74-year-old female with stage IIIb CKD and repeated episodes of hypercalcemia over last 1 year with declining kidney function. Baseline creatinine has been around 1.7-1.8 mg/dl. She presented to the hospital on 07/21/2024 after falls and found to have worsening hypercalcemia, calcium was 13.3. Kidney function staying somewhat close to baseline. CT chest abdomen pelvis showed mediastinal and abdominal adenopathy. She was given bisphosphonate and IV fluid with improvement in serum calcium and now down to 9.3. Had a FNA and supraclavicular lymph node biopsy but the pathology came back as inconclusive although clinically there is concern for sarcoidosis. Now waiting for possible ?EBUS for further evaluation. She has been having off-and-on hypercalcemia for last 1 year, outpatient workup showed non-PTH mediated hypercalcemia and other workup was unremarkable. Advised to have CT chest abdomen pelvis in March 2024 but she wanted to wait until June 2024. She also had weight loss of more than 25 pounds over last 6 months. --Encouraged to keep well-hydrated, continue to monitor kidney function electrolyte over the weekend. --Waiting for short-term rehab Discharge --NPO for decision regarding lymph node biopsy Admission and Anticipated Discharge Date Admission Date: July 21, 2024 Cali Hatch was seen and evaluated this morning. She reports overall feeling about the same, denied any other specific symptoms. No shortness of breath or chest pain. Blood pressure decent. Kidney function staying relatively stable, Calcium normalized to 9.3. Review of Systems Review of Systems: Detail review of system was done and pertinent positives and negatives are mentioned above. Physical Exam Constitutional: WD/WN, vitals as above no acute distress Eyes: + anicteric sclerae Respiratory: Auscultation: lungs clear to auscultation bilaterally Cardiovascular: RRR, no murmur, no edema Skin: no rashes, warm and dry Neurologic: no focal motor deficits Psychiatric: Orientation: alert and oriented x 3 Results & Data Vital Signs (Past 12 Hours) Vital Signs Temp Pulse Pulse Resp BP Pulse Ox O2 Del Method 07/29/24 07:31 36.6 C 74 18 110/62 98 Room Air 07/29/24 07:26 75 07/29/24 02:31 36.7 C 82 16 115/72 95 Room Air 07/28/24 23:10 Room Air 07/28/24 23:09 66 07/28/24 21:52 36.6 C 67 16 130/71 98 Room Air PG Care Time/CCT Total # of Minutes Spent Total Time Spent with Patient: Total time spent is greater than 50% in coordination of care (as documented) at patient's floor/unit and/or counseling patient: Coding Level of Care Code 68537 SUB INP/OBS CARE 07/06MIN Diagnoses Acute kidney injury N17.9 Hypercalcemia E83.52 Mediastinal adenopathy R59.0 Stage 3b chronic kidney disease N18.32 Weight loss, abnormal R63.4 Hypertension I10 Diabetes mellitus E11.9
--- NOTE | 2024-07-29 10:59 | Pharmacy Report ---
Pharmacy Glycemic Short Note 2 - Date of Service July 29, 2024 - Glycemic Short BSG Results (Last 24 hours): 07/28/24 07/28/24 07/28/24 12:16 17:11 20:41 Glucose POC Glucose 124 H 77 205 H 07/29/24 07/29/24 05:40 06:05 Glucose 97 POC Glucose 102 H OUTPATIENT ANTIDIABETIC REGIMEN: * Levemir 50 units SQ daily (patient reportedly has not been using--unsure when last dose was) * glipizide 10mg po daily HbA1c 8% on 07/22/24 ASSESSMENT: 07/29 * Patient received total of 24 units of insulin, of which 12 units were basal insulin * Fasting BSG 97 mg/dL - patient NPO for procedure this AM, will hold AM basal dose for now and continue novolog. Unclear how long NPO status will be. * May provide a reduced Lantus dose later today in case BSGs start to trend up 07/26 * Patient received a total of 50 units of insulin yesterday (25 were basal and 25 were bolus) * BSGs yesterday were not consistent ([phone]/dL) and fasting BSG was 111mg/dL today. Lantus dose was reduced yesterday by ~20% and will further reduce today. CR was loosened starting with breakfast today. * Will monitor need for further reductions in insulin as no further steroids have been given. 07/24: * Blood sugars elevated post IA DepoMedrol * Fasting blood sugar of 236 mg/dL this morning * Will tighten Novolog coverage today and increase basal to better cover steroid 07/23: * Mamie received 22 units of insulin yesterday, 15 of which were basal. BSGs were: [phone] mg/dL. * Fasting BSG down to 114 mg/dL this AM. Patient is NPO for possible lymph node biopsy at some point today. Will hold off on any basal dosing until diet is resumed and tolerated today. Likely will do 15 more units this evening. * No change to Novolog at this time. Did receive an 80 mg of intraarticular DepoMedrol today for bedside ortho procedure. Will monitor postprandials closely. 07/22: * 74 year old female admitted 07/21 after a fall. Patient reportedly stopped all of her medication ~ 6 weeks ago and then resumed ~3 days prior to admit. Pharmacy has been consulted for glycemic management while the patient is admitted. * BSG was elevated on admit (264mg/dL) so Novolog was initiated with weight based dosing with a stress of 2. * She received 7 units of insulin yesterday (all were bolus). * Fasting BSG was 171mg/dL and henrry to 205 mg/dL around 1200 today. Lantus 15 units x 1 was ordered. Bolus insulin parameters were not adjusted since patient is still NPO. Will likely need to tighten once a diet is started. PLAN FOR INPATIENT GLYCEMIC CONTROL: * Hold outpatient oral diabetes medications * Basal insulin * Lantus- hold AM dose * Lantus 0-6 units daily depending on BSG value (NPO status this AM) * Bolus insulin * NovoLog per scale ACHS or Q6hrs while NPO * Goal Range: Low 110 mg/dL - High 140 mg/dL * Correction Factor: 20 mg/dL/unit * Nutritional / Prandial insulin per carb ratio of 1 unit per 9 grams CHO consumed
[2024-07-29 12:02] LABS: Angiotensin Converting Enzyme 150 U/L (9-67); Vitamin D 1,25 41 pg/mL (18-72); Vitamin D2,1,25 <8 pg/mL; Vitamin D3,1,25 41 pg/mL
--- NOTE | 2024-07-29 12:21 | Pulmonary Consultation ---
Date of Consultation July 29, 2024 Assessment & Plan (1) Mediastinal adenopathy: (2) Hypercalcemia: Plan Possible sarcoidosis versus other disorders such as lymphoproliferative disease. We discussed risk and benefits of EBUS which include the following, but are not limited to: Sampling error, nondiagnostic result, mediastinitis, pneumothorax, hemorrhage, myocardial infarction, stroke and . Patient understands the risk and benefits and would like to proceed with endobronchial ultrasound with transbronchial needle aspirations to evaluate the mediastinum and hilar structures. EBUS will be booked for tomorrow 07/30/2024 at noon. Maintain n.p.o. status after midnight. Hold anticoagulation. History of Present Illness Reason for Consultation: Mediastinal adenopathy Attending Physician: Akanksha Nguyen DO History of Present Illness 74-year-old female came in with hypercalcemia and confusion. Nephrology following. Concern for possible sarcoidosis. She underwent a cervical lymph node FNA by radiology which was nondiagnostic. Pulmonary is being consulted to biopsy the mediastinal lymph nodes which appear enlarged on CT chest. Patient denies any significant shortness of breath or cough. She is unaware of a history of sarcoidosis. She notes about a 5 pound weight loss over the last 6 months. She is a lifelong non-smoker. No personal history of cancer. 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 Her Eliquis for [employer] is currently on hold. Allergies Allergy/AdvReac Type Severity Reaction Status Date / Time No Known Allergies Allergy Verified 07/21/24 09:52 Home Medications Medication Instructions Recorded Confirmed Type flash glucose sensor (FreeStyle #1 ea 07/12/21 04/29/24 Rx Darell 14 Day Sensor kit) pen needle, diabetic 32 gauge x #100 ea 04/24/23 04/29/24 Rx 5/32" (BD Ultra-Fine Isha Pen Needle) fluoxetine 40 mg capsule 40 mg PO DAILY #90 caps 05/23/23 07/21/24 Rx glipizide 10 mg tablet, extended 10 mg PO DAILY #90 tabs 05/23/23 07/21/24 Rx release 24 hr metoprolol succinate 50 mg 25 mg (1/2 x 50 mg) PO DAILY 90 05/23/23 07/21/24 Rx tablet,extended release 24 hr days #45 tabs pravastatin 20 mg tablet 20 mg PO DAILY #90 tabs 05/23/23 07/21/24 Rx apixaban 5 mg tablet (Eliquis) 5 mg PO BID #180 tabs 04/15/24 07/21/24 Rx omeprazole 20 mg capsule,delayed 20 mg PO DAILY #90 caps 07/18/24 07/21/24 Rx release losartan 50 mg tablet 50 mg PO DAILY #90 tabs 07/19/24 07/21/24 Rx cholecalciferol (vitamin D3) 50 50 mcg PO DAILY 07/21/24 07/21/24 History mcg (2,000 unit) capsule (Vitamin D3) insulin detemir U-100 100 unit/mL 0 unit subcut DAILY 07/21/24 07/21/24 History (3 mL) subcutaneous pen Patient History Medical History Anorexia Fatigue Cough Surgical History H/O elbow surgery L elbow Family History Mother Breast cancer Alcoholic Dementia Father Skin cancer Diabetes Grandmother (Paternal) Breast cancer Denies family history of Ovarian cancer Prostate cancer Myocardial infarction Colorectal cancer Social History Smoking Status: Never smoker Second Hand Exposure: No; Do You Dip or Chew Tobacco: No; Hx Alcohol Use: No Hx Substance Use: No Preferred Language: Tamazight Communication Ability: Effective Visual Impairment: Limited Hearing Ability: Normal 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 Beliefs That Will Affect Care: Islam Islam Beliefs: baptist marital status: Current Living Situation: Spouse current occupational status: retired current occupation: [employer] How many Children do You have: 1 Feels Safe at Home: Yes Childhood Exposure to Second-Hand Smoke: Yes Diet: regular caffeine: Yes during the past year weight has: remained stable Dental Care, Regularly: Yes Physical Activity Frequency: Does not Exercise Seatbelt Use: always Sunscreen Use: Yes Assistive Devices: Cane and Walker Review of Systems Review of Systems: All systems reviewed & are unremarkable except as noted in HPI & below Physical Exam Constitutional: WD/WN, vitals as above Neck: trachea midline, no thyromegaly Respiratory: normal respiratory effort, lungs clear to auscultation Cardiovascular: RRR, no murmur, no edema Gastrointestinal (Abdomen): normal bowel sounds, soft, nontender, no hepatosplenomegaly Musculoskeletal: Extremities: extremities normal to inspection Skin: no rashes, warm and dry Lymphatic: no cervical lymphadenopathy Results & Data Results & Data Vital Signs (Past 12 Hours) Vital Signs Temp Pulse Pulse Resp BP Pulse Ox O2 Del Method 07/29/24 07:31 36.6 C 74 18 110/62 98 Room Air 07/29/24 07:26 75 07/29/24 02:31 36.7 C 82 16 115/72 95 Room Air PG Care Time/CCT Total # of Minutes Spent Total Time Spent with Patient: Total time spent is greater than 50% in coordination of care (as documented) at patient's floor/unit and/or counseling patient: Coding Level of Care Code 36679 INT INP/OBS CARE 1MIN Diagnoses Mediastinal adenopathy R59.0 Hypercalcemia E83.52
[2024-07-29] MEDS: LANTUS PER UNIT CHARGE SC ONE (17:58)
--- NOTE | 2024-07-30 07:09 | Hospitalist Progress Note ---
Date of Service July 30, 2024 Assessment & Plan (1) Confusion: (2) Thickened endometrium: (3) Subluxation of left patella: (4) Hypercalcemia: (5) Acute kidney injury: Plan 74 y/o with a PMHx of a fib, T2DM, HLD, and CKD3b presented after a fall. Found to have cognitive impairment and hypercalcemia admitted for further management. 1) Lymphadenopathy - Multiple enlarged lymph nodes noted on CT. Right cervical LN FNA biopsy performed. Pathology likely reactive lymphadenopathy, T cell and B cells without immunophenotypic abnormality, no granulomatous disease, or metastatic disease noted, but as sample size limited excision biopsy may be warranted. gen surg consult for possible excisional biopsy-> unable to perform due to location scheduled for EBUS today at noon 2) Hypercalcemia/ERMA on CKD3b Non-PTH medication hypercalcemia vs. symptomatic hypercalcemia concerning for oncologic process. FNA as above. - Calcium improved after bisphosphonate administration (pamidronate). - Ca 9.2 today from 9.5 06/28 - Follows with nephrology. Holding ARB. - Cr 1.71 -> 1.98 likely due to NPO status yesterday in anticipation of possible procedure AM BMP while inpatient appreciate nephro recs: keep well-hydrated, monitor electrolytes 3) Thickened endometrium - Incidental finding on CT A&P - 6 cm endometrial stripe. Patient post menopausal - Will need outpatient Performance Test Engineer f/u with likely endometrial biopsy 4) Fall - Likely dizziness/unsteadiness in the setting of hypercalcemia leading to fall. Significant left knee pain on admission, XR concerning for patellar dislocation. - MRI without dislocation, moderate joint effusion. Left knee s/p aspiration, cultures are finalized and are negative for any bacteria. Steroid injection by ortho, patient's pain 06/21. PT/OT ortho signed off, f/u outpatient and option of trialing hyaluronic acid injections for arthritis maintenance therapy 5) Stroke like symptoms - Stroke alert called for altered mental status, workup negative - Cholesterol appropriate. AMS resolved after normalization of calcium 6) T2DM - SSI with basal dosing while inpatient. Resume home insulin and glipizide on discharge - Glycemic consult - appreciate recs 7) AFib - patient w/ HR's in the 120s when she's ambulating, even if just briefly - continue metoprolol succinate 50 mg PO daily 8) Medication adherence Patient stopped taking her medications several weeks ago. Then took triple her dose to catch up a few days prior to admission. Likely not the reason for admission. Would recommend discussing any medication alterations with PCP prior to changing. Chronic conditions: Mental Health: fluoxetine Afib: metoprolol 25 mg, will increase to 50mg while she is here due to tachycardia with ambulation; Eliquis for anticoagulation - on hold HTN: Metoprolol, hold Losartan due to ERMA GERD: omeprazole HLD: pravastatin DVT ppx: Eliquis 5 mg BID - on hold Code status: Full code, initially DNR/DNI when confused FENGI: carb consistent, heart healthy; Dispo: Med-Tele, SNF - following; has been ambulating better- may warrant PT re-evaluation prior to d/c Admission and Anticipated Discharge Date Admission Date: July 21, 2024 Supervising Physician Co-Signing Physician Notes I personally examined the patient and verified perez points of history and exam, discussed case, and agree with decision making and plan documented by Dr. Louise [facility] Bronchoscopy with EBUS for biopsies performed today, awaiting pathology, continuing to hold Eliquis, monitoring patient overnight. Subjective 74 y/o with a PMHx of afib, T2DM, HLD, and CKD3b presented after a fall. Found to have cognitive impairment and hypercalcemia admitted for further management. Pt seen at bedside this morning. Doing well. No complaints. Knee pain remains at 1/10. Feeling some tiredness although has been sleeping well at night. Today, no fever/chills, no sweating, no headaches, chest pain, cough, bloating, abdominal pain, itching, or skin rash. No changes in urination. Did feel some palpitations yesterday, attributable to Afib. Review of Systems Review of Systems: As per above Constitutional: no fever and no chills Respiratory: no cough and no dyspnea Cardiovascular: no chest pain and no palpitations Gastrointestinal: no abdominal pain, no nausea and no vomiting Neurologic: no tingling, no numbness and no paresthesia Physical Exam Physical Exam: Constitutional: well-appearing, no acute distress HEENT: NCAT, no conjunctival injection, no palpable lymphadenopathy CV: regular rate, irregularly irregular rhythm, aortic murmur, extremities well- perfused, no LE edema Resp: lung clear to auscultation, no increased work of breathing MSK: no gross deformities appreciated, no pain to palpation of lower extremities Skin: warm, dry, no rash appreciated Neuro: alert, oriented, no focal neurologic deficit appreciated Constitutional: + obese and cooperative Respiratory: normal respiratory effort, lungs clear to auscultation Cardiovascular: Rate/Rhythm: regular rate and + irregularly irregular Heart Sounds: + murmur Gastrointestinal (Abdomen): normal bowel sounds, soft, nontender, no hepatosplenomegaly Neurologic: Speech / Cognition: no anomia Cranial Nerves: PERRL and normal accommodation Psychiatric: Orientation: oriented x 3 and cooperative Speech: normal rate/rhythm/volume of speech Results & Data Results & Data Vital Signs (Past 12 Hours) Vital Signs Temp Pulse Pulse Resp BP Pulse Ox O2 Del Method 07/30/24 07:04 67 07/30/24 02:10 36.5 C 72 16 108/72 96 Room Air 07/29/24 22:52 36.6 C 74 18 120/81 98 Room Air 07/29/24 19:24 36.7 C 73 18 119/79 98 Room Air
[2024-07-30 07:38] LABS: Hematocrit (blood only) 37.6 % (37.0-47.0); Mean Corpuscular Hemoglobin 27.5 pg (25.0-34.0); Mean Corpuscular Hgb Conc 31.9 g/dL (32.0-36.0); Mean Corpuscular Volume 86.2 fL (80.0-100.0); Mean Platelet Volume 10.2 fL (9.4-12.4); Platelet Count 305 K/uL (130-400); RDW Coefficient of Variation 15.7 % (11.5-14.5); RDW Standard Deviation 49.7 fL (36.4-46.3); Red Blood Count 4.36 M/uL (4.20-5.40); White Blood Count 7.59 K/ul (4.8-10.8)
[2024-07-30 07:47] LABS: BUN Creatinine Ratio 19.2 (10-20); Calcium 9.2 mg/dl (8.6-10.3); Creatinine Clr Calc Pharmacy 29.9 ml/min; Potassium 4.1 mmol/L (3.5-5.1)
[2024-07-30] MEDS: METOPROLOL SUCC 50MG EXT REL TAB PO SCH (09:30)
--- NOTE | 2024-07-30 10:27 | Nephrology Progress Note ---
Date of Service July 30, 2024 Assessment & Plan (1) Acute kidney injury: (2) Hypercalcemia: (3) Mediastinal adenopathy: (4) Stage 3b chronic kidney disease: (5) Weight loss, abnormal: (6) Hypertension: (7) Diabetes mellitus: Plan 74-year-old female with stage IIIb CKD and repeated episodes of hypercalcemia over last 1 year with declining kidney function. Baseline creatinine has been around 1.7-1.8 mg/dl. She presented to the hospital on 07/21/2024 after falls and found to have worsening hypercalcemia, calcium was 13.3. Kidney function staying somewhat close to baseline. CT chest abdomen pelvis showed mediastinal and abdominal adenopathy. She was given bisphosphonate and IV fluid with improvement in serum calcium and now down to 9.3. Had a FNA and supraclavicular lymph node biopsy but the pathology came back as inconclusive although clinically there is concern for sarcoidosis. Now waiting for possible ?EBUS for further evaluation. She has been having off-and-on hypercalcemia for last 1 year, outpatient workup showed non-PTH mediated hypercalcemia and other workup was unremarkable. Advised to have CT chest abdomen pelvis in March 2024 but she wanted to wait until June 2024. She also had weight loss of more than 25 pounds over last 6 months. Kidney function relatively stable, ca normalized. BP fair, volume status acceptable. --Waiting for EBUS this afternoon and then short-term rehab Discharge Admission and Anticipated Discharge Date Admission Date: July 21, 2024 Cali Hatch was seen and evaluated this morning. She reports overall feeling about the same, denied any other specific symptoms. Scheduled for EBUS and bx this afternoon Blood pressure decent. Kidney function staying relatively stable, Calcium normalized. Review of Systems Review of Systems: Detail review of system was done and pertinent positives and negatives are mentioned above. Physical Exam Constitutional: WD/WN, vitals as above no acute distress Respiratory: Auscultation: lungs clear to auscultation bilaterally Cardiovascular: RRR, no murmur, no edema Skin: no rashes, warm and dry Neurologic: no focal motor deficits Psychiatric: Orientation: alert and oriented x 3 Results & Data Vital Signs (Past 12 Hours) Vital Signs Temp Pulse Pulse Resp BP Pulse Ox O2 Del Method 07/30/24 07:25 36.6 C 67 18 111/74 97 Room Air 07/30/24 07:04 67 07/30/24 02:10 36.5 C 72 16 108/72 96 Room Air 07/29/24 22:52 36.6 C 74 18 120/81 98 Room Air PG Care Time/CCT Total # of Minutes Spent Total Time Spent with Patient: Total time spent is greater than 50% in coordination of care (as documented) at patient's floor/unit and/or counseling patient: Coding Level of Care Code 47436 SUB INP/OBS CARE 2/35MIN Diagnoses Acute kidney injury N17.9 Hypercalcemia E83.52 Mediastinal adenopathy R59.0 Stage 3b chronic kidney disease N18.32 Weight loss, abnormal R63.4 Hypertension I10 Diabetes mellitus E11.9
[2024-07-30] MEDS ORDERED: Nursing to Pharmacy Communication SCH ×2 (11:15→11:30)
[2024-07-30] MEDS: SODIUM CHLORIDE 0.9% 1000ML IV SCH (11:26)
[2024-07-30] MEDS ORDERED: PROPOFOL IV EMULSION 10 MG/ML 20 ML VIAL IV ONE (11:37)
[2024-07-30] MEDS ORDERED: ROCURONIUM BROMIDE 10 MG/ML 5 ML VIAL IV ONE (11:37)
[2024-07-30] MEDS ORDERED: LIDOCAINE 2% 2 ML VIAL/AMP(20MG/ML) INFIL ONE (11:37)
[2024-07-30] MEDS ORDERED: DEXAMETHASONE SOD INJ 4 MG/ML VIAL ONE (11:37)
[2024-07-30] MEDS ORDERED: MIDAZOLAM HCL 1 MG/ML 2ML VIAL ONE (11:37)
[2024-07-30] MEDS ORDERED: ONDANSETRON INJ 2 MG/ML 2 ML VIAL ONE (11:37)
[2024-07-30] MEDS ORDERED: fentaNYL citrate PF 100 MCG/2 ML VIAL ONE (11:37)
--- NOTE | 2024-07-30 11:38 | History & Physical Bridge Note ---
Date of Service July 30, 2024 History & Physical Bridge Note I have examined the patient, reviewed the History & Physical and in the interval since the performance of the History & Physical I have noted the following changes of clinical significance: no changes noted
--- NOTE | 2024-07-30 11:52 | Anesthesiology Consultation ---
Date of Service July 30, 2024 Assessment & Plan ASA ASA3 Proposed Anesthesia Anesthesia Type: General Risk / Benefits Reviewed With: PT / POA / Parent / Guardian, Accepts Plan and Informed Consent Obtained History Surgery Operation Date: 07/30/24 12:00 Proposed Procedures p Endobronchial Ultrasound - Nii Schmidt MD Height/Weight Height: 5 ft 8 in Weight: 97.3 kg Allergies Allergy/AdvReac Type Severity Reaction Status Date / Time No Known Allergies Allergy Verified 07/30/24 11:16 Medications Home Medications Medication Instructions Recorded Confirmed Last Taken flash glucose sensor (FreeStyle #1 ea 07/12/21 04/29/24 Unknown Darell 14 Day Sensor kit) pen needle, diabetic 32 gauge x #100 ea 04/24/23 04/29/24 Unknown 32" (BD Ultra-Fine Isha Pen Needle) fluoxetine 40 mg capsule 40 mg PO DAILY #90 caps 05/23/23 07/21/24 Unknown glipizide 10 mg tablet, extended 10 mg PO DAILY #90 tabs 05/23/23 07/21/24 Unknown release 24 hr metoprolol succinate 50 mg 25 mg (1/2 x 50 mg) PO DAILY 90 05/23/23 07/21/24 Unknown tablet,extended release 24 hr days #45 tabs pravastatin 20 mg tablet 20 mg PO DAILY #90 tabs 05/23/23 07/21/24 Unknown apixaban 5 mg tablet (Eliquis) 5 mg PO BID #180 tabs 04/15/24 07/21/24 Unknown omeprazole 20 mg capsule,delayed 20 mg PO DAILY #90 caps 07/18/24 07/21/24 Unknown release losartan 50 mg tablet 50 mg PO DAILY #90 tabs 07/19/24 07/21/24 Unknown cholecalciferol (vitamin D3) 50 50 mcg PO DAILY 07/21/24 07/21/24 Unknown mcg (2,000 unit) capsule (Vitamin D3) insulin detemir U-100 100 unit/mL 0 unit subcut DAILY 07/21/24 07/21/24 Unknown (3 mL) subcutaneous pen Active Medications Generic Name Dose Route Start Last Admin Trade Name Freq PRN Reason Stop Dose Admin Apixaban 5 mg 07/21/24 21:00 07/26/24 07:24 Apixaban 5 Mg Tablet PO 08/20/24 20:59 5 mg BID LESTER Administration Fluoxetine HCl 40 mg 07/22/24 09:00 07/30/24 08:05 Fluoxetine Hcl 20 Mg Cap PO 08/21/24 08:59 40 mg DAILY LESTER Administration Sodium Chloride 1,000 mls @ 15 mls/hr 07/30/24 06:00 07/30/24 11:26 Nss IV 07/31/24 05:59 15 mls/hr .Q24H LESTER Administration Insulin Aspart 0 units 07/22/24 21:15 07/30/24 09:30 Insulin Aspart Per Unit Charge SC 08/21/24 07:29 1 units ACHS LESTER Administration Metoprolol Succinate 50 mg 07/30/24 09:00 07/30/24 09:30 Metoprolol Succ 50mg Ext Rel Tab PO 08/29/24 08:59 50 mg DAILY LESTER Administration Pantoprazole Sodium 40 mg 07/22/24 09:00 07/30/24 08:05 Pantoprazole 40 Mg Tab PO 08/21/24 08:59 40 mg DAILY LESTER Administration Pravastatin Sodium 20 mg 07/22/24 09:00 07/30/24 08:05 Pravastatin Sod 20 Mg Tab PO 08/21/24 08:59 20 mg DAILY LESTER Administration NPO Date Last Intake of Fluids: 07/30/24 Time Last Intake of Fluids: 09:30 Last Intake of Fluids Comment: sip water with meds only this am Date Last Intake of Solids: 07/29/24 Time Last Intake of Solids: 17:30 Past Medical History Medical History Anorexia Fatigue Cough Exercise / Class Metabolic Activity II 4-5 Yardwork/Stairs/Walk up hill Past Family History Family History Mother Breast cancer Alcoholic Dementia Father Skin cancer Diabetes Grandmother (Paternal) Breast cancer Denies family history of Ovarian cancer Prostate cancer Myocardial infarction Colorectal cancer Past Surgical History Surgical History H/O elbow surgery L elbow Past Anesthesia History No Hx of Anesthesia Complications and No Family Hx of Anesthesia Complications History of PONV No Hx of PONV and No Hx of Motion Sickness Social History Smoking Status: Never smoker Do You Dip or Chew Tobacco: No Hx Alcohol Use: No Hx Substance Use: No Review of Systems denies fever/cough/ colds/ chest pain/ SOB/ KIANA denies KIANA Physical Exam Vital Signs Last Vital Signs Temp 36.7 C 07/30/24 11:17 Pulse 79 07/30/24 11:17 Resp 20 07/30/24 11:17 BP 135/80 07/30/24 11:17 Pulse Ox 97 07/30/24 11:17 O2 Del Method Room Air 07/30/24 11:17 ENMT Mouth: no TMJ abnormality and no dentition abnormality Thyromental Distance: > or= 3.5 Finger Breadths Mallampati Class: II Neck neck extension not limited Respiratory normal respiratory effort; no respiratory distress Auscultation: lungs clear to auscultation bilaterally Cardiovascular Rate/Rhythm: regular rate and regular rhythm Neurologic moves all extremities Psychiatric Orientation: alert and oriented x 3 Testing Laboratory Results 07/30/24 06:44 07/30/24 06:44 PT 11.6 Seconds (9.0-12.0) 07/22/24 06:45 INR 1.1 (0.9-1.1) 07/22/24 06:45 APTT 34 Seconds (21-31) H 07/22/24 06:45 Hemoglobin A1c 8.0 % (4.5-5.6) H 07/22/24 02:54 Urine Color Yellow 07/21/24 06:45 Urine Appearance Clear (Clear) 07/21/24 06:45 Urine pH 7.5 (4.5-7.5) 07/21/24 06:45 Ur Specific [place] 1.012 (1.000-1.030) 07/21/24 06:45 Urine Protein Trace (Negative) H 07/21/24 06:45 Urine Glucose (UA) 3+ (Negative) H 07/21/24 06:45 Urine Ketones Negative (Negative) 07/21/24 06:45 Urine Nitrite Negative (Negative) 07/21/24 06:45 Ur Leukocyte Esterase Negative (Negative) 07/21/24 06:45 Urine WBC (Auto) 0-5 /hpf (0-5) 07/21/24 06:45 Urine RBC (Auto) 0-2 /hpf (0-2) 07/21/24 06:45 U Hyaline Cast (Auto) 0-2 /lpf (0-2) 07/21/24 06:45 U Epithel Cells (Auto) 0-2 /hpf (0-2) 07/21/24 06:45 Urine Bacteria (Auto) None Seen (None Seen) 07/21/24 06:45 Blood Type O Negative 07/22/24 06:45 Antibody Screen NEGATIVE 07/22/24 06:45 07/23/24 Unknown Gram Stain - Final Synovial Fluid Aerobic and Anaerobic Culture - Final No growth 07/30/24 07/30/24 11:10 08:04 POC Glucose 136 H 149 H
[2024-07-30] MEDS ORDERED: ePHEDrine sulfate 50 MG/ML AMP IV PRN (11:54)
[2024-07-30] MEDS ORDERED: fentaNYL citrate PF 100 MCG/2 ML VIAL IV PRN (11:54)
[2024-07-30] MEDS ORDERED: ONDANSETRON INJ 2 MG/ML 2 ML VIAL IV PRN (11:54)
[2024-07-30] MEDS ORDERED: ATROPINE SULFATE 0.1 MG/ML 10ML SYR IV PRN (11:54)
[2024-07-30] MEDS ORDERED: HYDROmorphone INJ 1 MG/ML SYRINGE IV PRN (11:54)
[2024-07-30] MEDS ORDERED: LABETALOL HCL IV 5 MG/ML 20ML IV ONE (12:19)
[2024-07-30] MEDS ORDERED: PHENYLEPHRINE 100MCG/ML 5ML SYR ONE ×2 (12:24→12:43)
[2024-07-30] MEDS ORDERED: PHENYLEPHRINE HCL 10 MG/ML VIAL ONE (13:08)
[2024-07-30] MEDS ORDERED: SUGAMMADEX SODIUM 200 MG/2 ML VIAL IV ONE (13:39)
[2024-07-30 13:44] LABS: Basophils # (auto) 0.09 K/uL (0.00-0.20); Basophils % (auto) 1.1 %; Eosinophils % (auto) 3.6 %; Hematocrit (blood only) 35.9 % (37.0-47.0); Hemoglobin 11.3 g/dl (12.0-16.0); Immature Granulocytes # (auto) 0.07 K/uL (0.01-0.20); Immature Granulocytes % (auto) 0.8 %; Lymphocytes # (auto) 0.99 K/uL (1.20-3.40); Lymphocytes % (auto) 11.9 %; Mean Corpuscular Hemoglobin 27.6 pg (25.0-34.0); Mean Corpuscular Hgb Conc 31.5 g/dL (32.0-36.0); Mean Corpuscular Volume 87.6 fL (80.0-100.0); Mean Platelet Volume 10.1 fL (9.4-12.4); Monocytes # (auto) 0.98 K/uL (0.11-0.59); Monocytes % (auto) 11.8 %; Neutrophils # (auto) 5.87 K/uL (1.40-6.50); Neutrophils % (auto) 70.8 %; Platelet Count 320 K/uL (130-400); RDW Coefficient of Variation 15.8 % (11.5-14.5); RDW Standard Deviation 50.9 fL (36.4-46.3)
--- NOTE | 2024-07-30 14:40 | Procedure Note ---
Procedure Note Date of Service July 30, 2024 PREOPERATIVE DIAGNOSIS: Bilateral mediastinal adenopathy POSTOPERATIVE DIAGNOSIS: Bilateral mediastinal adenopathy PROCEDURE PERFORMED: Flexible fiberoptic bronchoscopy with EBUS bronchial washings and transbronchial biopsy COMPLICATIONS: Extensive bleeding from the right upper lobe INDICATION: Evaluate for sarcoidosis, malignancy is another etiologies PROCEDURE: Informed written consent was obtained from the patient prior to the start of the procedure. Timeout performed prior to the procedure. Patient was intubated and sedated per anesthesia protocol. The bronchoscope was inserted via the endobronchial tube. Scant white secretions were noted bila terally. Scope was wedged into the right upper lobe and 100 mL of saline was instilled. Approximately 40 mL of fluid was aspirated back and sent pulses. The scope was then wedged in the lingula and 100 mL of saline was instilled with approximately a fluid aspirated back. Otherwise the tracheobronchial tree appeared normal the jim was sharp. The scope was then withdrawn and the EBUS scope was inserted. Station 7 subcarinal lymph node was identified and FNA passes were performed of this lymph node. We then moved to station 4R lymph node and then encountered connectivity issues with the EBUS scope. We ultimately aborted the EBUS procedure and transition to a regular diagnostic scope to perform transbronchial biopsies. Transbronchial forcep biopsies were performed of the right upper lobe. First forcep biopsy when without issue and we were able to collect a specimen. After the second biopsy of the right upper lobe posterior segment, significant bleeding was encountered. We attempted to control the bleeding with 1 mL of epinephrine and multiple aliquots of cold saline. Eventually bleeding stopped and there was extensive clot burden throughout the tracheobronchial tree extending from the right upper lobe to the left lower lobe. The clot was retrieved with forceps. Adequate hemostasis was achieved. Patient was ultimately extubated per anesthesia protocol. Recommendations: Postprocedure hemoglobin demonstrated a slight drop in hemoglobin from this morning. Platelet counts are stable. Continue to hold patient's Eliquis. Follow-up biopsy results from the transbronchial biopsies of the right upper lobe with an FNA passes of the station 7 lymph node. Follow-up culture data, cell counts and cytology from the lingula washings and right upper lobe washings. [facility] [place] Procedure Codes (Charges) Pulmonary/Thoracic Procedure 1: Pulmonary and Thoracic: 57675 Bronchoscopy, w/EBUS 1 or 2 mediastinal Procedure 2: Pulmonary and Thoracic: 99636 Dx bronchoscopy/wash Procedure 3: Pulmonary and Thoracic: 23468 Bronchoscopy w bronchial or endobronchial bx Coding CPT Codes Pulmonary/Thoracic - Pulmonary and Thoracic: 12718 Bronchoscopy, w/EBUS 1 or 2 mediastinal ([id number]) Pulmonary/Thoracic - Pulmonary and Thoracic: 20362 Dx bronchoscopy/wash ([id number]) Pulmonary/Thoracic - Pulmonary and Thoracic: 92737 Bronchoscopy w bronchial or endobronchial bx ([id number]) Additional Codes Date of Service ([facility].[email or web address])
--- NOTE | 2024-07-30 14:53 | XRay Report ---
XR chest 1V portable CLINICAL HISTORY: s/p bronch COMPARISON STUDY: 07/21/2024 FINDINGS: There is groundglass opacity in the right upper lobe that was not present previously. There is obscuration of the left hemidiaphragm. The lung yanez are otherwise clear. Heart size remains in creased with mild pulmonary vascular congestion. No pneumothorax. No pneumomediastinum. IMPRESSION: Airspace opacities have developed in the right upper lobe and left lower lobe. ACT 112: Negative or not required by law. Electronically signed by: Mariya Berry M.D. 07/30/2024 2:51 PM
--- NOTE | 2024-07-30 15:18 | Anesthesiology Progress Note ---
Date of Service July 30, 2024 Anesthesia Post Procedure Vital Signs Vital Signs: Temp Pulse Pulse Pulse Resp BP Pulse Ox 07/30/24 14:55 82 19 101/53 L 99 07/30/24 14:45 36.5 C 89 17 105/60 99 07/30/24 14:35 85 17 103/56 L 99 07/30/24 14:25 96 H 20 97/62 L 100 07/30/24 14:17 36.4 C L 90 14 107/62 100 07/30/24 11:17 36.7 C 79 20 135/80 97 07/30/24 07:25 36.6 C 67 18 111/74 97 07/30/24 07:04 67 07/30/24 02:10 36.5 C 72 16 108/72 96 07/29/24 22:52 36.6 C 74 18 120/81 98 07/29/24 19:24 36.7 C 73 18 119/79 98 O2 Del Method O2 Flow Rate 07/30/24 14:55 Nasal Cannula 2 07/30/24 14:45 Nasal Cannula 2 07/30/24 14:35 Nasal Cannula 2 07/30/24 14:25 Oxymask 9 07/30/24 14:17 Oxymask 9 07/30/24 11:17 Room Air 07/30/24 07:25 Room Air 07/30/24 07:04 07/30/24 02:10 Room Air 07/29/24 22:52 Room Air 07/29/24 19:24 Room Air Pain Intensity Left Ankle: Pain Intensity: 10 Left Knee: Pain Intensity: 1 Transfer of Care Handoff Completed per policy Notes Mental Status: alert / awake / arousable and participated in evaluation Patient Amnestic to Procedure: Yes Nausea / Vomiting: adequately controlled Pain: adequately controlled Airway Patency, RR, SpO2: stable & adequate BP & HR: stable & adequate Hydration State: stable & adequate Anesthetic Complications: no major complications apparent and Pt Satisfied with anesthetic care
[2024-07-30] MEDS: LACTATED RINGER'S 1,000 ML IV SCH (16:01)
[2024-07-30] MEDS: ALBUT/IPRATROP 3MG/0.5MG NEB 3 ML VIAL NEB PRN (16:50)
[2024-07-30 17:01] LABS: Eosinophil Body Fluid Man 1 %; Fluid Mono/Macrophage 69 %; Lymphocyte Body Fluid Man 27 %; Neutrophil Body Fluid Man 3 %
[2024-07-30] MEDS: LANTUS PER UNIT CHARGE SC SCH (20:35)
[2024-07-31 07:20] LABS: Albumin Level 3.2 gm/dl (3.4-5.0); BUN Creatinine Ratio 22.4 (10-20); Calcium 8.4 mg/dl (8.6-10.3); Creatinine Clr Calc Pharmacy 34.9 ml/min; Phosphorus 2.8 mg/dl (2.5-4.9); Potassium 4.8 mmol/L (3.5-5.1)
--- NOTE | 2024-07-31 07:31 | Discharge Summary ---
Date of Service July 31, 2024 Admission HPI Per Admitting Provider This is a 74 year old female with past medical history of A fib, Diabetes, hyperlipidemia, stage 3b CKD who presented to the ED on 07/21 for complaints of a fall. Patient seen and examined at bedside. present. Patient reports she fell twice overnight. She states the first time she fell back onto the toilet. She then states she fell and hit her left leg and head against the sink. She states she felt dizzy prior to the falls. She states that for about the last 6 weeks she has not been taking any of her medications because she did not want to. She states she resumed all of her medications a few days ago. She admits to shortness of breath but states that this is a chronic complaint for her. She was experiencing some chest pain last night. Her biggest complaint is her left knee/ankle pain. She states she has been having issues with her left knee for awhile now. She has not seen a surgeon or had imaging outpatient on it. She did try PT but this was unsuccessful for her. She also has been following with nephrology for her hypercalcemia. While in the ED she had a left knee xr concerning for a patellar dislocation. Her calcium was 13.3 and creatinine was above baseline at 2.11. She had a negative head CT. Brain MRI/MRA and Left knee MRI pending. she was given a L of fluids. Admission Exam Per Admitting Provider Physical Exam Constitutional: WD/WN, vitals as above Eyes: PERRL, conjunctivae normal, anicteric sclerae Respiratory: normal respiratory effort, lungs clear to auscultation Cardiovascular: RRR, no murmur, no edema Musculoskeletal: strength 5/5 in extremities Skin: slight ecchymosis to lateral portion of left knee Neurologic: PERRL, EOMI, accommodation nl, no face palsy, no dysarthria Psychiatric: A+Ox3, euthymic affect Principal Diagnosis Hypercalcemia, mediastinal lymphadenopathy Discharge Exam Constitutional + acute distress, + obese and cooperative Respiratory normal respiratory effort, lungs clear to auscultation Cardiovascular Rate/Rhythm: + tachycardic and + irregularly irregular Heart Sounds: + murmur Gastrointestinal (Abdomen) normal bowel sounds, soft, nontender, no hepatosplenomegaly Neurologic CN's II-XI intact bilaterally Speech / Cognition: no anomia Cranial Nerves: PERRL, normal accommodation, EOM intact bilaterally, normal facial strength and able to elevate shoulders bilaterally Psychiatric Orientation: oriented x 3 and cooperative Speech: normal rate/rhythm/volume of speech Discharge Data Allergies Allergy/AdvReac Type Severity Reaction Status Date / Time No Known Allergies Allergy Verified 07/30/24 11:16 Consultations 07/21/24 09:23 ED Decision to Admit Stat 07/21/24 09:25 Consult Orthopedic Surgery Routine 07/21/24 18:22 Consult Nephrology Routine 07/22/24 08:00 Consult Neurology Routine 07/22/24 17:07 Consult Pulmonology Routine 07/26/24 15:51 Consult General Surgery Routine 07/29/24 06:00 Consult Pulmonology Routine Procedures Performed Operation Date: 07/30/24 12:00 Actual Procedures p Endobronchial Ultrasound, Transbronchial Biopsy, Wash of Bilateral Upper lobes(Not Applicable) - Nii Schmidt MD Ordered Studies 07/21/24 06:44 CT head/brain wo con Stat 07/21/24 08:49 MR angio head wo con Stat MR angio neck wo/w con Stat MR brain wo con Stat 07/21/24 09:25 MR knee LT wo con Stat 07/21/24 10:13 CT abd pelvis IV con only Stat 07/22/24 06:41 CT head/brain wo con Stat 07/22/24 08:17 MRI Brain [MR brain wo con] Stat 07/22/24 09:52 CT chest diagnostic wo con Routine 07/23/24 00:00 IR FNA lymph node US Routine Hospital Course (1) Confusion: (2) Thickened endometrium: (3) Subluxation of left patella: (4) Hypercalcemia: (5) Acute kidney injury: Plan 74 y/o with a PMHx of a fib, T2DM, HLD, and CKD3b presented after a fall. Found to have cognitive impairment and hypercalcemia admitted for further management. 1) Lymphadenopathy - Multiple enlarged lymph nodes noted on CT. Right cervical LN FNA biopsy performed. Pathology likely reactive lymphadenopathy, T cell and B cells without immunophenotypic abnormality, no granulomatous disease, or metastatic disease noted, but as sample size limited excision biopsy may be warranted. gen surg consult for possible excisional biopsy-> unable to perform due to location EBUS yesterday with some bleeding during procedure, pathology results pending Mediastinoscopy with Cardio-Thoracic surgery recommended by Pulmonology due to compromised inpatient EBUS 2) Hypercalcemia/ERMA on CKD3b Non-PTH medication hypercalcemia vs. symptomatic hypercalcemia concerning for oncologic process. FNA as above. - Calcium improved after bisphosphonate administration (pamidronate). - Ca, 8.4 (9.0, laurie Ca) <-- 13.3 - Follows with nephrology. Holding ARB. - Cr 1.70 <- 1.98 likely due to NPO status yesterday in anticipation of possible procedure AM BMP while inpatient appreciate nephro recs: keep well-hydrated, monitor electrolytes 3) Severe aortic stenosis - Echocardiogram: Trileaflet aortic valve but with severe valvular aortic stenosis. - Outpatient appt scheduled for August 14, 2024, 9:[address] Fabian. 4) Thickened endometrium - Incidental finding on CT A&P - 6 cm endometrial stripe. Patient post menop ausal - Will need outpatient Contact Center Rep f/u with likely endometrial biopsy, appt scheduled w/ Dr. Velazquez 5) Fall - Likely dizziness/unsteadiness in the setting of hypercalcemia leading to fall. Significant left knee pain on admission, XR concerning for patellar dislocation. - MRI without dislocation, moderate joint effusion. Left knee s/p aspiration, cu ltures are finalized and are negative for any bacteria. Steroid injection by ortho, patient's pain 06/21. PT/OT ortho signed off, f/u outpatient and option of trialing hyaluronic acid injections for arthritis maintenance therapy 6) Stroke like symptoms - Stroke alert called for altered mental status, workup negative - Cholesterol appropriate. AMS resolved after normalization of calcium 7) T2DM - SSI with basal dosing while inpatient. Resume home insulin and glipizide on discharge - Glycemic consult - appreciate recs 8) AFib - patient w/ HR's in the 120s when she's ambulating, even if just briefly - continue metoprolol succinate 50 mg PO daily - restart Eliquis, 5 mg, PO, BID on Monday, August 05, 2024 9) Medication adherence Patient stopped taking her medications several weeks ago. Then took triple her dose to catch up a few days prior to admission. Likely not the reason for admission. Would recommend discussing any medication alterations with PCP prior to changing. Chronic conditions: Mental Health: fluoxetine Afib: metoprolol 25 mg, will increase to 50mg while she is here due to tachycardia with ambulation; Eliquis for anticoagulation - on hold HTN: Metoprolol, hold Losartan due to ERMA GERD: omeprazole HLD: pravastatin DVT ppx: Eliquis 5 mg BID - on hold Code status: Full code, initially DNR/DNI when confused FENGI: carb consistent, heart healthy; Dispo: Med-Tele, SNF - following; has been ambulating better- may warrant PT re-evaluation prior to d/c Total Time Total Time Spent Total Time Spent (In Minutes): Attending time 34 minutes Total Time Includes: Examination of the Patient, Discharge Planning, Medication Reconciliation and Communication With Other Providers Discharge Plan Discharge Items Patient Disposition: Home - Home Health Services Reason For Visit: FALL Discharge Diagnosis: hypercalcemia Activity: Per Instructions section Non-emergency contact: Primary Care Provider and Manager Hematology Call non-emergency contact if: you have any medication questions and your symptoms worsen Follow-up/Referrals: Valentina Price DO [Primary Care Provider] - 08/08/24 9:20 am Isabelle Velazquez MD [Physician] - Natalie Echavarria PA-C [Physician Learning Support Teacher] - Diet: Carb Consistent or DM2 and Heart Healthy Addtl Attending Provider Instructions: You were admitted to the hospital after having had a fall in the context of confusion, generalized weakness, knee injury, stroke-like symptoms and subsequently found to have hypercalcemia, mediastinal lymphadenopathy, knee dislocation, severe aortic stenosis, and endometrial abnormality (noted on CT exam). You were treated with pamidronate, went through a cervical lymph node biopsy, went through an endobronchial ultrasound, and received other medications such as metoprolol succinate to control your previously diagnosed atrial fibrillation. A discharge summary will be sent to your primary care physician to ensure continuity of care. Please bring this discharge summary with you to your next office appointment so that your provider can review it at that time. Follow-up appointments: We have requested a follow-up appointment with your primary care physician within one week of discharge. Please call their office if you do not hear from them. Keep all your follow-up appointments as already scheduled. If you cannot make an appointment, notify your provider. Your follow-up appointments include: A follow-up appointment with ObGyn with Dr. Velazquez at [address] [place] [address]. A follow-up appointment with Orthopedics A follow-up appointment with Cardiology, 9:00 am, August [address] Fabian at [address] [facility] A follow-up appointment with your PCP. A follow-up appointment should be made by your PCP for a Cardio-Thoracic surgeon to arrange for a mediastinoscopy for lymph node resection. Medications: Your medication list has been reviewed and reconciled upon discharge to ensure accuracy and continuity of care. An updated list of all your medications is included with your hospital discharge paperwork. Please review this list closely, and make note of any changes. Resume all your home medications and follow up with your primary care. Take your medications as instructed; do not skip a dose of your medicines. Make sure all of your doctors know every medicine you are taking (including jyqf-cit-qwkfgey medicines, vitamins, and supplements). Call your primary care provider before taking any new medicines (including lgrc-jkh-jfxtogb medicines, vitamins, and supplements), because some of these may interact with your current medications, or may make your symptoms worse. Tell your primary care provider if you cannot afford your medications. CONTACT YOUR PRIMARY CARE PROVIDER if you experience any of the following: fatigue, shortness of breath confusion, dizziness, weakness Difficulty following your treatment plan, or difficulty taking medications CALL 911 OR GO TO THE EMERGENCY DEPARTMENT if you experience any of the following: Sudden, severe abdominal pain or nausea/vomiting Severe chest pain, or chest pain that radiates (moves) to your jaw or arm Sudden, severe shortness of breath or difficulty breathing Thank you for allowing us to participate in your care Add Collaborating Supervising Physician Provider Instructions: Orthopedic Discharge Instructions: Continue with physical therapy and Occupational Therapy Weight bearing as tolerated with walker and assistance as needed Encourage active range of motion with the knee and the ankle Continue with compression using the Torrey wrap and ice as needed Follow-up in the office as needed once discharged Pending Studies at Discharge: No Stand-Alone Forms: My Sen[employer], Smoking Cessation Medications and DC Order Prescriptions: Continued (DME) FreeStyle Darell 14 Day Sensor Kit See Rx Instructions .Route Qty: 1 0RF Rx Instructions: As directed (DME) pen needle, diabetic [BD Ultra-Fine Isha Pen Needle] 32 gauge x 5/32" needle See Rx Instructions .Route Qty: 100 2RF Rx Instructions: Use once daily to administer insulin DX CODE E11.9 fluoxetine 40 mg capsule 40 mg PO DAILY Qty: 90 3RF glipizide 10 mg tablet extended release 24hr 10 mg PO DAILY Qty: 90 3RF metoprolol succinate 50 mg tablet extended release 24 hr 25 mg PO DAILY 90 Days Qty: 45 3RF pravastatin 20 mg tablet 20 mg PO DAILY Qty: 90 3RF omeprazole 20 mg capsule,delayed release(DR/EC) 20 mg PO DAILY Qty: 90 3RF losartan 50 mg tablet 50 mg PO DAILY Qty: 90 3RF cholecalciferol (vitamin D3) [Vitamin D3] 50 mcg (2,000 unit) Capsule 50 mcg PO DAILY insulin detemir U-100 100 unit/mL (3 mL) insulin pen 0 unit subcut DAILY Rx Instructions: Per patient she hasn't been taking this but couldn't tell me how many days she has missed. Original Directions: 50 units subcut daily Held Eliquis 5 mg tablet 5 mg PO BID Qty: 180 1RF Hold Instructions: Resume on 08/05/24. Discharge Orders: Discharge Order (Routine); Ordered 07/31/24 Ordered By: Travis Fox/Other Patient Handouts: Managing Type 2 Diabetes Admission Data Admit Date/Time: 07/21/24 09:40 Attending Provider: Akanksha Nguyen Admit Provider: Caio Cuenca Primary Care Provider: Valentina Price Other Providers: Nii Schmidt; [facility]; [facility]; [facility]; Caio Cuenca; Valeriy Diaz; Erica Rodriguez; Shoshana Hartman; Camilla Quiles; Syed Sellers; Maki Brito; Rufino Ochoa; Amanda De Oliveira; Orlando Gracia; Miguel Johnson; Usha Xiong; Tony Rico; Joellen Topete; Gary Olivo; Martin Dooley; Lisa Barron; Maria Del Carmen Blancas; Herminio Lucero; Gera Eason; Mini Cleveland; Nagi Alegre; Cosmo Benito; Francois Dickey; Karan Barrientos; Virgie Cummings; Tiera Ramos; Cris De La Torre; Debi Tavarez; Ryland Mcgrath; David Prince; Rakan Marin; Shukri Mckinney; Diane Garcia; Roosevelt Gomez; Amado Guo; Dashawn Leroy; Kalpana Queen; Kalyan Erickson Other Interventions: Discharge Summary Assessment (RN) Last Done: 07/31/24 16:21 Supervising Physician Co-Signing Physician Notes I personally examined the patient and verified perez points of history and exam, discussed case, and agree with decision making and plan documented by Dr. Louise. Hypercalcemia resolved, patient received bisphosphonate, will need outpatient monitoring. Bronchoscopy with EBUS for biopsies not revealing for etiology of lymphadenopathy. Echocardiogram with severe aortic stenosis, patient referred to cardiology on discharge. In addition, patient referred to gynecology for evalution of thickened endometrial stripe. She will follow-up with orthopedics outpatient and participate in home physical therapy with home health.
[2024-07-31 09:24] LABS: Hematocrit (blood only) 32.5 % (37.0-47.0); Hemoglobin 10.2 g/dl (12.0-16.0); Mean Corpuscular Hemoglobin 27.5 pg (25.0-34.0); Mean Corpuscular Hgb Conc 31.4 g/dL (32.0-36.0); Mean Corpuscular Volume 87.6 fL (80.0-100.0); Mean Platelet Volume 10.6 fL (9.4-12.4); Platelet Count 269 K/uL (130-400); RDW Coefficient of Variation 15.8 % (11.5-14.5); RDW Standard Deviation 50.7 fL (36.4-46.3); Red Blood Count 3.71 M/uL (4.20-5.40); White Blood Count 11.13 K/ul (4.8-10.8)
--- NOTE | 2024-07-31 10:23 | Nephrology Progress Note ---
Date of Service July 31, 2024 Assessment & Plan (1) Acute kidney injury: (2) Hypercalcemia: (3) Mediastinal adenopathy: (4) Stage 3b chronic kidney disease: (5) Weight loss, abnormal: (6) Hypertension: (7) Diabetes mellitus: Plan 74-year-old female with stage IIIb CKD and repeated episodes of hypercalcemia over last 1 year with declining kidney function. Baseline creatinine has been around 1.7-1.8 mg/dl. She presented to the hospital on 07/21/2024 after falls and found to have worsening hypercalcemia, calcium was 13.3. Kidney function staying somewhat close to baseline. CT chest abdomen pelvis showed mediastinal and abdominal adenopathy. She was given bisphosphonate and IV fluid with improvement in serum calcium and now down to 9.3. Had a FNA and supraclavicular lymph node biopsy but the pathology came back as inconclusive although clinically there is concern for sarcoidosis. Now waiting for possible ?EBUS for further evaluation. She has been having off-and-on hypercalcemia for last 1 year, outpatient workup showed non-PTH mediated hypercalcemia and other workup was unremarkable. Advised to have CT chest abdomen pelvis in March 2024 but she wanted to wait until June 2024. She also had weight loss of more than 25 pounds over last 6 months. Kidney function relatively stable, ca normalized. BP fair, volume status acceptable. --Waiting for short-term rehab Discharge vs going home Admission and Anticipated Discharge Date Admission Date: July 21, 2024 Cali Hatch was seen and evaluated this morning. She reports overall feeling well, denied any other specific symptoms. Had EBUS yesterday, now mainly waiting for rehab discharge however she feels like she is able to ambulate better and if rehab does not work out, she is open to going home. Blood pressure decent. Kidney function staying relatively stable, Calcium normalized. Review of Systems Review of Systems: Detail review of system was done and pertinent positives and negatives are mentioned above. Physical Exam Constitutional: WD/WN, vitals as above no acute distress Eyes: + anicteric sclerae Neck: normal visual inspection Respiratory: Auscultation: lungs clear to auscultation bilaterally Cardiovascular: RRR, no murmur, no edema Skin: no rashes, warm and dry Neurologic: no focal motor deficits Psychiatric: Orientation: alert and oriented x 3 Results & Data Vital Signs (Past 12 Hours) Vital Signs Temp Pulse Pulse Resp BP Pulse Ox O2 Del Method 07/31/24 10:20 71 07/31/24 09:26 Room Air 07/31/24 07:55 36.3 C L 73 18 108/72 98 Room Air 07/31/24 03:58 37.1 C 69 20 133/73 94 Nasal Cannula 07/30/24 22:45 36.6 C 82 20 115/66 97 Nasal Cannula O2 Flow Rate 07/31/24 10:20 07/31/24 09:26 07/31/24 07:55 07/31/24 03:58 1 07/30/24 22:45 2 PG Care Time/CCT Total # of Minutes Spent Total Time Spent with Patient: Total time spent is greater than 50% in coordination of care (as documented) at patient's floor/unit and/or counseling patient: Coding Level of Care Code 99237 SUB INP/OBS CARE 07/06MIN Diagnoses Acute kidney injury N17.9 Hypercalcemia E83.52 Mediastinal adenopathy R59.0 Stage 3b chronic kidney disease N18.32 Weight loss, abnormal R63.4 Hypertension I10 Diabetes mellitus E11.9
--- NOTE | 2024-07-31 10:53 | XCELERA ---
[id number]
--- NOTE | 2024-07-31 12:18 | Pulmonology Progress Note ---
Date of Service July 31, 2024 Assessment & Plan (1) Mediastinal adenopathy: (2) Hypercalcemia: Plan Possible sarcoidosis versus other disorders such as lymphoproliferative disease. EBUS attempted 07/30/2024, but few samples from subcarinal lymph node were obtained as there were technical difficulties with the EBUS scope losing connectivity. We then transitioned to transbronchial biopsies of the right upper lobe, but she had significant bleeding and were only able to take 2 forcep biopsies. On the biopsy samples obtained, no granulomas were identified. CD4- CD8 ratio from BAL fluid is still pending. Patient stable for discharge home at this point. Would recommend holding her Eliquis until Monday and monitoring for signs of hemoptysis. Consider referral to thoracic surgery as an outpatient to undergo mediastinoscopy for lymph node resection. Will defer long-term management of hypercalcemia to nephrology and primary service. Thank you for the consult. Please call with questions. Admission and Anticipated Discharge Date Admission Date: July 21, 2024 Subjective Patient seen and examined. Notes she had mild hemoptysis overnight, but no evidence of hemoptysis this morning. Feeling well overall. Tolerating her diet. Denies chest pain, fevers, chills or night sweats. Saturating well on room air. Review of Systems Review of Systems: All systems reviewed & are unremarkable except as noted in HPI & below Physical Exam Constitutional: WD/WN, vitals as above Neck: trachea midline, no thyromegaly Respiratory: normal respiratory effort, lungs clear to auscultation Cardiovascular: RRR, no murmur, no edema Gastrointestinal (Abdomen): normal bowel sounds, soft, nontender, no hepatosplenomegaly Musculoskeletal: Extremities: extremities normal to inspection Skin: no rashes, warm and dry Lymphatic: no cervical lymphadenopathy Results & Data Results & Data Vital Signs (Past 12 Hours) Vital Signs Temp Pulse Pulse Resp BP Pulse Ox O2 Del Method 07/31/24 10:20 71 07/31/24 09:26 Room Air 07/31/24 07:55 36.3 C L 73 18 108/72 98 Room Air 07/31/24 03:58 37.1 C 69 20 133/73 94 Nasal Cannula O2 Flow Rate 07/31/24 10:20 07/31/24 09:26 07/31/24 07:55 07/31/24 03:58 1 PG Care Time/CCT Total # of Minutes Spent Total Time Spent with Patient: Total time spent is greater than 50% in coordination of care (as documented) at patient's floor/unit and/or counseling patient: Coding Level of Care Code 01746 SUB INP/OBS CARE 2MIN Diagnoses Mediastinal adenopathy R59.0 Hypercalcemia E83.52
[2024-07-31 15:11] VITALS: PULSE 86; RESP 18; TEMP 98.1; O2SAT 96
[2024-07-31 16:24] VITALS: BP 116/54
== END 2024-07-31 18:28 | disposition home health service (06) | DRG 628 ==
LOC: ED 06:28 → SUATTDRO 09:40 → 2W 09:40 → 2E 07-30 15:51

== ENCOUNTER 2024-08-02 17:42 | Inpatient (IN) ==
--- NOTE | 2024-08-02 18:56 | Emergency Department Note ---
Impression & Plan Sepsis, Acute hypotension, Multifocal pneumonia ED Provider Note NAME: BERT QUINTANILLA AGE: 74 SEX: F : 1950 ARRIVES VIA: Walk-In INFORMANT: Patient ED PROVIDER(S): Rufino Celaya DO CHIEF COMPLAINT: Coughing up blood, short of breath and weak HPI: Patient is a 74-year-old female with a past medical history of diabetes, A- fib, hypertension hyperlipidemia, CKD who presents to the ER following admission for 11 days per the who is present at bedside to provide additional history. Patient notes that she feels real weak and rundown. Admits to several seconds of left-sided chest pain on the left chest wall. Shortness of breath is present. Denies any belly pain, nausea, vomiting, or diarrhea. No dysuria, urgency, or frequency. No other exacerbating or remitting factors. ADDITIONAL HISTORY OBTAINED: Per HPI Chronic Medical/Social Conditions Affecting Care: Per HPI PAST MEDICAL HISTORY:See Below PAST SURGICAL HISTORY:See Below FAMILY HISTORY:See Below SOCIAL HISTORY:See Below HOME MEDICATIONS:See Below ALLERGIES:See Below VITALS:See Below PHYSICAL EXAMINATION: GENERAL: Sitting up in bed, alert, well appearing, well nourished, no distress, non-toxic EYE EXAM: normal conjunctiva. PERRL and EOM's grossly intact. OROPHARYNX: no exudate, no erythema, lips, buccal mucosa, and tongue normal and mucous membranes are moist NECK: supple, no nuchal rigidity, no adenopathy, non-tender LUNGS: Clear to auscultation. Normal chest wall mechanics HEART: no murmurs, S1 normal and S2 normal ABDOMEN: abdomen soft, non-tender, normo-active bowel sounds, no masses, no rebound or guarding. UPPER EXTREMITIES: upper extremities are grossly normal. LOWER EXTREMITIES: No pitting edema. NEURO EXAM: Normal sensorium, cranial nerves II-XII grossly intact, normal speech, no gross weakness of arms, no gross weakness of legs. MEDICAL DECISION MAKING: Patient is a 74-year-old female who presents to the ER for the above-stated complaint. IV was established and blood work was obtained. Upon arrival patient was found to be hypotensive with systolics in the 80s with a heart rate in the 120s. IVs were established and blood work are obtained. She was given 2 L of normal saline consistent with 30 cc/kg for sepsis resuscitation. She was given IV antibiotics which included cefepime. Labs showed mild leukocytosis 11.7. No significant anemia. BMP with creatinine 1.4. LFTs and bilirubin were unremarkable. Pro-Dexter was normal. Viral panel testing was negative. CTA of the chest and neck suggest a multifocal pneumonia and gas around the recent biopsy. Patient was discussed with Dr. Munguia for further evaluation management treatment. Please see their documentation for further details. Consults/Care Managements Discussions: Per [facility] Triage Nursing notes reviewed. Limited review of prior medical records performed Vital Signs: reviewed and remarkable for hypotensive and tachycardic Differential diagnosis: Differential diagnosis includes etiologies such as sepsis, UTI, pneumonia, metabolic, electrolyte abnormalities, cardiac sources, intracerebral event, toxicologic, neurological, as well as others were entertained. ER treatment provided: See below Diagnostics interpreted by me include EKG and cardiac monitoring as listed below: -Cardiac Monitoring: An order was placed for continuous cardiac monitoring. The monitor shows a rate of 101 with AFIB rhythm. -ECG: A-fib RVR rate of 103 Normal axis No PVCs QTc 468 -Laboratory studies:Interpreted by me as stated above in MDM and shown below. Imaging studies: Xrays: As interpreted by me: Portable AP upright 1 view of the chest shows left lower lobe infiltrate CTs show: CTA of the neck and chest shows multifocal pneumonia Procedures:none Critical Care: I have personally spent 35 minutes of critical care time in the direct management of this patient. This includes bedside care, interpretation of diagnostic studies, and testing, discussion with consultants, patient, and family members, and other required patient management activities. This 35 minutes is in excess of all separately billable procedures. Past Med/Surg History Problem List (Updated 08/03/24 @ 00:36 by Rufino Celaya DO) Multifocal pneumonia (Acute) Acute hypotension (Acute) Sepsis (Acute) Hemarthrosis, left knee Mediastinal adenopathy Confusion Thickened endometrium Left ankle pain Knee osteoarthritis Subluxation of left patella (Acute) Anticoagulated (Acute) Chronic renal insufficiency (Acute) Fall (Acute) Hypercalcemia (Acute) Left leg weakness (Acute) Left knee dislocation Fall Acute kidney injury Weight loss, abnormal Anxiety Depression Stage 3b chronic kidney disease Hypercalcemia Heart murmur Vitamin D insufficiency Atrial fibrillation Diabetes mellitus Hypertension Urinary incontinence Hyperlipidemia Medical History Anorexia Fatigue Cough Surgical History H/O elbow surgery L elbow Family History Mother Breast cancer Alcoholic Dementia Father Skin cancer Diabetes Grandmother (Paternal) Breast cancer Denies family history of Ovarian cancer Prostate cancer Myocardial infarction Colorectal cancer Social History Smoking Status: Never smoker Second Hand Exposure: No; Do You Dip or Chew Tobacco: No; Hx Alcohol Use: No Hx Substance Use: No Preferred Language: Irish Communication Ability: Effective Visual Impairment: No Limitations Hearing Ability: Normal C2 Tactical Analysis Technician Required: No Beliefs That Will Affect Care: Mandaeism Mandaeism Beliefs: yazdanism marital status: Current Living Situation: Spouse current occupational status: retired current occupation: [employer] How many Children do You have: 1 Feels Safe at Home: Yes Childhood Exposure to Second-Hand Smoke: Yes Diet: regular caffeine: Yes during the past year weight has: remained stable Dental Care, Regularly: Yes Physical Activity Frequency: Does not Exercise Seatbelt Use: always Sunscreen Use: Yes Assistive Devices: Cane and Walker Allergies Allergies Allergy/AdvReac Type Severity Reaction Status Date / Time No Known Allergies Allergy Verified 08/02/24 20:20 Home Meds Home Medications Medication Instructions Recorded Confirmed insulin detemir U-100 100 unit/mL 50 unit subcut DAILY 08/01/24 08/02/24 (3 mL) subcutaneous pen Previous Rx's Medication Instructions Recorded flash glucose sensor (FreeStyle #1 ea 07/12/21 Darell 14 Day Sensor kit) pen needle, diabetic 32 gauge x #100 ea 04/24/23" (BD Ultra-Fine Isha Pen Needle) fluoxetine 40 mg capsule 40 mg PO DAILY #90 caps 05/23/23 glipizide 10 mg tablet, extended 10 mg PO DAILY #90 tabs 05/23/23 release 24 hr metoprolol succinate 50 mg 25 mg (1/2 x 50 mg) PO DAILY 90 05/23/23 tablet,extended release 24 hr days #45 tabs pravastatin 20 mg tablet 20 mg PO DAILY #90 tabs 05/23/23 apixaban 5 mg tablet (Eliquis) 5 mg PO BID #180 tabs 04/15/24 omeprazole 20 mg capsule,delayed 20 mg PO DAILY #90 caps 07/18/24 release losartan 50 mg tablet 50 mg PO DAILY #90 tabs 07/19/24 Results & Data (ED) Vital Signs Vital Signs - 24 hr 08/02/24 18:21 08/02/24 18:31 08/02/24 18:36 Temperature 36.7 C Temperature Source Oral Pulse Rate 118 H 92 H 92 H Pulse Rate [Right Finger] Pulse Rhythm Irregular Respiratory Rate 18 18 Blood Pressure 89/49 L Blood Pressure [Left Arm] Blood Pressure Mean 62 Blood Pressure Mean [Left Arm] Pulse Oximetry 94 94 Oxygen Delivery Method Room Air Room Air Sepsis Recent Fever Within 48 Hours No Sepsis New/Unexplained Change in Mental Status N/A Sepsis Action Taken by Nursing Physician Notified 08/02/24 20:10 08/02/24 20:15 Temperature Temperature Source Pulse Rate Pulse Rate [Right Finger] 86 90 Pulse Rhythm Respiratory Rate 18 22 Blood Pressure Blood Pressure [Left Arm] 107/79 111/55 L Blood Pressure Mean Blood Pressure Mean [Left Arm] 88 73 Pulse Oximetry 97 95 Oxygen Delivery Method Room Air Sepsis Recent Fever Within 48 Hours Sepsis New/Unexplained Change in Mental Status Sepsis Action Taken by Nursing Laboratory Data 08/02/24 18:55 08/02/24 18:55 Lab Results 08/02/24 08/02/24 08/02/24 Range/Units 18:55 19:13 19:48 WBC 11.79 H (4.8-10.8) K/ul RBC 3.92 L (4.20-5.40) M/uL Hgb 10.5 L (12.0-16.0) g/dl POC Hgb 11.2 L (12.0-16.0) g/dl Hct 33.3 L (37.0-47.0) % POC Hct 33 L (37-47) % MCV 84.9 (80.0-100.0) fL MCH 26.8 (25.0-34.0) pg MCHC 31.5 L (32.0-36.0) g/dL RDW Std Deviation 49.5 H (36.4-46.3) fL RDW Coeff of Krista 16.1 H (11.5-14.5) % Plt Count 200 (130-400) K/uL MPV 11.1 (9.4-12.4) fL Immature Gran % (Auto) 0.7 % Neut % (Auto) 80.4 % Lymph % (Auto) 7.5 % [place] % (Auto) 9.6 % Eos % (Auto) 1.4 % Baso % (Auto) 0.4 % Neut # (Auto) 9.49 H (1.40-6.50) K/uL Lymph # (Auto) 0.88 L (1.20-3.40) K/uL [place] # (Auto) 1.13 H (0.11-0.59) K/uL Eos # (Auto) 0.16 (0.00-0.50) K/uL Baso # (Auto) 0.05 (0.00-0.20) K/uL Immature Gran # (Auto) 0.08 (0.01-0.20) K/uL Platelet Estimate Normal (Normal) POC Sodium 135 (135-144) mmol/L Sodium 135 L (136-145) mmol/L POC Potassium 4.6 (3.3-5.0) mmol/L Potassium 4.5 (3.5-5.1) mmol/L POC Chloride 100 L (101-112) mmol/L Chloride 102 (98-107) mmol/L Carbon Dioxide 27 (21-32) mmol/L POC Total CO2 25 (24-31) mmol/L Anion Gap 6 (3-11) POC Anion Gap 15.0 L (16-25) mmol/L POC BUN 26 H (7-18) mg/dl BUN 26 H (6-23) mg/dl Creatinine 1.43 H (0.6-1.2) mg/dl POC Creatinine 1.7 H (0.6-1.3) mg/dl Est Cr Clr Drug Dosing Not Reportable eGFR 38.25 BUN/Creatinine Ratio 18.2 (10-20) Glucose 158 H (70-99(Fasting)) mg/dl POC Glucose (other) 162 H (70-99) mg/dl Lactate 1.5 (0.4-2.0) mmol/L Calcium 8.9 (8.6-10.3) mg/dl POC Ioniz Calcium Pato 1.14 (1.12-1.32) mmol/l Magnesium 1.7 (1.7-2.4) mg/dl Total Bilirubin 1.1 H (0.2-1.0) mg/dl Direct Bilirubin 0.2 (0-0.2) mg/dl AST 18 (13-39) U/L ALT 10 (7-52) U/L Alkaline Phosphatase 57 (34-104) U/L Troponin I High Sens 2.4 (0-14) pg/ml Total Protein 7.0 (6.0-8.3) gm/dl Albumin 3.5 (3.4-5.0) gm/dl Procalcitonin 0.10 (0-0.5) ng/ml Adenovirus (PCR) Not Detected (NotDetected) B. pertussis DNA (PCR) Not Detected (NotDetected) B.parapertussis DNA PCR Not Detected (NotDetected) C. pneumoniae DNA (PCR) Not Detected (NotDetected) Coronavirus OC43 (PCR) Not Detected (NotDetected) Coronavirus HKU1 (PCR) Not Detected (NotDetected) Coronavirus 229E (PCR) Not Detected (NotDetected) SARS-CoV-2 (PCR) Not Detected (NotDetected) Coronavirus NL63 (PCR) Not Detected (NotDetected) Human Metapneumovir PCR Not Detected (NotDetected) Influenza Type A (PCR) Not Detected (NotDetected) Influenza Type B (PCR) Not Detected (NotDetected) M. pneumoniae (PCR) Not Detected (NotDetected) Parainfluenza 1 (PCR) Not Detected (NotDetected) Parainfluenza 2 (PCR) Not Detected (NotDetected) Parainfluenza 3 (PCR) Not Detected (NotDetected) Parainfluenza 4 (PCR) Not Detected (NotDetected) RSV (PCR) Not Detected (NotDetected) Entero/Rhino (PCR) Not Detected (NotDetected) Administered Medications Apixaban (Apixaban 5 Mg Tablet) 5 mg PO BID [facility] Stop: 09/01/24 21:42 Last Admin: 08/02/24 22:57 Dose: Not Given Documented By: CTK Guaifenesin (Guaifenesin 600 Mg Tabcr) 600 mg PO Q12 LESTER Stop: 09/01/24 21:42 Last Admin: 08/02/24 22:53 Dose: 600 mg Documented By: CTK Discontinued Medications Sodium Chloride (Nss) 1,000 mls @ 999 mls/hr IV .Q1H1M ONE Stop: 08/02/24 19:31 Last Infusion: 08/02/24 21:35 Dose: Infused Documented By: Admin: 08/02/24 20:18 Dose: 999 mls/hr Documented By: CTK Sodium Chloride (Nss) 1,000 mls @ 999 mls/hr IV .Q1H1M ONE Stop: 08/02/24 19:52 Last Infusion: 08/02/24 22:40 Dose: Infused Documented By: Admin: 08/02/24 21:36 Dose: 999 mls/hr Documented By: SUJATHAK Ceftriaxone Sodium (Rocephin) 2,000 mg in 50 mls @ 100 mls/hr IV NOW STA Stop: 08/02/24 19:21 Last Admin: 08/02/24 20:25 Dose: Not Given Documented By: SUJATHAK Cefepime HCl (Maxipime 2000mg) 2,000 mg in 20 mls @ 5 mls/min IV NOW STA; Protocol Stop: 08/02/24 20:16 Last Admin: 08/02/24 20:24 Dose: 5 mls/min Documented By: SUJATHAK Insulin Aspart (Insulin Aspart Per Unit Charge) 0 units SC .EXTRA DOSE ONE Stop: 08/02/24 22:46 Last Admin: 08/02/24 23:04 Dose: Not Given Documented By: ZAK Co-signed By: PAZ Ioversol (Optiray 320 125ml) 115 ml IV ONCE ONE Stop: 08/02/24 20:03 Last Admin: 08/02/24 20:04 Dose: 115 ml Documented By: MAYRA Imaging Data Radiologist's Impression: Chest X-Ray 08/02/24 18:31 EXAM: Portable AP chest radiograph TECHNIQUE: AP portable radiograph of the chest was obtained. INDICATION: Shortness of breath Comparison: Chest radiograph July 30, 2024. FINDINGS: LINES and TUBES: None CARDIOVASCULAR: Cardiac silhouette is stably enlarged in size. LUNGS/PLEURA: Mild pulmonary vascular congestion. Interval improvement of the right upper lobe pulmonary density with residual patchy densities present in this area. Interval worsening of left basilar density. Similar mild elevation of the left hemidiaphragm. No significant pleural fluid. No discernible pneumothorax. OSSEOUS/OTHER: No displaced acute osseous process identified. IMPRESSION: Interval increase in the left basilar density that may represent worsening pneumonia. Interval improvement of the right upper lobe airspace density with residual disease. Electronically signed by Julio Awad 08-02-2024 7:[address] 08/02/24 18:51 Exam(s): CT C SPINE EXAM: CT Cervical Spine Without Intravenous Contrast CLINICAL HISTORY: Coughing up blood status post biopsy of the right. TECHNIQUE: Axial computed tomography images of the cervical spine without intravenous contrast. CTDI is 20.2 mGy and DLP is 466.09 mGy-cm. Automated exposure control was utilized for the study. A dose lowering technique was utilized adhering to the principles of ALARA. COMPARISON: No relevant prior studies available. FINDINGS: Vertebrae: The vertebral bodies are intact without acute osseous traumatic injury. No anterolisthesis or retrolisthesis is identified. The facet joints are well aligned without subluxation or dislocation. The pedicles, transverse processes and spinous processes are intact. Discs/spinal canal/neural foramina: No acute findings. No osseous spinal canal stenosis. Soft tissues: There is gas tracking along the prevertebral soft tissues, extending inferiorly below the thoracic inlet surrounding the esophagus with scattered gas also noted extending laterally to the right supraclavicular region. No well-defined hematoma or significant soft tissue fat stranding. Lung apices: The included lung apices demonstrate no evidence for acute traumatic injury. IMPRESSION: There is gas tracking along the prevertebral soft tissues, extending inferiorly below the thoracic inlet surrounding the esophagus with scattered gas also noted extending laterally to the right supraclavicular region. No well-defined hematoma or significant soft tissue fat stranding. Electronically signed by: Rakan Valera MD 08/02/24 21:04 PM Chest CTA 08/02/24 18:51 Exam(s): CTA CHEST IV Amt: 115 ml optiray 320 EXAM: CT Angiography Chest With Intravenous Contrast CLINICAL HISTORY: PE coughing up blood status post biopsy of neck. TECHNIQUE: Axial computed tomographic angiography images of the chest with intravenous contrast. CTDI is 28.14 mGy and DLP is 1422.07 mGy-cm. Automated exposure control was utilized for the study. A dose lowering technique was utilized adhering to the principles of ALARA. MIP reconstructed images were created and reviewed. COMPARISON: CT chest without contrast dated 07/22/2024 FINDINGS: Pulmonary arteries: No evidence for pulmonary embolism. Aorta: The thoracic aorta is normal in caliber. No dissection or aneurysm. Lungs: Patchy ground-glass opacities throughout both upper lobes there is more consolidative changes in the left anterior basal segment with similar patchy opacities throughout the remaining left lower lobe and along the posterior medial right middle lobe. Pleural space: The previously noted left pleural effusion is smaller in size but persists, now measuring approximately 1.5 cm. The previously noted right pleural effusion has resolved. No loculation. No pneumothorax. Heart: The cardiac chambers are normal metastases with slight asymmetric prominence of the atria. Calcification of the aortic valve is noted. Mild LAD calcification noted. Bones/joints: No acute fracture. No dislocation. Soft tissues: Unremarkable. Lymph nodes: Similar paratracheal lymphadenopathy. IMPRESSION: 1. No evidence for pulmonary embolism. 2. Patchy ground-glass opacities throughout both upper lobes there is more consolidative changes in the left anterior basal segment with similar patchy opacities throughout the remaining left lower lobe and along the posterior medial right middle lobe. Findings are most consistent with multifocal pneumonia. While this appearance may be seen with pulmonary hemorrhage, spontaneous multifocal involvement is unlikely. 3. The previously noted left pleural effusion is smaller in size but persists, now measuring approximately 1.5 cm. The previously noted right pleural effusion has resolved. No loculation. Electronically signed by: Rakan Valera MD 08/02/24 20:52 PM Discharge Plan Visit Data Chief Complaint: Flu Like Symptoms Stated Complaint: COUGH, CONGEATION , WEAK , SOB ED Provider: Rufino Celaya Discharge Problem: Sepsis, Acute hypotension, Multifocal pneumonia Patient Disposition: Admitted As Inpatient Discharge Instructions Interventions: ED Discharge Assessment Last Done: 08/02/24 21:43 Discharge Problem: Sepsis Qualifiers: Sepsis type: sepsis due to unspecified organism Sepsis acute organ dysfunction status: unspecified Qualified Code(s): A41.9 - Sepsis, unspecified organism
[2024-08-02 19:25] LABS: iSTAT Creatinine 1.7 mg/dl (0.6-1.3); iSTAT Hemoglobin 11.2 g/dl (12.0-16.0); iSTAT Ionized Calcium 1.14 mmol/l (1.12-1.32); iSTAT Potassium 4.6 mmol/L (3.3-5.0)
--- NOTE | 2024-08-02 19:26 | XRay Report ---
EXAM: Portable AP chest radiograph TECHNIQUE: AP portable radiograph of the chest was obtained. INDICATION: Shortness of breath Comparison: Chest radiograph July 30, 2024. FINDINGS: LINES and TUBES: None CARDIOVASCULAR: Cardiac silhouette is stably enlarged in size. LUNGS/PLEURA: Mild pulmonary vascular congestion. Interval improvement of the right upper lobe pulmonary density with residual patchy densities present in this area. Interval worsening of left basilar density. Similar mild elevation of the left hemidiaphragm. No significant pleural fluid. No discernible pneumothorax. OSSEOUS/OTHER: No displaced acute osseous process identified. IMPRESSION: Interval increase in the left basilar density that may represent worsening pneumonia. Interval improvement of the right upper lobe airspace density with residual disease. Electronically signed by Julio Awad 08-02-2024 7:26 PM
[2024-08-02 19:33] LABS: Hematocrit (blood only) 33.3 % (37.0-47.0); Hemoglobin 10.5 g/dl (12.0-16.0); White Blood Count 11.79 K/ul (4.8-10.8)
[2024-08-02 19:34] LABS: Mean Corpuscular Hemoglobin 26.8 pg (25.0-34.0); Mean Corpuscular Hgb Conc 31.5 g/dL (32.0-36.0); Mean Corpuscular Volume 84.9 fL (80.0-100.0); RDW Coefficient of Variation 16.1 % (11.5-14.5); RDW Standard Deviation 49.5 fL (36.4-46.3); Red Blood Count 3.92 M/uL (4.20-5.40)
[2024-08-02 19:42] LABS: Alanine Aminotransferase 10 U/L (7-52); Albumin Level 3.5 gm/dl (3.4-5.0); Alkaline Phosphatase 57 U/L (34-104); Anion Gap 6 (3-11); Aspartate Aminotransferase 18 U/L (13-39); BUN Creatinine Ratio 18.2 (10-20); Bilirubin Direct 0.2 mg/dl (0-0.2); Bilirubin,Total 1.1 mg/dl (0.2-1.0); Blood Urea Nitrogen 26 mg/dl (6-23); Calcium 8.9 mg/dl (8.6-10.3); Carbon Dioxide 27 mmol/L (21-32); Chloride 102 mmol/L (98-107); Glucose 158 mg/dl (70-99(Fasting)); Magnesium 1.7 mg/dl (1.7-2.4); Potassium 4.5 mmol/L (3.5-5.1); Sodium 135 mmol/L (136-145)
[2024-08-02 19:48] LABS: Troponin I High Sensitivity 2.4 pg/ml (0-14)
[2024-08-02 19:55] LABS: Basophils # (auto) 0.05 K/uL (0.00-0.20); Basophils % (auto) 0.4 %; Eosinophils # (auto) 0.16 K/uL (0.00-0.50); Eosinophils % (auto) 1.4 %; Immature Granulocytes # (auto) 0.08 K/uL (0.01-0.20); Immature Granulocytes % (auto) 0.7 %; Lymphocytes # (auto) 0.88 K/uL (1.20-3.40); Lymphocytes % (auto) 7.5 %; Mean Platelet Volume 11.1 fL (9.4-12.4); Monocytes # (auto) 1.13 K/uL (0.11-0.59); Monocytes % (auto) 9.6 %; Neutrophils # (auto) 9.49 K/uL (1.40-6.50); Neutrophils % (auto) 80.4 %; Platelet Count 200 K/uL (130-400); Platelet Estimate Normal (Normal)
[2024-08-02] MEDS: OPTIRAY 320 125ml IV ONE (20:04)
[2024-08-02] MEDS: SODIUM CHLORIDE 0.9% 1,000 ML IV ONE ×2 (20:18→21:36)
[2024-08-02] MEDS: CEFEPIME 2000MG 2,000 MG/20 ML SYR IV STA (20:24)
[2024-08-02] MEDS: cefTRIAXone SODIUM 2,000 MG/50 ML BAG IV STA (20:25)
--- NOTE | 2024-08-02 20:35 | History & Physical Report ---
Date of Service August 02, 2024 Assessment & Plan (1) Multifocal pneumonia: (2) Sepsis: (3) Acute on chronic respiratory failure with hypoxia: (4) Hemoptysis: (5) History of hypercalcemia: (6) Stage 3b chronic kidney disease: Plan The patient is a 74-year-old female with a past medical history including CKD stage IIIb, atrial fibrillation, diabetes mellitus, hypertension, urinary incontinence, hypercalcemia, anxiety with depression,, and hyperlipidemia. She was most recently admitted to [facility] from 07/21-07/31/2024, for hypercalcemia of 13.3, and during that admission, underwent a flexible fiberoptic bronchoscopy with EBUS bronchial washings and transbronchial biopsy on 07/30/2024. Concern at that time was evaluation for possible sarcoidosis, malignancy or other etiologies of bilateral mediastinal adenopathy and breathing difficulties. Her reports that she has been having gradually worsening shortness of breath since discharge, and with the onset of more significant coughing as noted, she was brought to the emergency department for evaluation. In the emergency department, in addition to being hypoxic, her blood pressure did drop to a low of 89/49, which did respond to some IV fluid rehydration. Chest x-ray and CT scan were noted to be improved in the right upper lobe, but worse in the left lower lobe. She was then referred for evaluation to [facility] hospitalist service for admission. #Sepsis due to multifocal pneumonia/hemoptysis/status post fiberoptic bronchoscopy with EBUS- MRSA swab Right upper lobe improved, left lower lobe worse on imaging Placed on cefepime 2 g IV every 12 hours Oxygen supplementation to pulse ox goal range 92-94% Duonebs every 4 hours while awake and every 2 hours when necessary. Respiratory BioFire testing negative Consult pulmonology Dr. Schmidt #Atrial fibrillation/hypertension/severe aortic stenosis- Most recent echo on 07/31/2024 with EF 55-60%, and severe aortic stenosis Temporarily holding apixaban while having hemoptysis #CKD/hypotension- Temporarily holding losartan BP improved after 2 L normal saline bolus in the ED Continue metoprolol succinate with hold parameters Creatinine 1.43, with most recent 1.70 Chronic medical conditions: Hyperlipidemia-pravastatin GERD-omeprazole Diabetes mellitus-on insulin detemir 50 units subcu daily. Hold glipizide pharmacy glycemic consult Anxiety with depression-fluoxetine History of Present Illness Chief Complaint: The patient presents to the emergency department with complaint of shortness of breath, progression of generalized weakness, cough productive intermittently of blood and mucus, worsening since being discharged from the hospital on 07/31/2024. Primary Care Provider: Valentina Price DO The patient is a 74-year-old female with a past medical history including CKD stage IIIb, atrial fibrillation, diabetes mellitus, hypertension, urinary incontinence, hypercalcemia, anxiety with depression,, and hyperlipidemia. She was most recently admitted to [facility] from 07/21-07/31/2024, for hypercalcemia of 13.3, and during that admission, underwent a flexible fiberoptic bronchoscopy with EBUS bronchial washings and transbronchial biopsy on 07/30/2024. Concern at that time was evaluation for possible sarcoidosis, malignancy or other etiologies of bilateral mediastinal adenopathy and breathing difficulties. Her reports that she has been having gradually worsening shortness of breath since discharge, and with the onset of more significant coughing as noted, she was brought to the emergency department for evaluation. In the emergency department, in addition to being hypoxic, her blood pressure did drop to a low of 89/49, which did respond to some IV fluid rehydration. Chest x-ray and CT scan were noted to be improved in the right upper lobe, but worse in the left lower lobe. She was then referred for evaluation to [facility] hospitalist service for admission. Allergies Allergy/AdvReac Type Severity Reaction Status Date / Time No Known Allergies Allergy Verified 08/02/24 20:20 Home Medications Medication Instructions Recorded Confirmed Type flash glucose sensor (FreeStyle #1 ea 07/12/21 08/01/24 Rx Darell 14 Day Sensor kit) pen needle, diabetic 32 gauge x #100 ea 04/24/23 08/01/24 Rx 5/32" (BD Ultra-Fine Isha Pen Needle) fluoxetine 40 mg capsule 40 mg PO DAILY #90 caps 05/23/23 08/02/24 Rx glipizide 10 mg tablet, extended 10 mg PO DAILY #90 tabs 05/23/23 08/02/24 Rx release 24 hr metoprolol succinate 50 mg 25 mg (1/2 x 50 mg) PO DAILY 90 05/23/23 08/02/24 Rx tablet,extended release 24 hr days #45 tabs pravastatin 20 mg tablet 20 mg PO DAILY #90 tabs 05/23/23 08/02/24 Rx apixaban 5 mg tablet (Eliquis) 5 mg PO BID #180 tabs 04/15/24 08/02/24 Rx omeprazole 20 mg capsule,delayed 20 mg PO DAILY #90 caps 07/18/24 08/02/24 Rx release losartan 50 mg tablet 50 mg PO DAILY #90 tabs 07/19/24 08/02/24 Rx insulin detemir U-100 100 unit/mL 50 unit subcut DAILY 08/01/24 08/02/24 History (3 mL) subcutaneous pen Past Med/Surg History Problem List (Updated 08/03/24 @ 01:02 by Atul Grider MD) History of hypercalcemia Hemoptysis Acute on chronic respiratory failure with hypoxia Multifocal pneumonia (Acute) Acute hypotension (Acute) Sepsis (Acute) Hemarthrosis, left knee Mediastinal adenopathy Confusion Thickened endometrium Left ankle pain Knee osteoarthritis Subluxation of left patella (Acute) Anticoagulated (Acute) Chronic renal insufficiency (Acute) Fall (Acute) Hypercalcemia (Acute) Left leg weakness (Acute) Left knee dislocation Fall Acute kidney injury Weight loss, abnormal Anxiety Depression Stage 3b chronic kidney disease Hypercalcemia Heart murmur Vitamin D insufficiency Atrial fibrillation Diabetes mellitus Hypertension Urinary incontinence Hyperlipidemia Medical History Anorexia Fatigue Cough Surgical History H/O elbow surgery L elbow Family History Mother Breast cancer Alcoholic Dementia Father Skin cancer Diabetes Grandmother (Paternal) Breast cancer Denies family history of Ovarian cancer Prostate cancer Myocardial infarction Colorectal cancer Social History Smoking Status: Never smoker Second Hand Exposure: No; Do You Dip or Chew Tobacco: No; Hx Alcohol Use: No Hx Substance Use: No Preferred Language: [place] Communication Ability: Effective Visual Impairment: No Limitations Hearing Ability: Normal Geospatial Technologist Required: No Beliefs That Will Affect Care: None marital status: Current Living Situation: Spouse and Family current occupational status: retired current occupation: [employer] How many Children do You have: 1 Feels Safe at Home: Yes Safety Concerns: Feels Safe At This Time Childhood Exposure to Second-Hand Smoke: Yes Diet: regular caffeine: Yes during the past year weight has: remained stable Dental Care, Regularly: Yes Physical Activity Frequency: Does not Exercise Seatbelt Use: always Sunscreen Use: Yes Assistive Devices: Cane and Walker Review of Systems Review of Systems: The patient denies chest pain, palpitations, lower extremity swelling, sore throat, fevers, chills, sweats, weight change, fatigue, nausea, vomiting, diarrhea , constipation, abdominal pain, pelvic pain, blood in urine or stool, dysuria, urinary frequency or urgency, lightheadedness, dizziness, headache, memory loss, loss of consciousness, imbalance, focal or generalized weakness, numbness or tingling in arms or legs, generalized arthralgias or myalgias, back or neck pain, or night sweats. The review of systems is otherwise negative other than for that already noted a willy, and at least 10 systems have been reviewed. Physical Exam Physical Exam: The patient is awake, alert and oriented 3, well developed and well nourished, normocephalic and atraumatic, lying in bed and in no acute distress. HEENT--PERRL, EOMI, mucous membranes and oropharynx dry. Neck--supple. No JVD. No bruits. Thyroid normal, trachea midline, no adenopathy. Heart--normal S1 and S2. No murmurs, rubs or gallops. Lungs-coarse breath sounds bilaterally worse at left base. No respiratory dist ress, no accessory muscle use. Abdomen--normal bowel sounds and soft. Nontender. Nondistended, no hernias or masses, no organomegaly. Extremities--no cyanosis or clubbing. No edema. Dermatologic--normal skin turgor, normal color, no abnormal lymph nodes, no rash. Neurologic--cranial nerves II through XII grossly intact. Rheumatologic--normal range of motion. Psychiatric--normal affect. Results & Data Results & Data Vital Signs (Past 12 Hours) Vital Signs Temp Pulse Pulse Resp BP BP Pulse Ox 08/02/24 20:15 90 22 111/55 L 95 08/02/24 20:10 86 18 107/79 97 08/02/24 18:36 92 H 08/02/24 18:31 92 H 18 94 08/02/24 18:21 36.7 C 118 H 18 89/49 L 94 O2 Del Method 08/02/24 20:15 Room Air 08/02/24 20:10 08/02/24 18:36 08/02/24 18:31 Room Air 08/02/24 18:21 Room Air Laboratory Results Laboratory Results WBC 11.79 K/ul (4.8-10.8) H 08/02/24 18:55 RBC 3.92 M/uL (4.20-5.40) L 08/02/24 18:55 Hgb 10.5 g/dl (12.0-16.0) L 08/02/24 18:55 POC Hgb 11.2 g/dl (12.0-16.0) L 08/02/24 19:13 Hct 33.3 % (37.0-47.0) L 08/02/24 18:55 POC Hct 33 % (37-47) L 08/02/24 19:13 MCV 84.9 fL (80.0-100.0) 08/02/24 18:55 MCH 26.8 pg (25.0-34.0) 08/02/24 18:55 MCHC 31.5 g/dL (32.0-36.0) L 08/02/24 18:55 RDW Std Deviation 49.5 fL (36.4-46.3) H 08/02/24 18:55 RDW Coeff of Krista 16.1 % (11.5-14.5) H 08/02/24 18:55 Plt Count 200 K/uL (130-400) 08/02/24 18:55 MPV 11.1 fL (9.4-12.4) 08/02/24 18:55 Immature Gran % (Auto) 0.7 % 08/02/24 18:55 Neut % (Auto) 80.4 % 08/02/24 18:55 Lymph % (Auto) 7.5 % 08/02/24 18:55 Edmonson % (Auto) 9.6 % 08/02/24 18:55 Eos % (Auto) 1.4 % 08/02/24 18:55 Baso % (Auto) 0.4 % 08/02/24 18:55 Neut # (Auto) 9.49 K/uL (1.40-6.50) H 08/02/24 18:55 Lymph # (Auto) 0.88 K/uL (1.20-3.40) L 08/02/24 18:55 Edmonson # (Auto) 1.13 K/uL (0.11-0.59) H 08/02/24 18:55 Eos # (Auto) 0.16 K/uL (0.00-0.50) 08/02/24 18:55 Baso # (Auto) 0.05 K/uL (0.00-0.20) 08/02/24 18:55 Immature Gran # (Auto) 0.08 K/uL (0.01-0.20) 08/02/24 18:55 Platelet Estimate Normal (Normal) 08/02/24 18:55 POC Sodium 135 mmol/L (135-144) 08/02/24 19:13 Sodium 135 mmol/L (136-145) L 08/02/24 18:55 POC Potassium 4.6 mmol/L (3.3-5.0) 08/02/24 19:13 Potassium 4.5 mmol/L (3.5-5.1) 08/02/24 18:55 POC Chloride 100 mmol/L (101-112) L 08/02/24 19:13 Chloride 102 mmol/L (98-107) 08/02/24 18:55 Carbon Dioxide 27 mmol/L (21-32) 08/02/24 18:55 POC Total CO2 25 mmol/L (24-31) 08/02/24 19:13 Anion Gap 6 (3-11) 08/02/24 18:55 POC Anion Gap 15.0 mmol/L (16-25) L 08/02/24 19:13 POC BUN 26 mg/dl (7-18) H 08/02/24 19:13 BUN 26 mg/dl (6-23) H 08/02/24 18:55 Creatinine 1.43 mg/dl (0.6-1.2) H 08/02/24 18:55 POC Creatinine 1.7 mg/dl (0.6-1.3) H 08/02/24 19:13 Est Cr Clr Drug Dosing Not Reportable 08/02/24 18:55 eGFR 38.25 08/02/24 18:55 BUN/Creatinine Ratio 18.2 (10-20) 08/02/24 18:55 Glucose 158 mg/dl (70-99(Fasting)) H 08/02/24 18:55 POC Glucose 104 mg/dl (70-99) H 08/02/24 23:01 POC Glucose (other) 162 mg/dl (70-99) H 08/02/24 19:13 Lactate 1.5 mmol/L (0.4-2.0) 08/02/24 18:55 Calcium 8.9 mg/dl (8.6-10.3) 08/02/24 18:55 POC Ioniz Calcium Pato 1.14 mmol/l (1.12-1.32) 08/02/24 19:13 Magnesium 1.7 mg/dl (1.7-2.4) 08/02/24 18:55 Total Bilirubin 1.1 mg/dl (0.2-1.0) H 08/02/24 18:55 Direct Bilirubin 0.2 mg/dl (0-0.2) 08/02/24 18:55 AST 18 U/L (13-39) 08/02/24 18:55 ALT 10 U/L (7-52) 08/02/24 18:55 Alkaline Phosphatase 57 U/L (34-104) 08/02/24 18:55 Troponin I High Sens 2.4 pg/ml (0-14) 08/02/24 18:55 Total Protein 7.0 gm/dl (6.0-8.3) 08/02/24 18:55 Albumin 3.5 gm/dl (3.4-5.0) 08/02/24 18:55 Procalcitonin 0.10 ng/ml (0-0.5) 08/02/24 18:55 Nasal Screen MRSA (PCR) Negative (Negative) 08/02/24 22:41 Adenovirus (PCR) Not Detected (NotDetected) 08/02/24 19:48 B. pertussis DNA (PCR) Not Detected (NotDetected) 08/02/24 19:48 B.parapertussis DNA PCR Not Detected (NotDetected) 08/02/24 19:48 C. pneumoniae DNA (PCR) Not Detected (NotDetected) 08/02/24 19:48 Coronavirus OC43 (PCR) Not Detected (NotDetected) 08/02/24 19:48 Coronavirus HKU1 (PCR) Not Detected (NotDetected) 08/02/24 19:48 Coronavirus 229E (PCR) Not Detected (NotDetected) 08/02/24 19:48 SARS-CoV-2 (PCR) Not Detected (NotDetected) 08/02/24 19:48 Coronavirus NL63 (PCR) Not Detected (NotDetected) 08/02/24 19:48 Human Metapneumovir PCR Not Detected (NotDetected) 08/02/24 19:48 Influenza Type A (PCR) Not Detected (NotDetected) 08/02/24 19:48 Influenza Type B (PCR) Not Detected (NotDetected) 08/02/24 19:48 M. pneumoniae (PCR) Not Detected (NotDetected) 08/02/24 19:48 Parainfluenza 1 (PCR) Not Detected (NotDetected) 08/02/24 19:48 Parainfluenza 2 (PCR) Not Detected (NotDetected) 08/02/24 19:48 Parainfluenza 3 (PCR) Not Detected (NotDetected) 08/02/24 19:48 Parainfluenza 4 (PCR) Not Detected (NotDetected) 08/02/24 19:48 RSV (PCR) Not Detected (NotDetected) 08/02/24 19:48 Entero/Rhino (PCR) Not Detected (NotDetected) 08/02/24 19:48 Impressions Chest X-Ray 08/02/24 18:31 EXAM: Portable AP chest radiograph TECHNIQUE: AP portable radiograph of the chest was obtained. INDICATION: Shortness of breath Comparison: Chest radiograph July 30, 2024. FINDINGS: LINES and TUBES: None CARDIOVASCULAR: Cardiac silhouette is stably enlarged in size. LUNGS/PLEURA: Mild pulmonary vascular congestion. Interval improvement of the right upper lobe pulmonary density with residual patchy densities present in this area. Interval worsening of left basilar density. Similar mild elevation of the left hemidiaphragm. No significant pleural fluid. No discernible pneumothorax. OSSEOUS/OTHER: No displaced acute osseous process identified. IMPRESSION: Interval increase in the left basilar density that may represent worsening pneumonia. Interval improvement of the right upper lobe airspace density with residual disease. Electronically signed by Delmi Julio 08-02-2024 7:[address] 08/02/24 18:51 Exam(s): CT C SPINE EXAM: CT Cervical Spine Without Intravenous Contrast CLINICAL HISTORY: Coughing up blood status post biopsy of the right. TECHNIQUE: Axial computed tomography images of the cervical spine without intravenous contrast. CTDI is 20.2 mGy and DLP is 466.09 mGy-cm. Automated exposure control was utilized for the study. A dose lowering technique was utilized adhering to the principles of ALARA. COMPARISON: No relevant prior studies available. FINDINGS: Vertebrae: The vertebral bodies are intact without acute osseous traumatic injury. No anterolisthesis or retrolisthesis is identified. The facet joints are well aligned without subluxation or dislocation. The pedicles, transverse processes and spinous processes are intact. Discs/spinal canal/neural foramina: No acute findings. No osseous spinal canal stenosis. Soft tissues: There is gas tracking along the prevertebral soft tissues, extending inferiorly below the thoracic inlet surrounding the esophagus with scattered gas also noted extending laterally to the right supraclavicular region. No well-defined hematoma or significant soft tissue fat stranding. Lung apices: The included lung apices demonstrate no evidence for acute traumatic injury. IMPRESSION: There is gas tracking along the prevertebral soft tissues, extending inferiorly below the thoracic inlet surrounding the esophagus with scattered gas also noted extending laterally to the right supraclavicular region. No well-defined hematoma or significant soft tissue fat stranding. Electronically signed by: Rakan Valera MD 08/02/24 21:04 PM Chest CTA 08/02/24 18:51 Exam(s): CTA CHEST IV Amt: 115 ml optiray 320 EXAM: CT Angiography Chest With Intravenous Contrast CLINICAL HISTORY: PE coughing up blood status post biopsy of neck. TECHNIQUE: Axial computed tomographic angiography images of the chest with intravenous contrast. CTDI is 28.14 mGy and DLP is 1422.07 mGy-cm. Automated exposure control was utilized for the study. A dose lowering technique was utilized adhering to the principles of ALARA. MIP reconstructed images were created and reviewed. COMPARISON: CT chest without contrast dated 07/22/2024 FINDINGS: Pulmonary arteries: No evidence for pulmonary embolism. Aorta: The thoracic aorta is normal in caliber. No dissection or aneurysm. Lungs: Patchy ground-glass opacities throughout both upper lobes there is more consolidative changes in the left anterior basal segment with similar patchy opacities throughout the remaining left lower lobe and along the posterior medial right middle lobe. Pleural space: The previously noted left pleural effusion is smaller in size but persists, now measuring approximately 1.5 cm. The previously noted right pleural effusion has resolved. No loculation. No pneumothorax. Heart: The cardiac chambers are normal metastases with slight asymmetric prominence of the atria. Calcification of the aortic valve is noted. Mild LAD calcification noted. Bones/joints: No acute fracture. No dislocation. Soft tissues: Unremarkable. Lymph nodes: Similar paratracheal lymphadenopathy. IMPRESSION: 1. No evidence for pulmonary embolism. 2. Patchy ground-glass opacities throughout both upper lobes there is more consolidative changes in the left anterior basal segment with similar patchy opacities throughout the remaining left lower lobe and along the posterior medial right middle lobe. Findings are most consistent with multifocal pneumonia. While this appearance may be seen with pulmonary hemorrhage, spontaneous multifocal involvement is unlikely. 3. The previously noted left pleural effusion is smaller in size but persists, now measuring approximately 1.5 cm. The previously noted right pleural effusion has resolved. No loculation. Electronically signed by: Rakan Valera MD 08/02/24 20:52 PM Code Status & VTE Plan Code Status Full code VTE Prophylaxis Plan VTE Prophylaxis will be ordered: Yes PG Care Time/CCT Total # of Minutes Spent Total Time Spent with Patient: Total time spent is greater than 50% in coordination of care (as documented) at patient's floor/unit and/or counseling patient: Coding Level of Care Code 85035 INT INP/OBS CARE 3/75MIN Diagnoses Multifocal pneumonia J18.9 Sepsis A41.9 Sepsis acute organ dysfunction status: unspecified Sepsis type: sepsis due to unspecified organism Acute on chronic respiratory failure with hypoxia J96.21 Hemoptysis R04.2 History of hypercalcemia Z86.39 Stage 3b chronic kidney disease N18.32 (2) Sepsis Sepsis acute organ dysfunction status: unspecified Sepsis type: sepsis due to unspecified organism Qualified Code(s): A41.9 - Sepsis, unspecified organism
[2024-08-02 20:44] LABS: Adenovirus PCR Not Detected (NotDetected); Bordetella parapertussis PCR Not Detected (NotDetected); Bordetella pertussis PCR Not Detected (NotDetected); Chlamydia pneumoniae PCR Not Detected (NotDetected); Coronavirus 229E PCR Not Detected (NotDetected); Coronavirus CoV-2 (COVID19)PCR Not Detected (NotDetected); Coronavirus HKU1 PCR Not Detected (NotDetected); Coronavirus NL63 PCR Not Detected (NotDetected); Coronavirus OC43PCR Not Detected (NotDetected); Human Metapneumovirus PCR Not Detected (NotDetected); Influenza A PCR Not Detected (NotDetected); Influenza B PCR Not Detected (NotDetected); Mycoplasma pneumoniae PCR Not Detected (NotDetected); Parainfluenza Virus 1 PCR Not Detected (NotDetected); Parainfluenza Virus 2 PCR Not Detected (NotDetected); Parainfluenza Virus 3 PCR Not Detected (NotDetected); Parainfluenza Virus 4 PCR Not Detected (NotDetected); Respiratory Syncytial VirusPCR Not Detected (NotDetected); Rhinovirus/Enterovirus PCR Not Detected (NotDetected)
--- NOTE | 2024-08-02 20:53 | CT Scan Report ---
Exam(s): CTA CHEST IV Amt: 115 ml optiray 320 EXAM: CT Angiography Chest With Intravenous Contrast CLINICAL HISTORY: PE coughing up blood status post biopsy of neck. TECHNIQUE: Axial computed tomographic angiography images of the chest with intravenous contrast. CTDI is 28.14 mGy and DLP is 1422.07 mGy-cm. Automated exposure control was utilized for the study. A dose lowering technique was utilized adhering to the principles of ALARA. MIP reconstructed images were created and reviewed. COMPARISON: CT chest without contrast dated 07/22/2024 FINDINGS: Pulmonary arteries: No evidence for pulmonary embolism. Aorta: The thoracic aorta is normal in caliber. No dissection or aneurysm. Lungs: Patchy ground-glass opacities throughout both upper lobes there is more consolidative changes in the left anterior basal segment with similar patchy opacities throughout the remaining left lower lobe and along the posterior medial right middle lobe. Pleural space: The previously noted left pleural effusion is smaller in size but persists, now measuring approximately 1.5 cm. The previously noted right pleural effusion has resolved. No loculation. No pneumothorax. Heart: The cardiac chambers are normal metastases with slight asymmetric prominence of the atria. Calcification of the aortic valve is noted. Mild LAD calcification noted. Bones/joints: No acute fracture. No dislocation. Soft tissues: Unremarkable. Lymph nodes: Similar paratracheal lymphadenopathy. IMPRESSION: 1. No evidence for pulmonary embolism. 2. Patchy ground-glass opacities throughout both upper lobes there is more consolidative changes in the left anterior basal segment with similar patchy opacities throughout the remaining left lower lobe and along the posterior medial right middle lobe. Findings are most consistent with multifocal pneumonia. While this appearance may be seen with pulmonary hemorrhage, spontaneous multifocal involvement is unlikely. 3. The previously noted left pleural effusion is smaller in size but persists, now measuring approximately 1.5 cm. The previously noted right pleural effusion has resolved. No loculation. Electronically signed by: Rakan Valera MD 08/02/24 20:52 PM
--- NOTE | 2024-08-02 21:05 | CT Scan Report ---
Exam(s): CT C SPINE EXAM: CT Cervical Spine Without Intravenous Contrast CLINICAL HISTORY: Coughing up blood status post biopsy of the right. TECHNIQUE: Axial computed tomography images of the cervical spine without intravenous contrast. CTDI is 20.2 mGy and DLP is 466.09 mGy-cm. Automated exposure control was utilized for the study. A dose lowering technique was utilized adhering to the principles of ALARA. COMPARISON: No relevant prior studies available. FINDINGS: Vertebrae: The vertebral bodies are intact without acute osseous traumatic injury. No anterolisthesis or retrolisthesis is identified. The facet joints are well aligned without subluxation or dislocation. The pedicles, transverse processes and spinous processes are intact. Discs/spinal canal/neural foramina: No acute findings. No osseous spinal canal stenosis. Soft tissues: There is gas tracking along the prevertebral soft tissues, extending inferiorly below the thoracic inlet surrounding the esophagus with scattered gas also noted extending laterally to the right supraclavicular region. No well-defined hematoma or significant soft tissue fat stranding. Lung apices: The included lung apices demonstrate no evidence for acute traumatic injury. IMPRESSION: There is gas tracking along the prevertebral soft tissues, extending inferiorly below the thoracic inlet surrounding the esophagus with scattered gas also noted extending laterally to the right supraclavicular region. No well-defined hematoma or significant soft tissue fat stranding. Electronically signed by: Rakan Valera MD 08/02/24 21:04 PM
[2024-08-02] MEDS ORDERED: ALBUT/IPRATROP 3MG/0.5MG NEB 3 ML VIAL NEB PRN (21:43)
[2024-08-02] MEDS ORDERED: PHARMACY GLYCEMIC MGMT CONSULT PRN (22:36)
[2024-08-02] MEDS: guaiFENesin 600 MG TABCR PO SCH (22:53)
[2024-08-02] MEDS: APIXABAN 5 MG TABLET PO SCH (22:57)
[2024-08-02] MEDS: INSULIN ASPART PER UNIT CHARGE SC ONE (23:04)
--- OUTSIDE RECORDS SUMMARY | 2024-08-02 23:43 | External Medical Summary | Summary of Care ---
Author Name Unknown Organization [facility] Address [address] [facility] [place] [address] Phone [phone] Care Team Providers Care Cafeteria Monitor Name Role Phone Valentina Price Primary Care Provider [phone]- [phone] Encounter Details Date Type Department Care Team (Late st Contact Info) Description 07/24/2024 Population Health External Data Unspecified Department Allergies No known active allergiesdocumented as of this encounter (statuses as of 07/24/2024) Medications PROZAC 40 MG PO CAPSIndications: Depressive [...] 12 Active TOPROL XL 25 MG PO [id number]: HTN, goal below 130/80 one tablet by mouth one time daily 90 Tab 1 01/12/20 12 Active OMEPRAZOLE 20 MG PO CPDRIndications: Reflux esophagitis One pill by mouth once a day 1 hour before the first meal of the day 90 Cap 1 01/12/20 12 Active ONETOUCH ULTRASOFT LANCETS MISCIndications: DM type 2, goal A1c below 7 Use up to two times a day as directed 1 Box 11 01/12/20 12 Active Meetings.ioTOUCH ULTRA SYSTEM W/DEVICE KITIndications:D M type 2, goal A1c below 7 Use up to two times a day as directed 1 Kit 0 01/12/20 12 Active ONETOUCH ULTRA BLUE STRPIndications: DM type 2, goal [...] 4 5:37 PM EST 04/15/20 24 Active Omeprazole 20 MG Oral Capsule Delayed Release (PriLOSEC) take one capsule by mouth daily 90 Capsule 3 5 3:20 PM EST 07/18/19 25 Active Losartan Potassium 50 MG Oral Tablet (Cozaar) take one tablet by mouth daily 90 Tablet 3 5 10:52 AM EST 07/19/19 25 Active documented as of this encounter (statuses as of 07/24/2024) Active Problems Problem Noted Date Diagnosed Date [...] as of this encounter (statuses as of 07/24/2024) Resolved Problems Problem Noted Date Diagnosed Date Resolved Date ADVANCE DIRECTIVE INFORMATION 07/26/2006 04/15/2024 Overview (07/26/2006): No, Advance Directive brochure given to patient. HTN, goal below 140/90 02/24 OBESITY, UNSPECIFIED 010 Overview (09/03/2009): Per Obesity Taxonomy HTN, goal below 130/80 02/01 Overview: Per HTN Protocol #27. 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
[2024-08-03 03:17] LABS: Appearance Urine Cloudy (Clear); Bacteria Urine Automated 4+ (None Seen); Bilirubin Urine Negative (Negative); Blood Urine Negative (Negative); Color Urine Yellow; Glucose Urine UA 1+ (Negative); Ketones Urine Negative (Negative); Leukocyte Esterase Urine Trace (Negative); Nitrite Urine Negative (Negative); Protein Urine 1+ (Negative); RBC Urine Automated 0-2 /hpf (0-2); Specific Gravity Urine > 1.045 (1.000-1.030); Urobilinogen Urine Negative (Negative)
[2024-08-03 06:31] LABS: Basophils # (auto) 0.05 K/uL (0.00-0.20); Basophils % (auto) 0.5 %; Eosinophils # (auto) 0.32 K/uL (0.00-0.50); Eosinophils % (auto) 3.1 %; Hematocrit (blood only) 31.7 % (37.0-47.0); Hemoglobin 10.1 g/dl (12.0-16.0); Immature Granulocytes # (auto) 0.07 K/uL (0.01-0.20); Immature Granulocytes % (auto) 0.7 %; Lymphocytes # (auto) 0.65 K/uL (1.20-3.40); Lymphocytes % (auto) 6.3 %; Mean Corpuscular Hemoglobin 27.8 pg (25.0-34.0); Mean Corpuscular Hgb Conc 31.9 g/dL (32.0-36.0); Mean Corpuscular Volume 87.3 fL (80.0-100.0); Mean Platelet Volume 10.9 fL (9.4-12.4); Monocytes # (auto) 0.99 K/uL (0.11-0.59); Monocytes % (auto) 9.6 %; Neutrophils # (auto) 8.28 K/uL (1.40-6.50); Neutrophils % (auto) 79.8 %; Platelet Count 185 K/uL (130-400); RDW Coefficient of Variation 15.9 % (11.5-14.5); RDW Standard Deviation 51.7 fL (36.4-46.3); Red Blood Count 3.63 M/uL (4.20-5.40); White Blood Count 10.36 K/ul (4.8-10.8)
[2024-08-03 06:43] LABS: Albumin Level 3.1 gm/dl (3.4-5.0); Calcium 8.1 mg/dl (8.6-10.3); Magnesium 1.7 mg/dl (1.7-2.4); Potassium 4.2 mmol/L (3.5-5.1)
[2024-08-03 06:49] LABS: BUN Creatinine Ratio 16.8 (10-20); Phosphorus 1.7 mg/dl (2.5-4.9)
[2024-08-03] MEDS: CEFEPIME 2000MG 2,000 MG/20 ML SYR IV SCH (07:21)
[2024-08-03] MEDS: CHOLECALCIFEROL 25 MCG (1000 UNITS) TAB PO SCH (08:12)
[2024-08-03] MEDS: METOPROLOL SUCC 25MG EXT REL TAB PO SCH (08:12)
[2024-08-03] MEDS: PANTOprazole 40 MG TAB PO SCH (08:13)
[2024-08-03] MEDS: FLUoxetine HCL 20 MG CAP PO SCH (08:13)
[2024-08-03] MEDS ORDERED: LANTUS PER UNIT CHARGE SC SCH ×2 (09:00)
[2024-08-03] MEDS: INSULIN ASPART PER UNIT CHARGE SC SCH (09:39)
--- NOTE | 2024-08-03 10:02 | Electrocardiogram Report ---
Test Reason : Blood Pressure : */* mmHG Vent. Rate : 103 BPM Atrial Rate : * BPM P-R Int : * ms QRS Dur : 88 ms QT Int : 358 ms P-R-T Axes : * 4 24 degrees QTcB Int : 468 ms Atrial fibrillation with rapid ventricular response Possible Anterior infarct , age undetermined Abnormal ECG When compared with ECG of 22-Jul-2024 02:00, No significant change was found Confirmed by Rohit Fabian ([id number]) on 08/03/2024 10:02:13 AM Referred By: REFERRED SELF Confirmed By: Rohit Fabian
--- NOTE | 2024-08-03 11:51 | Hospitalist Progress Note ---
Date of Service August 03, 2024 Assessment & Plan (1) Multifocal pneumonia: Plan: Multifocal pneumonia/hemoptysis/status post fiberoptic bronchoscopy with EBUS- Right upper lobe improved, left lower lobe worse on imaging Placed on cefepime 2 g IV every 12 hours Oxygen supplementation to pulse ox goal range 92-94% Duonebs every 4 hours while awake and every 2 hours when necessary. Consulted pulmonology Dr. Schmidt (2) Stage 3b chronic kidney disease: Plan: Temporarily holding losartan cr 1.7 on admission now 1.31 (3) Atrial fibrillation: Plan: Most recent echo on 07/31/2024 with EF 55-60%, and severe aortic stenosis Temporarily holding apixaban while having hemoptysis (4) Anxiety: Plan: Fluoxetine (5) Diabetes mellitus: Plan: Hold glipizide pharmacy glycemic consult Plan The patient is a 74-year-old female with a past medical history including CKD stage IIIb, atrial fibrillation, diabetes mellitus, hypertension, urinary incontinence, hypercalcemia, anxiety with depression,, and hyperlipidemia. She was most recently admitted to [facility] from 07/21-07/31/2024, for hypercalcemia of 13.3, and during that admission, underwent a flexible fiberoptic bronchoscopy with EBUS bronchial washings and transbronchial biopsy on 07/30/2024. Concern at that time was evaluation for possible sarcoidosis, malignancy or other etiologies of bilateral mediastinal adenopathy and breathing difficulties. Her reports that she has been having gradually worsening shortness of breath since discharge, and with the onset of more significant coughing as noted, she was brought to the emergency department for evaluation. In the emergency department, in addition to being hypoxic, her blood pressure did drop to a low of 89/49, which did respond to some IV fluid rehydration. Chest x-ray and CT scan were noted to be improved in the right upper lobe, but worse in the left lower lobe. She was then referred for evaluation to [facility] Hospitalist service for admission. Admission and Anticipated Discharge Date Admission Date: August 02, 2024 Subjective No events overnight. Pt resting in bed. She denies any further episodes of hemoptysis. Review of Systems Review of Systems: CONST: Negative for fever, body aches and chills. HENT: Negative for neck pain/stiffness, headache, congestion, sore throat, swelling. EYES: Negative for discharge/pain or vision changes. RESP: Negative for cough/hemoptysis and shortness of breath. CV: Negative chest pain, difficulty breathing, palpitations. ABD: Negative pain, nausea, vomiting. : Negative increase frequency, dysuria, blood in urine or stool. MUSC: Negative for muscle aches, edema. SKIN: Negative rash, lesions/sores. NEURO: Negative headache, dizziness, weakness. Physical Exam Physical Exam: GENERAL APPEARANCE NAD, activity normal for age, well developed/ well nourished, no cyanosis, pallor, or diaphoresis. EYES lids/conjunctiva normal. EARS/NOSE/THROAT Mucous membranes moist, nares normal, lips/teeth normal uvula midline without oral pharyngeal erythema, exudate or swelling TMs normal bilaterally. No lymphangitis/lymphedema. HEAD/NECK normocephalic atraumatic, no facial trauma, neck is supple. RESPIRATORY respiratory effort normal, speaks in full sentences, no tripod position, no accessory muscle use. Lungs clear to auscultation without rhonchi, wheezes, rales CARDIAC Regular rate and rhythm, no edema. ABDOMINAL Soft, ND/NT. No evidence of fluid wave. No pulsatile masses on exam, rebound tenderness, Pitts sign or pain over Mcburney's point. MUSCLES/EXTREMITIES No abnormal range of motion, no swelling. SKIN Warm, pink and dry. No rashes, dermatoses, petechiae or lesions. NEUROLOGICAL Speech is clear and appropriate. Normal level of consciousness. Gait and coordination are normal. 5/5 strength in all extremities. PSYCH Normal mood and affect. Judgement/competence is appropriate Results & Data Results & Data Vital Signs (Past 12 Hours) Vital Signs Pulse Pulse Resp BP BP Pulse Ox O2 Del Method 08/03/24 10:03 83 20 97 08/03/24 10:00 124/70 08/03/24 10:00 124/70 08/03/24 10:00 90 22 124/70 95 Room Air 08/03/24 07:57 86 08/03/24 07:37 88 20 122/68 97 Room Air 08/03/24 06:00 77 18 124/71 93 Room Air 08/03/24 04:12 78 19 124/58 L 94 Room Air 08/03/24 03:47 Room Air 08/03/24 03:30 74 17 111/78 94 Room Air 08/03/24 03:12 80 21 105/68 94 Room Air 08/03/24 00:36 77 20 118/72 97 Room Air PG Care Time/CCT Total # of Minutes Spent Total Time Spent with Patient: Total time spent is greater than 50% in coordination of care (as documented) at patient's floor/unit and/or counseling patient: Coding Level of Care Code 14028 SUB INP/OBS CARE 2/35MIN Diagnoses Multifocal pneumonia J18.9 Stage 3b chronic kidney disease N18.32 Atrial fibrillation I48.91 Anxiety F41.9 Diabetes mellitus E11.9
--- NOTE | 2024-08-03 15:24 | Pulmonary Consultation ---
Date of Consultation August 03, 2024 Assessment & Plan (1) Hemoptysis: Hemoptysis secondary to recent bronchoscopy. Continue to hold Eliquis. My office is largely resolved today. Hemoglobin stable. (2) Abnormal CT scan, chest: Patient with multifocal infiltrates on CT chest. Suspect this is largely related to bleeding from bronchoscopy on 07/30/2024. Will start the patient on prednisone 40 mg daily, albuterol/ipratropium every 6 hours and nebulized budesonide. Bacterial pneumonia felt to be less likely, but reasonable to continue with empiric antibiotics and likely transition to p.o. antibiotics tomorrow as long as clinical course remained stable/improved. Respiratory viral panel negative. Legionella pneumonia unlikely, will check a urine Legionella antigen. Recheck procal tomorrow. (3) Hypercalcemia: Etiology unclear at this time. Sarcoidosis still felt to be possible given lymphadenopathy. Biopsy results have been nondiagnostic. Fortunately no significant hypercalcemia seen at this time. (4) Aortic stenosis: Patient with severe valvular aortic stenosis noted on echo from 07/31/2024. She also has underlying atrial fibrillation. Recommend cardiology consultation for further recommendations given periodic episodes of lethargy and hypotension. She may ultimately require further evaluation for TAVR as an outpatient. Will check a.m. BNP. Plan Thank you for the consult. Will follow. History of Present Illness Reason for Consultation: Multifocal infiltrate on CT chest Attending Physician: Arcenio Ferris MD History of Present Illness 74-year-old female who was recently hospitalized and discharged several days ago for hypercalcemia, confusion, hemarthrosis of the left knee and bronchoscopy presenting to the hospital due to hemoptysis and increased shortness of breath. On 07/30/2024 I performed a bronchoscopy to evaluate for sarcoidosis and while performing transbronchial biopsies of the right upper lobe, the patient had significant bleeding. Hemostasis was achieved during the bronchoscopy, but she ended up with significant clot burden which was largely aspirated. Biopsy results were generally unrevealing cultures have been negative thus far. Over the last few days since her discharge she has been having some increasing shortness of breath and she notes that she had some hemoptysis. She was instructed to hold her Eliquis which she has been doing. Today she denies any hemoptysis. Her shortness of breath is largely resolved at least at rest. She is not needing any supplemental oxygen. She was started on broad-spectrum antibiotics by the hospitalist service due to concerns of possible pneumonia. Chest CTA on admission did reveal patchy groundglass opacities throughout the upper lobes and consolidative changes in the left anterior basal segment and right middle lobe. Allergies Allergy/AdvReac Type Severity Reaction Status Date / Time No Known Allergies Allergy Verified 08/02/24 20:20 Home Medications Medication Instructions Recorded Confirmed Type flash glucose sensor (FreeStyle #1 ea 07/12/21 08/01/24 Rx Darell 14 Day Sensor kit) pen needle, diabetic 32 gauge x #100 ea 04/24/23 08/01/24 Rx 5/32" (BD Ultra-Fine Isha Pen Needle) fluoxetine 40 mg capsule 40 mg PO DAILY #90 caps 05/23/23 08/02/24 Rx glipizide 10 mg tablet, extended 10 mg PO DAILY #90 tabs 05/23/23 08/02/24 Rx release 24 hr metoprolol succinate 50 mg 25 mg (1/2 x 50 mg) PO DAILY 90 05/23/23 08/02/24 Rx tablet,extended release 24 hr days #45 tabs pravastatin 20 mg tablet 20 mg PO DAILY #90 tabs 05/23/23 08/02/24 Rx apixaban 5 mg tablet (Eliquis) 5 mg PO BID #180 tabs 04/15/24 08/02/24 Rx omeprazole 20 mg capsule,delayed 20 mg PO DAILY #90 caps 07/18/24 08/02/24 Rx release losartan 50 mg tablet 50 mg PO DAILY #90 tabs 07/19/24 08/02/24 Rx insulin detemir U-100 100 unit/mL 50 unit subcut DAILY 08/01/24 08/02/24 History (3 mL) subcutaneous pen Patient History Medical History Anorexia Fatigue Cough Surgical History H/O elbow surgery L elbow Family History Mother Breast cancer Alcoholic Dementia Father Skin cancer Diabetes Grandmother (Paternal) Breast cancer Denies family history of Ovarian cancer Prostate cancer Myocardial infarction Colorectal cancer Social History Smoking Status: Never smoker Second Hand Exposure: No; Do You Dip or Chew Tobacco: No; Hx Alcohol Use: No Hx Substance Use: No Preferred Language: Iraqi Communication Ability: Effective Visual Impairment: No Limitations Hearing Ability: Normal Rn Peritoneal Dialysis Required: No Beliefs That Will Affect Care: None marital status: Current Living Situation: Spouse and Family current occupational status: retired current occupation: [employer] How many Children do You have: 1 Feels Safe at Home: Yes Childhood Exposure to Second-Hand Smoke: Yes Diet: regular caffeine: Yes during the past year weight has: remained stable Dental Care, Regularly: Yes Physical Activity Frequency: Does not Exercise Seatbelt Use: always Sunscreen Use: Yes Assistive Devices: Cane and Walker Review of Systems Review of Systems: All systems reviewed & are unremarkable except as noted in HPI & below Physical Exam Constitutional: WD/WN, vitals as above Neck: trachea midline, no thyromegaly Respiratory: normal respiratory effort and + audible wheezes Cardiovascular: RRR, no murmur, no edema Gastrointestinal (Abdomen): normal bowel sounds, soft, nontender, no hepatosplenomegaly Musculoskeletal: Extremities: extremities normal to inspection Skin: no rashes, warm and dry Lymphatic: no cervical lymphadenopathy Results & Data Results & Data Vital Signs (Past 12 Hours) Vital Signs Temp Pulse Pulse Resp BP BP Pulse Ox 08/03/24 13:37 08/03/24 13:23 88 08/03/24 13:20 36.7 C 84 17 106/66 98 08/03/24 10:03 83 20 97 08/03/24 10:00 124/70 08/03/24 10:00 124/70 08/03/24 10:00 90 22 124/70 95 08/03/24 07:57 86 08/03/24 07:37 88 20 122/68 97 08/03/24 06:00 77 18 124/71 93 08/03/24 04:12 78 19 124/58 L 94 08/03/24 03:47 08/03/24 03:30 74 17 111/78 94 08/03/24 03:12 80 21 105/68 94 O2 Del Method 08/03/24 13:37 Room Air 08/03/24 13:23 08/03/24 13:20 Room Air 08/03/24 10:03 08/03/24 10:00 08/03/24 10:00 08/03/24 10:00 Room Air 08/03/24 07:57 08/03/24 07:37 Room Air 08/03/24 06:00 Room Air 08/03/24 04:12 Room Air 08/03/24 03:47 Room Air 08/03/24 03:30 Room Air 08/03/24 03:12 Room Air PG Care Time/CCT Total # of Minutes Spent Total Time Spent with Patient: Total time spent is greater than 50% in coordination of care (as documented) at patient's floor/unit and/or counseling patient: Coding Level of Care Code 04942 INT INP/OBS CARE 375MIN Diagnoses Hemoptysis R04.[address] scan, chest R93.89 Hypercalcemia E83.52 Aortic stenosis I35.0
[2024-08-03] MEDS: ALBUT/IPRATROP 3MG/0.5MG NEB 3 ML VIAL NEB SCH (19:57)
[2024-08-03] MEDS: BUDESONIDE 0.5 MG/2 ML VIAL (PULMICORT) NEB SCH (19:57)
[2024-08-03] MEDS: PRAVASTATIN SOD 20 MG TAB PO SCH (21:10)
[2024-08-04 06:36] LABS: Basophils % (auto) 1.1 %; Eosinophils # (auto) 0.37 K/uL (0.00-0.50); Eosinophils % (auto) 4.1 %; Hematocrit (blood only) 31.4 % (37.0-47.0); Hemoglobin 10.1 g/dl (12.0-16.0); Immature Granulocytes # (auto) 0.06 K/uL (0.01-0.20); Immature Granulocytes % (auto) 0.7 %; Lymphocytes # (auto) 0.62 K/uL (1.20-3.40); Lymphocytes % (auto) 6.8 %; Mean Corpuscular Hemoglobin 27.5 pg (25.0-34.0); Mean Corpuscular Hgb Conc 32.2 g/dL (32.0-36.0); Mean Corpuscular Volume 85.6 fL (80.0-100.0); Mean Platelet Volume 10.8 fL (9.4-12.4); Monocytes % (auto) 9.9 %; Neutrophils # (auto) 7.07 K/uL (1.40-6.50); Neutrophils % (auto) 77.4 %; Platelet Count 234 K/uL (130-400); RDW Coefficient of Variation 16.1 % (11.5-14.5); RDW Standard Deviation 50.2 fL (36.4-46.3); Red Blood Count 3.67 M/uL (4.20-5.40); White Blood Count 9.12 K/ul (4.8-10.8)
[2024-08-04 07:06] LABS: Albumin Level 3.1 gm/dl (3.4-5.0); BUN Creatinine Ratio 17.2 (10-20); Calcium 8.5 mg/dl (8.6-10.3); Creatinine Clr Calc Pharmacy 44.3 ml/min; Magnesium 1.6 mg/dl (1.7-2.4); Phosphorus 1.9 mg/dl (2.5-4.9); Potassium 4.3 mmol/L (3.5-5.1)
[2024-08-04] MEDS: ACETAMINOPHEN 325 MG TAB PO PRN (08:17)
[2024-08-04] MEDS: LANTUS PER UNIT CHARGE SC SCH (08:17)
[2024-08-04] MEDS: predniSONE 20 MG TAB PO SCH (08:20)
[2024-08-04] MEDS: dilTIAZem HCl 5 MG/ML 5 ML VIAL IV STA (10:55)
--- NOTE | 2024-08-04 11:23 | Hospitalist Progress Note ---
Date of Service August 04, 2024 Assessment & Plan (1) Multifocal pneumonia: Plan: Multifocal pneumonia/hemoptysis/status post fiberoptic bronchoscopy with EBUS- Right upper lobe improved, left lower lobe worse on imaging Placed on cefepime 2 g IV every 12 hours Oxygen supplementation to pulse ox goal range 92-94% Duonebs every 4 hours while awake and every 2 hours when necessary. Consulted pulmonology Dr. Schmidt who feels infiltrates likely to be 2nd to bleeding from bronchoscopy Prednisone started Eliquis on hold (2) Stage 3b chronic kidney disease: Plan: Temporarily holding losartan cr 1.7 on admission now 1.34 (3) Atrial fibrillation: Plan: Most recent echo on 07/31/2024 with EF 55-60%, and severe aortic stenosis Temporarily holding apixaban while having hemoptysis Pt with episodes of afib with RVR on 08/04/24 Cardizem 10mg IV x1 given Cardiology consulted (4) Anxiety: Plan: Fluoxetine (5) Diabetes mellitus: Plan: Hold glipizide pharmacy glycemic consult Plan The patient is a 74-year-old female with a past medical history including CKD stage IIIb, atrial fibrillation, diabetes mellitus, hypertension, urinary incontinence, hypercalcemia, anxiety with depression,, and hyperlipidemia. She was most recently admitted to [facility] from 07/21-07/31/2024, for hyp ercalcemia of 13.3, and during that admission, underwent a flexible fiberoptic bronchoscopy with EBUS bronchial washings and transbronchial biopsy on 07/30/2024. Concern at that time was evaluation for possible sarcoidosis, malignancy or other etiologies of bilateral mediastinal adenopathy and breathing difficulties. Her reports that she has been having gradually worsening shortness of breath since discharge, and with the onset of more significant coughing as noted, she was brought to the emergency department for evaluation. In the emergency department, in addition to being hypoxic, her blood pressure did drop to a low of 89/49, which did respond to some IV fluid rehydration. Chest x-ray and CT scan were noted to be improved in the right upper lobe, but worse in the left lower lobe. She was then referred for evaluation to [facility] hospitalist service for admission. Admission and Anticipated Discharge Date Admission Date: August 02, 2024 Subjective Pt feels SOB this am, monitor showing afib with RVR. She denies any further episodes of hemoptysis. Review of Systems Review of Systems: CONST: Negative for fever, body aches and chills. HENT: Negative for neck pain/stiffness, headache, congestion, sore throat, swelling. EYES: Negative for discharge/pain or vision changes. RESP: Negative for cough/hemoptysis and shortness of breath. CV: Negative chest pain, difficulty breathing, palpitations. ABD: Negative pain, nausea, vomiting. : Negative increase frequency, dysuria, blood in urine or stool. MUSC: Negative for muscle aches, edema. SKIN: Negative rash, lesions/sores. NEURO: Negative headache, dizziness, weakness. Physical Exam Physical Exam: GENERAL APPEARANCE NAD, activity normal for age, well developed/ well nourished, no cyanosis, pallor, or diaphoresis. EYES lids/conjunctiva normal. EARS/NOSE/THROAT Mucous membranes moist, nares normal, lips/teeth normal uvula midline without oral pharyngeal erythema, exudate or swelling TMs normal bilaterally. No lymphangitis/lymphedema. HEAD/NECK normocephalic atraumatic, no facial trauma, neck is supple. RESPIRATORY respiratory effort normal, speaks in full sentences, no tripod position, no accessory muscle use. Lungs clear to auscultation without rhonchi, wheezes, rales CARDIAC Regular rate and rhythm, no edema. ABDOMINAL Soft, ND/NT. No evidence of fluid wave. No pulsatile masses on exam, rebound tenderness, Pitts sign or pain over Mcburney's point. MUSCLES/EXTREMITIES No abnormal range of motion, no swelling. SKIN Warm, pink and dry. No rashes, dermatoses, petechiae or lesions. NEUROLOGICAL Speech is clear and appropriate. Normal level of consciousness. Gait and coordination are normal. 5/5 strength in all extremities. PSYCH Normal mood and affect. Judgement/competence is appropriate Results & Data Results & Data Vital Signs (Past 12 Hours) Vital Signs Temp Pulse Resp BP Pulse Ox O2 Del Method 08/04/24 11:01 36.6 C 90 17 118/76 97 Room Air 08/04/24 07:36 36.9 C 103 H 20 112/77 93 Room Air 08/04/24 07:27 Room Air 08/04/24 07:05 88 18 96 Room Air 08/04/24 02:48 36.8 C 95 H 18 118/77 95 Room Air 08/03/24 23:58 36.6 C 101 H 21 132/77 93 Room Air PG Care Time/CCT Total # of Minutes Spent Total Time Spent with Patient: Total time spent is greater than 50% in coordination of care (as documented) at patient's floor/unit and/or counseling patient: Coding Level of Care Code 37068 SUB INP/OBS CARE 2/35MIN Diagnoses Multifocal pneumonia J18.9 Stage 3b chronic kidney disease N18.32 Atrial fibrillation I48.91 Anxiety F41.9 Diabetes mellitus E11.9
--- NOTE | 2024-08-04 12:04 | Pulmonology Progress Note ---
Date of Service August 04, 2024 Assessment & Plan (1) Hemoptysis: Plan: Hemoptysis secondary to recent bronchoscopy. Very scant hemoptysis today. Can likely restart Eliquis Monday as long as no further significant hemoptysis is seen. (2) Abnormal CT scan, chest: Plan: Patient with multifocal infiltrates on CT chest. Suspect this is largely related to bleeding from bronchoscopy on 07/30/2024. Continue prednisone 40 mg daily for total of 7 days (orders placed), albuterol/ipratropium every 6 hours and nebulized budesonide. Bacterial pneumonia felt to be less likely. Recheck procalcitonin remains negative. Will transition her to cefdinir and doxycycline. Doxycycline for 5 days and cefdinir for an additional 4 days. (Orders placed) (3) Hypercalcemia: Plan: Etiology unclear at this time. Sarcoidosis still felt to be possible given lymphadenopathy. Biopsy results have been nondiagnostic. Fortunately no sig nificant hypercalcemia seen at this time. (4) Aortic stenosis: Plan: Patient with severe valvular aortic stenosis noted on echo from 07/31/2024. She also has underlying atrial fibrillation. Recommend cardiology consultation for further recommendations given periodic episodes associated with exertion of lethargy, dyspnea and hypotension. She may ultimately require further evaluation for TAVR as an outpatient. BNP minimally elevated this morning. Consider low-dose oral diuretic on an as- needed basis. Plan Thank you for the consult. I will sign off at this time and please call with any questions. Will follow-up with her as an outpatient. Admission and Anticipated Discharge Date Admission Date: August 02, 2024 Subjective Patient comfortable resting, but dyspneic with exertion. She notes that her dyspnea was present even prior to her bronchoscopy. Early scant hemoptysis today. Occasional chest tightness. Review of Systems Review of Systems: All systems reviewed & are unremarkable except as noted in HPI & below Physical Exam Constitutional: WD/WN, vitals as above Neck: trachea midline, no thyromegaly Respiratory: normal respiratory effort (Slight expiratory wheeze with bilateral rhonchi) Cardiovascular: RRR, no murmur, no edema (2 out of 6 systolic flow murmur noted at the base of the heart.) Gastrointestinal (Abdomen): normal bowel sounds, soft, nontender, no hepatosplenomegaly Musculoskeletal: Extremities: extremities normal to inspection Skin: no rashes, warm and dry Lymphatic: no cervical lymphadenopathy Results & Data Results & Data Vital Signs (Past 12 Hours) Vital Signs Temp Pulse Resp BP Pulse Ox O2 Del Method 08/04/24 11:01 36.6 C 90 17 118/76 97 Room Air 08/04/24 07:36 36.9 C 103 H 20 112/77 93 Room Air 08/04/24 07:27 Room Air 08/04/24 07:05 88 18 96 Room Air 08/04/24 02:48 36.8 C 95 H 18 118/77 95 Room Air 08/03/24 23:58 36.6 C 101 H 21 132/77 93 Room Air PG Care Time/CCT Total # of Minutes Spent Total Time Spent with Patient: Total time spent is greater than 50% in coordination of care (as documented) at patient's floor/unit and/or counseling patient: Coding Level of Care Code 03002 SUB INP/OBS CARE 2/35MIN Diagnoses Hemoptysis R04.[address] scan, chest R93.89 Hypercalcemia E83.52 Aortic stenosis I35.0
--- NOTE | 2024-08-04 15:41 | Pharmacy Report ---
Pharmacy Glycemic Short Note 2 - Date of Service August 04, 2024 - Glycemic Short BSG Results (Last 24 hours): 08/03/24 08/03/24 08/04/24 16:52 21:34 06:05 Glucose 149 H POC Glucose 89 143 H 08/04/24 08/04/24 07:27 11:33 Glucose POC Glucose 179 H 210 H OUTPATIENT ANTIDIABETIC REGIMEN: * Lantus SQ daily (unclear what dose patient was discharged on during last admission - d/c 07/31) * Glipizide * A1c = 8% ASSESSMENT: * Mamie is a 74 yo T2DM with multifocal infiltrates on CT chest s/p recent bronchoscopy * Patient has been started on antibiotics and prednisone 40 mg daily * Basal insulin held on 08/03 for hypoglycemia. Resumed on 08/04 at 10 units daily. Suspect may need to increase this with addition of steroids. * Novolog CF and CR tightened to weight/stress 3 after prednisone was initiated PLAN FOR INPATIENT GLYCEMIC CONTROL: * Hold outpatient oral diabetes medications * Basal insulin * Lantus 10-15 units SQ qAM * Bolus insulin * NovoLog per scale ACHS or Q6hrs while NPO * Goal Range: Low 110 mg/dL - High 140 mg/dL * Correction Factor: 15 mg/dL/unit * Nutritional / Prandial insulin per carb ratio of 1 unit per 6 grams CHO consumed
[2024-08-04] MEDS: DOXYCYCLINE HYCLATE 100 MG CAP PO SCH (21:03)
[2024-08-04] MEDS: CEFDINIR 300 MG CAP PO SCH (21:03)
[2024-08-04] MEDS: INSULIN ASPART PER UNIT CHARGE SC SCH (23:59)
[2024-08-05 06:48] LABS: Basophils # (auto) 0.03 K/uL (0.00-0.20); Basophils % (auto) 0.2 %; Eosinophils # (auto) 0.02 K/uL (0.00-0.50); Eosinophils % (auto) 0.2 %; Hematocrit (blood only) 28.6 % (37.0-47.0); Hemoglobin 9.2 g/dl (12.0-16.0); Immature Granulocytes # (auto) 0.08 K/uL (0.01-0.20); Immature Granulocytes % (auto) 0.6 %; Lymphocytes % (auto) 5.6 %; Mean Corpuscular Hemoglobin 27.6 pg (25.0-34.0); Mean Corpuscular Hgb Conc 32.2 g/dL (32.0-36.0); Mean Corpuscular Volume 85.9 fL (80.0-100.0); Mean Platelet Volume 10.9 fL (9.4-12.4); Monocytes # (auto) 0.87 K/uL (0.11-0.59); Neutrophils % (auto) 86.4 %; Platelet Count 248 K/uL (130-400); RDW Coefficient of Variation 16.1 % (11.5-14.5); RDW Standard Deviation 50.8 fL (36.4-46.3); Red Blood Count 3.33 M/uL (4.20-5.40)
[2024-08-05 07:11] LABS: Albumin Level 3.1 gm/dl (3.4-5.0); BUN Creatinine Ratio 15.4 (10-20); Calcium 8.6 mg/dl (8.6-10.3); Creatinine Clr Calc Pharmacy 36.7 ml/min; Magnesium 1.8 mg/dl (1.7-2.4); Phosphorus 2.1 mg/dl (2.5-4.9); Potassium 4.4 mmol/L (3.5-5.1)
[2024-08-05] MEDS: LANTUS PER UNIT CHARGE SC SCH ×2 (08:39→20:56)
--- NOTE | 2024-08-05 09:41 | Cardiology Consultation ---
Date of Consultation August 05, 2024 Assessment & Plan (1) Atrial fibrillation with RVR: Pt with known history of afib which has been controlled with metoprolol 25mg daily and Eliquis. Anticoagulation has been on hold due to hemoptysis. She was noted to be followed by [facility]- Cardiology by her PCP, however follow-up could not be found within the last 5 years. Pt is presenting with acute illness and admitted to hospital with Sepsis and multifocal PNA. She was started on duonebs in ED and corticosteroids on 08/04 for her pneumonia. Pt has had mild hypotensive events during the afib RVR, therefore rate control may be best treated with increasing her home beta eladia verses addition of CCB, which may further lower her BP. 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 Pt is reportedly uninterested in further intervention for her condition. - Continue to monitor Supervising Physician Co-Signing Physician Notes Patient seen and examined. Agree with assessment and plan as outlined by Dr. James. Impression: 1. Atrial fibrillation with rapid ventricular response -Agree with increasing beta-eladia dose -Resume Eliquis when able -She can follow-up Mr. Heart and myself in our [place] office. 2. Severe aortic stenosis -Asymptomatic at this time. -Have reviewed the indications for an intervention (syncope, CHF, and angina pectoris). -Will continue with yearly surveillance echocardiograms. History of Present Illness Reason for Consultation: Atrial fibrillation with RVR Requesting Physician: Arcenio Ferris MD Attending Physician: Opal Mackenzie MD History of Present Illness Pt is a 74 yo female with PMH of DMT2, HTN, CKD stage 3, HLD, atrial fibrillation, and aortic stenosis who was admitted on 08/02 for multifocal pneumonia and sepsis. Pt began experiencing afib with RVR rhythm on 08/04. She was given 10mg IV Cardizem along with her daily metoprolol 25 mg. Rate returned to baseline 70-80s, but maintain a-fib rhythm. This morning pt went back into RVR with sponge bathing, toileting and other self hygiene while sitting up on EOB. Pt reported increased SOB during the episode this morning. She is unsure if this is related to her current pneumonia vs cardiac condition. Pt denies chest pain, radiating pain to neck/shoulder/back, dizziness, nausea, or numbness/tingling. Allergies Allergy/AdvReac Type Severity Reaction Status Date / Time No Known Allergies Allergy Verified 08/02/24 20:20 Home Medications Medication Instructions Recorded Confirmed Type flash glucose sensor (FreeStyle #1 ea 07/12/21 08/01/24 Rx Darell 14 Day Sensor kit) pen needle, diabetic 32 gauge x #100 ea 04/24/23 08/01/24 Rx 5/32" (BD Ultra-Fine Isha Pen Needle) fluoxetine 40 mg capsule 40 mg PO DAILY #90 caps 05/23/23 08/02/24 Rx glipizide 10 mg tablet, extended 10 mg PO DAILY #90 tabs 05/23/23 08/02/24 Rx release 24 hr metoprolol succinate 50 mg 25 mg (1/2 x 50 mg) PO DAILY 90 05/23/23 08/02/24 Rx tablet,extended release 24 hr days #45 tabs pravastatin 20 mg tablet 20 mg PO DAILY #90 tabs 05/23/23 08/02/24 Rx apixaban 5 mg tablet (Eliquis) 5 mg PO BID #180 tabs 04/15/24 08/02/24 Rx omeprazole 20 mg capsule,delayed 20 mg PO DAILY #90 caps 07/18/24 08/02/24 Rx release losartan 50 mg tablet 50 mg PO DAILY #90 tabs 07/19/24 08/02/24 Rx insulin detemir U-100 100 unit/mL 50 unit subcut DAILY 08/01/24 08/02/24 History (3 mL) subcutaneous pen Patient History Medical History Anorexia Fatigue Cough Surgical History H/O elbow surgery L elbow Family History Mother Breast cancer Alcoholic Dementia Father Skin cancer Diabetes Grandmother (Paternal) Breast cancer Denies family history of Ovarian cancer Prostate cancer Myocardial infarction Colorectal cancer Social History Smoking Status: Never smoker Second Hand Exposure: No; Do You Dip or Chew Tobacco: No; Hx Alcohol Use: No Hx Substance Use: No Preferred Language: Danish Communication Ability: Effective Visual Impairment: No Limitations Hearing Ability: Normal Professional Volleyball Player Required: No Beliefs That Will Affect Care: None marital status: Current Living Situation: Spouse and Family current occupational status: retired current occupation: [employer] How many Children do You have: 1 Feels Safe at Home: Yes Childhood Exposure to Second-Hand Smoke: Yes Diet: regular caffeine: Yes during the past year weight has: remained stable Dental Care, Regularly: Yes Physical Activity Frequency: Does not Exercise Seatbelt Use: always Sunscreen Use: Yes Assistive Devices: Cane Review of Systems Review of Systems: As per HPI Physical Exam Physical Exam: GENERAL APPEARANCE: NAD, activity normal for age, well developed/ well nourished, no cyanosis, pallor, or diaphoresis. EYES: lids/conjunctiva normal. EARS/NOSE/THROAT: Mucous membranes moist, nares normal, lips/teeth normal uvula midline without oral pharyngeal erythema, exudate or swelling. No lymphangitis/lymphedema. HEAD/NECK: normocephalic atraumatic, no facial trauma, neck is supple. No JVD noted RESPIRATORY: respiratory effort normal, speaks in full sentences, no tripod position, no accessory muscle use. Rhonchi heard with inhalation and exhalation at upper airways. CARDIAC: Irregularly, irregular rhythm, rate is less than 100, Systolic murmur heard best at right sternal boarder and radiating to carotids L>R. no UE or LE edema noted. 2+ pulses radial and pedal bilaterally ABDOMINAL: Soft, ND/NT. No evidence of fluid wave. No pulsatile masses on exam or rebound tenderness MUSCLES/EXTREMITIES: Normal range of motion on command, no swelling. SKIN Warm, pink and dry. No rashes noted. Bruising at right anterior forearm NEUROLOGICAL: A&O x 3, CN II-VII are intact. Speech is clear and appropriate. PSYCH: Normal mood and affect. Judgement/competence is appropriate Results & Data Vital Signs (Past 12 Hours) Vital Signs Temp Pulse Pulse Resp BP Pulse Ox Pulse Ox 08/05/24 08:01 36.6 C 106 H 17 100/61 97 02/24/25 07:03 86 16 97 08/05/24 03:49 36.4 C L 82 20 97/61 L 93 08/05/24 01:46 89 16 95 08/04/24 23:00 36.5 C 93 H 20 127/78 95 08/04/24 22:00 95 08/04/24 21:58 87 O2 Del Method O2 Del Method 08/05/24 08:01 Room Air 08/05/24 07:03 Room Air 08/05/24 03:49 Room Air 08/05/24 01:46 Room Air 08/04/24 23:00 Room Air 08/04/24 22:00 Room Air 08/04/24 21:58 Laboratory Results Abnormal lab results 08/04/24 08/04/24 08/04/24 Range/Units 11:33 16:31 20:18 WBC (4.8-10.8) K/ul RBC (4.20-5.40) M/uL Hgb (12.0-16.0) g/dl Hct (37.0-47.0) % RDW Std Deviation (36.4-46.3) fL RDW Coeff of Krista (11.5-14.5) % Neut # (Auto) (1.40-6.50) K/uL Lymph # (Auto) (1.20-3.40) K/uL Stokes # (Auto) (0.11-0.59) K/uL Chloride (98-107) mmol/L BUN (6-23) mg/dl Creatinine (0.6-1.2) mg/dl Glucose (70-99(Fasting)) mg/dl POC Glucose 210 H 228 H 215 H (70-99) mg/dl Phosphorus (2.5-4.9) mg/dl Albumin (3.4-5.0) gm/dl 08/04/24 08/05/24 08/05/24 Range/Units 23:50 05:47 07:31 WBC 12.50 H (4.8-10.8) K/ul RBC 3.33 L (4.20-5.40) M/uL Hgb 9.2 L (12.0-16.0) g/dl Hct 28.6 L (37.0-47.0) % RDW Std Deviation 50.8 H (36.4-46.3) fL RDW Coeff of Krista 16.1 H (11.5-14.5) % Neut # (Auto) 10.80 H (1.40-6.50) K/uL Lymph # (Auto) 0.70 L (1.20-3.40) K/uL Stokes # (Auto) 0.87 H (0.11-0.59) K/uL Chloride 108 H (98-107) mmol/L BUN 25 H (6-23) mg/dl Creatinine 1.62 H (0.6-1.2) mg/dl Glucose 187 H (70-99(Fasting)) mg/dl POC Glucose 244 H 199 H (70-99) mg/dl Phosphorus 2.1 L (2.5-4.9) mg/dl Albumin 3.1 L (3.4-5.0) gm/dl PG Care Time/CCT Total # of Minutes Spent Total Time Spent with Patient: Total time spent is greater than 50% in coordination of care (as documented) at patient's floor/unit and/or counseling patient: Coding Level of Care Code 32058 INT INP/OBS CARE 3/75MIN Diagnoses Atrial fibrillation with RVR I48.91 Aortic stenosis I35.0 Resident Activity Tracking Resident Involvement: Resident Care Provided Care Provided: Adult Hospital Medicine
--- NOTE | 2024-08-05 11:05 | Pharmacy Report ---
Pharmacy Glycemic Short Note 2 - Date of Service August 05, 2024 - Glycemic Short BSG Results (Last 24 hours): 08/04/24 08/04/24 08/04/24 11:33 16:31 20:18 Glucose POC Glucose 210 H 228 H 215 H 08/04/24 08/05/24 08/05/24 23:50 05:47 07:31 Glucose 187 H POC Glucose 244 H 199 H OUTPATIENT ANTIDIABETIC REGIMEN: * Lantus SQ daily (unclear what dose patient was discharged on during last admission - d/c 07/31) * Glipizide * A1c = 8% (07/22/24) ASSESSMENT: 08/05/24: * Continues on prednisone 40 mg PO daily * Blood sugars elevated yesterday, ranging 179-244 mg/dL w/ fasting blood sugar of 199 mg/dL this morning * Will increase basal insulin this morning and tighten carb ratio further 08/04/24: * Mamie is a 74 yo T2DM with multifocal infiltrates on CT chest s/p recent bronchoscopy * Patient has been started on antibiotics and prednisone 40 mg daily * Basal insulin held on 08/03 for hypoglycemia. Resumed on 08/04 at 10 units daily. Suspect may need to increase this with addition of steroids. * Novolog CF and CR tightened to weight/stress 3 after prednisone was initiated PLAN FOR INPATIENT GLYCEMIC CONTROL: * Hold outpatient oral diabetes medications * Basal insulin * Lantus 15 units SC qAM * Lantus 0-5-10 units SC HS * Bolus insulin * NovoLog per scale ACHS or Q6hrs while NPO * Goal Range: Low 110 mg/dL - High 140 mg/dL * Correction Factor: 15 mg/dL/unit * Nutritional / Prandial insulin per carb ratio of 1 unit per 5 grams CHO consumed
[2024-08-05] MEDS: METOPROLOL SUCC 25MG EXT REL TAB PO SCH (12:19)
--- NOTE | 2024-08-05 15:19 | Electrocardiogram Report ---
Test Reason : Blood Pressure : */* mmHG Vent. Rate : 122 BPM Atrial Rate : * BPM P-R Int : * ms QRS Dur : 72 ms QT Int : 314 ms P-R-T Axes : * 37 73 degrees QTcB Int : 447 ms Atrial fibrillation with rapid ventricular response Anteroseptal infarct (cited on or before 02-Aug-2024) Abnormal ECG When compared with ECG of 02-Aug-2024 18:35, Questionable change in initial forces of Septal leads Confirmed by Rohit Fabian ([id number]) on 08/05/2024 3:19:11 PM Referred By: REFERRED SELF Confirmed By: Rohit Fabian
--- NOTE | 2024-08-05 18:13 | Hospitalist Progress Note ---
Date of Service August 05, 2024 Assessment & Plan (1) Multifocal pneumonia: (2) Stage 3b chronic kidney disease: (3) Atrial fibrillation: Plan The patient is a 74-year-old female with a past medical history including CKD stage IIIb, atrial fibrillation, diabetes mellitus, hypertension, urinary incontinence, hypercalcemia, anxiety with depression,, and hyperlipidemia. She was most recently admitted to [facility] from 07/21-07/31/2024, for hypercalcemia of 13.3, and during that admission, underwent a flexible fiberoptic bronchoscopy with EBUS bronchial washings and transbronchial biopsy on 07/30/2024. Concern at that time was evaluation for possible sarcoidosis, malignancy or other etiologies of bilateral mediastinal adenopathy and breathing difficulties. Her reports that she has been having gradually worsening shortness of breath since discharge, and with the onset of more significant coughing with hemoptysis. In the ED,she was hypoxic, and had a BP of 89/49, which responded to IV fluid rehydration. Chest x-ray and CT scan were noted to be improved in the right upper lobe, but worse in the left lower lobe. #Multifocal pneumonia/hemoptysis/status post fiberoptic bronchoscopy with EBUS- Right upper lobe improved, left lower lobe worse on imaging, with hemoptysis from recent bronchoscopy. Procal neg x 2. Appreciate PULM consult. Hypoxia now resolved. Previous biopsies all came back inconclusive. Biofire resp panel here negative. -continue antibiotics-now on cefdinir and doxy as well as prednisone x 7 day course. -Hemoptysis now resolved, ELiquis can be resumed on 08/06 -continue Duonebs every 4 hours while awake and every 2 hours when necessary. -f/u outpt with PULM for next steps with regards to mediastinal FRIDA and pulm infiltrates-suspects sarcoidosis but could be lymphoproliferative disorder. Needs referral to thoracic surgery as an outpatient to undergo mediastinoscopy for lymph node resection -f/u Legionella ag #Hypercalcemia-treated last admission with bisphosphonate for Ca++ of 13.3. Calcium now down to normal. TORREY level high, 1,25-OH Vit D and Vit D 25-OH both normal or low. PTH appropriately low and PTH related protein low. Phos is low, mag is normal.Renal function is abnormal but not too far off her baseline. No offending medications. Possibly from CKD? Vs sarcoidosis -follow BMP routinely and f/u with PULM and Nephro as outpt #Severe aortic stenosis-seen by Cardiology here. BNP 175, not in acute HFpEF. No angina, syncope. 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 Appreciate Cardiology consult. Most recent echo on 07/31/2024 with EF 55-60%, and severe aortic stenosis -Temporarily holding apixaban while having hemoptysis but can resume 08/06 if hemoptysis continues to be resolved -increase Toprol XL to 50mg daily -continue tele monitoring #Anxiety: stable -continue Fluoxetine #Diabetes mellitus: HgbA1C 8.0%, not great control. -Hold home glipizide while inpatient and using Lantus and Novolog -consider adding on SGLT-2i given CKD and DMII DVT proph-ELiquis on hold Dispo-continued stay, improving, possible dc to home tomorrow Admission and Anticipated Discharge Date Admission Date: August 02, 2024 Anticipated date of discharge: 08/06/24 Subjective Patient still coughing but minimal sputum and no hemoptysis. No further s hortness of breath. Denies chest pain. Has not moved her bowels in 3 days but feels like she is about to. Otherwise overall feeling better. Telemetry with atrial fibrillation with rates spiking as high as the 170s with minimal exertion but rates in the 70s to 80s at rest Physical Exam Constitutional: WD/WN, vitals as above Respiratory: normal respiratory effort, lungs clear to auscultation Cardiovascular: Rate/Rhythm: regular rate and + irregularly irregular Heart Sounds: + murmur (3/6 MOOK at the RUSB) Extremities: no edema Musculoskeletal: Extremities: + extremities abnormal to inspection (Left knee with Torrey wrap in place) Psychiatric: A+Ox3, euthymic affect Results & Data Results & Data Vital Signs (Past 12 Hours) Vital Signs Temp Pulse Resp BP Pulse Ox O2 Del Method O2 Flow Rate 08/05/24 15:20 36.8 C 89 17 106/67 95 Room Air 08/05/24 12:32 86 16 97 Room Air 08/05/24 10:35 36.3 C L 86 17 115/72 98 Nasal Cannula 2 08/05/24 08:01 36.6 C 106 H 17 100/61 97 Room Air 08/05/24 07:30 Room Air 08/05/24 07:03 86 16 97 Room Air Laboratory Results CBC, BMP, magnesium, phosphorus reviewed PG Care Time/CCT Total # of Minutes Spent Total Time Spent with Patient: Total time spent is greater than 50% in coordination of care (as documented) at patient's floor/unit and/or counseling patient: Coding Level of Care Code 47601 SUB INP/OBS CARE 3/50MIN Diagnoses Multifocal pneumonia J18.9 Stage 3b chronic kidney disease N18.32 Atrial fibrillation I48.91
[2024-08-06 07:07] VITALS: RESP 18
[2024-08-06] MEDS: METOPROLOL SUCC 50MG EXT REL TAB PO SCH (08:25)
[2024-08-06] MEDS: LANTUS PER UNIT CHARGE SC SCH (08:27)
[2024-08-06] MEDS: APIXABAN 5 MG TABLET PO ONE (09:34)
--- NOTE | 2024-08-06 12:31 | Discharge Summary ---
Discharge Summary Date of Service August 06, 2024 Principal Dx & Hospital Course #1 = Principal Diagnosis (1) Multifocal pneumonia: (2) Stage 3b chronic kidney disease: (3) Atrial fibrillation: Plan The patient is a 74-year-old female with a past medical history including CKD stage IIIb, atrial fibrillation, diabetes mellitus, hypertension, urinary incontinence, hypercalcemia, anxiety with depression,, and hyperlipidemia. She was most recently admitted to [facility] from 07/21-07/31/2024, for hypercalcemia of 13.3, and during that admission, underwent a flexible fiberoptic bronchoscopy with EBUS bronchial washings and transbronchial biopsy on 07/30/2024 for mediastinal lymphadenopathy. Concern at that time was evaluation for possible sarcoidosis, malignancy or other etiologies of bilateral mediastinal adenopathy and breathing difficulties. Her reports that she has been having gradually worsening shortness of breath since discharge, and with the onset of more significant coughing with hemoptysis. In the ED,she was hypoxic, and had a BP of 89/49, which responded to IV fluid rehydration. Chest x-ray and CT scan were noted to be improved in the right upper lobe, but worse in the left lower lobe. #Multifocal pneumonia/hemoptysis/status post fiberoptic bronchoscopy with EBUS- Right upper lobe improved, left lower lobe worse on imaging, with hemoptysis from recent bronchoscopy. Procal neg x 2. Appreciate PULM consult. Hypoxia now resolved. Previous biopsies all came back inconclusive. Biofire resp panel here negative. Blood cultures remained no growth -Received IV and then oral antibiotics-finish out 7-day course of cefdinir and doxy on discharge as well as prednisone x 4 more days for total 7 days of 40 mg -Hemoptysis now resolved, ELiquis was resumed on 08/06 -Continue albuterol inhaler as needed for wheezing-continues to have mild wheezing on discharge -f/u outpt with PULM for next steps with regards to mediastinal FRIDA and pulm infiltrates-suspects sarcoidosis but could be lymphoproliferative disorder. Likely needs referral to thoracic surgery as an outpatient to undergo mediastinoscopy for lymph node resection -f/u Legionella ag after discharge #Hypercalcemia-treated last admission with bisphosphonate for Ca++ of 13.3. Calcium now down to normal. TORREY level high, 1,25-OH Vit D and Vit D 25-OH both normal or low. PTH appropriately low and PTH related protein low. Phos is low, mag is normal.Renal function is abnormal but not too far off her baseline. No offending medications. Possibly from CKD? Vs sarcoidosis -follow BMP routinely with PCP, nephrology, and f/u with PULM and Nephro as outpt #Severe aortic stenosis-seen by Cardiology here. BNP 175, not in acute HFpEF. No angina, syncope. 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 Appreciate Cardiology consult. Most recent echo on 07/31/2024 with EF 55-60%, and severe aortic stenosis -Held apixaban while having hemoptysis but resumed on 08/06 as hemoptysis continued to be resolved -increase Toprol XL to 75 mg daily and rates were better controlled -Follow-up with cardiology as planned in 1 week #Anxiety: stable -continue Fluoxetine #Diabetes mellitus: HgbA1C 8.0%, not great control. On Levemir 50 units at home as per home med rec? She is only receiving half that amount for her total insulin while on prednisone during hospitalization. -Resume home glipizide and reduce Lantus to only 20 units once daily on discharge -consider adding on SGLT-2i given CKD and DMII-this has been discussed with nephrology in the past DVT proph-ELiquis resumed on day of discharge Dispo-stable for discharge to home Notes For Next Care Provider Follow BMP/calcium levels as outpatient for CKD and hypercalcemia Follow-up with pulmonology and may need referral to thoracic surgery for mediastinal lymph node biopsy Has follow-up appointment with gynecology for thickened endometrial stripe from previous hospitalization Medication Changes From Visit Increased Toprol-XL to 75 Mg p.o. once daily Added albuterol inhaler for as needed use Reduced Levemir to 20 units once daily Added cefdinir 3 9 Mg p.o. twice daily x 2 more days, doxycycline 100 mg p.o. twice daily x 3 more days, and prednisone 40 mg p.o. daily x 4 more days Admission HPI Per Admitting Provider The patient is a 74-year-old female with a past medical history including CKD stage IIIb, atrial fibrillation, diabetes mellitus, hypertension, urinary incontinence, hypercalcemia, anxiety with depression,, and hyperlipidemia. She was most recently admitted to [facility] from 07/21-07/31/2024, for hypercalcemia of 13.3, and during that admission, underwent a flexible fiberoptic bronchoscopy with EBUS bronchial washings and transbronchial biopsy on 07/30/2024. Concern at that time was evaluation for possible sarcoidosis, malignancy or other etiologies of bilateral mediastinal adenopathy and breathing difficulties. Her reports that she has been having gradually worsening shortness of breath since discharge, and with the onset of more significant coughing as noted, she was brought to the emergency department for evaluation. In the emergency department, in addition to being hypoxic, her blood pressure did drop to a low of 89/49, which did respond to some IV fluid rehydration. Chest x-ray and CT scan were noted to be improved in the right upper lobe, but worse in the left lower lobe. She was then referred for evaluation to [facility] hospitalist service for admission. Discharge Exam Constitutional WD/WN, vitals as above Respiratory normal respiratory effort Auscultation: + wheezes (Mild bilateral expiratory wheezes); no rales and no rhonchi Cardiovascular Rate/Rhythm: regular rate and + irregularly irregular Heart Sounds: + murmur (3/6 MOOK at the RUSB) Extremities: no edema Musculoskeletal Extremities: + extremities abnormal to inspection (Left knee with Torrey wrap in place) Psychiatric A+Ox3, euthymic affect Discharge Plan Discharge Items Patient Disposition: Home - Self-Care Reason For Visit: MULTIFOCAL PNEUMONIA Discharge Diagnosis: Pneumonia, hemoptysis secondary to bronchoscopy with biopsies Rapid atrial fibrillation Hypercalcemia Severe aortic stenosis Condition on Discharge: Good Activity: As commented below Bathing: No limitations Exercise/Sports: Gradually increase as tolerated Non-emergency contact: Primary Care Provider, Acid Polymerization Operator and Pulverizer Feeder Call non-emergency contact if: you have any medication questions, your symptoms worsen, you have a fever and your temperature is above 101 Follow-up/Referrals: Valentina Price DO [Primary Care Provider] - 08/14/24 10:20 am (Please follow- up within 1 to 2 weeks) Nii Schmidt MD [Physician] - 08/30/24 1:45 pm (Hospital follow up is scheduled for August 30, 2024 at 1:45 pm) Diet: Carb Consistent or DM2 and Heart Healthy Addtl Attending Provider Instructions: You admitted with pneumonia and coughing up blood likely related to your recent bronchoscopy with biopsies. Please finish out 4 more days of the steroid called prednisone to reduce inflammation and finish out the 2 antibiotics called cefdinir and doxycycline. It is okay for you to continue on your Eliquis at this time You need to follow-up with the manager sales and marketing to decide next steps on your lung abnormalities. It is also recommended that you have your primary care physician closely follow your calcium levels-they are normal for now. You have severe aortic stenosis but there is no need for valvular replacement at this time-please keep your follow-up appointment with yam curer. Your atrial fibrillation was causing your heart rate to be too high-your metoprolol dose was increased to 75 mg daily. For your diabetes, your hemoglobin A1c was 8.0%. Please discuss with your primary care physician and try on baster about adding on a medication called Jardiance which is good in the setting of chronic kidney disease as well as for diabetes. Pending Studies at Discharge: Yes (Legionella urine antigen) Stand-Alone Forms: My [facility] [employer], Smoking Cessation Medications and DC Order Prescriptions: New doxycycline hyclate 100 mg Capsule 100 mg PO BID Qty: 6 0RF cefdinir 300 mg Capsule 300 mg PO BID Qty: 4 0RF prednisone 20 mg Tablet 40 mg PO DAILY Qty: 8 0RF albuterol sulfate 90 mcg/actuation HFA aerosol inhaler 2 inh inhalation Q6H PRN (Reason: shortness of breath or wheezing) Qty: 8.5 0RF Continued (DME) FreeStyle Darell 14 Day Sensor Kit See Rx Instructions .Route Qty: 1 0RF Rx Instructions: As directed (DME) pen needle, diabetic [BD Ultra-Fine Isha Pen Needle] 32 gauge x 5/32" needle See Rx Instructions .Route Qty: 100 2RF Rx Instructions: Use once daily to administer insulin DX CODE E11.9 fluoxetine 40 mg capsule 40 mg PO DAILY Qty: 90 3RF glipizide 10 mg tablet extended release 24hr 10 mg PO DAILY Qty: 90 3RF pravastatin 20 mg tablet 20 mg PO DAILY Qty: 90 3RF Eliquis 5 mg tablet 5 mg PO BID Qty: 180 1RF Hold Instructions: Resume on 08/05/24. omeprazole 20 mg capsule,delayed release(DR/EC) 20 mg PO DAILY Qty: 90 3RF losartan 50 mg tablet 50 mg PO DAILY Qty: 90 3RF Changed metoprolol succinate 50 mg tablet extended release 24 hr 75 mg PO DAILY 90 Days Qty: 45 0RF insulin detemir U-100 100 unit/mL (3 mL) insulin pen 20 unit subcut DAILY Qty: 15 0RF Discharge Orders: Discharge Order (Routine); Ordered 08/06/24 Ordered By: Opal Mackenzie Admission Data Admit Date/Time: 08/02/24 20:35 Attending Provider: Opal Mackenzie Admit Provider: Atul Grider Primary Care Provider: Valentina Price Other Providers: Nii Schmidt; Atul Grider; Rohit Fabian Hospital Stay Data Consultations 08/02/24 20:16 ED Decision to Admit Stat 08/02/24 20:35 Consult Pulmonology Routine 08/04/24 11:15 Consult Cardiology Routine Diagnostic Imagining Performed 08/02/24 18:51 CT angio chest PE protocol Stat CT neck [CT cervical spine wo con] Stat Pending Results Patient Have Any Pending Studies at Discharge: Yes (Legionella urine antigen) Discharge Instructions Given to Patient (Per Discharging Provider) You admitted with pneumonia and coughing up blood likely related to your recent bronchoscopy with biopsies. Please finish out 4 more days of the steroid called prednisone to reduce inflammation and finish out the 2 antibiotics called cefdinir and doxycycline. It is okay for you to continue on your Eliquis at this time You need to follow-up with the manager sales and marketing to decide next steps on your lung abnormalities. It is also recommended that you have your primary care physician closely follow your calcium levels-they are normal for now. You have severe aortic stenosis but there is no need for valvular replacement at this time-please keep your follow-up appointment with yam curer. Your atrial fibrillation was causing your heart rate to be too high-your metoprolol dose was increased to 75 mg daily. For your diabetes, your hemoglobin A1c was 8.0%. Please discuss with your primary care physician and try on baster about adding on a medication called Jardiance which is good in the setting of chronic kidney disease as well as for diabetes. Total Time Total Time Spent Total Time Spent (In Minutes): 35 minutes Total Time Includes: Examination of the Patient, Discharge Planning, Medication Reconciliation and Communication With Other Providers (Cardiology) Coding Level of Care Code 65607 INP/OBS DISCH >30 MIN Diagnoses Multifocal pneumonia J18.9 Stage 3b chronic kidney disease N18.32 Atrial fibrillation I48.91
[2024-08-06 15:29] VITALS: BP 120/84; TEMP 98.1; O2SAT 97
[2024-08-06 16:27] VITALS: PULSE 81
--- NOTE | 2024-08-07 06:19 | Coding Query ---
To promote full compliance with coding requirements relating to patient care, provider participation is requested in all cases of lens silverer uncertainty. Please assist us with the question(s) below: Coding Question(s): The diagnosis below was documented in the H&P then subsequently fell off all further documentation. Please indicate if it is still a possible diagnosis or ruled out. Physician's Response(s): SEPSIS ( x ) Diagnosed and POA ( ) Diagnosed and not POA ( ) Ruled out ( ) Other (please specify) Thank you! BLANCA
== END 2024-08-06 18:25 | disposition home or self-care (01) | DRG 871 ==
LOC: ED 17:42 → EDINP 20:35 → SUATTDRO 20:35 → 2S 21:43

== ENCOUNTER 2024-08-23 12:59 | Observation (INO) ==
--- NOTE | 2024-08-23 14:00 | XRay Report ---
XR chest 1V portable CLINICAL HISTORY: Dyspnea COMPARISON STUDY: 08/02/2024 FINDINGS: Compared with the prior study, the left basilar infiltrate has resolved. The present examin ation demonstrates no acute cardiopulmonary process. There is no airspace opacity, pleural effusion, or pneumothorax. The heart and pulmonary vascularity are unremarkable for technique. IMPRESSION: No acute process ACT 112: Negative or not required by law. Electronically signed by: Mariya Berry M.D. 08/23/2024 1:59 PM
[2024-08-23 14:08] LABS: Basophils # (auto) 0.04 K/uL (0.00-0.20); Basophils % (auto) 0.5 %; Eosinophils # (auto) 0.23 K/uL (0.00-0.50); Eosinophils % (auto) 3.1 %; Hematocrit (blood only) 32.9 % (37.0-47.0); Hemoglobin 10.4 g/dl (12.0-16.0); Immature Granulocytes # (auto) 0.07 K/uL (0.01-0.20); Immature Granulocytes % (auto) 0.9 %; Lymphocytes # (auto) 0.84 K/uL (1.20-3.40); Lymphocytes % (auto) 11.4 %; Mean Corpuscular Hemoglobin 27.2 pg (25.0-34.0); Mean Corpuscular Hgb Conc 31.6 g/dL (32.0-36.0); Mean Corpuscular Volume 85.9 fL (80.0-100.0); Mean Platelet Volume 10.9 fL (9.4-12.4); Monocytes # (auto) 0.74 K/uL (0.11-0.59); Neutrophils # (auto) 5.45 K/uL (1.40-6.50); Neutrophils % (auto) 74.1 %; Platelet Count 176 K/uL (130-400); RDW Coefficient of Variation 15.9 % (11.5-14.5); RDW Standard Deviation 49.7 fL (36.4-46.3); Red Blood Count 3.83 M/uL (4.20-5.40); White Blood Count 7.37 K/ul (4.8-10.8)
[2024-08-23 14:23] LABS: Albumin Globulin Ratio 1.1 (0.9-2); Albumin Level 3.4 gm/dl (3.4-5.0); BUN Creatinine Ratio 15.1 (10-20); Bilirubin,Total 0.7 mg/dl (0.2-1.0); Calcium 8.6 mg/dl (8.6-10.3); Creatinine Clr Calc Pharmacy 44.5 ml/min; Globulin 3.1 gm/dl (2.5-4.0); Magnesium 1.5 mg/dl (1.7-2.4); Potassium 4.6 mmol/L (3.5-5.1); Total Protein 6.5 gm/dl (6.0-8.3)
[2024-08-23] MEDS: MAGNESIUM SULFATE / D5W 1 GM/100 ML BAG IV STA (14:29)
[2024-08-23 14:30] LABS: INR 1.1 (0.9-1.1); Troponin I High Sensitivity 3.7 pg/ml (0-14)
--- NOTE | 2024-08-23 14:47 | Emergency Department Note ---
Impression & Plan Generalized weakness, PARSONS (dyspnea on exertion), Hypomagnesemia, Elevated brain natriuretic peptide (BNP) level ED Provider Note HISTORY OF PRESENT ILLNESS: Patient is a 74-year-old female presenting with generalized weakness and shortness of breath. Patient reports that for the last week she has had progressively worsening weakness. Reports that she is unable to stand at her sink and do dishes secondary to how weak and short of breath she gets. She reports that she gets very short of breath with minimal amounts of exertion. Denies any cough. Denies any chest pain. Denies any fevers. Denies any recent sick contact exposures. Patient was admitted to the hospital 3 weeks ago for pneumonia and completed an outpatient course of antibiotics, but has not been on any antibiotics or steroids in the last week. Denies any abdominal pain, nausea or vomiting. Denies any dysuria or hematuria. She is on Eliquis for history of A-fib. Denies any DVT or PE history. Denies any history of cardiac stents. ROS: as above PHYSICAL EXAM: Constitutional: Patient appears in no acute distress. HENT: Head: Normocephalic and atraumatic. Eyes: EOMI, PERRL Mouth/Throat: Mucous membranes moist. Neck: Trachea midline. Neck supple. Cardiovascular: Irregular rhythm. No murmurs, rubs or gallops. Intact distal pulses. Pulmonary/Chest: No respiratory distress. Breath sounds clear and equal bilaterally. No wheezes or rales. Abdominal: Abdomen soft, no tenderness, rebound or guarding. Musculoskeletal: No edema, tenderness or deformity noted. Skin: Warm and dry. No rash, erythema, pallor or cyanosis Psychiatric: Appropriate mood and affect for situation. Neurological: Alert and keenly responsive. CN II-XII grossly intact, moving all extremities equally and fully. MDM: - Vitals signs stable. - History obtained via patient. History as above. - Chronic conditions affecting care: HTN; HLD; DM-2; depression/anxiety; CKD - Differential diagnoses include, but are not limited to: UTI; pneumonia; viral syndrome; CVA; intracranial hemorrhage; CHF exacerbation; ACS - Order placed for continuous cardiac monitoring. At this time, monitor showed rate of 74 bpm with irregular rhythm, per my interpretation. - External medical records reviewed. Primary care visit note from today was reviewed. Patient was seen for a 1 week follow-up after presenting for worsening weakness and shortness of breath. Of note in the chart they note that she "is noticeably unwell appearing, tachypneic in office." They note that her blood pressure was hypotensive at her visit and referred her to the emergency department for further evaluation. - EKG image interpreted by myself showed atrial fibrillation. Rate 81 bpm. QT 382. No acute ischemic changes. - Laboratory workup interpreted by myself showed normal WBC; chronic anemia (Hgb 10.4); normal PT/INR; slight hyponatremia (Na 135); elevated creatinine (Cr 1.39); hypomagnesemia (Mg 1.5); hyperglycemia (glucose 237) with normal anion gap; normal troponin; elevated BNP; normal procalcitonin; normal TSH - UA negative for infection - CXR image reviewed myself is negative for pneumonia, per my interpretation. - Viral respiratory panel negative. - Patient reports that she has been short of breath with exertion and is progressively weaker and is unable to care for self at home. - Patient given 1g IV magnesium for electrolyte replacement - Discussion was had with welfare case worker about patient's case and need for admission - Hospitalist consulted for admission - Patient admitted to [facility] for further evaluation and management. ASSESSMENT AND PLAN: Diagnosis: Generalized weakness; dyspnea on exertion; elevated BNP Plan: Admit Past Med/Surg History Problem List (Updated 08/23/24 @ 19:46 by Leesa Krishna MD) Elevated brain natriuretic peptide (BNP) level (Acute) Hypomagnesemia (Acute) PARSONS (dyspnea on exertion) (Acute) Generalized weakness (Acute) Generalized weakness Dyspnea on exertion Atrial fibrillation, permanent Chronic anemia Aortic stenosis History of hypercalcemia Mediastinal adenopathy Thickened endometrium Knee osteoarthritis Anticoagulated (Acute) Hypercalcemia (Acute) Anxiety Depression Stage 3b chronic kidney disease Vitamin D insufficiency Atrial fibrillation Diabetes mellitus Hypertension Urinary incontinence Hyperlipidemia Medical History Abnormal CT scan, chest Hemoptysis Acute on chronic respiratory failure with hypoxia Multifocal pneumonia (07/2024) Acute hypotension Sepsis Hemarthrosis, left knee Left ankle pain Left leg weakness Left knee dislocation Fall Acute kidney injury Weight loss, abnormal Subluxation of left patella Surgical History H/O elbow surgery Family History Mother Breast cancer Alcoholic Dementia Father Skin cancer Diabetes Grandmother (Paternal) Breast cancer Denies family history of Ovarian cancer Prostate cancer Myocardial infarction Colorectal cancer Social History Smoking Status: Never smoker Second Hand Exposure: No; Do You Dip or Chew Tobacco: No; Hx Alcohol Use: No Hx Substance Use: No Preferred Language: Serbian Communication Ability: Effective Visual Impairment: No Limitations Hearing Ability: Normal Oil Developer Required: No Beliefs That Will Affect Care: None marital status: Current Living Situation: Spouse and Family current occupational status: retired current occupation: [employer] How many Children do You have: 1 Feels Safe at Home: Yes Childhood Exposure to Second-Hand Smoke: Yes Diet: regular caffeine: Yes during the past year weight has: remained stable Dental Care, Regularly: Yes Physical Activity Frequency: Does not Exercise Seatbelt Use: always Sunscreen Use: Yes Do you think of yourself as: straight/heterosexual Gender Identity: Female Assistive Devices: Cane Allergies Allergies Allergy/AdvReac Type Severity Reaction Status Date / Time No Known Allergies Allergy Verified 08/23/24 11:15 Home Meds Home Medications Medication Instructions Recorded Confirmed blood-glucose sensor (FreeStyle 08/08/24 08/23/24 Darell 3 Plus Sensor device) insulin glargine 100 unit/mL (3 15 unit subcut QAM 08/23/24 08/23/24 mL) subcutaneous pen (Lantus Solostar U-100 Insulin) Previous Rx's Medication Instructions Recorded pen needle, diabetic 32 gauge x #100 ea 04/24/23" (BD Ultra-Fine Isha Pen Needle) pravastatin 20 mg tablet 20 mg PO DAILY #90 tabs 05/23/23 omeprazole 20 mg capsule,delayed 20 mg PO DAILY #90 caps 07/18/24 release losartan 50 mg tablet 50 mg PO DAILY #90 tabs 07/19/24 albuterol sulfate 90 mcg/actuation 2 inh inhalation Q6H PRN shortness 08/06/24 aerosol inhaler of breath or wheezing #8.5 grams cholecalciferol (vitamin D3) 10 See Rx Instructions PO DAILY #30 02/26/25 mcg (400 unit) capsule caps flash glucose scanning reader #1 ea 08/12/24 (FreeStyle Darell 14 Day [place]) flash glucose sensor (FreeStyle #1 ea 08/12/24 Darell 14 Day Sensor kit) apixaban 5 mg tablet (Eliquis) 5 mg PO BID #180 tabs 08/21/24 fluoxetine 40 mg capsule 40 mg PO DAILY #90 caps 08/21/24 glipizide 10 mg tablet, extended 10 mg PO DAILY #90 tabs 08/21/24 release 24 hr metoprolol succinate 50 mg 75 mg (1.5 x 50 mg) PO DAILY 90 08/21/24 tablet,extended release 24 hr days #135 tabs Results & Data (ED) Vital Signs Vital Signs - 24 hr 08/23/24 13:04 08/23/24 13:19 08/23/24 14:32 Temperature 36.4 C L Temperature Source Oral Pulse Rate 103 H Pulse Rate [Right Finger] 80 Pulse Rhythm [Right Finger] Regular Pulse Strength [Right Finger] Normal Respiratory Rate 24 20 Respiratory Effort / Characteristics Non-Labored Spontaneous Respiratory Depth Normal Respiratory Pattern Regular Blood Pressure 107/81 Blood Pressure [Right Arm] 116/71 Blood Pressure Mean 89 Blood Pressure Mean [Right Arm] 86 Blood Pressure Position [Right Arm] Sitting Pulse Oximetry 100 100 99 Oxygen Delivery Method Room Air Room Air Room Air Sepsis Recent Fever Within 48 Hours No Sepsis New/Unexplained Change in Mental Status N/A Sepsis Action Taken by Nursing No Action Required 08/23/24 15:52 08/23/24 16:00 08/23/24 18:00 Temperature Temperature Source Pulse Rate 75 Pulse Rate [Right Finger] 75 76 Pulse Rhythm [Right Finger] Regular Pulse Strength [Right Finger] Normal Normal Respiratory Rate 16 18 Respiratory Effort / Characteristics Non-Labored Spontaneous Non-Labored Spontaneous Respiratory Depth Normal Normal Respiratory Pattern Regular Regular Blood Pressure Blood Pressure [Right Arm] 121/71 Blood Pressure Mean Blood Pressure Mean [Right Arm] 87 Blood Pressure Position [Right Arm] Lying Pulse Oximetry 98 99 Oxygen Delivery Method Room Air Room Air Sepsis Recent Fever Within 48 Hours Sepsis New/Unexplained Change in Mental Status Sepsis Action Taken by Nursing 08/23/24 18:57 Temperature Temperature Source Pulse Rate 74 Pulse Rate [Right Finger] Pulse Rhythm [Right Finger] Pulse Strength [Right Finger] Respiratory Rate Respiratory Effort / Characteristics Respiratory Depth Respiratory Pattern Blood Pressure Blood Pressure [Right Arm] Blood Pressure Mean Blood Pressure Mean [Right Arm] Blood Pressure Position [Right Arm] Pulse Oximetry Oxygen Delivery Method Sepsis Recent Fever Within 48 Hours Sepsis New/Unexplained Change in Mental Status Sepsis Action Taken by Nursing Laboratory Data 08/23/24 13:16 08/23/24 13:16 Lab Results 08/23/24 08/23/24 08/23/24 Range/Units 13:16 14:11 16:22 WBC 7.37 (4.8-10.8) K/ul RBC 3.83 L (4.20-5.40) M/uL Hgb 10.4 L (12.0-16.0) g/dl Hct 32.9 L (37.0-47.0) % MCV 85.9 (80.0-100.0) fL MCH 27.2 (25.0-34.0) pg MCHC 31.6 L (32.0-36.0) g/dL RDW Std Deviation 49.7 H (36.4-46.3) fL RDW Coeff of Krista 15.9 H (11.5-14.5) % Plt Count 176 (130-400) K/uL MPV 10.9 (9.4-12.4) fL Immature Gran % (Auto) 0.9 % Neut % (Auto) 74.1 % Lymph % (Auto) 11.4 % Whitley % (Auto) 10.0 % Eos % (Auto) 3.1 % Baso % (Auto) 0.5 % Neut # (Auto) 5.45 (1.40-6.50) K/uL Lymph # (Auto) 0.84 L (1.20-3.40) K/uL Whitley # (Auto) 0.74 H (0.11-0.59) K/uL Eos # (Auto) 0.23 (0.00-0.50) K/uL Baso # (Auto) 0.04 (0.00-0.20) K/uL Immature Gran # (Auto) 0.07 (0.01-0.20) K/uL PT 12.0 (9.0-12.0) Seconds INR 1.1 (0.9-1.1) Sodium 135 L (136-145) mmol/L Potassium 4.6 (3.5-5.1) mmol/L Chloride 103 (98-107) mmol/L Carbon Dioxide 25 (21-32) mmol/L Anion Gap 7 (3-11) BUN 21 (6-23) mg/dl Creatinine 1.39 H (0.6-1.2) mg/dl Est Cr Clr Drug Dosing 44.5 ml/min eGFR 39.57 BUN/Creatinine Ratio 15.1 (10-20) Glucose 237 H (70-99(Fasting)) mg/dl Calcium 8.6 (8.6-10.3) mg/dl Magnesium 1.5 L (1.7-2.4) mg/dl Iron 30 L (35-150) mcg/dl TIBC 227 L (250-450) mcg/dl Transferrin 162 L (200-360) mg/dl Transferrin % Sat 13 L (15-50) % Total Bilirubin 0.7 (0.2-1.0) mg/dl AST 10 L (13-39) U/L ALT 10 (7-52) U/L Alkaline Phosphatase 67 (34-104) U/L Troponin I High Sens 3.7 (0-14) pg/ml B-Natriuretic Peptide 226 H (0-100) pg/ml Total Protein 6.5 (6.0-8.3) gm/dl Albumin 3.4 (3.4-5.0) gm/dl Globulin 3.1 (2.5-4.0) gm/dl Albumin/Globulin Ratio 1.1 (0.9-2) Vitamin B12 263 (180-914) pg/ml Folate 8.63 (>5.38) ng/ml Procalcitonin 0.02 (0-0.5) ng/ml TSH 3.006 (0.300-4.500) uIu/ml Urine Color Yellow Urine Appearance Clear (Clear) Urine pH 8.0 H (4.5-7.5) Ur Specific [place] 1.017 (1.000-1.030) Urine Protein Trace H (Negative) Urine Glucose (UA) 1+ H (Negative) Urine Ketones Negative (Negative) Urine Blood Negative (Negative) Urine Nitrite Negative (Negative) Urine Bilirubin Negative (Negative) Urine Urobilinogen Positive H (Negative) Ur Leukocyte Esterase Negative (Negative) Urine WBC (Auto) 0-5 (0-5) /hpf Urine RBC (Auto) 0-2 (0-2) /hpf U Hyaline Cast (Auto) 0-2 (0-2) /lpf U Epithel Cells (Auto) 6-10 H (0-2) /hpf Urine Bacteria (Auto) 2+ H (None Seen) Adenovirus (PCR) Not Detected (NotDetected) B. pertussis DNA (PCR) Not Detected (NotDetected) B.parapertussis DNA PCR Not Detected (NotDetected) C. pneumoniae DNA (PCR) Not Detected (NotDetected) Coronavirus OC43 (PCR) Not Detected (NotDetected) Coronavirus HKU1 (PCR) Not Detected (NotDetected) Coronavirus 229E (PCR) Not Detected (NotDetected) SARS-CoV-2 (PCR) Not Detected (NotDetected) Coronavirus NL63 (PCR) Not Detected (NotDetected) Human Metapneumovir PCR Not Detected (NotDetected) Influenza Type A (PCR) Not Detected (NotDetected) Influenza Type B (PCR) Not Detected (NotDetected) M. pneumoniae (PCR) Not Detected (NotDetected) Parainfluenza 1 (PCR) Not Detected (NotDetected) Parainfluenza 2 (PCR) Not Detected (NotDetected) Parainfluenza 3 (PCR) Not Detected (NotDetected) Parainfluenza 4 (PCR) Not Detected (NotDetected) RSV (PCR) Not Detected (NotDetected) Entero/Rhino (PCR) Not Detected (NotDetected) Administered Medications Discontinued Medications Magnesium Sulfate/Dextrose (Magnesium Sulfate / D5w) 1 gm in 100 mls @ 100 mls/hr IV NOW STA Stop: 08/23/24 15:24 Last Infusion: 08/23/24 15:33 Dose: Infused Documented By: Admin: 08/23/24 14:29 Dose: 100 mls/hr Documented By: MNE Imaging Data Radiologist's Impression: Chest X-Ray 08/23/24 13:19 XR chest 1V portable CLINICAL HISTORY: Dyspnea COMPARISON STUDY: 08/02/2024 FINDINGS: Compared with the prior study, the left basilar infiltrate has resolved. The present examination demonstrates no acute cardiopulmonary process. There is no airspace opacity, pleural effusion, or pneumothorax. The heart and pulmonary vascularity are unremarkable for technique. IMPRESSION: No acute process ACT 112: Negative or not required by law. Electronically signed by: Mariya Berry M.D. 08/23/2024 1:[address] 08/23/24 19:00 CT HEAD: HISTORY: Headaches TECHNIQUE: Noncontrast CT examination of the head is performed. Coronal and sagittal reformats were created. COMPARISON: 4 weeks brain MRI July 22, 2024. FINDINGS: There is no evidence of intracranial hemorrhage, focal mass effect or midline shift. No fluid collection is identified. The ventricular system is midline and symmetric. No evidence of acute major vascular territory infarction. No calvarial fracture is identified. The paranasal sinuses and mastoids are well aerated. IMPRESSION: No acute intracranial process identified. Electronically signed by Julio Awad 08-23-2024 7:31 PM Discharge Plan Visit Data Chief Complaint: Illness Stated Complaint: ILLNESS, SOB ED Provider: Leesa Krishna Discharge Problem: Generalized weakness, PARSONS (dyspnea on exertion), Hypomagnesemia, Elevated brain natriuretic peptide (BNP) level Forms Stand Alone Forms: [facility] [employer] Prescriptions Prescriptions: No Action (DME) pen needle, diabetic [BD Ultra-Fine Isha Pen Needle] 32 gauge x 5/32" needle See Rx Instructions .Route Qty: 100 2RF Rx Instructions: Use once daily to administer insulin DX CODE E11.9 pravastatin 20 mg tablet 20 mg PO DAILY Qty: 90 3RF omeprazole 20 mg capsule,delayed release(DR/EC) 20 mg PO DAILY Qty: 90 3RF losartan 50 mg tablet 50 mg PO DAILY Qty: 90 3RF cholecalciferol (vitamin D3) 10 mcg (400 unit) capsule See Rx Instructions PO DAILY Qty: 30 0RF Rx Instructions: Pt is unsure of dose. (DME) FreeStyle Darell 14 Day [place] Misc See Rx Instructions .Route Qty: 1 0RF Rx Instructions: Testing BS TID (DME) FreeStyle Darell 14 Day Sensor Kit See Rx Instructions .Route Qty: 1 0RF Rx Instructions: Testing BS TID fluoxetine 40 mg capsule 40 mg PO DAILY Qty: 90 3RF metoprolol succinate 50 mg tablet extended release 24 hr 75 mg PO DAILY 90 Days Qty: 135 3RF glipizide 10 mg tablet extended release 24hr 10 mg PO DAILY Qty: 90 3RF Eliquis 5 mg tablet 5 mg PO BID Qty: 180 3RF Hold Instructions: Resume on 08/05/24. (DME) Tunepresto Darell 3 Plus Sensor Device See Rx Instructions .Route Rx Instructions: As directed albuterol sulfate 90 mcg/actuation HFA aerosol inhaler 2 inh inhalation Q6H PRN (Reason: shortness of breath or wheezing) Qty: 8.5 0RF insulin glargine [Lantus Solostar U-100 Insulin] 100 unit/mL (3 mL) insulin pen 15 unit subcut QAM Referrals Referrals: Valentina Price DO [Primary Care Provider] -
[2024-08-23 15:08] LABS: Adenovirus PCR Not Detected (NotDetected); Bordetella parapertussis PCR Not Detected (NotDetected); Bordetella pertussis PCR Not Detected (NotDetected); Chlamydia pneumoniae PCR Not Detected (NotDetected); Coronavirus 229E PCR Not Detected (NotDetected); Coronavirus CoV-2 (COVID19)PCR Not Detected (NotDetected); Coronavirus HKU1 PCR Not Detected (NotDetected); Coronavirus NL63 PCR Not Detected (NotDetected); Coronavirus OC43PCR Not Detected (NotDetected); Human Metapneumovirus PCR Not Detected (NotDetected); Influenza A PCR Not Detected (NotDetected); Influenza B PCR Not Detected (NotDetected); Mycoplasma pneumoniae PCR Not Detected (NotDetected); Parainfluenza Virus 1 PCR Not Detected (NotDetected); Parainfluenza Virus 2 PCR Not Detected (NotDetected); Parainfluenza Virus 3 PCR Not Detected (NotDetected); Parainfluenza Virus 4 PCR Not Detected (NotDetected); Respiratory Syncytial VirusPCR Not Detected (NotDetected); Rhinovirus/Enterovirus PCR Not Detected (NotDetected)
[2024-08-23 16:38] LABS: Appearance Urine Clear (Clear); Bacteria Urine Automated 2+ (None Seen); Bilirubin Urine Negative (Negative); Blood Urine Negative (Negative); Cast Urine Automated 0-2 /lpf (0-2); Color Urine Yellow; Glucose Urine UA 1+ (Negative); Ketones Urine Negative (Negative); Leukocyte Esterase Urine Negative (Negative); Nitrite Urine Negative (Negative); Protein Urine Trace (Negative); RBC Urine Automated 0-2 /hpf (0-2); Specific Gravity Urine 1.017 (1.000-1.030); Urobilinogen Urine Positive (Negative); WBC Urine Automated 0-5 /hpf (0-5)
--- NOTE | 2024-08-23 17:36 | History & Physical Report ---
Date of Service August 23, 2024 Assessment & Plan (1) Dyspnea on exertion: (2) Aortic stenosis: (3) Generalized weakness: (4) Diabetes mellitus: Plan Mamie is a pleasant 74-year-old female who presented for generalized weakness and new onset PARSONS x 1 week. Suspect her known aortic stenosis is main contributor. Potential discharge on 08/24 with close cardiology follow-up if echocardiogram is unchanged, and additional lab workup is unremarkable. #Generalized weakness/aortic stenosis/PARSONS TSH ordered, pending Patient denies prior history of heart failure; BNP elevated at 226 on arrival (most recently 175 on 08/04/2024) Known severe aortic stenosis, as seen on echocardiogram on 07/31/2024; LVEF 55- 60% Patient was seen by cardiology on 08/14; asymptomatic at that time Given new onset PARSONS, repeat echocardiogram ordered PT/OT evaluations appreciated #Anemia Chronic; Hgb 10.4 on arrival (around her baseline) FE panel, Vit B12, and folate ordered, pending Note: Patient does report she had a history of TONY many years back No signs of active bleeding on his clinical exam Trend CBC #Diabetes Last A1c at 8.0% on 07/22/2024 Hold glipizide Lantus 15u QAM (patient reports she takes in the mornings) SSI with target BSG range 110-140mg/dL, CF 50, carb ratio 15 T2DM diet BSG ACHS Adjust regimen as needed #Hypomagnesemia Mild; magnesium 1.5 on arrival Magnesium 1 g IV x 2 Recheck a.m. mag Chronic medical conditions: HLDpravastatin GERDomeprazole or Protonix Anxiety with depressionfluoxetine PAFEliquis Disposition: Obs - Admit to [facility] telemetry Full code T2DM diet VTE PPx: Eliquis History of Present Illness Chief Complaint: New onset PARSONS Primary Care Provider: Valentina Price DO Mamie is a 74-year-old female with PMH of HLD, HTN, diabetes, atrial fibrillation (on apixaban), and urinary incontinence. She presented via EMS on 08/23 for SOB x 1 week. Recent [place] hospitalizations: from 07/21 - 07/31 for hypercalcemia and bronchoscopy; from 08/02 08/06 for multifocal pneumonia; discharged on 7-day course of cefdinir and doxycycline, as well as prednisone. Patient reports she felt fine when she left the hospital. Then, over the past week, she has gradually gone from bad to worse. She endorses generalized weakness and new onset PARSONS. She can barely stand and make it from her recliner to the kitchen without losing her energy. No prior history of CHF to her know ladariusge. She also reports she has no energy to do dishes, which is new for her. She was driving upon discharge, but over the past week has felt too weak to drive at home. No prior issues with her thyroid. Patient took her regular morning medicine today; no recent medication changes after leaving the hospital. Patient did take her Lantus 15 units this morning. Patient uses a cane to ambulate on occasion. She was hospitalized for a fall in July, but denies any falls since leaving the hospital. No supple oxygen at baseline or CPAP at night. No sick contacts. No prior history of DVT/PE; she is on Eliquis for A- fib and reports good compliance. She denies any rashes or tick bites. Patient denies smoking, tobacco use, recent alcohol use. Patient's vital stable at time admission. ED course: Magnesium sulfate 1 g IV ROS: Patient endorses new onset PARSONS x 1 week, and generalized weakness. Patient denies fever, chills, night-sweats, dizziness, lightheadedness, chest pain, chest palpitations, pleuritic CP, cough, abdominal pain, N/V/D, changes in urinary/bowel habits, burning with urination, blood in the urine/stool, or numbness/tingling in the arms or legs. Allergies Allergy/AdvReac Type Severity Reaction Status Date / Time No Known Allergies Allergy Verified 08/23/24 11:15 Home Medications Medication Instructions Recorded Confirmed Type pen needle, diabetic 32 gauge x #100 ea 04/24/23 08/23/24 Rx 5/32" (BD Ultra-Fine Isha Pen Needle) pravastatin 20 mg tablet 20 mg PO DAILY #90 tabs 05/23/23 08/23/24 Rx omeprazole 20 mg capsule,delayed 20 mg PO DAILY #90 caps 07/18/24 08/23/24 Rx release losartan 50 mg tablet 50 mg PO DAILY #90 tabs 07/19/24 08/23/24 Rx albuterol sulfate 90 mcg/actuation 2 inh inhalation Q6H PRN shortness 08/06/24 08/23/24 Rx aerosol inhaler of breath or wheezing #8.5 grams cholecalciferol (vitamin D3) 10 See Rx Instructions PO DAILY #30 08/07/24 08/23/24 Rx mcg (400 unit) capsule caps blood-glucose sensor (FreeStyle 08/08/24 08/23/24 History Darell 3 Plus Sensor device) flash glucose scanning reader #1 ea 08/12/24 08/23/24 Rx (FreeStyle Darell 14 Day [place]) flash glucose sensor (FreeStyle #1 ea 08/12/24 08/23/24 Rx Darell 14 Day Sensor kit) apixaban 5 mg tablet (Eliquis) 5 mg PO BID #180 tabs 08/21/24 08/23/24 Rx fluoxetine 40 mg capsule 40 mg PO DAILY #90 caps 08/21/24 08/23/24 Rx glipizide 10 mg tablet, extended 10 mg PO DAILY #90 tabs 08/21/24 08/23/24 Rx release 24 hr metoprolol succinate 50 mg 75 mg (1.5 x 50 mg) PO DAILY 90 08/21/24 08/23/24 Rx tablet,extended release 24 hr days #135 tabs insulin glargine 100 unit/mL (3 15 unit subcut QAM 08/23/24 08/23/24 History mL) subcutaneous pen (Lantus Solostar U-100 Insulin) Past Med/Surg History Problem List (Updated 08/23/24 @ 18:19 by Tex Langford PA-C) Generalized weakness Dyspnea on exertion Atrial fibrillation, permanent Chronic anemia Aortic stenosis History of hypercalcemia Mediastinal adenopathy Thickened endometrium Knee osteoarthritis Anticoagulated (Acute) Hypercalcemia (Acute) Anxiety Depression Stage 3b chronic kidney disease Vitamin D insufficiency Atrial fibrillation Diabetes mellitus Hypertension Urinary incontinence Hyperlipidemia Medical History Abnormal CT scan, chest Hemoptysis Acute on chronic respiratory failure with hypoxia Multifocal pneumonia (07/2024) Acute hypotension Sepsis Hemarthrosis, left knee Left ankle pain Left leg weakness Left knee dislocation Fall Acute kidney injury Weight loss, abnormal Subluxation of left patella Surgical History H/O elbow surgery Family History Mother Breast cancer Alcoholic Dementia Father Skin cancer Diabetes Grandmother (Paternal) Breast cancer Denies family history of Ovarian cancer Prostate cancer Myocardial infarction Colorectal cancer Social History Smoking Status: Never smoker Second Hand Exposure: No; Do You Dip or Chew Tobacco: No; Hx Alcohol Use: No Hx Substance Use: No Preferred Language: Kuwaiti Communication Ability: Effective Visual Impairment: No Limitations Hearing Ability: Normal Route Carrier Required: No Beliefs That Will Affect Care: None marital status: Current Living Situation: Spouse and Family current occupational status: retired current occupation: [employer] How many Children do You have: 1 Feels Safe at Home: Yes Childhood Exposure to Second-Hand Smoke: Yes Diet: regular caffeine: Yes during the past year weight has: remained stable Dental Care, Regularly: Yes Physical Activity Frequency: Does not Exercise Seatbelt Use: always Sunscreen Use: Yes Do you think of yourself as: straight/heterosexual Gender Identity: Female Assistive Devices: Cane Review of Systems Review of Systems: See HPI above Physical Exam Physical Exam: General: no acute distress; pleasant affect; at bedside; non-toxic appearing; well-nourished; cooperative; SpO2 98% on RA HEENT: normocephalic, atraumatic; no scleral icterus; PERRLA; vision and hearing grossly intact Neck: supple; no lymphadenopathy; trachea midline Skin: warm, dry without signs of tenting; no cyanosis; no rashes, bruising, lesions, or erythema noted CV: chest wall NTP; RRR; S1/S2 normal; no murmurs/rubs/gallops; pulses intact and symmetric at radial, DP, and PT Lungs: no acute respiratory distress; symmetrical chest wall expansion; clear breath sounds across all lung yanez w/o adventitious sounds; no wheezing ABD: Soft, NTP; BS present; no rebound/guarding; no distention MSK: no tics or fasciculations; no edema noted in the LEs b/l, nonerythematous Neuro: A&Ox3; normal mood and affect; fluent speech; no focal deficits; sensation intact and symmetric in lower extremity bilaterally Results & Data Results & Data Vital Signs (Past 12 Hours) Vital Signs Temp Pulse Pulse Resp BP BP Pulse Ox 08/23/24 16:00 75 16 121/71 98 08/23/24 15:52 75 08/23/24 14:32 80 20 116/71 99 08/23/24 13:19 100 08/23/24 13:04 36.4 C L 103 H 24 107/81 100 O2 Del Method 08/23/24 16:00 Room Air 08/23/24 15:52 08/23/24 14:32 Room Air 08/23/24 13:19 Room Air 08/23/24 13:04 Room Air Laboratory Results Abnormal lab results 08/23/24 08/23/24 Range/Units 13:16 16:22 RBC 3.83 L (4.20-5.40) M/uL Hgb 10.4 L (12.0-16.0) g/dl Hct 32.9 L (37.0-47.0) % MCHC 31.6 L (32.0-36.0) g/dL RDW Std Deviation 49.7 H (36.4-46.3) fL RDW Coeff of Krista 15.9 H (11.5-14.5) % Lymph # (Auto) 0.84 L (1.20-3.40) K/uL [place] # (Auto) 0.74 H (0.11-0.59) K/uL Sodium 135 L (136-145) mmol/L Creatinine 1.39 H (0.6-1.2) mg/dl Glucose 237 H (70-99(Fasting)) mg/dl Magnesium 1.5 L (1.7-2.4) mg/dl AST 10 L (13-39) U/L B-Natriuretic Peptide 226 H (0-100) pg/ml Urine pH 8.0 H (4.5-7.5) Urine Protein Trace H (Negative) Urine Glucose (UA) 1+ H (Negative) Urine Urobilinogen Positive H (Negative) U Epithel Cells (Auto) 6-10 H (0-2) /hpf Urine Bacteria (Auto) 2+ H (None Seen) Diagnostic Findings Chest X-Ray 08/23/24 13:19 XR chest 1V portable CLINICAL HISTORY: Dyspnea COMPARISON STUDY: 08/02/2024 FINDINGS: Compared with the prior study, the left basilar infiltrate has resolved. The present examination demonstrates no acute cardiopulmonary process. There is no airspace opacity, pleural effusion, or pneumothorax. The heart and pulmonary vascularity are unremarkable for technique. IMPRESSION: No acute process ACT 112: Negative or not required by law. Electronically signed by: Mariya Berry M.D. 08/23/2024 1:59 PM ECG Additional Comments: ECG revealed atrial fibrillation at 81 bpm; QTc 443 Code Status & VTE Plan Code Status Full code VTE Prophylaxis Plan VTE Prophylaxis will be ordered: Yes Supervising Physician Co-Signing Physician Notes I have personally seen, evaluated and examined the patient. I have also personally discussed the management of the patient with the resident physician/FLACO and I agree with the exam findings documented in the history and physical examination and the documented assessment and plan unless otherwise stated below. Brief Exam: In general she is pleasant 74-year-old female who is alert and oriented x 3 at time of my examination. She interacts appropriately and pleasantly. She is accompanied by her at time my examination. The patient states that she is just weak with any type of activity. And breathless. In fact during my examination she does have conversational dyspnea and labored breathing when pointed out her and both her admit that her breathing is more labored than it normally is. She has approximately 2-3 word conversational dyspnea. HEENT: Normocephalic atraumatic. Pupils are equal round react light bilaterally. Heart: Irregular rate and rhythm consistent with atrial fibrillation with a chronic. There is a 4 out of 6 systolic ejection murmur at the right sternal border consistent with her severe aortic stenosis. No rub. Lungs: Clear with diminished. Abdomen: Soft and nontender. Extremities: Intact changes of chronic venous stasis with some minor varic osities. No peripheral edema. Neurologically: Alert and oriented x 3 with no focal deficit on examination. Assessment/plan. Increased fatigue with increased breathlessness. The patient does have critical aortic stenosis by echocardiogram last month. We are going to repeat that sure no significant rapid progression of her aortic stenosis. Will do a head CT given her Eliquis therapy and her generalized weakness even though her neuroexam is nonfocal. Have PT and OT see the patient. Do some serial troponins. Please refer to orders for further planning. PG Care Time/CCT Total # of Minutes Spent Total Time Spent with Patient: Total time spent is greater than 50% in coordination of care (as documented) at patient's floor/unit and/or counseling patient: Coding [place] [address] INT INP/OBS CARE 375MIN Patient Type Established Medical Decision Making High Complexity Diagnoses Dyspnea on exertion R06.09 Aortic stenosis I35.0 Generalized weakness R53.1 Diabetes mellitus E11.9
[2024-08-23] MEDS ORDERED: CARBOHYDRATES FOR HYPOGLYCEMIA PO PRN (18:42)
[2024-08-23] MEDS ORDERED: GLUCAGON FOR INJ 1 MG VIAL SQ PRN (18:42)
[2024-08-23] MEDS ORDERED: GLUCOSE 40% GEL 15 GM TUBE PO PRN (18:42)
[2024-08-23] MEDS ORDERED: GLUCOSE 10 TAB/TUBE PO PRN (18:42)
[2024-08-23] MEDS ORDERED: DEXTROSE 50% 50 ML SYRINGE IV PRN (18:42)
[2024-08-23 18:53] LABS: Thyroid Stimulating Hormone 3.006 uIu/ml (0.300-4.500)
[2024-08-23 19:06] LABS: Folate (Folic Acid),Ser orPlas 8.63 ng/ml (>5.38)
--- NOTE | 2024-08-23 19:31 | CT Scan Report ---
CT HEAD: HISTORY: Headaches TECHNIQUE: Noncontrast CT examination of the head is performed. Coronal and sagittal reformats were created. COMPARISON: 4 weeks brain MRI July 22, 2024. FINDINGS: There is no evidence of intracranial hemorrhage, focal mass effect or midline shift. No fluid collection is identified. The ventricular system is midline and symmetric. No evidence of acute major vascular territory infarction. No calvarial fracture is identified. The paranasal sinuses and mastoids are well aerated. IMPRESSION: No acute intracranial process identified. Electronically signed by Julio Awad 08-23-2024 7:31 PM
[2024-08-23] MEDS: MAGNESIUM SULFATE / D5W 1 GM/100 ML BAG IV ONE (19:52)
[2024-08-23] MEDS ORDERED: ALBUTEROL HFA 8 GM INHALER INH PRN (20:40)
[2024-08-23] MEDS ORDERED: ACETAMINOPHEN 325 MG TAB PO PRN (20:40)
[2024-08-23] MEDS: INSULIN ASPART PER UNIT CHARGE SC SCH (20:46)
[2024-08-23] MEDS: APIXABAN 5 MG TABLET PO SCH (21:10)
--- NOTE | 2024-08-23 21:46 | Electrocardiogram Report ---
Test Reason : Blood Pressure : */* mmHG Vent. Rate : 81 BPM Atrial Rate : * BPM P-R Int : * ms QRS Dur : 64 ms QT Int : 382 ms P-R-T Axes : * 10 5 degrees QTcB Int : 443 ms Poor data quality, interpretation may be adversely affected Atrial fibrillation Septal infarct (cited on or before 02-Aug-2024) Abnormal ECG When compared with ECG of 04-Aug-2024 10:51, Vent. rate has decreased by 41 bpm Questionable change in initial forces of Anterior leads Confirmed by Jamie Beckford ([id number]) on 08/23/2024 9:45:39 PM Referred By: Confirmed By: Jamie Beckford
[2024-08-24 06:35] LABS: Hematocrit (blood only) 31.4 % (37.0-47.0); Hemoglobin 9.9 g/dl (12.0-16.0); Mean Corpuscular Hemoglobin 27.1 pg (25.0-34.0); Mean Corpuscular Hgb Conc 31.5 g/dL (32.0-36.0); Mean Platelet Volume 10.8 fL (9.4-12.4); Platelet Count 167 K/uL (130-400); RDW Standard Deviation 50.7 fL (36.4-46.3); Red Blood Count 3.65 M/uL (4.20-5.40); White Blood Count 6.64 K/ul (4.8-10.8)
[2024-08-24 07:14] LABS: BUN Creatinine Ratio 13.8 (10-20); Calcium 8.7 mg/dl (8.6-10.3); Creatinine Clr Calc Pharmacy 42.7 ml/min; Potassium 4.3 mmol/L (3.5-5.1)
[2024-08-24] MEDS: IRON SUCROSE 300 MG in SODIUM CHLORIDE 0.9% 250 ML IV ONE (09:02)
[2024-08-24] MEDS: FLUoxetine HCL 20 MG CAP PO SCH (09:04)
[2024-08-24] MEDS: LOSARTAN POTASSIUM 50 MG TAB PO SCH (09:05)
[2024-08-24] MEDS: METOPROLOL SUCC 25MG EXT REL TAB PO SCH (09:05)
[2024-08-24] MEDS: PRAVASTATIN SOD 20 MG TAB PO SCH (09:05)
[2024-08-24] MEDS: PANTOprazole 40 MG TAB PO SCH (09:05)
[2024-08-24] MEDS: LANTUS PER UNIT CHARGE SQ SCH (09:11)
--- NOTE | 2024-08-24 12:57 | XCELERA ---
[id number]
[2024-08-24] MEDS: LACTATED RINGER'S 500 ML IV ONE ×2 (14:12→18:30)
--- NOTE | 2024-08-24 15:19 | Hospitalist Progress Note ---
Date of Service August 24, 2024 Assessment & Plan (1) Dyspnea on exertion: (2) Aortic stenosis: (3) Generalized weakness: (4) Diabetes mellitus: Plan Mamie is a pleasant 74-year-old female who presented for generalized weakness and new onset PARSONS x 1 week. Suspect her known aortic stenosis is main contributor. reports every time she stood she felt like she needed to sit back down, getting lightheaded. Initial lab work showing unremarkable head CT, chest x-ray without evidence of acute process or CHF, no electrolyte abnormalities and mild anemia. #Generalized weakness/aortic stenosis/PARSONS/ orthostatic hypotension BNP slightly elevated however no signs of fluid overload on physical exam, no oxygen requirement and chest x-ray without signs of pulmonary edema Known severe aortic stenosis, as seen on echocardiogram on 07/31/2024; LVEF 55- 60% echo repeated this admission is unchanged. PT/OT - Recommend return home Positive orthostatic vital signs afternoon 08/24, likely contributing to her lightheaded feeling. 500 cc IV fluids given. Recheck orthostatics this evening. Apply LINNETTE hose #Anemia Chronic; Hgb 10.4 on arrival (baseline for patient) TSH/folate/B12 within normal limits. Iron studies consistent with iron deficiency anemia. Given Venofer x 1, continue iron supplement 3 times per week #Diabetes Last A1c at 8.0% 07/2024 Hold glipizide Lantus 15u QAM (patient reports she takes in the mornings) SSI with target BSG range 110-140mg/dL, CF 50, carb ratio 15 #Hypomagnesemia Mild; magnesium 1.5 on arrival, replaced IV, mag now replete. Chronic medical conditions: HLDpravastatin GERDomeprazole or Protonix Anxiety with depressionfluoxetine PAFEliquis Disposition: Continued inpatient stay, hopeful for discharge tomorrow if orthostatic vital signs improve VTE PPx: Eliquis Admission and Anticipated Discharge Date Admission Date: August 23, 2024 Subjective patient seen sitting at the side of the bed, eating lunch. Does not feel weak anymore and feels that she is back to normal. When I further asked her to desc ribe the symptoms that brought her in she states every time that she was stand she just knew she had to sit back down. She did not feel like her legs were going to give out, she did not feel like the room was spinning. She thinks she may have been a little bit lightheaded Admits that she was not staying as hydrated as she usually does over the last few days Telemetry A-fib in the 70s Review of Systems Review of Systems: All systems reviewed & are unremarkable except as noted in Subjective Physical Exam Physical Exam: General: NAD, VS as above HEENT: Mucous membranes dry Resp: normal respiratory effort, lungs clear to auscultation CV: A-fib, no murmur, Abd: normal bowel sounds, non tender, no hepatosplenomegaly Extremities: Moves all extremities, no edema Neuro: A&O x3, Skin: intact, no lesions noted Results & Data Results & Data Vital Signs (Past 12 Hours) Vital Signs Temp Pulse Pulse Resp BP BP Pulse Ox 08/24/24 15:00 86 08/24/24 11:58 98.2 F 79 18 95/66 L 97 08/24/24 11:51 08/24/24 07:53 98.2 F 83 16 104/67 97 08/24/24 07:13 76 08/24/24 04:00 98.1 F 82 18 102/64 99 O2 Del Method 08/24/24 15:00 08/24/24 11:58 Room Air 08/24/24 11:51 Room Air 08/24/24 07:53 Room Air 08/24/24 07:13 08/24/24 04:00 Room Air Laboratory Results CBC and chemistry reviewed Magnesium reviewed UA reviewed Iron studies reviewed Diagnostic Findings head CT reviewed Chest x-ray reviewed Echocardiogram reviewed PG Care Time/CCT Total # of Minutes Spent Total Time Spent with Patient: Total time spent is greater than 50% in coordination of care (as documented) at patient's floor/unit and/or counseling patient: Coding Level of Care Code 02409 SUB INP/OBS CARE 3/50MIN Diagnoses Dyspnea on exertion R06.09 Aortic stenosis I35.0 Generalized weakness R53.1 Diabetes mellitus E11.9
[2024-08-24 20:32] VITALS: TEMP 98.1
[2024-08-25 03:24] VITALS: RESP 16
[2024-08-25 07:56] VITALS: PULSE 83; O2SAT 97
[2024-08-25] MEDS: METOPROLOL SUCC 50MG EXT REL TAB PO SCH (09:13)
--- NOTE | 2024-08-25 09:16 | Discharge Summary ---
Discharge Summary Date of Service August 25, 2024 Principal Dx & Hospital Course #1 = Principal Diagnosis (1) Dyspnea on exertion: (2) Aortic stenosis: (3) Generalized weakness: (4) Diabetes mellitus: Plan #Generalized weakness/aortic stenosis/PARSONS/ orthostatic hypotension Mamie is a pleasant 74-year-old female who presented for generalized weakness and new onset PARSONS x 1 week. Reports every time she stood she felt like she needed to sit back down, getting lightheaded. Initial lab work showing unremarkable head CT, chest x-ray without evidence of acute process or CHF, no oxygen requirment, no electrolyte abnormalities and mild anemia. Known severe aortic stenosis, as seen on echocardiogram on 07/31/2024; LVEF 55- 60% echo repeated this admission is unchanged. Had positive orthostatic vital signs that improved with IVFs. Decrease losartan to 25mg. LINNETTE hose provided. PT/OT - recommend return home, her symptoms have resolved and she is stable to do so. #Anemia Chronic; TSH/folate/B12 within normal limits. Iron studies consistent with iron deficiency anemia. Given Venofer x 1, continue iron supplement 3 times per week #Diabetes Last A1c at 8.0% 07/2024. Resume home medications at discharge. #Hypomagnesemia Mild; magnesium 1.5 on arrival, replaced IV, mag now replete. HLDpravastatin GERDcontinue PPI Anxiety with depressionfluoxetine PAFEliquis Disposition: discharge to home today Notes For Next Care Provider Medication Changes From Visit losrartan decreased iron supplemented added Admission HPI Per Admitting Provider Mamie is a 74-year-old female with PMH of HLD, HTN, diabetes, atrial fibrillation (on apixaban), and urinary incontinence. She presented via EMS on 08/23 for SOB x 1 week. Recent [place] hospitalizations: from 07/21 - 07/31 for hypercalcemia and bronchoscopy; from 08/02 08/06 for multifocal pneumonia; discharged on 7-day course of cefdinir and doxycycline, as well as prednisone. Patient reports she felt fine when she left the hospital. Then, over the past week, she has gradually gone from bad to worse. She endorses generalized weakness and new onset PARSONS. She can barely stand and make it from her recliner to the kitchen without losing her energy. No prior history of CHF to her knowledge. She also reports she has no energy to do dishes, which is new for her. She was driving upon discharge, but over the past week has felt too weak to drive at home. No prior issues with her thyroid. Patient took her regular morning medicine today; no recent medication changes after leaving the hospital. Patient did take her Lantus 15 units this morning. Patient uses a cane to ambulate on occasion. She was hospitalized for a fall in July, but denies any falls since leaving the hospital. No supple oxygen at baseline or CPAP at night. No sick contacts. No prior history of DVT/PE; she is on Eliquis for A- fib and reports good compliance. She denies any rashes or tick bites. Patient denies smoking, tobacco use, recent alcohol use. Patient's vital stable at time admission. ED course: Magnesium sulfate 1 g IV ROS: Patient endorses new onset PARSONS x 1 week, and generalized weakness. Patient denies fever, chills, night-sweats, dizziness, lightheadedness, chest pain, chest palpitations, pleuritic CP, cough, abdominal pain, N/V/D, changes in urinary/bowel habits, burning with urination, blood in the urine/stool, or numbness/tingling in the arms or legs. Discharge Exam General: NAD, VS as above , sitting up on the side of the bed, plesant Resp: normal respiratory effort, lungs clear to auscultation CV: RRR, + blowing murmur, Abd: normal bowel sounds, non tender, no hepatosplenomegaly Extremities: Moves all extremities, no edema, linnette hose in place Neuro: A&O x3, Skin: intact, no lesions noted Discharge Plan Discharge Items Patient Disposition: Home - Self-Care Reason For Visit: GENERALIZED WEAKNESS Discharge Diagnosis: Orthostatic hypotension Activity: Resume your previous activity Weightbearing: Full weightbearing Non-emergency contact: Primary Care Provider Call non-emergency contact if: you have any medication questions, your symptoms worsen and your temperature is above 101 Follow-up/Referrals: Valentina Price DO [Primary Care Provider] - (follow up within one week ) Diet: Carb Consistent or DM2 Addtl Attending Provider Instructions: Mrs. Way, You were hospitalized after having lightheadedness and dizziness with standing, this was likely caused by dehydration worsened by your aortic stenosis. You had orthostatic hypotension which means your blood pressures drop with changing positions. This improved with IV fluids. It is very important that you are staying hydrated to prevent this from happening in the future. If this continues to happen even with adequate hydration, please discuss with Dr. Fabian about changing your medications. Your losartan dose has been decreased. You were also fond to be iron deficient, received one dose of IV iron and should start an over the counter iron supplement 3 times a week. Recommendations: * Ensure adequate hydration - 2 Liters of liquids of day is recommended. * If you are noticing more lightheadedness, please lay down and hydrate. You can also drink electrolyte drinks like powerade, Gatorade, Pedialyte, etc. * If you know you are going to be standing for long periods of time per day compression stocking can be helpful to help with blood return. * Losartan decreased to 25mg once a day. * Do not change your salt intake * Please purchase an over the counter iron supplement, any brand is fine, the bottle will say 65 or 325 and they are the same. Take this three times a week. * Follow up with your PCP in one week Activity: You can do normal everyday activities as your body allows. Take rest breaks if you feel tired. Do not overexert. Stop activity if you have pain, shortness of breath or feel dizzy. Follow-up appointments: Make an appointment with your primary care physician within one week of discharge. A copy of this summary will be sent to them. Every time you see your primary care physician, or any other doctor, bring your medication list, and a list of questions. CONTACT YOUR PRIMARY CARE PROVIDER if you experience any of the following: Shortness of breath or difficulty breathing Fevers or chills Feeling tired with normal activity or experiencing dizziness or fainting Difficulty following your treatment plan, or difficulty taking medications CALL 911 OR GO TO THE EMERGENCY DEPARTMENT if you experience any of the following: Severe abdominal pain or nausea/vomiting Severe chest pain, or chest pain that radiates (moves) to your jaw or arm Sudden, severe shortness of breath or difficulty breathing Thank you for allowing us to participate in your care. Pending Studies at Discharge: No Stand-Alone Forms: My [facility] Medications and DC Order Prescriptions: New losartan 25 mg tablet 25 mg PO DAILY Qty: 30 0RF ferrous sulfate 325 mg (65 mg iron) Tablet,Delayed Release (Dr/Ec) 325 mg PO MoWeFr@0900 Qty: 30 0RF Continued (DME) pen needle, diabetic [BD Ultra-Fine Isha Pen Needle] 32 gauge x 5/32" needle See Rx Instructions .Route Qty: 100 2RF Rx Instructions: Use once daily to administer insulin DX CODE E11.9 pravastatin 20 mg tablet 20 mg PO DAILY Qty: 90 3RF omeprazole 20 mg capsule,delayed release(DR/EC) 20 mg PO DAILY Qty: 90 3RF cholecalciferol (vitamin D3) 10 mcg (400 unit) capsule See Rx Instructions PO DAILY Qty: 30 0RF Rx Instructions: Pt is unsure of dose. (DME) FreeStyle Darell 14 Day [place] Misc See Rx Instructions .Route Qty: 1 0RF Rx Instructions: Testing BS TID (DME) FreeStyle Darell 14 Day Sensor Kit See Rx Instructions .Route Qty: 1 0RF Rx Instructions: Testing BS TID fluoxetine 40 mg capsule 40 mg PO DAILY Qty: 90 3RF metoprolol succinate 50 mg tablet extended release 24 hr 75 mg PO DAILY 90 Days Qty: 135 3RF glipizide 10 mg tablet extended release 24hr 10 mg PO DAILY Qty: 90 3RF Eliquis 5 mg tablet 5 mg PO BID Qty: 180 3RF Hold Instructions: Resume on 08/05/24. (DME) FreeStyle Darell 3 Plus Sensor Device See Rx Instructions .Route Rx Instructions: As directed albuterol sulfate 90 mcg/actuation HFA aerosol inhaler 2 inh inhalation Q6H PRN (Reason: shortness of breath or wheezing) Qty: 8.5 0RF insulin glargine [Lantus Solostar U-100 Insulin] 100 unit/mL (3 mL) insulin pen 15 unit subcut QAM Discontinued losartan 50 mg tablet 50 mg PO DAILY Qty: 90 3RF Discharge Orders: Discharge Order (Routine); Ordered 08/25/24 Ordered By: Iliana Fox/Other Patient Handouts: Orthostatic Hypotension Admission Data Admit Date/Time: 08/23/24 18:40 Attending Provider: Caio Beckett Admit Provider: Jesus Ledesma Primary Care Provider: Valentina Price Other Providers: Jesus Ledesma Hospital Stay Data Consultations 08/23/24 17:48 ED Decision to Admit Stat Diagnostic Imagining Performed Chest X-Ray 08/23/24 13:19 XR chest 1V portable CLINICAL HISTORY: Dyspnea COMPARISON STUDY: 08/02/2024 FINDINGS: Compared with the prior study, the left basilar infiltrate has resolved. The present examination demonstrates no acute cardiopulmonary process. There is no airspace opacity, pleural effusion, or pneumothorax. The heart and pulmonary vascularity are unremarkable for technique. IMPRESSION: No acute process ACT 112: Negative or not required by law. Electronically signed by: Mariya Berry M.D. 08/23/2024 1:[address] 08/23/24 19:00 CT HEAD: HISTORY: Headaches TECHNIQUE: Noncontrast CT examination of the head is performed. Coronal and sagittal reformats were created. COMPARISON: 4 weeks brain MRI July 22, 2024. FINDINGS: There is no evidence of intracranial hemorrhage, focal mass effect or midline shift. No fluid collection is identified. The ventricular system is midline and symmetric. No evidence of acute major vascular territory infarction. No calvarial fracture is identified. The paranasal sinuses and mastoids are well aerated. IMPRESSION: No acute intracranial process identified. Electronically signed by Julio Awad 08-23-2024 7:31 PM Pending Results Patient Have Any Pending Studies at Discharge: No Discharge Instructions Given to Patient (Per Discharging Provider) Mrs. Way, You were hospitalized after having lightheadedness and dizziness with standing, this was likely caused by dehydration worsened by your aortic stenosis. You had orthostatic hypotension which means your blood pressures drop with changing positions. This improved with IV fluids. It is very important that you are staying hydrated to prevent this from happe ermias in the future. If this continues to happen even with adequate hydration, please discuss with Dr. Fabian about changing your medications. Your losartan dose has been decreased. You were also fond to be iron deficient, received one dose of IV iron and should start an over the counter iron supplement 3 times a week. Recommendations: * Ensure adequate hydration - 2 Liters of liquids of day is recommended. * If you are noticing more lightheadedness, please lay down and hydrate. You can also drink electrolyte drinks like powerade, Gatorade, Pedialyte, etc. * If you know you are going to be standing for long periods of time per day compression stocking can be helpful to help with blood return. * Losartan decreased to 25mg once a day. * Do not change your salt intake * Please purchase an over the counter iron supplement, any brand is fine, the bottle will say 65 or 325 and they are the same. Take this three times a week. * Follow up with your PCP in one week Activity: You can do normal everyday activities as your body allows. Take rest breaks if you feel tired. Do not overexert. Stop activity if you have pain, shortness of breath or feel dizzy. Follow-up appointments: Make an appointment with your primary care physician within one week of discharge. A copy of this summary will be sent to them. Every time you see your primary care physician, or any other doctor, bring your medication list, and a list of questions. CONTACT YOUR PRIMARY CARE PROVIDER if you experience any of the following: Shortness of breath or difficulty breathing Fevers or chills Feeling tired with normal activity or experiencing dizziness or fainting Difficulty following your treatment plan, or difficulty taking medications CALL 911 OR GO TO THE EMERGENCY DEPARTMENT if you experience any of the following: Severe abdominal pain or nausea/vomiting Severe chest pain, or chest pain that radiates (moves) to your jaw or arm Sudden, severe shortness of breath or difficulty breathing Thank you for allowing us to participate in your care. Total Time Total Time Spent Total Time Spent (In Minutes): Time spent day of discharge 34 minutes including direct patient care, medication reconciliation, documentation, review of labs and images, and coordination of care. Coding Level of Care Code 72254 INP/OBS DISCH >30 MIN Diagnoses Dyspnea on exertion R06.09 Aortic stenosis I35.0 Generalized weakness R53.1 Diabetes mellitus E11.9
[2024-08-25 09:57] VITALS: BP 110/72
[2024-08-26] MEDS ORDERED: FERROUS SULFATE 325 MG TAB PO SCH (09:00)
== END 2024-08-25 10:53 | disposition home or self-care (01) ==
LOC: ED 12:59 → 2N 12:59 → SUATTDRO 18:40 → 2N 20:09